=== PATIENT | female | born 1945 | race Caucasian/White ===

== ENCOUNTER 2019-07-13 08:32 | Outpatient (CLI) | payer MEDICARE, SELFPAY ==
[2019-07-13 09:35] LABS: MALB Creatinine Ratio 91.8 mg/g (0-30); Microalbumin Urine Random 92.6 mg/L
[2019-07-13 09:45] LABS: Alanine Aminotransferase 24 U/L (14-59); Albumin Level 3.7 g/dL (3.4-5.0); Alkaline Phosphatase 90 U/L (46-116); Anion Gap 12.5 mmol/L (7-16); Aspartate Amino Transferase 17 U/L (15-37); Bilirubin,Total 0.9 mg/dL (0.00-1.00); Blood Urea Nitrogen 38 mg/dL (7-18); Calcium 9.5 mg/dL (8.5-10.1); Carbon Dioxide 27 mmol/L (21-32); Chloride 105 mmol/L (98-108); Cholesterol 165 mg/dL (0-200); Estimated Glomerular Filt Rate 34; Free T4 Free Thyroxine 0.88 ng/dL (0.76-1.46); Glucose 318 mg/dL (70-99); HDL Direct 60 mg/dL (40-60); LDL Cholesterol Calculated 91 mg/dL (<130); Osmolality Calculated 311 mOsm/kg (285-295); Potassium 4.5 mmol/L (3.5-5.1); Sodium 140 mmol/L (136-145); Total Protein 7.8 g/dL (6.4-8.2); Triglycerides 68 mg/dL (0-150)
== END 2019-07-13 08:33 | disposition home or self-care (01) ==
LOC: CHSLAB 08:36
PROVIDERS: PCP Family Medicine; Visit Provider Internal Medicine Endocrinology, Diabetes & Metabolism
DX: E04.1 Nontoxic single thyroid nodule (principal); E11.9 Type 2 diabetes mellitus without complications
CPT/HCPCS: 36415; 80053; 80061; 82043; 84439; 84443

== ENCOUNTER 2019-07-14 08:50 | Outpatient (CLI) | payer MEDICARE, SELFPAY ==
--- NOTE | ~2019-07-14 | US_ITS ---
EXAMINATION: US thyroid DATE: 07/14/2019 09:45 INDICATION: Thyroid nodule. TECHNIQUE: Multiple ultrasound images of the thyroid were obtained. COMPARISON: Ultrasound 11/19/2017 FINDINGS: The right thyroid lobe measures 5.6 x 1.6 x 1.7 cm. The left thyroid lobe measures 4.7 x 1.6 x 1.5 c m. In the right thyroid lobe, there is a 15 mm solid, hypoechoic, grnwz-votl-vvqh nodule with ill-de fined margins with macrocalcifications (TI-RADS TR4). In the left thyroid lobe, there is a 7 mm solid , hypoechoic, pekre-niff-nwyc nodule with ill-defined margin and punctate echogenic foci (TR5). In th e left thyroid lobe, there is an 11 mm solid, very hypoechoic, tkwfb-xgib-hzgg nodule with ill-define d margin without echogenic foci (TR4). IMPRESSION: 1. Thyroid nodules. Ultrasound-guided fine-needle aspiration of the 15 mm right thyroid nodule is rec ommended. Reviewed, dictated and finalized at location A. ET COLLECTOR OR USHER IMPRESSION: 1. Thyroid nodules. Ultrasound-guided fine-needle aspiration of the 15 mm right thyroid nodule is recommended.
== END 2019-07-14 08:51 | disposition home or self-care (01) ==
PROVIDERS: PCP Family Medicine; Visit Provider Internal Medicine Endocrinology, Diabetes & Metabolism
DX: E11.9 Type 2 diabetes mellitus without complications (principal); E04.2 Nontoxic multinodular goiter
CPT/HCPCS: 76536

== ENCOUNTER 2019-07-14 08:53 | Outpatient (CLI) | payer MEDICARE, SELFPAY ==
--- NOTE | ~2019-07-14 | US_ITS ---
EXAMINATION: US pelvic complete w TV EXAM DATE: 07/14/2019 09:45 INDICATION: Initial cancer. Hysterectomy. TECHNIQUE: Pelvic transabdominal and transvaginal sonogram was performed. There are multiple graysca le and Doppler images available for interpretation. There is no prior study for comparison. FINDINGS: The uterus and ovaries are not identified. Vaginal cuff is unremarkable. No adnexal masses identified. IMPRESSION: 1. Unremarkable pelvic ultrasound exam. Reviewed, dictated and finalized at location B. PUSHER
== END 2019-07-14 08:54 | disposition home or self-care (01) ==
PROVIDERS: PCP Family Medicine; Visit Provider Obstetrics & Gynecology
DX: Z85.42 Personal history of malignant neoplasm of other parts of uterus (principal)
CPT/HCPCS: 76536; 76830; 76856

== ENCOUNTER 2019-07-25 09:57 | Outpatient (CLI) | payer MEDICARE, SELFPAY ==
--- NOTE | ~2019-07-25 | US_ITS ---
EXAMINATION: US FNA w image guidance DATE: 07/25/2019 11:12 INDICATION: Right thyroid nodule. TECHNIQUE: The procedure and its benefits, risks, and benefits were discussed with the patient. Risks specifical ly discussed included bleeding. The patient verbalized understanding of the risks and agreed to proce ed. The neck was prepped and draped in the usual sterile manner. 1% lidocaine was used for local ane sthesia. 5 passes were made with a 25G needle into the lesion. Appropriate needle location was docu mented with continuous sonographic guidance. There were no immediate complications. The patient unde rstood to call the ordering physician for results after a week and a half and verbalized that underst anding. FINDINGS: Grayscale ultrasound images demonstrate needles advanced into a 15 mm right thyroid nodule for biopsy . IMPRESSION: 1. Ultrasound-guided fine needle aspiration of a right thyroid nodule. Reviewed, dictated and finalized at location A. Y FARMER
== END 2019-07-25 09:58 | disposition home or self-care (01) ==
PROVIDERS: PCP Family Medicine; Visit Provider Internal Medicine Endocrinology, Diabetes & Metabolism
DX: E04.1 Nontoxic single thyroid nodule (principal)
CPT/HCPCS: 10005; 88108; 88173; 88305

== ENCOUNTER 2020-02-09 08:25 | Outpatient (CLI) | payer MEDICARE, SELFPAY ==
[2020-02-09 08:59] LABS: Creatinine Urine 98.59 mg/dL (40-278)
[2020-02-09 09:03] LABS: MALB Creatinine Ratio 330.3 mg/g (0-30); Microalbumin Urine Random 325.7 mg/L
[2020-02-09 09:25] LABS: Anion Gap 9 mmol/L (8-16); Blood Urea Nitrogen 30 mg/dL (7-18); Calcium 8.9 mg/dL (8.5-10.1); Carbon Dioxide 28 mmol/L (21-32); Chloride 106 mmol/L (98-108); Estimated Glomerular Filt Rate 34; Glucose 215 mg/dL (70-99); Osmolality Calculated 308 mOsm/kg (285-295); Potassium 4.4 mmol/L (3.5-5.1); Sodium 143 mmol/L (136-145)
[2020-02-09 09:34] LABS: Cholesterol 161 mg/dL (0-200); Triglycerides 85 mg/dL (0-150)
[2020-02-09 09:35] LABS: HDL Direct 52 mg/dL (40-60); LDL Cholesterol Calculated 92 mg/dL (<130)
== END 2020-02-09 08:26 | disposition home or self-care (01) ==
LOC: CHSLAB 08:27
PROVIDERS: Nurse Practitioner Family; PCP Family Medicine; Visit Provider Internal Medicine Endocrinology, Diabetes & Metabolism
DX: E10.65 Type 1 diabetes mellitus with hyperglycemia (principal); E78.5 Hyperlipidemia, unspecified
CPT/HCPCS: 36415; 80048; 80061; 82043

== ENCOUNTER 2020-11-22 09:57 | Outpatient (CLI) | payer MEDICARE, SELFPAY ==
--- NOTE | ~2020-11-22 | US_ITS ---
EXAMINATION: US thyroid DATE: 11/22/2020 11:00 INDICATION: Evaluate thyroid nodules TECHNIQUE: Multiple ultrasound images of the thyroid were obtained. COMPARISON: 07/14/2019 FINDINGS: The right thyroid lobe measures 5.8 x 1.7 x 1.8 cm. The left thyroid lobe measures 4.1 x 2.5 x 1.2 c m. There are multiple bilateral thyroid nodules. The most significant include an unchanged 1.4 cm wi cookie than tall solid isoechoic nodule with partially smooth, partially ill-defined margins and interna l coarse shadowing calcifications (TI-RADS 4) which was biopsied on 07/25/2019 with pathology read as consistent with benign follicular nodule. A couple small right thyroid nodules including an 8 mm wid er than tall solid hypoechoic nodule with smooth margins and internal echogenic foci (TI-RADS 5, high ly suspicious , FNA if >=1.0 cm, annual followup is >0.5 cm) and a 9 mm wider than tall solid hypoech oic nodule with ill-defined margins and without echogenic foci (TI-RADS 4, moderately suspicious , FN A if >=1.5 cm, annual followup is >=1 cm). In the mid left thyroid lobe there is an additional 1.2 cm wider than tall solid hypoechoic nodule with smooth margins and with internal echogenic focus (TI RA DS 5). 7 mm wider than tall solid very hypoechoic nodule with smooth margins and without echogenic fo ci at the deep left thyroid (TI RADS 4). IMPRESSION: 1. Multinodular goiter. Recommend ultrasound-guided biopsy of the 1.2 cm TI RADS 4 nodule in the mid left thyroid. Reviewed, dictated and finalized at location A. IMPRESSION: 1. Multinodular goiter. Recommend ultrasound-guided biopsy of the 1.2 cm TI RAD S 4 nodule in the mid left thyroid.
== END 2020-11-22 09:58 | disposition home or self-care (01) ==
PROVIDERS: PCP Family Medicine; Visit Provider Internal Medicine Endocrinology, Diabetes & Metabolism
DX: E04.9 Nontoxic goiter, unspecified (principal)
CPT/HCPCS: 76536

== ENCOUNTER 2022-03-05 09:27 | Outpatient (CLI) | payer MEDICARE, SELFPAY ==
[2022-03-05 11:04] LABS: MALB Creatinine Ratio 301.2 mg/g (0-30); Microalbumin Urine Random > 400.0 mg/L
[2022-03-05 11:28] LABS: Anion Gap 8 mmol/L (8-16); Blood Urea Nitrogen 40 mg/dL (7-18); Calcium 8.8 mg/dL (8.5-10.1); Carbon Dioxide 26 mmol/L (21-32); Chloride 113 mmol/L (98-108); Estimated Glomerular Filt Rate 19; Glucose 92 mg/dL (70-99); Osmolality Calculated 313 mOsm/kg (285-295); Sodium 147 mmol/L (136-145)
[2022-03-05 11:29] LABS: Cholesterol 218 mg/dL (0-200); HDL Direct 61 mg/dL (40-60); LDL Cholesterol Calculated 143 mg/dL (<130); Triglycerides 72 mg/dL (0-150); Vitamin B12 460 pg/mL (193-986)
== END 2022-03-05 09:28 | disposition home or self-care (01) ==
LOC: CHSLAB 09:30
PROVIDERS: PCP Internal Medicine Endocrinology, Diabetes & Metabolism; Visit Provider Internal Medicine Endocrinology, Diabetes & Metabolism
DX: E04.1 Nontoxic single thyroid nodule (principal); Z96.41 Presence of insulin pump (external) (internal); E10.65 Type 1 diabetes mellitus with hyperglycemia; E78.5 Hyperlipidemia, unspecified
CPT/HCPCS: 36415; 80048; 80061; 82043; 82607; 84443

== ENCOUNTER 2022-07-22 20:03 | Emergency (ER) | payer MEDICARE, SELFPAY ==
[2022-07-22] VITALS (17 sets, daily range): BP systolic 110–220; BP diastolic 51–110; PULSE 87–128; RESP 19–34; TEMP 36–36.6; O2SAT 98–100
--- NOTE | ~2022-07-22 | CT_ITS ---
EXAMINATION: CT brain wo con DATE: 07/22/2022 22:16 INDICATION: Expressive aphasia, elevated blood sugar, HTN today. . TECHNIQUE: Computed tomography (CT) of the head was performed without intravenous contrast. The mA wa s adjusted according to patient size. Iterative reconstruction technique was employed. The dose-lengt h product was 605.33 mGy-cm. COMPARISON: None. FINDINGS: No acute intracranial hemorrhage or extra-axial fluid collection. No hydrocephalus, mass, or herniation. No acute ischemic infarct. Unremarkable dural venous sinus attenuation. No acute osseous abnormality. The aerated spaces are clear. Mild atrophy and chronic white matter change. Atherosclerotic intracranial calcification. Bilateral b mariaa ganglia calcification. IMPRESSION: No acute intracranial process. Reviewed, dictated and finalized at location K. SCIENTISTS
--- NOTE | ~2022-07-22 | XR_ITS ---
EXAMINATION: XR chest 1V portable Exam Date/Time: 07/22/2022 21:10 JAVA DEVELOPER ARCHITECT HISTORY: Elevated white blood count, HTN, elevated blood sugar today. Comparison: 09/16/2017. RESULT: Lines, tubes, and devices: None. Lungs and pleura: Mild senescent change. Calcified pulmonary granulomas. Otherwise clear. Cardiomediastinal silhouette: Stable. Other: No acute osseous or upper abdominal finding. IMPRESSION: No acute cardiopulmonary process. Reviewed, dictated and finalized at location K. DEVELOPER ARCHITECT
--- NOTE | 2022-07-22 20:07 | ED.AMS ---
HPI - Altered Mental Status General Chief Complaint: Altered Mental Status Stated Complaint: ambulance Time Seen by Provider: 07/22/22 20:07 Source: patient, EMS and RN notes reviewed Mode of arrival: EMS Limitations: no limitations History of Present Illness HPI narrative: patient brought in by EMS call when out for elevated blood sugar. Family states this is how she gets when she has an elevated blood sugar. Patient has garbled speech and then EMS noted a significantly elevated blood pressure with the systolic of 202. Patient does not seem to have any difficulty moving her arms or legs. She does have some difficulty with expressive aphasia. Last known well is unknown. Family does report to the EMS that they had texted her this afternoon seemed to be fine. Again that time is unknown MD complaint: altered mental status and other ( High blood sugar) Onset (ago): unknown Timing confirmed by: family member Severity: moderate Consistency of symptoms: waxing and waning Context: history of similar presentation and diabetes Associated symptoms: denies other symptoms Related Data Home Medications Medication Instructions Recorded Confirmed albuterol sulfate 90 mcg/actuation 1 puff inhalation Q4H PRN 04/05/19 07/23/22 aerosol inhaler (Ventolin HFA) Shortness Of Breath Or Wheezing losartan 100 mg tablet 100 mg PO DAILY 07/23/22 07/23/22 Allergies Allergy/AdvReac Type Severity Reaction Status Date / Time lisinopril Allergy Unknown Cough Verified 07/22/22 20:26 Review of Systems Review of Systems: All systems reviewed & are unremarkable except as noted in HPI and below PMFSH Past Medical History Medical History (Updated 07/24/22 @ 13:08 by Yogi Claros MD) CKD (chronic kidney disease) stage 4, GFR 15-29 ml/min Diabetes mellitus type 1 Hyperlipidemia Hypertension Nontoxic multinodular goiter Surgical History Surgical History History of hysterectomy for cancer (~2014) Family History Family History Mother , Age 86 Breast cancer Uterine cancer Father , Age 47 Acute myocardial infarction Grandparent Parkinson's disease Other Asthma Family history of alcoholism Family history of malignant neoplasm of ovary Family history of mental disorder Social History Social History (Updated 07/23/22 @ 01:17 by Shannan Billings DO) Social History: Patient was an only child. She has 1 daughter. 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 Code status: Full code Surrogate decision maker: Daughter Smoking status: Never smoker Second hand tobacco smoke exposure: No Alcohol intake: current Substance use: never Spiritual care concerns: No Exam Const: General: healthy appearing, no acute distress and alert Nutritional Appearance: well nourished Limitations: other limitations ( expressive aphasia with nonsensical words) HENMT: Head: normal to inspection Ears: external ears normal Face and sinus: normal facial exam Mouth: Yes moist mucous membranes Eyes: Conjunctivae: conjunctivae normal Pupils: Equal, round and reactive pupils present EOM: EOMs intact bilaterally Neck: Neck: normal visual inspection Resp: Effort & Inspection: normal respiratory effort Auscultation: clear to auscultation bilaterally Cardio: Rate: tachycardic Rhythm: regular rhythm GI: GI Palp: Yes Soft to palpation and No Tenderness to palpation present (GI) Auscultation: normal bowel sounds Back/Spine/Pelvis: Cervical Spine: cervical ROM normal Thoracic/Lumbar Spine: thoraco-lumbar ROM normal Skin: General skin exam: normal color Rashes: no rashes Neuro: General: moves all extremities and no focal motor deficits Speech: Abnormal speech present garbled Details: expressive aphasia Other: when asked to follow commands patient just says okay Extrem: General: normal to inspection and
[2022-07-22 20:11] LABS: Glucose Point of Care > 450 mg/dl (65-105)
[2022-07-22] MEDS: INSULIN HUMAN REGULAR (*BKC) 1,000 UNITS/10 ML VIAL 10 UNITS IV PUSH (20:13)
[2022-07-22] MEDS: LACTATED RINGERS 1,000 ML 999 ML IV CONT ×3 (20:14→22:36)
[2022-07-22 20:22] LABS: Basophils Absolute Auto 0.04 K/mm3 (0.00-0.10); Basophils Percent Auto 0.3 % (0.0-1.0); Hematocrit 30.9 % (35.0-42.0); Hemoglobin 9.2 g/dL (11.7-13.8); Immature Granulocyte Absolute 0.39 K/mm3 (0.00-0.00); Immature Granulocyte Percent A 2.9 % (0.0-0.0); Lymphocytes Absolute Auto 0.71 K/mm3 (1.10-4.50); Lymphocytes Percent Auto 5.3 % (18.0-42.0); Mean Corpuscular HGB Conc 29.8 g/dL (32.0-36.0); Mean Corpuscular Volume 97.5 fL (78.0-102.0); Neutrophils Absolute Auto 11.9 K/mm3 (1.7-7.2); Neutrophils Percent Auto 88.5 % (50.0-70.0); Platelet Count Result 344 K/mm3 (150-420); Red Blood Count 3.17 M/mm3 (4.20-5.40); Red Cell Distribution Width 14.3 % (11.6-14.4); White Blood Count 13.4 K/mm3 (4.8-10.8)
--- NOTE | 2022-07-22 20:35 | PC.NURSE ---
Pt is restless and requiring sitter at side to keep from pulling at wires. Pt remains unable to follow commands or comprehend instructions at this time, BP remains elevated, order obtained for Labetalol.
[2022-07-22] MEDS: LABETALOL HCL INJ 100 MG/20 ML VIAL 10 MG IV PUSH (20:46)
[2022-07-22 20:48] LABS: Alanine Aminotransferase 15 U/L (14-59); Albumin Level 2.7 g/dL (3.4-5.0); Alkaline Phosphatase 110 U/L (46-116); Aspartate Amino Transferase 13 U/L (15-37); Bilirubin,Total 0.4 mg/dL (0.00-1.00); Blood Urea Nitrogen 101 mg/dL (7-18); CRP 2.9 mg/dL (0.0-0.9); Chloride 95 mmol/L (98-108); Estimated Glomerular Filt Rate 6; Magnesium 2.7 mg/dL (1.8-2.4); Sodium 134 mmol/L (136-145); Total Protein 7.3 g/dL (6.4-8.2)
[2022-07-22 20:51] LABS: Base Excess ABG -29.9 mmol/L (0-2); HCO3 ABG 1.9 mmol/L (23-29); Oxygen Content ABG 13.4 %vol (16.0-22.0); Oxygen Saturation ABG 97.9 % (95-97); Oxyhemoglobin 97.1 % (94-100); PO2 ABG 176.8 mmHg (75-85); Total Hemoglobin 9.5 g/dL (12.0-18.0)
[2022-07-22 20:58] LABS: Device ROOM AIR; Modified Allen's Test Pass; PCO2 ABG 11.3 mmHg (35-45); Site Drawn LEFT BRACHIAL; pH ABG 6.85 (7.35-7.45)
[2022-07-22 20:59] LABS: Carbon Dioxide < 5 mmol/L (21-32); Estimated CRCL calculation 8 ml/min; Osmolality Calculated 348 mOsm/kg (285-295); Potassium 6.7 mmol/L (3.5-5.1)
[2022-07-22] MEDS: INSULIN REG 100 UNITS/100 ML 100 UNITS/100 ML BAG IV CONT (21:03)
[2022-07-22 21:10] LABS: Glucose > 800 mg/dL (70-99)
--- NOTE | 2022-07-22 21:10 | PC.NURSE ---
Pt pulled out IV site per EMS and new site inserted per Binta Wu RN
[2022-07-22] MEDS: INSULIN REG 100 UNITS/100 ML 100 UNITS/100 ML BAG 22 UNITS IV CONT (21:12)
[2022-07-22] MEDS: SODIUM BICARBONATE 8.4% 50 MEQ/50 ML SYRINGE 100 MEQ IV PUSH (21:20)
[2022-07-22 21:26] LABS: Glucose Point of Care > 450 mg/dl (65-105)
[2022-07-22 22:35] LABS: Add Urine Microscopic? YES; Appearance Urine Clear (Clear); Bilirubin Urine 1+ (Negative); Blood Urine 2+ (Negative); Color Urine Light Yellow (Yellow); Glucose Urine UA 3+ (Negative); Ketones Urine 2+ (Negative); Leukocyte Esterase Ur Negative LEU/UL (Negative); Nitrate Urine Negative (Negative); Protein Urine 2+ (Negative); Specific Grav Ur >= 1.030 (1.010-1.020); Urobilinogen Urine 0.2 mg/dL (0.2-1.0); pH Urine 5.5 (5.0-8.0)
[2022-07-22 22:42] LABS: Amorphous Sediment Urine Few; Bacteria Urine Trace /hpf; Squamous Epithelial Cell Urine Rare /hpf (Few); WBC Urine 0-3 /hpf (0-3)
[2022-07-22 22:50] LABS: Anion Gap 33 mmol/L (8-16); Blood Urea Nitrogen 100 mg/dL (7-18); Calcium 8.4 mg/dL (8.5-10.1); Carbon Dioxide 8 mmol/L (21-32); Chloride 102 mmol/L (98-108); Estimated CRCL calculation 9 ml/min; Estimated Glomerular Filt Rate 7; Potassium 4.1 mmol/L (3.5-5.1); Sodium 143 mmol/L (136-145)
[2022-07-22 22:58] LABS: Glucose 787 mg/dL (70-99); Osmolality Calculated 365 mOsm/kg (285-295)
[2022-07-22] MEDS: LACTATED RINGERS 1,000 ML 200 ML IV CONT (23:26)
--- NOTE | 2022-07-22 23:30 | PC.NURSE ---
Call back from marla Silva bed assignment. Pt will go to ICU 7.
[2022-07-22 23:37] LABS: Base Excess ABG -16.6 mmol/L (0-2); HCO3 ABG 6.9 mmol/L (23-29); Oxygen Content ABG 11.6 %vol (16.0-22.0); Oxygen Saturation ABG 95.7 % (95-97); Oxyhemoglobin 93.5 % (94-100); PO2 ABG 86.3 mmHg (75-85); Total Hemoglobin 8.7 g/dL (12.0-18.0); pH ABG 7.35 (7.35-7.45)
[2022-07-22 23:38] LABS: SARS-CoV-2 Ag Negative (Negative)
[2022-07-22 23:39] LABS: Device ROOM AIR; Modified Allen's Test Pass; PCO2 ABG 12.8 mmHg (35-45); Site Drawn LEFT BRACHIAL
--- NOTE | 2022-07-22 23:52 | PC.NURSE ---
Report called to NIKUNJ Pinto and Dereck and paged [facility] for transfer to [place] ICU 7.
[2022-07-22 23:53] LABS: Reflex Lactic Acid Yes or No Add Lactic
[2022-07-22 23:58] LABS: Lactic Acid Reflex 8.6 mmol/L (0.4-2.0)
--- NOTE | 2022-07-23 | PC.NURSE ---
Per EMS [facility] can transfer pt c insulin gtt infusing, order obtained from ERP Dr Cline to continue gtt at 14Units/Hr (14ml/hr) on transfer to [place].
--- NOTE | 2022-07-23 00:07 | PC.NURSE ---
Pt transferred to EMS cot s incident. Pt is slightly more alert and able to answer some questions, still having some confusion present. VSS, IVF LR running at 200ml/hr and insulin gtt infusing as per protocol on transfer.
--- NOTE | 2022-07-29 12:38 | PC.NURSE ---
FINAL BLOOD CULTURE RESULT X 1 NO GROWTH AFTER 5 DAYS. NO ACTION NEEDED.
== END 2022-07-23 00:09 | disposition short-term general hospital (02) ==
PROVIDERS: Emergency Provider Emergency Medicine; PCP Obstetrics & Gynecology
DX: E10.10 Type 1 diabetes mellitus with ketoacidosis without coma (principal); I12.9 Hypertensive chronic kidney disease with stage 1 through stage 4 chronic kidney disease, or unspecified chronic kidney disease; E10.22 Type 1 diabetes mellitus with diabetic chronic kidney disease; N18.30 Chronic kidney disease, stage 3 unspecified; E78.5 Hyperlipidemia, unspecified; Z20.822 Contact with and (suspected) exposure to COVID-19
CPT/HCPCS: 36415; 36600; 70450; 71045; 80048; 80053; 81001; 82805; 82948; 83605; 83735; 85025; 86140; 87040; 87426; 96361; 96365; 96366; 96375; 96376; 99291; C9803; J1815; J7120

== ENCOUNTER 2022-07-23 00:52 | Inpatient (IN) | payer MEDICARE, SELFPAY ==
[2022-07-23] VITALS (18 sets, daily range): BP systolic 152–188; BP diastolic 60–84; PULSE 77–103; RESP 15–21; TEMP 36.4–37.1; O2SAT 98–100; BMI 21.0; BMI 21.4
--- NOTE | ~2022-07-23 | US_ITS ---
EXAMINATION: US carotid duplex BI DATE: 07/24/2022 12:48 INDICATION: New stroke. Cerebral atherosclerosis. TECHNIQUE: Grayscale, color Doppler, and pulsed Doppler images of the cervical carotid arteries were obtained. The degree of vessel stenosis is placed in one of the following categories: normal, <50%, 5 0-69%, >=70% but less than near-occlusion, near-occlusion, or total occlusion. Note that percent sten osis relative to normal distal artery lumen diameter is indirectly measured from velocity measurement s as described by Chin, et al. Radiology 2003; 229:340-346. COMPARISON: None. FINDINGS: RIGHT: The right common carotid artery (CCA) peak systolic velocity (PSV) is 115 cm/s. The right internal ca rotid artery (ICA) PSV is 122 cm/s. The right ICA end-diastolic velocity (EDV) is 25 cm/s. The right ICA/CCA PSV ratio is 1.1. Grayscale and color Doppler images yield an estimate of <50% diameter reduc tion from plaque in the ICA. The external carotid artery (ECA) PSV is 125 cm/s. There is antegrade fl ow in the right vertebral artery. LEFT: The left CCA PSV is 121 cm/s. The left ICA PSV is 122 cm/s. The left ICA EDV is 19 cm/s. The left ICA /CCA PSV ratio is 1.0. Grayscale and color Doppler images yield an estimate of <50% diameter reductio n from plaque in the ICA. The ECA PSV is 176 cm/s. There is antegrade flow in the left vertebral araceli ry. IMPRESSION: 1. <50% stenosis in the right internal carotid artery. 2. <50% stenosis in the left internal carotid artery. Reviewed, dictated and finalized at location A. MASTER CERTIFIED RV TECHNICIAN
--- NOTE | ~2022-07-23 | CT_ITS ---
Non-contrast CT scan of the Abdomen and Pelvis Clinical indication: Abdominal guarding Technique: 5 mm axial scans were obtained through the abdomen and pelvis without intravenous or oral contrast. Dose reduction technique was used on this scan by utilizing automated exposure control and iterative reconstruction technique. The dose-length product (DLP) was 454.61 mGy-cm. Findings: Images through the lung bases reveal no abnormalities. The liver, kidneys, pancreas, gallbladder, and adrenals appear normal. Calcified splenic granulomas n oted. There is no aortic aneurysm. There is no evidence of bowel obstruction. Images through the pelvis were performed. There is no evidence of ascites or lymphadenopathy. Urinary bladder collapsed around a Verdin catheter. Patient is probably post hysterectomy. No pelvic mass mo ntified. Impression: No significant abnormality seen. Reviewed, dictated and finalized at [facility]. ION PHOTOGRAPHER Impression: No significant abnormality seen.
--- NOTE | ~2022-07-23 | US_ITS ---
US renal BI 07/23/2022 08:59 Procedure: Realtime transabdominal ultrasound of the kidneys and bladder. Indication: Acute renal atrophy. Chronic kidney disease. Comparison: No prior studies for comparison. Findings: Renal echotexture is normal bilaterally without hydronephrosis, contour deforming mass or r enal calculus. There is a left renal cyst measuring 1.2 cm. The right kidney measures 9 cm and left k idney measures 8.9 cm. Bladder is decompressed by Verdin catheter. Impression: 1: Left renal cyst measuring 1.2 cm. Reviewed, dictated and finalized at location B. F GAUGER Impression: 1: Left renal cyst measuring 1.2 cm.
--- NOTE | ~2022-07-23 | MR_ITS ---
MRI of the brain Clinical History: Confusion Technique: Axial and sagittal T1-weighted images were acquired. These were followed by axial T2-weigh liat, diffusion weighted, gradient, and FLAIR images. Findings: There is a fairly extensive restricted diffusion involving the posterior left temporal lobe , compatible with acute infarct. No intracranial hemorrhage identified. Small chronic lacunar infarct noted in the right basal ganglia. There are mild chronic white matter changes in the periventricular white matter bilaterally. Ventricles and subarachnoid spaces are unremarkable. Orbits are unremarkable. Paranasal sinuses and m astoid air cells are clear. Possible cut off of the proximal left posterior cerebral artery. Sagittal midline structures are intact. IMPRESSION: Large acute infarct involving the posterior left temporal lobe, with possible cutoff of the left post erior cerebral artery. Minimal chronic white matter changes. Case discussed with Dr. Pichardo at the time of this reading. Reviewed, dictated and finalized at location M. MAKING FINISHER IMPRESSION: Large acute infarct involving the posterior left temporal lobe, with possible c utoff of the left posterior cerebral artery. Minimal chronic white matter changes. Case discussed with Dr. Pichardo at the time of this reading.
--- NOTE | 2022-07-23 00:39 | PM.IMHP ---
H&P: HPI History of Present Illness Date/Time: 07/23/22 00:39 Chief Complaint: Altered mental status Narrative: 76-year-old female with a past medical history of type 1 diabetes mellitus on insulin pump, essential hypertension and chronic kidney disease who presented to the ER at [place] due to altered mental status and high blood sugar readings. Source of information comes from past medical records and ER records. The patient is altered and confused and unable to provide history. Evidently the patient had been talking normal to her family on the phone in the early afternoon. A couple of hours later she was not responding to their text messages. They went to check on her and found her with garbled speech and unable to follow commands. She had several syringes around her at looks like she was either trying to give herself insulin or may be feel her insulin pump. The patient did not have her pump on when she arrived to the outside ER. She arrived to the ER via EMS. On arrival to the ER her glucose on BMP was greater than 800 after couple of hours of insulin and almost 3 L of fluid the patient's glucose came down to 787. Her initial ABG demonstrated pH of 6.85.. She received a total of 3 L of LR at the outside facility 10 units of IV insulin, was placed on an insulin drip and 2 amps of bicarb. Approximately 3 hours later her ABG demonstrated pH of 7.35. Her initial BMP had a serum bicarb less than 5 repeat BMP bicarb was 8. She was initially hyperkalemic with a potassium of 6.7 but came down to 4.1. Her BUN was 101 and creatinine was 6.39 up from her baseline of 2.5. Her lactic acid was markedly elevated at 9 with a repeat that only improved 8.6. The patient had tested positive for COVID 8 days ago. She was satting 100% on room air. On initial arrival to outside ER patient's blood pressures were 210/100. The patient received 1 dose of IV labetalol 10 mg and repeat blood pressures were in the low 100 systolic. Patient's blood pressures are within target range currently will continue to monitor. On arrival to our ICU the patient was lying in bed in no acute distress. However when he is asked the patient her last name she initially did not answer. When I asked her again what her name was she gave near full name. Then when I asked her every other orientation questions she continued to tell me her 1st and last name. She was not following commands at the time of my evaluation but a few hours later patient was following some commands for nursing staff but still was only giving one-word answers. At the time of my evaluation the patient was grimacing when I palpated her abdomen. She seemed to have some involuntary guarding. Subsequently she went for a stat CT of the abdomen and pelvis. Unfortunately we could not use contrast due to the patient's acute on chronic kidney injury. So on limited CT of the abdomen pelvis was negative for any significant acute process. Stomach was under distended which could be consistent with gastritis. Review of Systems Review of Systems: ROS unobtainable: Yes unobtainable due to mental status [facility] Past Medical History Medical History (Updated 07/23/22 @ 04:26 by Shannan Billings DO) CKD (chronic kidney disease) stage 4, GFR 15-29 ml/min Diabetes mellitus type 1 Hyperlipidemia Hypertension Nontoxic multinodular goiter Surgical History Surgical History History of hysterectomy for cancer (~2015) Family History Family History (Updated 07/23/22 @ 01:13 by Shannan Billings DO) Mother , Age 86 Breast cancer Uterine cancer Father , Age 47 Acute myocardial infarction Grandparent Parkinson's disease Other Asthma Family history of alcoholism Family history of malignant neoplasm of ovary Family history of mental disorder Social History Social History (Updated 07/23/22 @ 01:17 by Shannan Billings DO) Social History
[2022-07-23 00:57] LABS: Glucose Point of Care 432 mg/dl (65-105)
[2022-07-23] MEDS: INSULIN HUMAN REGULAR (*BKC) 100 UNITS in SODIUM CHLORIDE 0.9% IV 99 ML 7.4 UNITS IV CONT (01:00)
[2022-07-23] MEDS: SODIUM CHLORIDE 0.9% IV 1,000 ML 150 ML IV CONT (01:17)
--- NOTE | 2022-07-23 01:26 | ADMGEN ---
This patient, Dalila Redd, was admitted to Intensive Care Unit-7. Patient/family oriented to hospital policies and general routines including ID bracelet, bed and alarms, visiting hours, pain management, procedures, bathroom and other care routines, personal items, smoking policy, room service/diet, and visiting hours. Information on how to activate the Rapid Response Team has been discussed. Patient/Family are encouraged to report perceived risks to care and to ask questions if they do not understand what they are told or what they should do.
[2022-07-23] MEDS: hydrALAZINE HCL 20 MG/ML VIAL 10 MG IV PUSH ×3 (01:46→11:00)
[2022-07-23 01:49] LABS: Appearance Urine Clear (Clear); Bilirubin Urine 2+ (Negative); Blood Urine 2+ (Negative); Glucose Urine UA 3+ mg/dL (Negative); Ketones Urine 2+ mg/dL (Negative); Leukocyte Esterase Ur Negative LEU/UL (NEGATIVE); Nitrate Urine Negative (Negative); Protein Urine 3+ mg/dL (Negative); Specific Grav Ur 1.015 (1.001-1.035); Urobilinogen Urine 0.2 mg/dL (<2.0)
[2022-07-23 01:55] LABS: Mucus Urine Rare /lpf; RBC Urine 0-2 /hpf (0-2); Squamous Epithelial Cell Urine Rare /hpf (Few)
[2022-07-23 01:56] LABS: Add Urine Microscopic? YES; Color Urine Light Yellow (Yellow)
[2022-07-23] MEDS: SODIUM CHLORIDE 0.9% IV 1,000 ML 500 ML IVPB (02:06)
[2022-07-23 02:09] LABS: Glucose Point of Care 347 mg/dl (65-105)
[2022-07-23 02:52] LABS: Anion Gap 15 mmol/L (8-16); Blood Urea Nitrogen 80 mg/dL (7-17); Calcium 8.3 mg/dL (8.4-10.2); Carbon Dioxide 17 mmol/L (22-30); Chloride 112 mmol/L (98-107); Estimated CRCL calculation 8 ml/min; Estimated Glomerular Filt Rate 9; Glucose 315 mg/dL (65-110); Lipase 1403 U/L (23-300); Phosphorus 2.8 mg/dL (2.5-4.5); Potassium 3.5 mmol/L (3.4-5.0); Sodium 144 mmol/L (137-145)
[2022-07-23 02:55] LABS: Hemoglobin A1C 8.8 % (<5.7)
[2022-07-23 03:04] LABS: Lactic Acid Reflex 6.4 mmol/L (0.7-2.0)
[2022-07-23 03:06] LABS: Glucose Point of Care 298 mg/dl (65-105)
[2022-07-23 04:05] LABS: Glucose Point of Care 271 mg/dl (65-105)
[2022-07-23] MEDS: METOPROLOL TARTRATE INJ 5 MG/5 ML VIAL IV PUSH ×2 (04:31→09:17)
[2022-07-23] MEDS: KCL 20 MEQ/D5/0.45% SOD CHL 1,000 ML 150 ML IV CONT (05:06)
[2022-07-23 05:10] LABS: Glucose Point of Care 193 mg/dl (65-105)
[2022-07-23] MEDS: MORPHINE SULFATE (*CRX) 2 MG/ML INJ IV PUSH (05:16)
[2022-07-23] MEDS: KCL 20 MEQ/SW 100 ML 50 MEQ IVPB ×2 (05:32→07:42)
[2022-07-23 06:12] LABS: Glucose Point of Care 161 mg/dl (65-105)
[2022-07-23 07:04] LABS: Glucose Point of Care 134 mg/dl (65-105)
[2022-07-23 07:15] LABS: Basophils Percent Auto 0.1 % (0.2-1.2); Hematocrit 21.3 % (37.0-47.0); Hemoglobin 7.4 g/dL (12.0-15.0); Immature Granulocyte Absolute 0.06 K/mm3 (0.00-0.031); Immature Granulocyte Percent A 0.8 % (0-0.5); Lymphocytes Percent Auto 3.9 % (18.3-44.2); Mean Corpuscular HGB Conc 34.7 g/dl (32-36); Mean Corpuscular Hemoglobin 28.9 pg (26-34); Mean Corpuscular Volume 83.2 fl (80-100); Mean Platelet Volume 9.9 fl (7.4-10.4); Monocytes Absolute Auto 0.6 K/mm3 (0.1-0.6); Monocytes Percent Auto 7.7 % (2.6-8.5); Neutrophils Absolute Auto 6.8 K/mm3 (1.3-6.7); Neutrophils Percent Auto 87.5 % (45.5-73.1); Platelet Count Result 137 k/mm3 (150-375); Red Blood Count 2.56 M/mm3 (4.2-5.4); White Blood Count 7.8 K/mm3 (4.5-10.0)
[2022-07-23 07:25] LABS: Anion Gap 7 mmol/L (8-16); Blood Urea Nitrogen 75 mg/dL (7-17); Calcium 7.9 mg/dL (8.4-10.2); Carbon Dioxide 21 mmol/L (22-30); Chloride 116 mmol/L (98-107); Estimated CRCL calculation 9 ml/min; Estimated Glomerular Filt Rate 10; Glucose 143 mg/dL (65-110); Lactic Acid Reflex 2.7 mmol/L (0.7-2.0); Potassium 3.4 mmol/L (3.4-5.0); Sodium 144 mmol/L (137-145)
[2022-07-23 08:03] LABS: Glucose Point of Care 141 mg/dl (65-105)
--- NOTE | 2022-07-23 08:08 | WPDCNINT ---
Assessment and Plan Assessment and plan (1) Diabetic keto-acidosis: Qualifiers: Diabetes mellitus complication detail: without coma Diabetes mellitus type: type 1 Qualified Code(s): E10.10 - Type 1 diabetes mellitus with ketoacidosis without coma Code(s): E11.10 - Type 2 diabetes mellitus with ketoacidosis without coma Status: Acute Assessment and Plan: Patient presented to the ER at [facility] on 07/22/2022 with complains of elevated blood sugars and altered mental status. Blood sugars in the ER by 800, pH of 6.85, creatinine 6.39, potassium of 6.7. -Patient has received a total of 4 L of IV fluid bolus -currently on insulin infusion and IV fluids per DKA protocol -this morning patient's anion gap is 7, will transition to long-acting insulin and sliding scale insulin -hemoglobin A1c is 8.8 this admission. -will consult dietitian and road gang supervisor (2) Acute renal failure superimposed on stage 4 chronic kidney disease: Qualifiers: Acute renal failure type: unspecified Qualified Code(s): N17.9 - Acute kidney failure, unspecified; N18.4 - Chronic kidney disease, stage 4 (severe) Code(s): N17.9 - Acute kidney failure, unspecified; N18.4 - Chronic kidney disease, stage 4 (severe) Status: Acute Assessment and Plan: Acute on chronic kidney disease, likely related to diabetic ketoacidosis, hypovolemia, patient on losartan at home for her blood pressures -creatinine is trending down -will give additional IV fluids -continue to monitor renal function, electrolytes and urine output -will check CK level, urine lytes, urine eosinophils -renal ultrasound has been ordered (3) Encephalopathy: Code(s): G93.40 - Encephalopathy, unspecified Status: Acute Assessment and Plan: Encephalopathy likely related to metabolic abnormalities -07/22/2022 CT scan of the brain was negative -will monitor mental status, if does not improve will obtain MRI and Neurology consult (4) Anemia: Code(s): D64.9 - Anemia, unspecified Status: Acute Assessment and Plan: Due to 7.4 this morning, from 9.2 on admission -check iron panel, folic acid, vitamin B12, LDH -check stool for occult blood -will monitor H&H and transfuse if hemoglobin < 7.0 -will start Protonix IV q.12 hours Plan DVT prophylaxis: SCDs, no chemoprophylaxis due to anemia Stress ulcer prophylaxis: Protonix IV q.12 hours Nutrition: Currently NPO Code Status: Full code Critical Care Time Spent: 45 minutes Due to a high probability of clinically significant, life threatening deterioration, the patient required my highest level of preparedness to intervene emergently and I personally spent this critical care time directly and personally managing the patient. This critical care time included obtaining a history; examining the patient; pulse oximetry; ordering and review of studies; arranging urgent treatment with development of a management plan; evaluation of patient's response to treatment; frequent reassessment; and discussions with other providers. It was exclusive of separately billable procedures and treating other patients and teaching time. Please see Assessment and Plan section and the rest of the note for further information on patient assessment and treatment This dictation may have been done utilizing a voice recognition system. Attempts have been made to correct errors. However, there may be uncorrected grammatical, spelling, and recognitions errors present. Handy Worker Consult Note Consult date: 07/23/22 Reason for consult: Diabetic ketoacidosis, altered mental status, severe metabolic acidosis, acute kidney injury HPI: Dalila Redd is a 76 year old female with past medical history of diabetes type 1 on insulin pump, essential hypertension, chronic kidney disease, hyperlipidemia presented the ED and [facility] with altered mental status
[2022-07-23 08:36] LABS: Thyroid Stimulating Hormone Reflex 0.102 uIU/mL (0.465-4.68)
[2022-07-23] MEDS: cloNIDine 0.2 MG/24 HR PATCH 1 PATCH TRANSDERM (08:43)
[2022-07-23] MEDS: SODIUM CHLORIDE 0.9% IV 500 ML IV CONT ×2 (08:47→10:41)
[2022-07-23] MEDS: INSULIN GLARGINE (*BKC) 100 UNITS/ML 22 UNITS SUB-Q (08:54)
[2022-07-23] MEDS: HEPARIN SODIUM 5,000 UNITS/ML VIAL 5000 UNITS SUB-Q ×2 (08:58→20:21)
[2022-07-23] MEDS: FAMOTIDINE 20 MG/2 ML VIAL IV PUSH (08:58)
[2022-07-23 09:06] LABS: Free T4 Free Thyroxine Reflex 1.53 ng/dL (0.78-2.19)
[2022-07-23 09:16] LABS: Glucose Point of Care 124 mg/dl (65-105)
[2022-07-23 09:17] LABS: Creatine Kinase 251 U/L (30-135); Lactate Dehydrogenase 227 U/L (120-246)
[2022-07-23 10:24] LABS: Folic Acid 5.4 ng/mL (2.76->20)
[2022-07-23 10:26] LABS: Iron 12 ug/dL (37-170); Percent Iron Saturation 6 % (20-50)
[2022-07-23 10:50] LABS: Lactic Acid Reflex 1.5 mmol/L (0.7-2.0)
[2022-07-23 10:54] LABS: Creatinine Urine 49.1 mg/dL; Potassium Urine Random 28.3 meq/L; Sodium Urine Random 96 meq/L
[2022-07-23 10:59] LABS: Glucose Point of Care 99 mg/dl (65-105)
[2022-07-23 11:21] LABS: Eosinophil Urine None Seen % (None Seen)
[2022-07-23 11:23] LABS: Urine Eos QC 2nd Tech Confirmed
[2022-07-23 11:51] LABS: Glucose Point of Care 94 mg/dl (65-105)
[2022-07-23 12:19] LABS: Total Triiodothyronine (T3) 0.93 NG/ML (0.97-1.69)
[2022-07-23 12:29] LABS: Anion Gap 3 mmol/L (8-16); Blood Urea Nitrogen 72 mg/dL (7-17); Calcium 7.8 mg/dL (8.4-10.2); Carbon Dioxide 24 mmol/L (22-30); Chloride 114 mmol/L (98-107); Estimated CRCL calculation 10 ml/min; Estimated Glomerular Filt Rate 12; Glucose 114 mg/dL (65-110); Potassium 3.8 mmol/L (3.4-5.0); Sodium 141 mmol/L (137-145)
[2022-07-23] MEDS: amLODIPine BESYLATE 2.5 MG, amLODIPine BESYLATE 5 MG 7.5 MG PO (14:38)
--- NOTE | 2022-07-23 15:20 | PM.IMPN ---
Subjective Date/time seen: 07/23/22 15:20 Pt seen and examined seen by mata this morning. Past medical history of type 1 diabetes mellitus on insulin pump, essential hypertension and chronic kidney disease who presented to the ER at [place] due to altered mental status and high blood sugar readings.? Source of information comes from past medical records and ER records. Pt stable to transfer to medical floor insulin drip stopped pt on lantus Acute on chronic kidney disease consult nephrology continue fluids Watch hb, hb remains around 7 may benefit from blood transfusion if hb drops below 7 Objective Data Vital Signs Vital Signs: Vital Signs - 24 hr 07/23/22 01:00 07/23/22 01:00 07/23/22 01:00 Temperature 37.1 C Pulse Rate 95 95 Respiratory Rate 21 H 19 Blood Pressure 165/63 H Pulse Oximetry 100 100 Oxygen Delivery Room Air 07/23/22 01:30 07/23/22 01:45 07/23/22 02:00 Temperature Pulse Rate 95 Respiratory Rate Blood Pressure 156/81 H 174/81 H Pulse Oximetry Oxygen Delivery 07/23/22 02:00 07/23/22 04:31 07/23/22 04:00 Temperature Pulse Rate 95 103 H 103 H Respiratory Rate 20 Blood Pressure 152/75 H Pulse Oximetry 100 Oxygen Delivery 07/23/22 04:00 07/23/22 06:00 07/23/22 06:00 Temperature 37.0 C Pulse Rate 103 H 89 89 Respiratory Rate 19 15 Blood Pressure 171/70 H 181/84 H Pulse Oximetry 100 100 Oxygen Delivery 07/23/22 06:30 07/23/22 07:49 07/23/22 09:17 Temperature 36.9 C Pulse Rate 91 86 89 Respiratory Rate 16 Blood Pressure 159/60 H 165/70 H Pulse Oximetry 99 Oxygen Delivery 07/23/22 08:00 07/23/22 08:00 07/23/22 10:00 Temperature Pulse Rate 86 85 Respiratory Rate Blood Pressure Pulse Oximetry Oxygen Delivery Room Air 07/23/22 10:00 07/23/22 12:00 07/23/22 12:00 Temperature 36.9 C Pulse Rate 83 84 85 Respiratory Rate 16 18 Blood Pressure 177/75 H 155/66 H Pulse Oximetry 98 98 Oxygen Delivery 07/23/22 12:00 07/23/22 14:00 07/23/22 14:00 Temperature Pulse Rate 85 85 Respiratory Rate 16 Blood Pressure 188/78 H Pulse Oximetry 98 Oxygen Delivery Room Air 07/23/22 14:00 Temperature Pulse Rate 79 Respiratory Rate 18 Blood Pressure 188/78 H Pulse Oximetry 99 Oxygen Delivery Intake/Output Intake/Output: Intake & Output 07/20/22 07/21/22 07/22/22 07/23/22 23:59 23:59 23:59 23:59 Intake Total 2230 Output Total 450 Balance 1780 Meds/Results Medications: Active Medications Generic Name Dose Route Start Last Admin Trade Name Freq PRN Reason Stop Dose Admin Amlodipine Besylate 2.5 mg/ 7.5 mg 07/23/22 13:30 07/23/22 14:38 Amlodipine Besylate 5 mg PO 7.5 mg DAILY MACI Administration Clonidine HCl 1 patch 07/23/22 09:00 07/23/22 08:43 Clonidine 0.2 Mg/24 Hr Patch TRANSDERM 1 patch WEEKLY MACI Administration Dextrose 12.5 gm 07/23/22 00:52 Dextrose 50% 25 Gm/50 Ml Syringe IV PUSH PRN PRN Hypoglycemia Protocol Glucagon 1 mg 07/23/22 00:52 Glucagon For Inj 1 Mg Vial IM PRN PRN Hypoglycemia Protocol Glucose 15 gm 07/23/22 00:52 Glucose Oral Gel 15 Gm Of Glucse In 37.5 Gm Tube PO PRN PRN Hypoglycemia Protocol Heparin Sodium (Porcine) 5,000 units 07/23/22 09:00 07/23/22 08:58 Heparin Sodium 5,000 Units/Ml Vial SUB-Q 5,000 units Q12HR MACI Administration Hydralazine HCl 10 mg 07/23/22 06:04 07/23/22 11:00 Hydralazine Hcl 20 Mg/Ml Vial IV PUSH 10 mg Q4H PRN Administration P.r.n. SBP greater than 160 Dextrose 1,000 mls @ 100 mls/hr 07/23/22 00:52 Dextrose 5% 1,000 Ml IVPB PRN PRN Hypoglycemia Protocol Acetaminophen 1,000 mg in 100 mls @ 400 mls/hr 07/23/22 05:10 Ofirmev 1,000 Mg Ivpb IVPB 07/24/22 05:09 Q6H PRN Pain Rated 4-6 Insulin Aspart 3 - 6 units 07/23/22 17:00 Insulin Aspart (*Bkc)
[2022-07-23] MEDS: SODIUM CHLORIDE 0.9% IV 1,000 ML 75 ML IV CONT (16:06)
[2022-07-23 16:33] LABS: Glucose Point of Care 134 mg/dl (65-105)
--- NOTE | 2022-07-23 17:00 | P.CONNP_ITS ---
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 * renal function improving with current interventions * evaluation to date: * urine electrolytes non-prerenal * renal ultrasound without obstruction * CPK mildly elevated but not high enough to affect kidney function * urine eosinophils negative * follow trend of repeat labs and UOP (2) Chronic kidney disease, stage IV (severe): Code(s): N18.4 - Chronic kidney disease, stage 4 (severe) Status: Chronic Assessment and Plan: * creatinine 2.51mg/dl in March 2022 * creatinine 1.5 - 1.6mg in 2019 * presumably due to DM, HTN, vascular disease, and age (3) Diabetic keto-acidosis: Qualifiers: Diabetes mellitus complication detail: without coma Diabetes mellitus type: type 1 Qualified Code(s): E10.10 - Type 1 diabetes mellitus with ketoacidosis without coma Code(s): E11.10 - Type 2 diabetes mellitus with ketoacidosis without coma Status: Inactive Assessment and Plan: * resolved * off insulin gtt * transitioning to SQ insulin (long acting and SSI) (4) Encephalopathy: Code(s): G93.40 - Encephalopathy, unspecified Status: Acute Assessment and Plan: * due to DKA versus something else (?) * head CT negative * planning MRI if no improvement in symptoms (5) Anemia: Code(s): D64.9 - Anemia, unspecified Status: Acute Assessment and Plan: * drop in H/H noted * follow-up on iron studies * check stool guaiac * PRBC transfusion per protocol * follow trend in H/H Will continue to follow. History of Present Illness Reason for Consult Consult date: 07/23/22 Reason for consult: acute renal failure (on chronic kidney disease) Chief Complaint Chief complaint: DKA History of Present Illness Narrative: Most of the information I have obtained is from review of the electronic medical record as well as discussion with the physician/ nurses involved in her care as the patient appears to be somewhat confused and unable to provide much history as to the events that led to her presentation to the hospital. The patient is a 76-year-old female with a past medical history as outlined below who presented to the emergency room at [facility] with altered mental status and significant hyperglycemia. Subsequent workup and evaluation at the outside hospital emergency room led to the diagnosis of diabetic ketoacidosis. Due to the fact that she also had significant acute kidney injury/acute renal failure, the patient was transferred to [facility] ICU for further management. From review of her records, her blood sugar at the outside hospital emergency room was around 800 and she was given a total of 3 L of IV fluids and initiated on an IV insulin drip. Her ABG showed a pH of 6.85 and she was given 2 amps of bicarb for that finding. Upon arrival to [facility] ICU, her repeat ABG showed a pH of 7.35. Repeat labs also demonstrated significant acidosis with a CO2 that was quite low, a potassium of 6.7, and a creatinine of 6.39. She was given further IV fluid boluses while ICU. Her mentation, which was altered on presentation to the outside hospital ER, did not really significant improve while she has been here and [facility] ICU. She does open her eyes and answers a few questions but has the same repetitive res
--- NOTE | 2022-07-23 17:00 | PM.CNNEP ---
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 with current interventions evaluation to date: urine electrolytes non-prerenal renal ultrasound without obstruction CPK mildly elevated but not high enough to affect kidney function urine eosinophils negative follow trend of repeat labs and UOP (2) Chronic kidney disease, stage IV (severe): Code(s): N18.4 - Chronic kidney disease, stage 4 (severe) Status: Chronic Assessment and Plan: creatinine 2.51mg/dl in March 2022 creatinine 1.5 - 1.6mg in 2019 presumably due to DM, HTN, vascular disease, and age (3) Diabetic keto-acidosis: Qualifiers: Diabetes mellitus complication detail: without coma Diabetes mellitus type: type 1 Qualified Code(s): E10.10 - Type 1 diabetes mellitus with ketoacidosis without coma Code(s): E11.10 - Type 2 diabetes mellitus with ketoacidosis without coma Status: Inactive Assessment and Plan: resolved off insulin gtt transitioning to SQ insulin (long acting and SSI) (4) Encephalopathy: Code(s): G93.40 - Encephalopathy, unspecified Status: Acute Assessment and Plan: due to DKA versus something else (?) head CT negative planning MRI if no improvement in symptoms (5) Anemia: Code(s): D64.9 - Anemia, unspecified Status: Acute Assessment and Plan: drop in H/H noted follow-up on iron studies check stool guaiac PRBC transfusion per protocol follow trend in H/H Will continue to follow. History of Present Illness Reason for Consult Consult date: 07/23/22 Reason for consult: acute renal failure (on chronic kidney disease) Chief Complaint Chief complaint: DKA History of Present Illness Narrative: Most of the information I have obtained is from review of the electronic medical record as well as discussion with the physician/ nurses involved in her care as the patient appears to be somewhat confused and unable to provide much history as to the events that led to her presentation to the hospital. The patient is a 76-year-old female with a past medical history as outlined below who presented to the emergency room at [facility] in [place] with altered mental status and significant hyperglycemia. Subsequent workup and evaluation at the outside hospital emergency room led to the diagnosis of diabetic ketoacidosis. Due to the fact that she also had significant acute kidney injury/acute renal failure, the patient was transferred to [facility] ICU for further management. From review of her records, her blood sugar at the [facility] emergency room was around 800 and she was given a total of 3 L of IV fluids and initiated on an IV insulin drip. Her ABG showed a pH of 6.85 and she was given 2 amps of bicarb for that finding. Upon arrival to [facility] ICU, her repeat ABG showed a pH of 7.35. Repeat labs also demonstrated significant acidosis with a CO2 that was quite low, a potassium of 6.7, and a creatinine of 6.39. She was given further IV fluid boluses while ICU. Her mentation, which was altered on presentation to the [facility] ER, did not really significant improve while she has been here and [facility] ICU. She does open her eyes and answers a few questions but has the same repetitive response of okay. Imaging here at [facility] demonstrated clear chest x-ray and a CT scan of her brain as well as her abdomen and pelvis did not show any other acute pathology. With ongoing interventions, her lactic acid is trending down as is her creatinine although she remains somewhat anemic and her elevated white blood cell count has resolved. Her anion gap has closed and sh
--- NOTE | 2022-07-23 17:01 | PC.NURSE ---
This patient, Dalila Redd, was transferred to [facility] on 07/23/22 at 1700. Personal belongings sent with patient. Report given to NIKUNJ Hutson. Appropriate documentation sent with patient.
--- NOTE | 2022-07-23 18:19 | PC.NURSE ---
This patient, Dalila Redd, was received from ICU -7 on 07/23/22 at 1655. Patient/family oriented to unit policies and routines
[2022-07-23] MEDS: PANTOPRAZOLE SODIUM IV 40 MG VIAL IV PUSH (20:21)
[2022-07-23 21:10] LABS: Glucose Point of Care 197 mg/dl (65-105)
--- NOTE | 2022-07-24 | ECHO_ITS ---
Patient Info Name: Dalila Redd Age: 76 years : 1945 Gender: Female Ht: 64 in Wt: 125 lbs BSA: 1.60 m2 HR: 99 bpm BP: 195 / 78 mmHg Technical Quality: Good Exam Date: 07/24/2022 12:42 PM Exam Location: [facility] Patient Status: Inpatient Admit Date: 07/23/2022 Staff Ordering Physician: Lynda Pichardo MD Geospatial Specialist: Vijay Guerra RDCS, RT Attending Provider: Shannan Billings DO Referring Physician: Kylee GIANG; Exam Type: CA echo dop bubble study w con Study Info Indications I63.119 - Cerebral infarction due to embolism of unspecified vertebral artery Complete two-dimentional, color flow and Doppler transthoracic echocardiogram is performed with agitated saline and with contrast to opacify the left ventricle and to improve the delineation of the left ventricle endocardial borders. Summary 1. Left ventricular chamber dimension is normal. 2. Definity contrast administered improved wall motion interpretation. 3. Left ventricular systolic function is normal, estimated at 65-70%. 4. There is mildly increased left ventricular wall thickness. 5. The left ventricular diastolic function is grade I diastolic dysfunction. 6. E/e' 13 is mildly elevated. 7. Global longitudinal strain is normal at -17.1%. 8. There is mild aortic valve sclerosis. 9. There is mild aortic valve regurgitation. 10. The mitral valve has moderately calcified annulus. Left Ventricle E/e' 13 is mildly elevated. Global longitudinal strain is normal at -17.1%. Definity contrast administered improved wall motion interpretation. Left ventricular chamber dimension is normal. Left ventricular systolic function is normal, estimated at 65-70%. There is mildly increased left ventricular wall thickness. The left ventricular diastolic function is grade I diastolic dysfunction. Right Ventricle Right ventricular systolic function is normal and with normal TAPSE 2.8 cm. Right ventricular chamber dimension is normal. Left Atria Left atrial chamber dimension is normal. Right Atria Right atrial chamber dimension is normal. Atrial Septum Agitated saline injection with and without valsalva maneuver opacified right side cardiac chambers without shunt to left side cardiac chambers. Intact interatrial septum visualized by 2D and agitated saline imaging. Aortic Valve The aortic valve is trileaflet. There is mild aortic valve sclerosis. There is no aortic valve stenosis. There is mild aortic valve regurgitation. Pulmonic Valve There is no pulmonic regurgitation. Mitral Valve The mitral valve has moderately calcified annulus. There is no mitral valve stenosis. There is no mitral valve regurgitation. Tricuspid Valve There is no tricuspid valve regurgitation. Pericardium/Pleural There is no pericardial effusion. Inferior Vena Cava Normal inferior vena cava with >50% collapse upon inspiration consistent with normal right atrial pressure, 5 mmHg. Aorta The aortic root size at the sinus of Valsalva is normal. Left Ventricular Outflow Tract Name Value Normal LVOT 2D LVOT Diameter 1.9 cm LVOT Doppler LVOT Pea
[2022-07-24 04:15] VITALS: BP 178/72; PULSE 91; RESP 16; TEMP 36.7; O2SAT 99
[2022-07-24] MEDS: SODIUM CHLORIDE 0.9% IV 1,000 ML 75 ML IV CONT ×2 (04:42→20:38)
[2022-07-24 06:27] LABS: Hematocrit 21.5 % (37.0-47.0); Hemoglobin 7.3 g/dL (12.0-15.0); Mean Corpuscular Hemoglobin 28.9 pg (26-34); Mean Platelet Volume 9.9 fl (7.4-10.4); Platelet Count Result 121 k/mm3 (150-375); Red Blood Count 2.53 M/mm3 (4.2-5.4); White Blood Count 5.2 K/mm3 (4.5-10.0)
[2022-07-24 06:47] LABS: Alanine Aminotransferase 14 U/L (6-35); Albumin Level 2.5 g/dL (3.5-5.1); Alkaline Phosphatase 73 U/L (38-126); Anion Gap 2 mmol/L (8-16); Aspartate Amino Transferase 29 U/L (14-36); Bilirubin,Total 0.5 mg/dL (0.2-1.3); Blood Urea Nitrogen 60 mg/dL (7-17); Calcium 7.2 mg/dL (8.4-10.2); Carbon Dioxide 22 mmol/L (22-30); Chloride 117 mmol/L (98-107); Estimated CRCL calculation 11 ml/min; Estimated Glomerular Filt Rate 13; Glucose 164 mg/dL (65-110); Magnesium 1.7 mg/dL (1.6-2.3); Potassium 3.7 mmol/L (3.4-5.0); Sodium 141 mmol/L (137-145)
[2022-07-24 07:56] LABS: Glucose Point of Care 187 mg/dl (65-105)
[2022-07-24 08:00] VITALS: BP 195/78; PULSE 92
[2022-07-24] MEDS: PANTOPRAZOLE SODIUM IV 40 MG VIAL IV PUSH ×2 (08:01→20:30)
[2022-07-24] MEDS: amLODIPine BESYLATE 2.5 MG, amLODIPine BESYLATE 5 MG 7.5 MG PO (08:01)
[2022-07-24] MEDS: HEPARIN SODIUM 5,000 UNITS/ML VIAL 5000 UNITS SUB-Q ×2 (08:01→20:29)
[2022-07-24] MEDS: INSULIN GLARGINE (*BKC) 100 UNITS/ML 22 UNITS SUB-Q (08:02)
[2022-07-24] MEDS: hydrALAZINE HCL 20 MG/ML VIAL 10 MG IV PUSH (08:14)
--- NOTE | 2022-07-24 11:42 | PM.IMPN ---
Progress Note: A&P Assessment and Plan (1) Diabetic keto-acidosis: Qualifiers: Diabetes mellitus complication detail: without coma Diabetes mellitus type: type 1 Qualified Code(s): E10.10 - Type 1 diabetes mellitus with ketoacidosis without coma Code(s): E11.10 - Type 2 diabetes mellitus with ketoacidosis without coma Status: Inactive Assessment and Plan: Patient presented to the ER at [facility] in [facility] on 07/22/2022 with complains of elevated blood sugars and altered mental status. Blood sugars in the ER by 800, pH of 6.85, creatinine 6.39, potassium of 6.7. -Patient has received a total of 4 L of IV fluid bolus -currently on insulin infusion and IV fluids per DKA protocol -pt transitioned off her insulin drip onto lantus now (2) Acute renal failure superimposed on stage 4 chronic kidney disease: Qualifiers: Acute renal failure type: unspecified Qualified Code(s): N17.9 - Acute kidney failure, unspecified; N18.4 - Chronic kidney disease, stage 4 (severe) Code(s): N17.9 - Acute kidney failure, unspecified; N18.4 - Chronic kidney disease, stage 4 (severe) Status: Acute Assessment and Plan: Acute on chronic kidney disease, likely related to diabetic ketoacidosis, hypovolemia, patient on losartan at home for her blood pressures - continue fluids - nephrology consulted - watch kidney function and UO (3) Encephalopathy: Code(s): G93.40 - Encephalopathy, unspecified Status: Acute Assessment and Plan: Encephalopathy likely related to metabolic abnormalities -07/22/2022 CT scan of the brain was negative -MRI positive - Large acute infarct involving the posterior left temporal lobe Bp is liable Neurology consulted STAT ECHO and US carotids ordered ASA and statin ordered (4) Anemia: Code(s): D64.9 - Anemia, unspecified Status: Acute Assessment and Plan: -will monitor H&H and transfuse if hemoglobin < 7.0 -will start Protonix IV q.12 hours Subjective Date/time seen: 07/24/22 11:42 76-year-old female with a past medical history of type 1 diabetes mellitus on insulin pump, essential hypertension and chronic kidney disease who presented to the ER at [place] due to altered mental status and high blood sugar readings.? Source of information comes from past medical records and ER records.? The patient is altered and confused and unable to provide history.? Evidently the patient had been talking normal to her family on the phone in the early afternoon.? A couple of hours later she was not responding to their text messages.? They went to check on her and found her with garbled speech and unable to follow commands.? She had several syringes around her at looks like she was either trying to give herself insulin or may be feel her insulin pump.? The patient did not have her pump on when she arrived to the outside ER. Pt admitted with DKA and confusion Pt had stat MRI today which showed - L post temporal lobe infarct Neurology consulted STAT Review of Systems Review of Systems: Speech disturbance, confusion ROS unobtainable: Yes unobtainable due to mental status Exam Narrative: General: Pt appears confused garbled speech HEENT:? Pupils equal and reactive, sclera is clear, dry oral mucosa Neck:? Supple Respiratory:? Clear to auscultation bilaterally Cardiac:? regular rate and rhythm, S1-S2 is normal Abdomen:? Soft, mild tenderness in the periumbilical area, normoactive bowel sounds, nondistended Extremities:? No edema, palpable pedal pulses Neuro:? Patient opens her eyes to name, confused, does not follow simple commands.gargled speech Moves all extremities spontaneously Objective Data Vital Signs Vital Signs: Vital Signs - 24 hr 07/23/22 12:00 07/23/22 12:00 07/23/22 12:00 Temperature 36.9 C Pulse Rate 84 85 Respiratory Rate 18 Blood Pressure 155/66 H Pulse Oximetry 98 Oxygen Delivery
[2022-07-24 11:45] LABS: Glucose Point of Care 184 mg/dl (65-105)
--- NOTE | 2022-07-24 12:11 | WPDNEURCNPN ---
Consult date: 07/24/22 HPI: Dalila Redd is a 76 year old female admitted to the hospital through the emergency room for the complaints of altered mental status she was brought to the ER by the ambulance the hyperglycemia and with the observation by the family that somehow she behaves her blood sugar goes up she was noted leave the garbled speech her blood pressure was elevated to systolic of 202 she had no difficulties moving her upper and lower extremities but noted to have again difficulties in his speech. Her medications included only Tylenol , and inhalants, she does carry the diagnosis of chronic kidney disease stage 3, type 1 diabetes mellitus, hypertension, nontoxic multinodular goiter, never a smoker though drinks alcohol currently initial exam in the emergency room grossly nonfocal received insulin intravenously in the ER continued to have the tachypnea and change in the mental status with blood pressure 220/110 though is still afebrile CBC normal BMP abnormal lactic acid 9.0 blood capillary glucose more than 450 admitted to the hospital with the diagnosis of diabetic ketoacidosis, brain MRI today documented large acute infarct involving the posterior left temporal lobe with possible cut off off the left posterior cerebral artery, ultrasound with left renal cyst measuring 1.2cm present medications include clonidine transdermal weekly amlodipine, NovoLog aspirin atorvastatin and subcu low-dose heparin PMFSH Past Medical History Medical History (Updated 07/24/22 @ 00:00 by Philip Chang) CKD (chronic kidney disease) stage 4, GFR 15-29 ml/min Diabetes mellitus type 1 Hyperlipidemia Hypertension Nontoxic multinodular goiter Surgical History Surgical History History of hysterectomy for cancer (~2014) Family History Family History Mother , Age 86 Breast cancer Uterine cancer Father , Age 47 Acute myocardial infarction Grandparent Parkinson's disease Other Asthma Family history of alcoholism Family history of malignant neoplasm of ovary Family history of mental disorder Social History Social History (Updated 07/23/22 @ 01:17 by Shannan Billings DO) Social History: Patient was an only child. She has 1 daughter. 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 Code status: Full code Surrogate decision maker: Daughter Smoking status: Never smoker Second hand tobacco smoke exposure: No Alcohol intake: current Substance use: never Spiritual care concerns: No Meds Home Medications and Allergies Home Medications Medication Instructions Recorded Confirmed Type albuterol sulfate 90 mcg/actuation 1 puff inhalation Q4H PRN 04/05/19 07/23/22 History aerosol inhaler (Ventolin HFA) Shortness Of Breath Or Wheezing insulin lispro 100 unit/mL See Rx Instructions .Route 05/07/22 07/23/22 Rx subcutaneous solution .COMPLEX #20 mL losartan 100 mg tablet 100 mg PO DAILY 07/23/22 07/23/22 History Allergies Allergy/AdvReac Type Severity Reaction Status Date / Time lisinopril Allergy Unknown Cough Verified 07/22/22 20:26 Vital Signs Vital Signs - 24 hr 07/23/22 14:00 07/23/22 14:00 07/23/22 14:00 Temperature Pulse Rate 85 85 79 Respiratory Rate 16 18 Blood Pressure 188/78 H 188/78 H Pulse Oximetry 98 99 Oxygen Delivery 07/23/22 16:00 07/23/22 16:00 07/23/22 17:29 Temperature 36.9 C 36.6 C Pulse Rate 77 82 81 Respiratory Rate 20 20 Blood Pressure 158/61 H 173/61 H Pulse Oximetry 98 98 Oxygen Delivery 07/23/22 20:22 07/23/22 20:00 07/24/22 04:15 Temperature 36.4 C L 36.7 C Pulse Rate 83 83 91 Respiratory Rate 18 18 16 Blood Pressure 169/65 H 178/72 H Pulse Oximetry 99 99 99 Oxygen Delivery Room Air 07/24/22 08:00 07/24/22 08:00 Temperature Pulse Rate 92 Respiratory Rate Blood Pressure 195/78 H Pulse Oximetry Oxygen
--- NOTE | 2022-07-24 13:03 | WPDNEURCNPN ---
Consult date: 07/24/22 [facility] Past Medical History Medical History (Updated 07/24/22 @ 00:00 by Philip Chang) CKD (chronic kidney disease) stage 4, GFR 15-29 ml/min Diabetes mellitus type 1 Hyperlipidemia Hypertension Nontoxic multinodular goiter Surgical History Surgical History History of hysterectomy for cancer (~2015) Family History Family History Mother , Age 86 Breast cancer Uterine cancer Father , Age 47 Acute myocardial infarction Grandparent Parkinson's disease Other Asthma Family history of alcoholism Family history of malignant neoplasm of ovary Family history of mental disorder Social History Social History (Updated 07/23/22 @ 01:17 by Shannan Billings DO) Social History: Patient was an only child. She has 1 daughter. 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 Code status: Full code Surrogate decision maker: Daughter Smoking status: Never smoker Second hand tobacco smoke exposure: No Alcohol intake: current Substance use: never Spiritual care concerns: No Meds Home Medications and Allergies Home Medications Medication Instructions Recorded Confirmed Type albuterol sulfate 90 mcg/actuation 1 puff inhalation Q4H PRN 04/05/19 07/23/22 History aerosol inhaler (Ventolin HFA) Shortness Of Breath Or Wheezing insulin lispro 100 unit/mL See Rx Instructions .Route 05/07/22 07/23/22 Rx subcutaneous solution .COMPLEX #20 mL losartan 100 mg tablet 100 mg PO DAILY 07/23/22 07/23/22 History Allergies Allergy/AdvReac Type Severity Reaction Status Date / Time lisinopril Allergy Unknown Cough Verified 07/22/22 20:26 Vital Signs Vital Signs - 24 hr 07/23/22 14:00 07/23/22 14:00 07/23/22 14:00 Temperature Pulse Rate 85 85 79 Respiratory Rate 16 18 Blood Pressure 188/78 H 188/78 H Pulse Oximetry 98 99 Oxygen Delivery 07/23/22 16:00 07/23/22 16:00 07/23/22 17:29 Temperature 36.9 C 36.6 C Pulse Rate 77 82 81 Respiratory Rate 20 20 Blood Pressure 158/61 H 173/61 H Pulse Oximetry 98 98 Oxygen Delivery 07/23/22 20:22 07/23/22 20:00 07/24/22 04:15 Temperature 36.4 C L 36.7 C Pulse Rate 83 83 91 Respiratory Rate 18 18 16 Blood Pressure 169/65 H 178/72 H Pulse Oximetry 99 99 99 Oxygen Delivery Room Air 07/24/22 08:00 07/24/22 08:00 Temperature Pulse Rate 92 Respiratory Rate Blood Pressure 195/78 H Pulse Oximetry Oxygen Delivery Room Air Results Labs 07/24/22 06:15 07/24/22 06:15 Labs: Short CBC 07/24/22 Range/Units 06:15 WBC 5.2 (4.5-10.0) K/mm3 Hgb 7.3 L (12.0-15.0) g/dL Hct 21.5 L (37.0-47.0) % Plt Count 121 L (150-375) k/mm3 BMP 07/24/22 06:15 Sodium 141 Potassium 3.7 Chloride 117 H Carbon Dioxide 22 BUN 60 H D Creatinine 3.40 H Glucose 164 H Calcium 7.2 L Liver Function 07/24/22 Range/Units 06:15 Total Bilirubin 0.5 (0.2-1.3) mg/dL AST 29 (14-36) U/L ALT 14 (6-35) U/L Alkaline Phosphatase 73 (38-126) U/L Albumin 2.5 L (3.5-5.1) g/dL
--- NOTE | 2022-07-24 13:04 | WPDNEURCNPN ---
Assessment and Plan Assessment and plan (1) DKA, type 1: Qualifiers: Diabetes mellitus complication detail: with coma Qualified Code(s): E10.11 - Type 1 diabetes mellitus with ketoacidosis with coma Code(s): E10.10 - Type 1 diabetes mellitus with ketoacidosis without coma Status: Acute (2) Cerebrovascular accident: Code(s): I63.9 - Cerebral infarction, unspecified Status: Acute (3) Hypertension: Qualifiers: Hypertension type: secondary to other renal disorders Qualified Code(s): I15.1 - Hypertension secondary to other renal disorders; N28.89 - Other specified disorders of kidney and ureter Code(s): I10 - Essential (primary) hypertension Status: Acute (4) Hyperlipidemia: Qualifiers: Hyperlipidemia type: unspecified Qualified Code(s): E78.5 - Hyperlipidemia, unspecified Code(s): E78.5 - Hyperlipidemia, unspecified Status: Acute (5) Type 1 diabetes mellitus with hyperglycemia: Code(s): E10.65 - Type 1 diabetes mellitus with hyperglycemia Status: Acute Plan 1 large acute infarct involving the posterior left temporal lobe with possible cut off of the left posterior cerebral artery 2 echocardiogram with a bubble study is being done 3 will keep her NPO adjust her blood sugar accordingly and also start aspirin 81mg daily. Consult date: 07/24/22 HPI: Dalila Redd is a 76 year old female [facility] Past Medical History Medical History (Updated 07/24/22 @ 13:08 by Yogi Claros MD) CKD (chronic kidney disease) stage 4, GFR 15-29 ml/min Diabetes mellitus type 1 Hyperlipidemia Hypertension Nontoxic multinodular goiter Surgical History Surgical History History of hysterectomy for cancer (~2014) Family History Family History Mother , Age 86 Breast cancer Uterine cancer Father , Age 47 Acute myocardial infarction Grandparent Parkinson's disease Other Asthma Family history of alcoholism Family history of malignant neoplasm of ovary Family history of mental disorder Social History Social History (Updated 07/23/22 @ 01:17 by Shannan Billings DO) Social History: Patient was an only child. She has 1 daughter. 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 Code status: Full code Surrogate decision maker: Daughter Smoking status: Never smoker Second hand tobacco smoke exposure: No Alcohol intake: current Substance use: never Spiritual care concerns: No Meds Home Medications and Allergies Home Medications Medication Instructions Recorded Confirmed Type albuterol sulfate 90 mcg/actuation 1 puff inhalation Q4H PRN 04/05/19 07/23/22 History aerosol inhaler (Ventolin HFA) Shortness Of Breath Or Wheezing insulin lispro 100 unit/mL See Rx Instructions .Route 05/07/22 07/23/22 Rx subcutaneous solution .COMPLEX #20 mL losartan 100 mg tablet 100 mg PO DAILY 07/23/22 07/23/22 History Allergies Allergy/AdvReac Type Severity Reaction Status Date / Time lisinopril Allergy Unknown Cough Verified 07/22/22 20:26 Vital Signs Vital Signs - 24 hr 07/23/22 14:00 07/23/22 14:00 07/23/22 14:00 Temperature Pulse Rate 85 85 79 Respiratory Rate 16 18 Blood Pressure 188/78 H 188/78 H Pulse Oximetry 98 99 Oxygen Delivery 07/23/22 16:00 07/23/22 16:00 07/23/22 17:29 Temperature 36.9 C 36.6 C Pulse Rate 77 82 81 Respiratory Rate 20 20 Blood Pressure 158/61 H 173/61 H Pulse Oximetry 98 98 Oxygen Delivery 07/23/22 20:22 07/23/22 20:00 07/24/22 04:15 Temperature 36.4 C L 36.7 C Pulse Rate 83 83 91 Respiratory Rate 18 18 16 Blood Pressure 169/65 H 178/72 H Pulse Oximetry 99 99 99 Oxygen Delivery Room Air 07/24/22 08:00 07/24/22 08:00 Temperature Pulse Rate 92 Respiratory Rate Blood Pressure 195/78 H Pulse Oximetry O
[2022-07-24 14:00] VITALS: BP 150/67; PULSE 96; RESP 16; TEMP 36.6; O2SAT 99
--- NOTE | 2022-07-24 14:00 | P.PNNP_ITS ---
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 * renal function improving with current interventions * evaluation to date: * urine electrolytes non-prerenal * renal ultrasound without obstruction * CPK mildly elevated but not high enough to affect kidney function * urine eosinophils negative * follow trend of repeat labs and UOP (2) Chronic kidney disease, stage IV (severe): Code(s): N18.4 - Chronic kidney disease, stage 4 (severe) Status: Chronic Assessment and Plan: * creatinine 2.51mg/dl in March 2022 * creatinine 1.5 - 1.6mg in 2019 * presumably due to DM, HTN, vascular disease, and age (3) Encephalopathy: Code(s): G93.40 - Encephalopathy, unspecified Status: Acute Assessment and Plan: * due to DKA and possibly CVA as noted by imaging * head CT negative * MRI of brain with?large acute infarct involving the posterior left temporal lobe * Neurology following (4) Anemia: Code(s): D64.9 - Anemia, unspecified Status: Acute Assessment and Plan: * drop in H/H noted since admission * iron studies consistent with iron deficiency * consider IV venofer if not contraindicated * follow-up on stool guaiac * PRBC transfusion per protocol * follow trend in H/H (5) Type 1 diabetes mellitus with hyperglycemia: Code(s): E10.65 - Type 1 diabetes mellitus with hyperglycemia Status: Acute Assessment and Plan: * follow accuchecks * glycemic control per hospitalists Will continue to follow. Subjective Date/time seen: 07/24/22 14:00 Results of MRI of brain noted with subsequent Neurology consultation; renal function continues to improve with current interventions; mentation seems to be doing somewhat better as well; no other acute issues/events overnight or earlier this AM. Exam Narrative: General: elderly female in NAD Heart: normal S1 and S2; no rub Lungs: clear to auscultation Abdomen: soft, nontender, nondistended, positive bowel sounds Extremities: no cyanosis or clubbing; no edema Skin: warm and dry Objective Data Vital Signs Vital Signs: Vital Signs Temp Pulse Resp BP Pulse Ox O2 Del Method 07/24/22 14:00 98 F 96 16 150/67 H 99 07/24/22 08:00 Room Air 07/24/22 08:00 92 195/78 H 07/24/22 04:15 98.1 F 91 16 178/72 H 99 07/23/22 20:00 83 18 99 Room Air 07/23/22 20:22 97.5 F L 83 18 169/65 H 99 07/23/22 17:29 98 F 81 20 173/61 H 98 07/23/22 16:00 82 07/23/22 16:00 98.4 F 77 20 158/61 H 98 Intake/Output Intake/Output: Intake & Output 07/21/22 07/22/22 07/23/22 07/24/22 23:59 23:59 23:59 23:59 Intake Total 2410 1000 Output Total 850 600 Balance 1560 400 Meds/Results Medications: Active Medications Generic Name Dose Route Start Last Admin Trade Name Freq PRN Reason Stop Dose Admin Amlodipine Besylate 2.5 mg/ 7.5 mg 07/23/22 13:30 07/24/22 08:01
--- NOTE | 2022-07-24 14:00 | PM.PNNEP ---
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 evaluation to date: urine electrolytes non-prerenal renal ultrasound without obstruction CPK mildly elevated but not high enough to affect kidney function urine eosinophils negative follow trend of repeat labs and UOP (2) Chronic kidney disease, stage IV (severe): Code(s): N18.4 - Chronic kidney disease, stage 4 (severe) Status: Chronic Assessment and Plan: creatinine 2.51mg/dl in March 2022 creatinine 1.5 - 1.6mg in 2019 presumably due to DM, HTN, vascular disease, and age (3) Encephalopathy: Code(s): G93.40 - Encephalopathy, unspecified Status: Acute Assessment and Plan: due to DKA and possibly CVA as noted by imaging head CT negative MRI of brain with?large acute infarct involving the posterior left temporal lobe Neurology following (4) Anemia: Code(s): D64.9 - Anemia, unspecified Status: Acute Assessment and Plan: drop in H/H noted since admission iron studies consistent with iron deficiency consider IV venofer if not contraindicated follow-up on stool guaiac PRBC transfusion per protocol follow trend in H/H (5) Type 1 diabetes mellitus with hyperglycemia: Code(s): E10.65 - Type 1 diabetes mellitus with hyperglycemia Status: Acute Assessment and Plan: follow accuchecks glycemic control per hospitalists Will continue to follow. Subjective Date/time seen: 07/24/22 14:00 Results of MRI of brain noted with subsequent Neurology consultation; renal function continues to improve with current interventions; mentation seems to be doing somewhat better as well; no other acute issues/events overnight or earlier this AM. Exam Narrative: General: elderly female in NAD Heart: normal S1 and S2; no rub Lungs: clear to auscultation Abdomen: soft, nontender, nondistended, positive bowel sounds Extremities: no cyanosis or clubbing; no edema Skin: warm and dry Objective Data Vital Signs Vital Signs: Vital Signs Temp Pulse Resp BP Pulse Ox O2 Del Method 07/24/22 14:00 98 F 96 16 150/67 H 99 07/24/22 08:00 Room Air 07/24/22 08:00 92 195/78 H 07/24/22 04:15 98.1 F 91 16 178/72 H 99 07/23/22 20:00 83 18 99 Room Air 07/23/22 20:22 97.5 F L 83 18 169/65 H 99 07/23/22 17:29 98 F 81 20 173/61 H 98 07/23/22 16:00 82 07/23/22 16:00 98.4 F 77 20 158/61 H 98 Intake/Output Intake/Output: Intake & Output 07/21/22 07/22/22 07/23/22 07/24/22 23:59 23:59 23:59 23:59 Intake Total 2410 1000 Output Total 850 600 Balance 1560 400 Meds/Results Medications: Active Medications Generic Name Dose Route Start Last Admin Trade Name Freq PRN Reason Stop Dose Admin Amlodipine Besylate 2.5 mg/ 7.5 mg 07/23/22 13:30 07/24/22 08:01 Amlodipine Besylate 5 mg PO 7.5 mg DAILY MACI Administration Aspirin 325 mg 07/25/22 08:00 Aspirin 325 Mg Tablet PO DAILY@0800 MACI Atorvastatin Calcium 40 mg 07/25/22 09:00 Atorvastatin 40 Mg Tablet PO DAILY MACI Clonidine HCl 1 patch 07/23/22 09:00 07/23/22 08:43 Clonidine 0.2 Mg/24 Hr Patch TRANSDERM 1 patch WEEKLY MACI Administration Dextrose 12.5 gm 07/23/22 00:52 Dextrose 50% 25 Gm/50 Ml Syringe IV PUSH PRN PRN Hypoglycemia Protocol Glucagon 1 mg 07/23/22 00:52 Glucagon For Inj 1 Mg Vial IM PRN PRN Hypoglycemia Protocol Glucose 15 gm 07/23/22 00:52 Glucose Oral Gel 15 Gm Of Glucse In 37.5 Gm Tube PO PRN PRN Hypoglycemia Protocol Heparin Sodium (Porcine) 5,000 units 0
--- NOTE | 2022-07-24 15:39 | PCSTNOTE ---
Please refer to the Bedside Swallow Evaluation in the EMR. Please note, silent aspiration cannot be ruled out at bedside.
[2022-07-24 16:53] LABS: Glucose Point of Care 263 mg/dl (65-105)
[2022-07-24] MEDS: INSULIN ASPART (*BKC) 100 UNITS/ML SUB-Q (17:10)
[2022-07-24 20:00] VITALS: PULSE 86; RESP 16; O2SAT 99
[2022-07-24 20:43] LABS: Glucose Point of Care 158 mg/dl (65-105)
[2022-07-24 22:00] VITALS: BP 172/68; PULSE 86; RESP 16; TEMP 36.6; O2SAT 99
[2022-07-25 06:00] VITALS: BP 144/76; PULSE 83; RESP 16; TEMP 36.6; O2SAT 99
[2022-07-25 08:32] LABS: Glucose Point of Care 126 mg/dl (65-105)
[2022-07-25 08:47] LABS: Albumin Level 2.3 g/dL (3.5-5.1); Anion Gap 1 mmol/L (8-16); Blood Urea Nitrogen 50 mg/dL (7-17); Calcium 7.2 mg/dL (8.4-10.2); Carbon Dioxide 21 mmol/L (22-30); Chloride 120 mmol/L (98-107); Estimated CRCL calculation 12 ml/min; Estimated Glomerular Filt Rate 14; Glucose 131 mg/dL (65-110); Phosphorus 2.7 mg/dL (2.5-4.5); Potassium 3.7 mmol/L (3.4-5.0); Sodium 142 mmol/L (137-145)
[2022-07-25] MEDS: ATORVASTATIN 40 MG TABLET PO (09:25)
[2022-07-25] MEDS: PANTOPRAZOLE SODIUM IV 40 MG VIAL IV PUSH ×2 (09:25→20:17)
[2022-07-25] MEDS: amLODIPine BESYLATE 2.5 MG, amLODIPine BESYLATE 5 MG 7.5 MG PO (09:25)
[2022-07-25] MEDS: HEPARIN SODIUM 5,000 UNITS/ML VIAL 5000 UNITS SUB-Q ×2 (09:25→20:15)
[2022-07-25] MEDS: INSULIN GLARGINE (*BKC) 100 UNITS/ML 22 UNITS SUB-Q (09:25)
[2022-07-25] MEDS: ASPIRIN 325 MG TABLET PO (09:25)
[2022-07-25] MEDS: SODIUM CHLORIDE 0.9% IV 1,000 ML 75 ML IV CONT ×2 (09:39→23:19)
--- NOTE | 2022-07-25 11:21 | WPDNEUROPN ---
Subjective Date/time seen: 07/25/22 11:21 Interval history: Follow-up for left hemispheric stroke with occlusion of the left posterior cerebral artery, Doppler studies of the carotid showing only less than 50% stenosis bilaterally, MRI as mentioned before has documented large acute infarct involving the posterior left temporal lobe, renal ultrasound documented left renal cyst measuring 1.2cm, abdomen and pelvic CT scan is negative, chest x-ray is negative patient is receiving aspirin and atorvastatin in addition to antihypertensive medication will add the Plavix 75 mg daily for 6 week, as echocardiogram with bubble study is negative for intra-atrial septal defect or PFO or any intracardiac thrombus Objective Data Vital Signs Vital Signs: Vital Signs - 24 hr 07/24/22 15:15 07/24/22 14:00 07/24/22 22:00 Temperature 36.6 C 36.6 C Pulse Rate 96 86 Respiratory Rate 16 16 Blood Pressure 150/67 H 172/68 H Pulse Oximetry 99 99 Oxygen Delivery Room Air 07/24/22 20:00 07/25/22 06:00 Temperature 36.6 C Pulse Rate 86 83 Respiratory Rate 16 16 Blood Pressure 144/76 H Pulse Oximetry 99 99 Oxygen Delivery Room Air Intake/Output Intake/Output: Intake & Output 07/22/22 07/23/22 07/24/22 07/25/22 23:59 23:59 23:59 23:59 Intake Total 2410 2120 1118 Output Total 850 1250 400 Balance 1560 870 718 Meds/Results Medications: Active Medications Generic Name Dose Route Start Last Admin Trade Name Freq PRN Reason Stop Dose Admin Amlodipine Besylate 2.5 mg/ 7.5 mg 07/23/22 13:30 07/25/22 09:25 Amlodipine Besylate 5 mg PO 7.5 mg DAILY MACI Administration Aspirin 325 mg 07/25/22 08:00 07/25/22 09:25 Aspirin 325 Mg Tablet PO 325 mg DAILY@0800 MACI Administration Atorvastatin Calcium 40 mg 07/25/22 09:00 07/25/22 09:25 Atorvastatin 40 Mg Tablet PO 40 mg DAILY MACI Administration Clonidine HCl 1 patch 07/23/22 09:00 07/23/22 08:43 Clonidine 0.2 Mg/24 Hr Patch TRANSDERM 1 patch WEEKLY MACI Administration Dextrose 12.5 gm 07/23/22 00:52 Dextrose 50% 25 Gm/50 Ml Syringe IV PUSH PRN PRN Hypoglycemia Protocol Glucagon 1 mg 07/23/22 00:52 Glucagon For Inj 1 Mg Vial IM PRN PRN Hypoglycemia Protocol Glucose 15 gm 07/23/22 00:52 Glucose Oral Gel 15 Gm Of Glucse In 37.5 Gm Tube PO PRN PRN Hypoglycemia Protocol Heparin Sodium (Porcine) 5,000 units 07/23/22 09:00 07/25/22 09:25 Heparin Sodium 5,000 Units/Ml Vial SUB-Q 5,000 units Q12HR MACI Administration Hydralazine HCl 10 mg 07/23/22 06:04 07/24/22 08:14 Hydralazine Hcl 20 Mg/Ml Vial IV PUSH 10 mg Q4H PRN Administration P.r.n. SBP greater than 160 Dextrose 1,000 mls @ 100 mls/hr 07/23/22 00:52 Dextrose 5% 1,000 Ml IVPB PRN PRN Hypoglycemia Protocol Sodium Chloride 1,000 mls @ 75 mls/hr 07/23/22 15:25 07/25/22 09:39 Normal Saline Iv IV CONT 75 mls/hr .[id number] MACI Administration Insulin Aspart 3 - 6 units 07/23/22 17:00 07/25/22 09:19 Insulin Aspart (*Bkc) 100 Units/Ml SUB-Q Not Given TIDWM MACI Protocol Insulin Glargine 22 units 07/23/22 09:00 07/25/22 09:25 Insulin Glargine (*Bkc) 100 Units/Ml SUB-Q 22 units DAILY MACI Administration Metoprolol Tartrate 5 mg 07/23/22 08:15 07/23/22 09:17 Metoprolol Tartrate Inj 5 Mg/5 Ml Vial IV PUSH 5 mg Q6H PRN Administration Hypertension Morphine Sulfate 2 mg 07/23/22 05:09 07/23/22 05:16 Morphine Sulfate (*Crx) 2 Mg/Ml Inj IV PUSH 2 mg Q4H PRN Administration Pain Rated 7-10 Pantoprazole Sodium 40 mg 07/23/22 21:00 07/25/22 09:25 Pantoprazole Sodium Iv 40 Mg Vial IV PUSH 40 mg Q12HR MACI Administration Perflutren Lipid Microsphere 0 ml 07/24/22 11:55 Perflutren Lipid Microspheres 1.5 Ml Vial Diluted To 10 Ml Total Volume IV PUSH 07/26/22 11:55 [facility]
[2022-07-25 11:35] LABS: Glucose Point of Care 358 mg/dl (65-105)
--- NOTE | 2022-07-25 12:01 | PM.PNNEP ---
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 evaluation to date: urine electrolytes non-prerenal renal ultrasound without obstruction CPK mildly elevated but not high enough to affect kidney function urine eosinophils negative follow trend of repeat labs and UOP (2) Chronic kidney disease, stage IV (severe): Code(s): N18.4 - Chronic kidney disease, stage 4 (severe) Status: Chronic Assessment and Plan: creatinine 2.51mg/dl in March 2022 creatinine 1.5 - 1.6mg in 2019 presumably due to DM, HTN, vascular disease, and age (3) Encephalopathy: Code(s): G93.40 - Encephalopathy, unspecified Status: Acute Assessment and Plan: due to DKA and possibly CVA as noted by imaging head CT negative MRI of brain with?large acute infarct involving the posterior left temporal lobe Neurology following (4) Anemia: Code(s): D64.9 - Anemia, unspecified Status: Acute Assessment and Plan: drop in H/H noted since admission iron studies consistent with iron deficiency consider IV venofer if not contraindicated follow-up on stool guaiac PRBC transfusion per protocol consider empiric Epogen follow trend in H/H (5) Type 1 diabetes mellitus with hyperglycemia: Code(s): E10.65 - Type 1 diabetes mellitus with hyperglycemia Status: Acute Assessment and Plan: follow accuchecks glycemic control per hospitalists Will continue to follow. Subjective Date/time seen: 07/25/22 12:01 Overall, seems to be doing reasonably well; making reasonable urine output and renal function improving albeit slowly; no apparent distress voiced at the time of my visit; no issue/events overnight or earlier this morning. Exam Narrative: General: elderly female in NAD Heart: normal S1 and S2; no rub Lungs: clear to auscultation Abdomen: soft, nontender, nondistended, positive bowel sounds Extremities: no cyanosis or clubbing; no edema Skin: warm and dry Objective Data Vital Signs Vital Signs: Vital Signs Temp Pulse Resp BP Pulse Ox O2 Del Method 07/25/22 12:00 97.6 F 87 20 164/66 H 100 07/25/22 09:25 Room Air 07/25/22 06:00 97.8 F 83 16 144/76 H 99 07/24/22 20:00 86 16 99 Room Air 07/24/22 22:00 98 F 86 16 172/68 H 99 Intake/Output Intake/Output: Intake & Output 07/22/22 07/23/22 07/24/22 07/25/22 23:59 23:59 23:59 23:59 Intake Total 2410 2120 1238 Output Total 850 1250 950 Balance 1560 870 288 Meds/Results Medications: Active Medications Generic Name Dose Route Start Last Admin Trade Name Freq PRN Reason Stop Dose Admin Amlodipine Besylate 2.5 mg/ 7.5 mg 07/23/22 13:30 07/25/22 09:25 Amlodipine Besylate 5 mg PO 7.5 mg DAILY MACI Administration Aspirin 325 mg 07/25/22 08:00 07/25/22 09:25 Aspirin 325 Mg Tablet PO 325 mg DAILY@0800 MACI Administration Atorvastatin Calcium 40 mg 07/25/22 09:00 07/25/22 09:25 Atorvastatin 40 Mg Tablet PO 40 mg DAILY MACI Administration Clonidine HCl 1 patch 07/23/22 09:00 07/23/22 08:43 Clonidine 0.2 Mg/24 Hr Patch TRANSDERM 1 patch WEEKLY MACI Administration Clopidogrel Bisulfate 75 mg 07/26/22 09:00 Clopidogrel Bisulfate 75 Mg Tablet PO QAM MACI Dextrose 12.5 gm 07/23/22 00:52 Dextrose 50% 25 Gm/50 Ml Syringe IV PUSH PRN PRN Hypoglycemia Protocol Glucagon 1 mg 07/23/22 00:52 Glucagon For Inj 1 Mg Vial IM PRN PRN Hypoglycemia Protocol Glucose 15 gm 07/23/22 00:52 Glucose Oral Gel 15 Gm Of Glucse In 37.5 Gm Tube PO PRN PRN Hypoglycemia Protocol Hepar
--- NOTE | 2022-07-25 12:01 | P.PNNP_ITS ---
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 with current interventions * evaluation to date: * urine electrolytes non-prerenal * renal ultrasound without obstruction * CPK mildly elevated but not high enough to affect kidney function * urine eosinophils negative * follow trend of repeat labs and UOP (2) Chronic kidney disease, stage IV (severe): Code(s): N18.4 - Chronic kidney disease, stage 4 (severe) Status: Chronic Assessment and Plan: * creatinine 2.51mg/dl in March 2022 * creatinine 1.5 - 1.6mg in 2019 * presumably due to DM, HTN, vascular disease, and age (3) Encephalopathy: Code(s): G93.40 - Encephalopathy, unspecified Status: Acute Assessment and Plan: * due to DKA and possibly CVA as noted by imaging * head CT negative * MRI of brain with?large acute infarct involving the posterior left temporal lobe * Neurology following (4) Anemia: Code(s): D64.9 - Anemia, unspecified Status: Acute Assessment and Plan: * drop in H/H noted since admission * iron studies consistent with iron deficiency * consider IV venofer if not contraindicated * follow-up on stool guaiac * PRBC transfusion per protocol * consider empiric Epogen * follow trend in H/H (5) Type 1 diabetes mellitus with hyperglycemia: Code(s): E10.65 - Type 1 diabetes mellitus with hyperglycemia Status: Acute Assessment and Plan: * follow accuchecks * glycemic control per hospitalists Will continue to follow. Subjective Date/time seen: 07/25/22 12:01 Overall, seems to be doing reasonably well; making reasonable urine output and renal function improving albeit slowly; no apparent distress voiced at the time of my visit; no issue/events overnight or earlier this morning. Exam Narrative: General: elderly female in NAD Heart: normal S1 and S2; no rub Lungs: clear to auscultation Abdomen: soft, nontender, nondistended, positive bowel sounds Extremities: no cyanosis or clubbing; no edema Skin: warm and dry Objective Data Vital Signs Vital Signs: Vital Signs Temp Pulse Resp BP Pulse Ox O2 Del Method 07/25/22 12:00 97.6 F 87 20 164/66 H 100 07/25/22 09:25 Room Air 07/25/22 06:00 97.8 F 83 16 144/76 H 99 07/24/22 20:00 86 16 99 Room Air 07/24/22 22:00 98 F 86 16 172/68 H 99 Intake/Output Intake/Output: Intake & Output 07/22/22 07/23/22 07/24/22 07/25/22 23:59 23:59 23:59 23:59 Intake Total 2410 2120 1238 Output Total 850 1250 950 Balance 1560 870 288 Meds/Results Medications: Active Medications Generic Name Dose Route Start Last Admin Trade Name Freq PRN Reason Stop Dose Admin Amlodipine Besylate 2.5 mg/ 7.5 mg 07/23/22 13:30 07/25/22 09:25 Amlodipine Besylate 5 mg PO 7.5 mg DAILY MACI Administration Aspirin 325 mg 07/25/22 08:00 07/25/22 09:25 Aspirin 325 Mg Tablet
[2022-07-25] MEDS: INSULIN ASPART (*BKC) 100 UNITS/ML SUB-Q ×2 (12:02→17:29)
--- NOTE | 2022-07-25 12:09 | PM.IMPN ---
Progress Note: A&P Assessment and Plan (1) Diabetic keto-acidosis: Qualifiers: Diabetes mellitus complication detail: without coma Diabetes mellitus type: type 1 Qualified Code(s): E10.10 - Type 1 diabetes mellitus with ketoacidosis without coma Code(s): E11.10 - Type 2 diabetes mellitus with ketoacidosis without coma Status: Inactive Assessment and Plan: bs improved (2) Acute renal failure superimposed on stage 4 chronic kidney disease: Qualifiers: Acute renal failure type: unspecified Qualified Code(s): N17.9 - Acute kidney failure, unspecified; N18.4 - Chronic kidney disease, stage 4 (severe) Code(s): N17.9 - Acute kidney failure, unspecified; N18.4 - Chronic kidney disease, stage 4 (severe) Status: Acute Assessment and Plan: Acute on chronic kidney disease, likely related to diabetic ketoacidosis, hypovolemia, patient on losartan at home for her blood pressures - continue fluids - nephrology consulted - watch kidney function and UO (3) Encephalopathy: Code(s): G93.40 - Encephalopathy, unspecified Status: Acute Assessment and Plan: Encephalopathy likely related to metabolic abnormalities -07/22/2022 CT scan of the brain was negative -MRI positive - Large acute infarct involving the posterior left temporal lobe Bp is liable Neurology consulted STAT ECHO and US carotids ordered ASA and statin ordered (4) Anemia: Code(s): D64.9 - Anemia, unspecified Status: Acute Assessment and Plan: -will monitor H&H and transfuse if hemoglobin < 7.0 -will start Protonix IV q.12 hours Subjective Date/time seen: 07/25/22 12:09 feeling ok today, no new complaints Exam Narrative: General: Pt appears confused garbled speech HEENT:? Pupils equal and reactive, sclera is clear, dry oral mucosa Neck:? Supple Respiratory:? Clear to auscultation bilaterally Cardiac:? regular rate and rhythm, S1-S2 is normal Abdomen:? Soft, mild tenderness in the periumbilical area, normoactive bowel sounds, nondistended Extremities:? No edema, palpable pedal pulses Neuro:? Patient opens her eyes to name, confused, does not follow simple commands.gargled speech Moves all extremities spontaneously Objective Data Vital Signs Vital Signs: Vital Signs - 24 hr 07/24/22 15:15 07/24/22 14:00 07/24/22 22:00 Temperature 98 F 98 F Pulse Rate 96 86 Respiratory Rate 16 16 Blood Pressure 150/67 H 172/68 H Pulse Oximetry 99 99 Oxygen Delivery Room Air 07/24/22 20:00 07/25/22 06:00 07/25/22 09:25 Temperature 97.8 F Pulse Rate 86 83 Respiratory Rate 16 16 Blood Pressure 144/76 H Pulse Oximetry 99 99 Oxygen Delivery Room Air Room Air Intake/Output Intake/Output: Intake & Output 07/22/22 07/23/22 07/24/22 07/25/22 23:59 23:59 23:59 23:59 Intake Total 2410 2120 1118 Output Total 850 1250 400 Balance 1560 870 718 Meds/Results Medications: Active Medications Generic Name Dose Route Start Last Admin Trade Name Freq PRN Reason Stop Dose Admin Amlodipine Besylate 2.5 mg/ 7.5 mg 07/23/22 13:30 07/25/22 09:25 Amlodipine Besylate 5 mg PO 7.5 mg DAILY MACI Administration Aspirin 325 mg 07/25/22 08:00 07/25/22 09:25 Aspirin 325 Mg Tablet PO 325 mg DAILY@0800 MACI Administration Atorvastatin Calcium 40 mg 07/25/22 09:00 07/25/22 09:25 Atorvastatin 40 Mg Tablet PO 40 mg DAILY MACI Administration Clonidine HCl 1 patch 07/23/22 09:00 07/23/22 08:43 Clonidine 0.2 Mg/24 Hr Patch TRANSDERM 1 patch WEEKLY MACI Administration Clopidogrel Bisulfate 75 mg 07/26/22 09:00 Clopidogrel Bisulfate 75 Mg Tablet PO QAM REPLACED BY [facility] Dextrose 12.5 gm 07/23/22 00:52 Dextrose 50% 25 Gm/50 Ml Syringe IV PUSH PRN PRN Hypoglycemia Protocol Glucagon 1 mg 07/23/22 00:52 Glucagon For Inj 1 Mg Vial IM PRN PRN Hypoglycemia Protocol Glucose 15 gm 07/03
[2022-07-25 12:41] LABS: IFOB Positive Control Positive; Immunochemical Fecal Occult Bl Positive (N)
[2022-07-25 14:08] VITALS: BP 164/66; PULSE 87; RESP 20; TEMP 36.4; O2SAT 100
[2022-07-25 17:13] LABS: Glucose Point of Care 221 mg/dl (65-105)
[2022-07-25 20:00] VITALS: PULSE 87; RESP 20; O2SAT 100
[2022-07-25 20:46] LABS: Glucose Point of Care 145 mg/dl (65-105)
[2022-07-25 22:00] VITALS: BP 113/89; PULSE 81; RESP 17; TEMP 36.5; O2SAT 100
[2022-07-26 06:00] VITALS: BP 111/84; PULSE 80; RESP 18; TEMP 36.3; O2SAT 99
[2022-07-26 07:28] LABS: Glucose Point of Care 62 mg/dl (65-105)
[2022-07-26 07:49] LABS: Albumin Level 2.8 g/dL (3.5-5.1); Anion Gap 3 mmol/L (8-16); Blood Urea Nitrogen 47 mg/dL (7-17); Calcium 7.5 mg/dL (8.4-10.2); Carbon Dioxide 22 mmol/L (22-30); Chloride 113 mmol/L (98-107); Estimated CRCL calculation 13 ml/min; Estimated Glomerular Filt Rate 15; Glucose 69 mg/dL (65-110); Phosphorus 2.6 mg/dL (2.5-4.5); Potassium 3.5 mmol/L (3.4-5.0); Sodium 138 mmol/L (137-145)
[2022-07-26 08:00] LABS: Basophils Percent Auto 0.2 % (0.2-1.2); Eosinophils Absolute Auto 0.2 K/mm3 (0-0.3); Eosinophils Percent Auto 3.8 % (0-4.4); Hematocrit 25.6 % (37.0-47.0); Hemoglobin 8.4 g/dL (12.0-15.0); Immature Granulocyte Percent A 1.6 % (0-0.5); Lymphocytes Absolute Auto 0.67 K/mm3 (0.9-3.2); Lymphocytes Percent Auto 10.6 % (18.3-44.2); Mean Corpuscular HGB Conc 32.8 g/dl (32-36); Mean Corpuscular Hemoglobin 28.4 pg (26-34); Mean Corpuscular Volume 86.5 fl (80-100); Monocytes Absolute Auto 0.4 K/mm3 (0.1-0.6); Neutrophils Absolute Auto 4.9 K/mm3 (1.3-6.7); Neutrophils Percent Auto 77.8 % (45.5-73.1); Platelet Count Result 160 k/mm3 (150-375); Red Blood Count 2.96 M/mm3 (4.2-5.4); Red Cell Distribution Width 14.5 % (11.5-14.5); White Blood Count 6.3 K/mm3 (4.5-10.0)
[2022-07-26 08:20] LABS: Glucose Point of Care 150 mg/dl (65-105)
[2022-07-26] MEDS: amLODIPine BESYLATE 2.5 MG, amLODIPine BESYLATE 5 MG 7.5 MG PO (08:45)
[2022-07-26] MEDS: PANTOPRAZOLE SODIUM IV 40 MG VIAL IV PUSH (08:45)
[2022-07-26] MEDS: ATORVASTATIN 40 MG TABLET PO (08:45)
[2022-07-26] MEDS: HEPARIN SODIUM 5,000 UNITS/ML VIAL 5000 UNITS SUB-Q (08:46)
[2022-07-26] MEDS: CLOPIDOGREL BISULFATE 75 MG TABLET PO (08:46)
[2022-07-26] MEDS: ASPIRIN 325 MG TABLET PO (08:46)
[2022-07-26] MEDS: INSULIN GLARGINE (*BKC) 100 UNITS/ML 22 UNITS SUB-Q (08:52)
--- NOTE | 2022-07-26 11:10 | P.PNNP_ITS ---
Progress Note: A&P Assessment and Plan (1) JANET (acute kidney injury): Code(s): N17.9 - Acute kidney failure, unspecified Status: Acute Assessment and Plan: * resolving * likely secondary to DKA and volume depletion worsened by use of ARB therapy [employer] * renal function improving with current interventions * evaluation to date: * urine electrolytes non-prerenal * renal ultrasound without obstruction * CPK mildly elevated but not high enough to affect kidney function * urine eosinophils negative * losartan on hold (and BP relatively stable) * follow trend of repeat labs and UOP (2) Chronic kidney disease, stage IV (severe): Code(s): N18.4 - Chronic kidney disease, stage 4 (severe) Status: Chronic Assessment and Plan: * creatinine 2.51mg/dl in March 2022 * creatinine 1.5 - 1.6mg in 2019 * presumably due to DM, HTN, vascular disease, and age * new baseline creatinine(?) -- follow trend of labs (3) Encephalopathy: Code(s): G93.40 - Encephalopathy, unspecified Status: Acute Assessment and Plan: * slow improvement noted * due to DKA and possibly CVA as noted by imaging * head CT negative * MRI of brain with?large acute infarct involving the posterior left temporal lobe * Neurology following -- recommendations/testing noted (4) Anemia: Code(s): D64.9 - Anemia, unspecified Status: Acute Assessment and Plan: * drop in H/H noted since admission * however, Hgb better by AM labs * iron studies consistent with iron deficiency * consider IV venofer if not contraindicated * PRBC transfusion per protocol * follow trend in H/H (5) Type 1 diabetes mellitus with hyperglycemia: Code(s): E10.65 - Type 1 diabetes mellitus with hyperglycemia Status: Acute Assessment and Plan: * follow accuchecks * glycemic control per hospitalists Will continue to follow. Subjective Date/time seen: 07/26/22 11:10 No new issues or problems to report at this time; overall, feels reasonably well; no other problems/concerns voiced at the time of my visit; renal function continues to slowly improve with stable electrolytes and urine output; no events/issues overnight or earlier this AM. Exam Narrative: General: elderly female in NAD Heart: normal S1 and S2; no rub Lungs: clear to auscultation Abdomen: soft, nontender, nondistended, positive bowel sounds Extremities: no cyanosis or clubbing; no edema Skin: warm and intact Objective Data Vital Signs Vital Signs: Vital Signs Temp Pulse Resp BP Pulse Ox O2 Del Method 07/26/22 08:45 Room Air 07/26/22 06:00 97.3 F L 80 18 111/84 99 07/25/22 22:00 97.7 F 81 17 113/89 100 07/25/22 20:00 87 20 100 Room Air 07/25/22 14:08 97.6 F 87 20 164/66 H 100 Intake/Output Intake/Output: Intake & Output 07/23/22 07/24/22 07/25/22 07/26/22 23:59 23:59 23:59 23:59 Intake Total 2410 2120 3278 354 Output Total 850 1250 950 Balance 0481 645 9009 354 Meds/Results Medications: Active Medications Generic Name Dose Route Start Last Admin Trade Name Freq PRN Reason Stop Dose Admin Amlodipine Besylate 2.5 mg/ 7.5 mg 07/03
--- NOTE | 2022-07-26 11:10 | PM.PNNEP ---
Progress Note: A&P Assessment and Plan (1) JANET (acute kidney injury): Code(s): N17.9 - Acute kidney failure, unspecified Status: Acute Assessment and Plan: resolving likely secondary to DKA and volume depletion worsened by use of ARB therapy [employer] renal function improving with current interventions evaluation to date: urine electrolytes non-prerenal renal ultrasound without obstruction CPK mildly elevated but not high enough to affect kidney function urine eosinophils negative losartan on hold (and BP relatively stable) follow trend of repeat labs and UOP (2) Chronic kidney disease, stage IV (severe): Code(s): N18.4 - Chronic kidney disease, stage 4 (severe) Status: Chronic Assessment and Plan: creatinine 2.51mg/dl in March 2022 creatinine 1.5 - 1.6mg in 2019 presumably due to DM, HTN, vascular disease, and age new baseline creatinine(?) -- follow trend of labs (3) Encephalopathy: Code(s): G93.40 - Encephalopathy, unspecified Status: Acute Assessment and Plan: slow improvement noted due to DKA and possibly CVA as noted by imaging head CT negative MRI of brain with?large acute infarct involving the posterior left temporal lobe Neurology following -- recommendations/testing noted (4) Anemia: Code(s): D64.9 - Anemia, unspecified Status: Acute Assessment and Plan: drop in H/H noted since admission however, Hgb better by AM labs iron studies consistent with iron deficiency consider IV venofer if not contraindicated PRBC transfusion per protocol follow trend in H/H (5) Type 1 diabetes mellitus with hyperglycemia: Code(s): E10.65 - Type 1 diabetes mellitus with hyperglycemia Status: Acute Assessment and Plan: follow accuchecks glycemic control per hospitalists Will continue to follow. Subjective Date/time seen: 07/26/22 11:10 No new issues or problems to report at this time; overall, feels reasonably well; no other problems/concerns voiced at the time of my visit; renal function continues to slowly improve with stable electrolytes and urine output; no events/issues overnight or earlier this AM. Exam Narrative: General: elderly female in NAD Heart: normal S1 and S2; no rub Lungs: clear to auscultation Abdomen: soft, nontender, nondistended, positive bowel sounds Extremities: no cyanosis or clubbing; no edema Skin: warm and intact Objective Data Vital Signs Vital Signs: Vital Signs Temp Pulse Resp BP Pulse Ox O2 Del Method 07/26/22 08:45 Room Air 07/26/22 06:00 97.3 F L 80 18 111/84 99 07/25/22 22:00 97.7 F 81 17 113/89 100 07/25/22 20:00 87 20 100 Room Air 07/25/22 14:08 97.6 F 87 20 164/66 H 100 Intake/Output Intake/Output: Intake & Output 07/23/22 07/24/22 07/25/22 07/26/22 23:59 23:59 23:59 23:59 Intake Total 2410 2120 3278 354 Output Total 850 1250 950 Balance 0724 993 5198 354 Meds/Results Medications: Active Medications Generic Name Dose Route Start Last Admin Trade Name Freq PRN Reason Stop Dose Admin Amlodipine Besylate 2.5 mg/ 7.5 mg 07/23/22 13:30 07/26/22 08:45 Amlodipine Besylate 5 mg PO 7.5 mg DAILY MACI Administration Aspirin 325 mg 07/25/22 08:00 07/26/22 08:46 Aspirin 325 Mg Tablet PO 325 mg DAILY@0800 MACI Administration Atorvastatin Calcium 40 mg 07/25/22 09:00 07/26/22 08:45 Atorvastatin 40 Mg Tablet PO 40 mg DAILY MACI Administration Clonidine HCl 1 patch 07/23/22 09:00 07/23/22 08:43 Clonidine 0.2 Mg/24 Hr Patch TRANSDERM 1 patch WEEKLY MACI Administration Clopidogrel Bisulfate 75 mg 07/26/22 09:00 07/26/22 08:46 Clopidogrel Bisulfate 75 Mg Tablet PO 75 mg QAM MACI Administration Dextrose 12.5 gm 07/23/22 00:52 Dextrose 50% 25 Gm/50 Ml Syringe IV PUSH PRN PRN Hypoglycemia Protocol Glucagon 1 mg 02
--- NOTE | 2022-07-26 11:31 | PM.DS ---
DS: Admitting Diagnosis Discharge Date July 26, 2022 Admitting Diagnosis CVA elevated blood sugar DS: Discharge Diagnosis Discharge Diagnosis (1) Diabetic keto-acidosis: Qualifiers: Diabetes mellitus complication detail: without coma Diabetes mellitus type: type 1 Qualified Code(s): E10.10 - Type 1 diabetes mellitus with ketoacidosis without coma Code(s): E11.10 - Type 2 diabetes mellitus with ketoacidosis without coma Status: Inactive Assessment and Plan: bs improved (2) Acute renal failure superimposed on stage 4 chronic kidney disease: Qualifiers: Acute renal failure type: unspecified Qualified Code(s): N17.9 - Acute kidney failure, unspecified; N18.4 - Chronic kidney disease, stage 4 (severe) Code(s): N17.9 - Acute kidney failure, unspecified; N18.4 - Chronic kidney disease, stage 4 (severe) Status: Acute Assessment and Plan: Acute on chronic kidney disease, likely related to diabetic ketoacidosis, hypovolemia, patient on losartan at home for her blood pressures - continue fluids - nephrology consulted - watch kidney function and UO (3) Encephalopathy: Code(s): G93.40 - Encephalopathy, unspecified Status: Acute Assessment and Plan: Encephalopathy likely related to metabolic abnormalities -07/22/2022 CT scan of the brain was negative -MRI positive - Large acute infarct involving the posterior left temporal lobe Bp is liable Neurology consulted STAT ECHO and US carotids ordered ASA and statin ordered (4) Anemia: Code(s): D64.9 - Anemia, unspecified Status: Acute Assessment and Plan: -will monitor H&H and transfuse if hemoglobin < 7.0 -will start Protonix IV q.12 hours DS: Summary Hospital Course Hospital Course: Patient was if elevated blood sugar found have a CVA as well. Patient be discharged on aspirin and Plavix follow-up with Neurology. Blood pressure medications were also adjusted and diabetic medications were also adjusted. Primary care physician follow Neurology. Time Spent with Patient Time attestation: Total time spent providing and/or coordinating discharge services: Exam Narrative: General: Pt appears confused garbled speech HEENT:? Pupils equal and reactive, sclera is clear, dry oral mucosa Neck:? Supple Respiratory:? Clear to auscultation bilaterally Cardiac:? regular rate and rhythm, S1-S2 is normal Abdomen:? Soft, mild tenderness in the periumbilical area, normoactive bowel sounds, nondistended Extremities:? No edema, palpable pedal pulses Neuro:? Patient opens her eyes to name, confused, does not follow simple commands.gargled speech Moves all extremities spontaneously DS: Data Data Completed and Pending Labs on day of discharge: Labs from last 24 hours 07/26/22 07/26/22 07/26/22 08:18 07:30 07:30 WBC 6.3 RBC 2.96 L Hgb 8.4 L Hct 25.6 L MCV 86.5 MCH 28.4 MCHC 32.8 RDW 14.5 Plt Count 160 MPV 10.0 Immature Gran % (Auto) 1.6 H Neut % (Auto) 77.8 H Lymph % (Auto) 10.6 L [place] % (Auto) 6.0 Eos % (Auto) 3.8 Baso % (Auto) 0.2 Lymph # (Auto) 0.67 L [place] # (Auto) 0.4 Eos # (Auto) 0.2 Baso # (Auto) 0.0 Abs Immat Gran (auto) 0.10 H Absolute Neuts (auto) 4.9 Absolute Nucleated RBC 0.0 Nucleated RBC % 0.0 Sodium 138 Potassium 3.5 Chloride 113 H Carbon Dioxide 22 Anion Gap 3 L BUN 47 H Creatinine 3.00 H Estim Creat Clear Calc 13 Estimated GFR 15 L Glucose 69 POC Capillary Glucose 150 H Calcium 7.5 L Phosphorus 2.6 Albumin 2.8 L Stl Occult Blood (IFOB) 07/26/22 07/25/22 07/25/22 07:19 20:43 17:09 WBC RBC Hgb Hct MCV MCH MCHC RDW Plt Count MPV Immature Gran % (Auto) Neut % (Auto) Lymph % (Auto) [place] % (Auto) Eos % (Auto) Baso % (Auto) Lymph # (Auto) Alpine # (Auto) Eos # (Au
[2022-07-26 11:35] LABS: Glucose Point of Care 236 mg/dl (65-105)
[2022-07-26] MEDS: INSULIN ASPART (*BKC) 100 UNITS/ML SUB-Q (12:00)
[2022-07-26 12:15] LABS: Glucose Point of Care 241 mg/dl (65-105)
[2022-07-28 16:39] LABS: Chloride Rand Ur 108 mmol/L (32-290); Chloride/Creatinine Rand Ur 216 (38-318); Creatinine Random Urine 50 mg/dL (20-275)
== END 2022-07-26 14:00 | disposition home health service (06) | DRG 637 ==
LOC: ANHICU 12:30 → ANH3MEDSUR 17:03
PROVIDERS: Internal Medicine; Internal Medicine Nephrology; Admitting Provider Internal Medicine; PCP Obstetrics & Gynecology; Visit Provider Chiropractor
DX: E10.10 Type 1 diabetes mellitus with ketoacidosis without coma (principal); G93.41 Metabolic encephalopathy; I63.532 Cerebral infarction due to unspecified occlusion or stenosis of left posterior cerebral artery; N17.9 Acute kidney failure, unspecified; N18.4 Chronic kidney disease, stage 4 (severe); E10.22 Type 1 diabetes mellitus with diabetic chronic kidney disease; E10.65 Type 1 diabetes mellitus with hyperglycemia; I15.1 Hypertension secondary to other renal disorders; N28.89 Other specified disorders of kidney and ureter; E86.0 Dehydration; E78.5 Hyperlipidemia, unspecified; D50.9 Iron deficiency anemia, unspecified; Z90.710 Acquired absence of both cervix and uterus; Z86.16 Personal history of COVID-19
CPT/HCPCS: 36415; 70551; 74176; 76775; 80048; 80053; 80069; 81001; 82274; 82436; 82550; 82570; 82607; 82746; 82948; 83036; 83540; 83550; 83605; 83615; 83690; 83735; 84100; 84133; 84300; 84439; 84443; 84480; 85025; 85027; 85999; 92507; 92523; 92610; 93880; 96375; 97110; 97116; 97161; 97165; 97535; A9270; C8929; C9113; J0360; J1644; J1815; J2270; J3480; J7030; J7040

== ENCOUNTER 2022-07-27 09:13 | Emergency (ER) | payer MEDICARE, SELFPAY ==
[2022-07-27] VITALS (18 sets, daily range): BP systolic 129–218; BP diastolic 60–151; PULSE 69–79; RESP 16–18; TEMP 35.8–36.5; O2SAT 100
[2022-07-27 09:25] LABS: Glucose Point of Care 166 mg/dl (65-105)
--- NOTE | 2022-07-27 09:28 | ED.GENADULT ---
HPI - General Adult General Chief complaint: Altered Mental Status Stated complaint: AMBULANCE - low blood sugar Time Seen by Provider: 07/27/22 09:19 Source: patient and RN notes reviewed Mode of arrival: ambulatory Limitations: no limitations History of Present Illness HPI narrative: patient brought in by ambulance after finding her to have high blood sugar of 38. He began about 8:00 a.m. this morning. She was recently hospitalized for diabetic ketoacidosis and was released on Thursday. She was given multiple doses of fluid replacement and now her hands and feet are swelling. She was having some confusion with low blood sugars. Daughter concerned that she had a previous CVA. And she may be having another one. MD complaint: hypoglycemia Associated symptoms: confusion Related Data Home Medications Medication Instructions Recorded Confirmed albuterol sulfate 90 mcg/actuation 1 puff inhalation Q4H PRN 04/05/19 07/27/22 aerosol inhaler (Ventolin HFA) Shortness Of Breath Or Wheezing Allergies Allergy/AdvReac Type Severity Reaction Status Date / Time lisinopril Allergy Unknown Cough Verified 07/27/22 09:30 Review of Systems Review of Systems: All systems reviewed & are unremarkable except as noted in HPI and below PMFSH Past Medical History Medical History CKD (chronic kidney disease) stage 4, GFR 15-29 ml/min Diabetes mellitus type 1 Hyperlipidemia Hypertension Nontoxic multinodular goiter Surgical History Surgical History History of hysterectomy for cancer (~2014) Family History Family History Mother , Age 86 Breast cancer Uterine cancer Father , Age 47 Acute myocardial infarction Grandparent Parkinson's disease Other Asthma Family history of alcoholism Family history of malignant neoplasm of ovary Family history of mental disorder Social History Social History Social History: Patient was an only child. She has 1 daughter. 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 Code status: Full code Surrogate decision maker: Daughter Smoking status: Never smoker Second hand tobacco smoke exposure: No Alcohol intake: current Substance use: never Spiritual care concerns: No Exam Const: General: no acute distress, alert and ill appearing acutely Nutritional Appearance: well nourished Orientation/consciousness: patient oriented x3 HENMT: Head: normal to inspection Ears: external ears normal Face and sinus: normal facial exam Mouth: Yes moist mucous membranes Eyes: Conjunctivae: conjunctivae normal Pupils: Equal, round and reactive pupils present EOM: EOMs intact bilaterally Neck: Neck: normal visual inspection Resp: Effort & Inspection: normal respiratory effort Auscultation: clear to auscultation bilaterally Cardio: Rate: regular rate Rhythm: regular rhythm GI: GI Palp: Yes Soft to palpation and No Tenderness to palpation present (GI) Auscultation: normal bowel sounds Back/Spine/Pelvis: Cervical Spine: cervical ROM normal Thoracic/Lumbar Spine: thoraco-lumbar ROM normal Skin: General skin exam: normal color Rashes: no rashes Neuro: General: patient oriented x3, moves all extremities, no focal motor deficits and CN's II-XI intact bilaterally Speech: Abnormal speech present slurred (mild) Gait exam (Neuro): Normal gait present Extrem: General: normal to inspection and edema bilateral ( Puffy bilateral upper and lower extremities) Psych: Appearance: well kempt Mental Status: other ( pleasantly confused) Affect: normal affect Attitude: cooperative Medical Decision Making Differential Diagnosis Differential Diagnosis: Differential diagnosis: Hypoglycemia due to insulin, electrolyte abnormality, anemia, congestive heart failure, w
[2022-07-27 10:01] LABS: Basophils Absolute Auto 0.01 K/mm3 (0.00-0.10); Basophils Percent Auto 0.1 % (0.0-1.0); Eosinophils Percent Auto 2.3 % (1.0-6.0); Hematocrit 26.7 % (35.0-42.0); Immature Granulocyte Absolute 0.07 K/mm3 (0.00-0.00); Immature Granulocyte Percent A 0.8 % (0.0-0.0); Lymphocytes Absolute Auto 0.72 K/mm3 (1.10-4.50); Lymphocytes Percent Auto 8.3 % (18.0-42.0); Mean Corpuscular HGB Conc 33.7 g/dL (32.0-36.0); Mean Corpuscular Hemoglobin 28.8 pg (27.0-31.0); Mean Corpuscular Volume 85.6 fL (78.0-102.0); Mean Platelet Volume 10.3 fl (9.2-11.8); Monocytes Absolute Auto 0.53 K/mm3 (0.10-0.90); Monocytes Percent Auto 6.1 % (2.0-11.0); Neutrophils Absolute Auto 7.1 K/mm3 (1.7-7.2); Neutrophils Percent Auto 82.4 % (50.0-70.0); Platelet Count Result 215 K/mm3 (150-420); Red Blood Count 3.12 M/mm3 (4.20-5.40); Red Cell Distribution Width 14.1 % (11.6-14.4); White Blood Count 8.6 K/mm3 (4.8-10.8)
[2022-07-27] MEDS: cloNIDine HCL 0.2 MG TABLET PO (10:07)
[2022-07-27 10:26] LABS: Lactic Acid Reflex 1.4 mmol/L (0.4-2.0)
[2022-07-27 10:27] LABS: Glucose Point of Care 156 mg/dl (65-105)
[2022-07-27 10:32] LABS: Alanine Aminotransferase 26 U/L (14-59); Albumin Level 2.1 g/dL (3.4-5.0); Alkaline Phosphatase 114 U/L (46-116); Anion Gap 12 mmol/L (8-16); Aspartate Amino Transferase 36 U/L (15-37); Bilirubin,Total 0.5 mg/dL (0.00-1.00); Blood Urea Nitrogen 44 mg/dL (7-18); Calcium 8.2 mg/dL (8.5-10.1); Carbon Dioxide 20 mmol/L (21-32); Chloride 108 mmol/L (98-108); Estimated CRCL calculation 10 ml/min; Estimated Glomerular Filt Rate 15; Glucose 159 mg/dL (70-99); Magnesium 1.6 mg/dL (1.8-2.4); Osmolality Calculated 304 mOsm/kg (285-295); Potassium 3.2 mmol/L (3.5-5.1); Sodium 140 mmol/L (136-145); Total Protein 6.5 g/dL (6.4-8.2)
[2022-07-27 10:34] LABS: CRP 1.7 mg/dL (0.0-0.9)
[2022-07-27 10:34] LABS: NT Pro B Type Natriuretic Pept 10466 pg/mL (0-450)
[2022-07-27] MEDS: POTASSIUM BICARBONATE 25 MEQ TABEF 50 MEQ PO (11:04)
== END 2022-07-27 11:13 | disposition home or self-care (01) ==
PROVIDERS: Emergency Provider Emergency Medicine; PCP Obstetrics & Gynecology
DX: E10.649 Type 1 diabetes mellitus with hypoglycemia without coma (principal); E87.6 Hypokalemia; I13.0 Hypertensive heart and chronic kidney disease with heart failure and stage 1 through stage 4 chronic kidney disease, or unspecified chronic kidney disease; I50.9 Heart failure, unspecified; E10.22 Type 1 diabetes mellitus with diabetic chronic kidney disease; N18.4 Chronic kidney disease, stage 4 (severe); E78.5 Hyperlipidemia, unspecified; Z79.51 Long term (current) use of inhaled steroids; Z79.02 Long term (current) use of antithrombotics/antiplatelets; Z79.82 Long term (current) use of aspirin; Z79.4 Long term (current) use of insulin
CPT/HCPCS: 36415; 80053; 82948; 83605; 83735; 83880; 85025; 86140; 99283; A9270

== ENCOUNTER 2022-07-31 10:44 | Outpatient (CLI) | payer MEDICARE, SELFPAY ==
[2022-07-31 11:20] LABS: Anion Gap 6 mmol/L (8-16); Blood Urea Nitrogen 54 mg/dL (7-17); Calcium 8.6 mg/dL (8.4-10.2); Carbon Dioxide 21 mmol/L (22-30); Chloride 104 mmol/L (98-107); Estimated Glomerular Filt Rate 12; Glucose 91 mg/dL (65-110); Potassium 4.4 mmol/L (3.4-5.0); Sodium 131 mmol/L (137-145)
== END 2022-07-31 10:45 | disposition home or self-care (01) ==
PROVIDERS: PCP Emergency Medicine; Visit Provider Emergency Medicine
DX: N18.4 Chronic kidney disease, stage 4 (severe) (principal); E87.6 Hypokalemia
CPT/HCPCS: 36415; 80048

== ENCOUNTER 2022-10-14 18:04 | Outpatient (CLI) | payer MEDICARE, SELFPAY ==
[2022-10-14 18:30] LABS: Creatinine Urine 84.78 mg/dL (40-278)
[2022-10-14 18:41] LABS: Albumin Level 3.3 g/dL (3.4-5.0); Anion Gap 13 mmol/L (8-16); Blood Urea Nitrogen 68 mg/dL (7-18); Calcium 8.6 mg/dL (8.5-10.1); Carbon Dioxide 22 mmol/L (21-32); Chloride 109 mmol/L (98-108); Estimated Glomerular Filt Rate 9; Glucose 98 mg/dL (70-99); Osmolality Calculated 317 mOsm/kg (285-295); Phosphorus 5.4 mg/dL (2.6-4.7); Potassium 4.4 mmol/L (3.5-5.1); Sodium 144 mmol/L (136-145)
[2022-10-14 18:52] LABS: Total Protein Urine Random > 250.0 mg/dL (0.0-11.9); Ur Ttl Prot Creatinine Ratio 2.95 mg/mg (0-0.20)
[2022-10-20 01:47] LABS: Vitamin D 25 Hydroxy 18 ng/mL (30-100)
[2022-10-21 10:34] LABS: Parathyroid Intact 166 pg/mL (14-64)
== END 2022-10-14 18:05 | disposition home or self-care (01) ==
LOC: CHSLAB 18:06
PROVIDERS: PCP Emergency Medicine; Visit Provider Internal Medicine Nephrology
DX: I12.9 Hypertensive chronic kidney disease with stage 1 through stage 4 chronic kidney disease, or unspecified chronic kidney disease (principal); E55.9 Vitamin D deficiency, unspecified; N25.81 Secondary hyperparathyroidism of renal origin; E11.22 Type 2 diabetes mellitus with diabetic chronic kidney disease; N18.4 Chronic kidney disease, stage 4 (severe)
CPT/HCPCS: 36415; 80069; 82306; 82570; 83970; 84156

== ENCOUNTER 2022-12-01 14:05 | Outpatient (CLI) | payer MEDICARE, SELFPAY ==
[2022-12-01 14:47] LABS: Albumin Level 3.2 g/dL (3.4-5.0); Anion Gap 14 mmol/L (8-16); Blood Urea Nitrogen 79 mg/dL (7-18); Calcium 8.9 mg/dL (8.5-10.1); Carbon Dioxide 19 mmol/L (21-32); Chloride 107 mmol/L (98-108); Estimated Glomerular Filt Rate 8; Glucose 280 mg/dL (70-99); Osmolality Calculated 323 mOsm/kg (285-295); Phosphorus 5.6 mg/dL (2.6-4.7); Potassium 5.1 mmol/L (3.5-5.1); Sodium 140 mmol/L (136-145)
== END 2022-12-01 14:06 | disposition home or self-care (01) ==
LOC: CHSLAB 14:07
PROVIDERS: PCP Emergency Medicine; Visit Provider Internal Medicine Nephrology
DX: N18.5 Chronic kidney disease, stage 5 (principal)
CPT/HCPCS: 36415; 80069

== ENCOUNTER 2023-02-11 16:13 | Outpatient (CLI) | payer MEDICARE, SELFPAY ==
[2023-02-11 16:49] LABS: Albumin Level 2.9 g/dL (3.4-5.0); Anion Gap 9 mmol/L (8-16); Blood Urea Nitrogen 65 mg/dL (7-18); Calcium 8.6 mg/dL (8.5-10.1); Carbon Dioxide 23 mmol/L (21-32); Chloride 110 mmol/L (98-108); Glucose 141 mg/dL (70-99); Osmolality Calculated 314 mOsm/kg (285-295); Phosphorus 5.6 mg/dL (2.6-4.7); Potassium 5.4 mmol/L (3.5-5.1); Sodium 142 mmol/L (136-145)
[2023-02-11 17:05] LABS: Estimated Glomerular Filt Rate 7
[2023-02-14 14:28] LABS: Vitamin D 25 Hydroxy 27 ng/mL (30-100)
[2023-02-16 10:21] LABS: Hepatitis A Antibody IgM Nonreactive; Hepatitis B Core Antibody Nonreactive (Nonreactive); Hepatitis B Surface Antibody Nonreactive (Nonreactive); Hepatitis B Surface Antigen Nonreactive (Nonreactive); Hepatitis C Virus Antibody Nonreactive
[2023-02-17 19:04] LABS: Hepatitis B Core Ab Total Nonreactive (Nonreactive)
== END 2023-02-11 16:14 | disposition home or self-care (01) ==
PROVIDERS: PCP Emergency Medicine; Visit Provider Internal Medicine Nephrology
DX: N18.6 End stage renal disease (principal); R10.11 Right upper quadrant pain; R10.9 Unspecified abdominal pain; E55.9 Vitamin D deficiency, unspecified
CPT/HCPCS: 36415; 80069; 80074; 82306; 86704; 86706

== ENCOUNTER 2023-03-03 10:10 | Emergency (ER) | payer MEDICARE, SELFPAY ==
--- NOTE | ~2023-03-03 | XR_ITS ---
XR chest 2V DATE: 03/03/2023 11:04 INDICATION: Weakness. History of dialysis. TECHNIQUE: AP and lateral views COMPARISON: July 22, 2022 portable AP chest FINDINGS: Borderline heart size. Aortic arch calcification. No hilar or mediastinal enlargement. Moderate bilateral hyperinflation suggesting obstructive airways disease. No pulmonary infiltrate or consolidation, pleural effusion or pulmonary vascular congestion or pneumothorax. Osteopenia. IMPRESSION: Borderline heart size Bilateral hyperinflation suggesting obstructive airways disease No active pulmonary disease Aortic atherosclerosis Osteopenia Reviewed, dictated and finalized at location L.
[2023-03-03 10:15] VITALS: BP 195/66; PULSE 59; RESP 16; TEMP 36.4; O2SAT 100
--- NOTE | 2023-03-03 10:21 | ECG_ITS ---
Measurements Intervals [place] Rate: 59 P: 79 MO: 197 QRS: -82 QRSD: 114 T: 63 QT: 448 QTc: 446 Interpretive Statements SINUS BRADYCARDIA POSSIBLE LEFT ATRIAL ENLARGEMENT [-0.1mV P WAVE IN V1/V2] MARKED LEFT AXIS DEVIATION [QRS AXIS < -30] INCOMPLETE RIGHT BUNDLE BRANCH BLOCK [90+ ms QRS DURATION, TERMINAL R IN V1/V2, 40+ ms S IN I/aVL/V4/V5/V6] SEPTAL MYOCARDIAL INFARCTION , OF INDETERMINATE AGE [40+ ms Q WAVE IN V1/V2] NO PREVIOUS ECG AVAILABLE FOR COMPARISON Electronically Signed On 03-03-2023 12:42:10 CDT by Geni Mensah M.D.
[2023-03-03 10:56] LABS: Basophils Percent Auto 0.4 % (0.2-1.2); Eosinophils Absolute Auto 0.2 K/mm3 (0-0.3); Eosinophils Percent Auto 2.8 % (0-4.4); Hematocrit 26.9 % (37.0-47.0); Hemoglobin 9.1 g/dL (12.0-15.0); Immature Granulocyte Absolute 0.04 K/mm3 (0.00-0.031); Immature Granulocyte Percent A 0.6 % (0-0.5); Lymphocytes Absolute Auto 0.77 K/mm3 (0.9-3.2); Lymphocytes Percent Auto 11.2 % (18.3-44.2); Mean Corpuscular HGB Conc 33.8 g/dl (32-36); Mean Corpuscular Hemoglobin 29.2 pg (26-34); Mean Corpuscular Volume 86.2 fl (80-100); Mean Platelet Volume 9.9 fl (7.4-10.4); Monocytes Absolute Auto 0.4 K/mm3 (0.1-0.6); Monocytes Percent Auto 6.2 % (2.6-8.5); Neutrophils Absolute Auto 5.4 K/mm3 (1.3-6.7); Neutrophils Percent Auto 78.8 % (45.5-73.1); Platelet Count Result 212 k/mm3 (150-375); Red Blood Count 3.12 M/mm3 (4.2-5.4); Red Cell Distribution Width 13.7 % (11.5-14.5); White Blood Count 6.9 K/mm3 (4.5-10.0)
[2023-03-03 11:04] LABS: Alanine Aminotransferase 12 U/L (6-35); Albumin Level 4.2 g/dL (3.5-5.1); Alkaline Phosphatase 63 U/L (38-126); Anion Gap 13 mmol/L (8-16); Aspartate Amino Transferase 18 U/L (14-36); Bilirubin,Total 0.7 mg/dL (0.2-1.3); Blood Urea Nitrogen 99 mg/dL (7-17); Calcium 9.2 mg/dL (8.4-10.2); Carbon Dioxide 23 mmol/L (22-30); Chloride 100 mmol/L (98-107); Estimated CRCL calculation 4 ml/min; Estimated Glomerular Filt Rate 4; Glucose 201 mg/dL (65-110); Potassium 3.8 mmol/L (3.4-5.0); Sodium 136 mmol/L (137-145)
[2023-03-03 11:54] VITALS: BP 192/66; PULSE 61
[2023-03-03 11:56] VITALS: BP 181/72; PULSE 73
[2023-03-03 11:58] VITALS: BP 164/68; PULSE 76
--- NOTE | 2023-03-03 12:05 | PC.NURSE ---
patient tolerated ambulation without complaints
[2023-03-03 12:32] VITALS: BP 186/69; PULSE 70; RESP 16; O2SAT 100
--- NOTE | 2023-03-03 18:07 | ED.WEAKNESS ---
HPI - Weakness General Chief complaint: Weakness Stated complaint: weakness Time Seen by Provider: 03/03/23 10:48 History of Present Illness HPI Narrative: Patient was at dialysis when she felt like she needed to have a bowel movement, when she went to the bathroom she overall felt extremely weak like she has no strength and that she was going to pass out, she had some nausea. She has no chest pain or difficulty breathing, no fevers or chills, she had been feeling completely fine before this happened. EMS was called, by the time she came to the ER, she is feeling much better. Related Data Home Medications Medication Instructions Recorded Confirmed carvedilol 6.25 mg tablet 6.25 mg PO BID 02/25/23 02/25/23 cholecalciferol (vitamin D3) 25 25 mcg PO DAILY 02/25/23 02/25/23 mcg (1,000 unit) capsule furosemide 40 mg tablet 40 mg PO QAM 02/25/23 02/25/23 gentamicin 0.1 % topical cream 1 applic topical ONCE 02/25/23 02/25/23 hydralazine 25 mg tablet 25 mg PO BID 02/25/23 02/25/23 Allergies Allergy/AdvReac Type Severity Reaction Status Date / Time lisinopril Allergy Severe Swelling Verified 03/03/23 10:20 of Lip/Tongue/Throat Review of Systems Review of Systems: CONST: No fever. HEENT: No sore throat C/V: No chest pain RESP: No cough GI: Reports nausea : No dysuria. M/S: No joint pain. SKIN: No rash. NEURO: Lightheadedness without focal numbness or weakness PSYCH: [No depression] [facility] Past Medical History Medical History Anemia Cerebrovascular accident CKD (chronic kidney disease) stage 4, GFR 15-29 ml/min Diabetes mellitus type 1 DKA, type 1 Encephalopathy Hemianopia, homonymous, right Hyperlipidemia Hypertension Hypokalemia Lactic acidosis Nontoxic multinodular goiter Secondary renal hyperparathyroidism Type 1 diabetes mellitus Uterine cancer cells came back on vaginal cuff Vitamin D deficiency Surgical History Surgical History History of hysterectomy for cancer (~2014) History of surgery on lower extremity debridement for infection right leg Hx of cataract surgery Family History Family History Mother , Age 86 Breast cancer Uterine cancer Father , Age 47 Acute myocardial infarction Grandparent Parkinson's disease Other Asthma Family history of alcoholism Family history of malignant neoplasm of ovary Family history of mental disorder Social History Social History Social History: Patient was an only child. She has 1 daughter. 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 Code status: Full code Surrogate decision maker: Daughter Smoking status: Never smoker Second hand tobacco smoke exposure: No Alcohol intake: current Alcohol use details: maybe 1 glass of wine a year Substance use: never Substance use type: does not use Lack of Transportation: No Lack of Food: Never True Current Housing: I Have Housing Concerned About Future Housing: No Difficulty Paying Gas/Electric Bills: No Difficulty Paying for Meds: No Currently Unemployed: No Education: Trade/Vocational Certificate Difficulty w/ Childcare or Family Care: No Living arrangements: with family Gender identity (if verbalized by the patient): Female Spiritual care concerns: No Course Vital Signs Vital signs: Vital Signs Temperature 97.6 F 03/03/23 10:15 Pulse Rate 59 L 03/03/23 10:15 Respiratory Rate 16 03/03/23 10:15 Blood Pressure 195/66 H 03/03/23 10:15 Pulse Oximetry 100 03/03/23 10:15 Oxygen Delivery Room Air 03/03/23 10:15 Temperature 97.6 F 03/03/23 10:15 Pulse Rate 70 03/03/23 12:32 Respiratory Rate 16 03/03/23 12:32 Blood Pressure 186/69 H 03/03/23 12:32 Pulse Oximetry 1
== END 2023-03-03 12:32 | disposition home or self-care (01) ==
PROVIDERS: Emergency Provider Emergency Medicine; PCP Emergency Medicine
DX: R53.1 Weakness (principal); E10.22 Type 1 diabetes mellitus with diabetic chronic kidney disease; I12.9 Hypertensive chronic kidney disease with stage 1 through stage 4 chronic kidney disease, or unspecified chronic kidney disease; N18.4 Chronic kidney disease, stage 4 (severe); Z99.2 Dependence on renal dialysis; N25.81 Secondary hyperparathyroidism of renal origin; E78.5 Hyperlipidemia, unspecified; D64.9 Anemia, unspecified; H53.461 Homonymous bilateral field defects, right side; G93.40 Encephalopathy, unspecified; E55.9 Vitamin D deficiency, unspecified; Z86.73 Personal history of transient ischemic attack (TIA), and cerebral infarction without residual deficits; Z85.42 Personal history of malignant neoplasm of other parts of uterus; Z98.49 Cataract extraction status, unspecified eye; Z79.82 Long term (current) use of aspirin; Z79.4 Long term (current) use of insulin; Z90.710 Acquired absence of both cervix and uterus; R00.1 Bradycardia, unspecified; R94.31 Abnormal electrocardiogram [ECG] [EKG]; I45.10 Unspecified right bundle-branch block
CPT/HCPCS: 36415; 71046; 80053; 85025; 93005; 99283

== ENCOUNTER 2023-03-12 10:55 | Inpatient (IN) | payer MEDICARE, SELFPAY ==
[2023-03-12] VITALS (19 sets, daily range): BP systolic 145–186; BP diastolic 60–98; PULSE 56–73; RESP 13–20; TEMP 36.4–36.6; O2SAT 99–100; BMI 18.1
--- NOTE | ~2023-03-12 | XR_ITS ---
EXAMINATION: XR chest 2V DATE: 03/12/2023 12:57 INDICATION: Weakness. Blurry vision. TECHNIQUE: Frontal and lateral views of the chest were obtained. COMPARISON: Chest 2 views 03/03/2023 FINDINGS: There is no pneumonia, pleural effusion, or pneumothorax. The heart size is normal. Calcifi ed mediastinal lymph nodes are consistent with old granulomatous disease. IMPRESSION: 1. No acute cardiopulmonary disease. Reviewed, dictated and finalized at location A.
--- NOTE | ~2023-03-12 | MR_ITS ---
EXAMINATION: MR brain/brain stem wo con DATE: 03/13/2023 09:19 INDICATION: New cerebrovascular accident. Vision change. Syncope. TECHNIQUE: Magnetic resonance imaging (MRI) of the brain and brainstem was performed without intraven ous contrast. COMPARISON: Brain MRI 07/24/2022, head CT 03/12/2023 FINDINGS: There is an acute infarct in the right temporal occipital region in the expected distributi on of right posterior cerebral artery. There is an acute infarct involving the left basal ganglia and anterior limb left internal capsule. There is an old infarct in the left temporal occipital region. There is an old infarct in the left frontoparietal region. There is an old infarct in the left pariet al lobe deep white matter. There is no intracranial hemorrhage or abnormal mass lesion. There is mild ex vacuo dilatation of trigone of left lateral ventricle. There is anteroposterior elongation of the ocular globes. There are likely changes of ocular lens replacement surgeries. There is mild mucosal thickening in the ethmoid sinuses. The mastoid air cells are normal. IMPRESSION: 1. Acute infarct in right temporal occipital region. 2. Acute infarct involving the left basal ganglia and anterior limb left internal capsule. 3. Old infarcts involving the left temporal occipital region, left frontal parietal region, and left parietal lobe. Reviewed, dictated and finalized at location A. IMPRESSION: 1. Acute infarct in right temporal occipital region. 2. Acute infarct involving the left basal ganglia and anterior limb left manager intern al capsule. 3. Old infarcts involving the left temporal occipital region, left frontal rolanda etal region, and left parietal lobe.
--- NOTE | ~2023-03-12 | XR_ITS ---
EXAMINATION: XR chest 2V DATE: 03/15/2023 18:18 INDICATION: Fever TECHNIQUE: frontal and lateral views of the chest were obtained. COMPARISON: Chest radiograph dated 03/12/2023 FINDINGS: Several skin folds project over the left lung. No focal airspace opacities, pulmonary edema, pleural effusion or pneumothorax. Heart size is normal. Mild thoracic spondylosis. IMPRESSION: 1. No acute cardiopulmonary disease. Reviewed, dictated and finalized at location A.
--- NOTE | ~2023-03-12 | US_ITS ---
EXAMINATION: US carotid duplex BI DATE: 03/13/2023 09:42 INDICATION: Syncope. Acute cerebrovascular accident. TECHNIQUE: Grayscale, color Doppler, and pulsed Doppler images of the cervical carotid arteries were obtained. The degree of vessel stenosis is placed in one of the following categories: normal, <50%, 5 0-69%, >=70% but less than near-occlusion, near-occlusion, or total occlusion. Note that percent sten osis relative to normal distal artery lumen diameter is indirectly measured from velocity measurement s as described by Chin, et al. Radiology 2003; 229:340-346. COMPARISON: Ultrasound 07/24/2022 FINDINGS: RIGHT: The right common carotid artery (CCA) peak systolic velocity (PSV) is 83 cm/s. The right internal car otid artery (ICA) PSV is 138 cm/s. The right ICA end-diastolic velocity (EDV) is 32 cm/s. The right I CA/CCA PSV ratio is 1.7. Grayscale and color Doppler images yield an estimate of <50% diameter reduct ion from plaque in the ICA. There is antegrade flow in the right vertebral artery. LEFT: The left CCA PSV is 103 cm/s. The left ICA PSV is 81 cm/s. The left ICA EDV is 25 cm/s. The left ICA/ CCA PSV ratio is 0.8. Grayscale and color Doppler images yield an estimate of <50% diameter reduction from plaque in the ICA. There is antegrade flow in the left vertebral artery. IMPRESSION: 1. <50% stenosis in the right internal carotid artery. 2. <50% stenosis in the left internal carotid artery. Reviewed, dictated and finalized at location A.
--- NOTE | ~2023-03-12 | CT_ITS ---
EXAMINATION: CT brain wo con DATE: 03/12/2023 13:00 INDICATION: Confusion. Blurred vision. TECHNIQUE: Computed tomography (CT) of the head was performed without intravenous contrast. The mA wa s adjusted according to patient size. Iterative reconstruction technique was employed. The dose-lengt h product was 529.67 mGy-cm. COMPARISON: Head CT 07/22/2022, brain MRI 07/24/2022 FINDINGS: There is an old infarct in the left basal ganglia. There is an infarct in the right tempora l occipital region in the expected distribution of right posterior cerebral artery, new from 3. There is an old infarct involving left temporal parietal occipital region in the expected distribu tion of left posterior cerebral artery. There are scattered areas of low attenuation in the cerebral white matter, which is within normal limits for the patient's age. There is no intracranial hemorrhag e. There is mild ex vacuo dilatation of trigone of left lateral ventricle. The paranasal sinuses are clear. The mastoid air cells are normal. There are likely changes of ocular lens replacement surgerie s. IMPRESSION: 1. Infarct in the right temporal occipital region in the expected distribution of right posterior cer ebral artery, likely acute or subacute. 2. Old infarcts involving the left basal ganglia and left temporal parietal occipital region. Reviewed, dictated and finalized at location A. IMPRESSION: 1. Infarct in the right temporal occipital region in the expected distribution of right posterior cerebral artery, likely acute or subacute. 2. Old infarcts involving the left basal ganglia and left temporal parietal occ ipital region.
--- NOTE | ~2023-03-12 | CT_ITS ---
EXAMINATION: CT brain wo con INDICATION: Transient alteration of awareness, facial droop COMPARISON: 03/12/2023; MRI, 03/13/2023 TECHNIQUE: Standard unenhanced head CT. The dose-length product (DLP) was 605.33 mGy-cm. The mA was a djusted according to patient size. Iterative reconstruction technique was employed. FINDINGS: No acute intraparenchymal hemorrhage. No evidence of mass lesion. There are areas of evolvi ng subacute infarct in the right temporal occipital region, left basal ganglia, and anterior limb of the left internal capsule. Areas of prior infarction involving the left temporal occipital region and left frontoparietal region are again noted. No new area of infarction is identified. There is mild p eriventricular and subcortical hypodensity probably related to small vessel ischemic disease. There i s mild prominence of the sulci and ventricles related to cerebral atrophy. Intracranial calcified cer ebral atherosclerosis is noted. No extra-axial collections. No mass effect or midline shift. Changes in the globes are likely from ocular lens surgery. There is mild mucosal thickening of the paranasal sinuses. IMPRESSION: 1. Areas of evolving subacute infarct and areas of chronic infarction as detailed above. 2. Age related findings. Reviewed, dictated and finalized at location F. IMPRESSION: 1. Areas of evolving subacute infarct and areas of chronic infarction as detail ed above. 2. Age related findings.
--- NOTE | ~2023-03-12 | MR_ITS ---
EXAMINATION: MRA brain wo con DATE: 03/13/2023 12:34 INDICATION: Acute infarct in right temporal occipital region. TECHNIQUE: Magnetic resonance angiography (MRA) of the brain was performed without intravenous contra st with T1-weighted SPGR by the 3D [id number] technique. Maximum intensity projection 3D-reconstr uctions were obtained. COMPARISON: None. FINDINGS: Left vertebral artery is dominant. There is no significant stenosis of basilar artery. There is total occlusion of right posterior communicating artery and right P1 posterior cerebral artery. There is m oderate stenosis of proximal left posterior cerebral artery. A left posterior communicating artery is not identified. There is no significant stenosis of the intracranial internal carotid arteries or an terior cerebral arteries. There is moderate stenosis of left M1 middle cerebral artery. Anterior comm unicating artery is normal. There is no aneurysm. IMPRESSION: 1. 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 2. Moderate stenosis of proximal left posterior cerebral artery. 3. Moderate stenosis of left M1 middle cerebral artery. Reviewed, dictated and finalized at location A. IMPRESSION: 1. Total occlusion of right posterior communicating artery and right P1 posteri or cerebral artery. 2. Moderate stenosis of proximal left posterior cerebral artery. 3. Moderate stenosis of left M1 middle cerebral artery.
--- NOTE | 2023-03-12 12:02 | ECG_ITS ---
Measurements Intervals [place] Rate: 55 P: 76 NE: 186 QRS: -77 QRSD: 118 T: 67 QT: 484 QTc: 465 Interpretive Statements SINUS BRADYCARDIA POSSIBLE LEFT ATRIAL ENLARGEMENT [-0.1mV P WAVE IN V1/V2] MARKED LEFT AXIS DEVIATION [QRS AXIS < -30] INCOMPLETE RIGHT BUNDLE BRANCH BLOCK [90+ ms QRS DURATION, TERMINAL R IN V1/V2, 40+ ms S IN I/aVL/V4/V5/V6] NONSPECIFIC ST & T-WAVE ABNORMALITY PROLONGED QT INTERVAL ABNORMAL ECG COMPARED TO ECG 03/03/2023 10:53:14 T-WAVE ABNORMALITY NOW PRESENT PROLONGED QT INTERVAL NOW PRESENT Electronically Signed On 03-12-2023 13:33:07 CDT by Tung Jones M.D.
[2023-03-12 12:32] LABS: Basophils Percent Auto 0.3 % (0.2-1.2); Eosinophils Absolute Auto 0.1 K/mm3 (0-0.3); Eosinophils Percent Auto 1.3 % (0-4.4); Hematocrit 31.7 % (37.0-47.0); Hemoglobin 10.5 g/dL (12.0-15.0); Immature Granulocyte Absolute 0.02 K/mm3 (0.00-0.031); Immature Granulocyte Percent A 0.3 % (0-0.5); Lymphocytes Absolute Auto 0.49 K/mm3 (0.9-3.2); Mean Corpuscular HGB Conc 33.1 g/dl (32-36); Mean Corpuscular Hemoglobin 28.9 pg (26-34); Mean Corpuscular Volume 87.3 fl (80-100); Mean Platelet Volume 9.9 fl (7.4-10.4); Monocytes Absolute Auto 0.4 K/mm3 (0.1-0.6); Monocytes Percent Auto 6.4 % (2.6-8.5); Neutrophils Absolute Auto 5.1 K/mm3 (1.3-6.7); Neutrophils Percent Auto 83.7 % (45.5-73.1); Platelet Count Result 156 k/mm3 (150-375); Red Blood Count 3.63 M/mm3 (4.2-5.4); Red Cell Distribution Width 14.5 % (11.5-14.5); White Blood Count 6.1 K/mm3 (4.5-10.0)
[2023-03-12 12:52] LABS: Alanine Aminotransferase 13 U/L (6-35); Albumin Level 3.8 g/dL (3.5-5.1); Alkaline Phosphatase 63 U/L (38-126); Anion Gap 10 mmol/L (8-16); Aspartate Amino Transferase 22 U/L (14-36); Bilirubin,Total 1.1 mg/dL (0.2-1.3); Blood Urea Nitrogen 50 mg/dL (7-17); Calcium 9.1 mg/dL (8.4-10.2); Carbon Dioxide 32 mmol/L (22-30); Chloride 95 mmol/L (98-107); Estimated Glomerular Filt Rate 6; Glucose 223 mg/dL (65-110); Sodium 137 mmol/L (137-145)
[2023-03-12 13:37] LABS: INR 1.2; Prothrombin Time 15.7 Seconds (11.1-14.7)
[2023-03-12 13:41] LABS: Partial Thromboplastin Time 29.1 SECONDS (22.3-36.8)
--- NOTE | 2023-03-12 14:00 | ED.WEAKNESS ---
HPI - Weakness General Chief complaint: Weakness Stated complaint: weakness Time Seen by Provider: 03/12/23 12:05 Source: patient, family and RN notes reviewed Mode of arrival: EMS Limitations: clinical condition History of Present Illness HPI Narrative: This is a 77 year old female with history of ESRD on dialysis, anemia, CVA affecting vision , hypertension who presents for evaluation of unresponsiveness. Patient's daughter states patient has been have progressive worsening of her vision since her stroke in July but it has been worse for 5 days. She also states this morning when patient woke her up this morning she seemed confusion. She also states patient was confused when she took her to bathroom. She was trying to get patient up to pull her pants up and patient went limp and unresponsive. She reports unresponsiveness lasted 5 minutes. She started to respond on EMS arrival. Patient denies chest pain, shortness of breath, nausea, vomiting, fever, abdominal pain. She has been on peritoneal dialysis for 7 days. Her video games mechanic is Dr. Nueñz. Related Data Home Medications Medication Instructions Recorded Confirmed carvedilol 6.25 mg tablet 6.25 mg PO BID 02/25/23 03/12/23 cholecalciferol (vitamin D3) 25 25 mcg PO DAILY 02/25/23 03/12/23 mcg (1,000 unit) capsule furosemide 40 mg tablet 40 mg PO QAM 02/25/23 03/12/23 gentamicin 0.1 % topical cream 1 applic topical ONCE 02/25/23 03/12/23 hydralazine 25 mg tablet 25 mg PO BID 02/25/23 03/12/23 Allergies Allergy/AdvReac Type Severity Reaction Status Date / Time lisinopril Allergy Severe Swelling Verified 03/12/23 16:55 of Lip/Tongue/Throat Review of Systems Constitutional: Constitutional: Reports weakness Eyes: Eyes: Reports change in vision Cardiovascular: Cardiovascular: Denies syncope, Denies rapid heart rate, Denies irregular heart rhythm, Denies leg edema and Denies dyspnea Respiratory: Respiratory: Denies chest congestion, Denies hemoptysis, Denies excessive phlegm production and Denies dyspnea Gastrointestinal: Gastrointestinal: Denies abdominal pain, Denies hematochezia, Denies diarrhea and Denies vomiting Genitourinary: Genitourinary: Denies hematuria and Denies dysuria Musculoskeletal: Musculoskeletal: Denies joint swelling, Denies loss of height and Denies muscle weakness Neurologic: Reports syncope, Denies focal weakness and Reports weakness PMFSH Past Medical History Medical History (Updated 03/12/23 @ 22:28 by Amanda Garcia MD) Anemia Cerebrovascular accident CKD (chronic kidney disease) stage 4, GFR 15-29 ml/min Diabetes mellitus type 1 DKA, type 1 Encephalopathy Hemianopia, homonymous, right Hyperlipidemia Hypertension Hypokalemia Lactic acidosis Nontoxic multinodular goiter Secondary renal hyperparathyroidism Uterine cancer cells came back on vaginal cuff Vitamin D deficiency Surgical History Surgical History History of hysterectomy for cancer (~2014) History of surgery on lower extremity debridement for infection right leg Hx of cataract surgery Family History Family History Mother , Age 86 Breast cancer Uterine cancer Father , Age 47 Acute myocardial infarction Grandparent Parkinson's disease Other Asthma Family history of alcoholism Family history of malignant neoplasm of ovary Family history of mental disorder Social History Social History (Updated 03/12/23 @ 21:01 by Josephine Retana APRN) Social History: Patient was an only child. She has 1 daughter. 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 Currently lives at home alone in an apartment. She is . Daughter has been helping her with her medications and dialysis recently. Code status: DNR Surrogate decision maker: Aby Calixto, daughter. Smoking status: Never smoker Second hand t
[2023-03-12] MEDS: POTASSIUM CHLORIDE 20 MEQ ER TABLET 40 MEQ PO (14:31)
[2023-03-12 14:44] LABS: Appearance Urine Cloudy (Clear); Bacteria Urine None Seen /hpf; Bilirubin Urine Negative (Negative); Blood Urine Negative (Negative); Color Urine Yellow (Yellow); Glucose Urine UA 3+ mg/dL (Negative); Ketones Urine Negative (Negative); Leukocyte Esterase Ur Negative LEU/UL (Negative); Need Manual Microscopic Reviewed; Nitrate Urine Negative (Negative); Protein Urine 4+ mg/dL (Negative); RBC Urine 0-2 /hpf (0-2); Specific Grav Ur 1.021 (1.001-1.035); Squamous Epithelial Cell Urine Occasional /hpf (Few); Urobilinogen Urine 0.2 mg/dL (<2.0); WBC Urine 0-5 /hpf; pH Urine 5.5 (5.0-9.0)
[2023-03-12 14:55] LABS: Add Urine Microscopic? YES
--- NOTE | 2023-03-12 15:04 | PM.IMHP ---
H&P: HPI History of Present Illness Date/Time: 03/12/23 15:04 Chief Complaint: Vision Changes, Syncope Narrative: 77-year-old female presents here with vision loss and syncope with past history of CVA with residual vision deficits on the right ESRD with peritoneal dialysis x1 week, chronic anemia, HTN, HLD, diabetes, hyperparathyroidism, uterine cancer s/p hysterectomy. Patient presents here with worsening vision in her left eye over the last 4-5 days. Patient and her daughter originally contributed vision changes to her elevated blood sugars. Patient typically runs closer to the 150s and 160s, since she started peritoneal dialysis her blood sugar has been anywhere from 250-400. Patient has right-sided visual deficits from a previous CVA. Initially left eye became blurry but transitioned into seeing only contrast and shadows. Patient then woke up this morning with no vision in her left eye. Daughter came to help her with her morning medication around 9:15 a.m.. Patient walked to the restroom alone while daughter was in the other room. Patient was in the restroom for approximately 15 minutes, daughter continue to talk to her through the door to check on her. After so much time had elapsed, daughter became worried, she came into the bathroom with the patient. She then helped lift the patient a little to see into the toilet to see if she had gone to the restroom. No excrement in the toilet. After she had lowered her back down onto the toilet the patient then became unresponsive. Patient's eyes were closed, not talking, and became weight. Daughter reports that this lasted approximately 5 minutes. Patient did not sustain any trauma during this event. Patient was not more confused upon wakening. Daughter did note that patient had been more confused since she arrived. Patient is normally very talkative, happy and animated. She noticed the patient was not talking in complete sentences and affect was more flat. Per patient report, prior to syncopal event she did not have any chest pain, nausea, vomiting, diaphoresis, or shortness of breath. However she does not have a firm memory of the event. No focal weakness, changes in sensation, changes in speech, word-finding, facial droop endorsed by patient or by daughter's observation. Review of Systems Review of Systems: All systems reviewed & are unremarkable except as noted in HPI and below PMFSH Past Medical History Medical History (Updated 03/12/23 @ 21:00 by Josephine Retana APRN) Anemia Cerebrovascular accident CKD (chronic kidney disease) stage 4, GFR 15-29 ml/min Diabetes mellitus type 1 DKA, type 1 Encephalopathy Hemianopia, homonymous, right Hyperlipidemia Hypertension Hypokalemia Lactic acidosis Nontoxic multinodular goiter Secondary renal hyperparathyroidism Uterine cancer cells came back on vaginal cuff Vitamin D deficiency Surgical History Surgical History History of hysterectomy for cancer (~2014) History of surgery on lower extremity debridement for infection right leg Hx of cataract surgery Family History Family History Mother , Age 86 Breast cancer Uterine cancer Father , Age 47 Acute myocardial infarction Grandparent Parkinson's disease Other Asthma Family history of alcoholism Family history of malignant neoplasm of ovary Family history of mental disorder Social History Social History (Updated 03/12/23 @ 21:01 by Josephine Retana APRN) Social History: Patient was an only child. She has 1 daughter. 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 Currently lives at home alone in an apartment. She is . Daughter has been helping her with her medications and dialysis recently. Code status: DNR Surrogate decision maker: Aby Perrypaolo, daughter. Smoking status: Never smoker Second hand laverna
--- NOTE | 2023-03-12 16:10 | ADMGEN ---
This patient, Dalila Redd, was admitted to IMU Room 202-. Patient/family oriented to hospital policies and general routines including ID bracelet, bed and alarms, visiting hours, pain management, procedures, bathroom and other care routines, personal items, smoking policy, room service/diet, and visiting hours. Information on how to activate the Rapid Response Team has been discussed. Patient/Family are encouraged to report perceived risks to care and to ask questions if they do not understand what they are told or what they should do.
[2023-03-12 16:11] LABS: Troponin I 0.066 ng/mL (0.000-0.034)
[2023-03-12 17:34] LABS: Glucose Point of Care 184 mg/dl (65-105)
[2023-03-12 19:27] LABS: Troponin I 0.069 ng/mL (0.000-0.034)
[2023-03-12 20:15] LABS: Glucose Point of Care 232 mg/dl (65-105)
[2023-03-12] MEDS: ASPIRIN 325 MG TABLET PO (20:48)
[2023-03-12] MEDS: INSULIN GLARGINE (*BKC) 100 UNITS/ML 9 UNITS SUB-Q (20:48)
[2023-03-12 21:38] LABS: Hemoglobin A1C 6.4 % (<5.7)
[2023-03-12] MEDS: carvediloL 6.25 MG TABLET PO (21:42)
[2023-03-12] MEDS: hydrALAZINE HCL 25 MG TABLET PO (21:45)
[2023-03-13] VITALS (19 sets, daily range): BP systolic 147–201; BP diastolic 53–94; PULSE 62–101; RESP 14–18; TEMP 36.3–37.1; O2SAT 98–100; BMI 18.1
[2023-03-13 05:07] LABS: Basophils Percent Auto 0.4 % (0.2-1.2); Eosinophils Absolute Auto 0.1 K/mm3 (0-0.3); Eosinophils Percent Auto 1.7 % (0-4.4); Hematocrit 29.8 % (37.0-47.0); Hemoglobin 9.7 g/dL (12.0-15.0); Immature Granulocyte Absolute 0.01 K/mm3 (0.00-0.031); Immature Granulocyte Percent A 0.2 % (0-0.5); Lymphocytes Absolute Auto 0.53 K/mm3 (0.9-3.2); Mean Corpuscular HGB Conc 32.6 g/dl (32-36); Mean Corpuscular Hemoglobin 29.7 pg (26-34); Mean Corpuscular Volume 91.1 fl (80-100); Monocytes Absolute Auto 0.4 K/mm3 (0.1-0.6); Monocytes Percent Auto 7.9 % (2.6-8.5); Neutrophils Absolute Auto 3.8 K/mm3 (1.3-6.7); Neutrophils Percent Auto 78.8 % (45.5-73.1); Platelet Count Result 138 k/mm3 (150-375); Red Blood Count 3.27 M/mm3 (4.2-5.4); Red Cell Distribution Width 14.1 % (11.5-14.5); White Blood Count 4.8 K/mm3 (4.5-10.0)
[2023-03-13 05:39] LABS: Alanine Aminotransferase 12 U/L (6-35); Albumin Level 3.3 g/dL (3.5-5.1); Alkaline Phosphatase 64 U/L (38-126); Anion Gap 10 mmol/L (8-16); Aspartate Amino Transferase 19 U/L (14-36); Bilirubin,Total 1.1 mg/dL (0.2-1.3); Blood Urea Nitrogen 48 mg/dL (7-17); Calcium 8.7 mg/dL (8.4-10.2); Carbon Dioxide 26 mmol/L (22-30); Chloride 97 mmol/L (98-107); Estimated CRCL calculation 5 ml/min; Estimated Glomerular Filt Rate 6; Glucose 594 mg/dL (65-110); Potassium 3.5 mmol/L (3.4-5.0); Sodium 133 mmol/L (137-145)
[2023-03-13 05:46] LABS: Glucose Point of Care > 500 mg/dl (65-105)
[2023-03-13] MEDS: INSULIN HUMAN REGULAR (*BKC) 100 UNITS/ML 10 UNITS SUB-Q (06:16)
[2023-03-13 08:10] LABS: Glucose Point of Care > 500 mg/dl (65-105)
[2023-03-13] MEDS: FUROSEMIDE 40 MG TABLET PO (08:20)
[2023-03-13] MEDS: ATORVASTATIN 40 MG TABLET PO (08:20)
[2023-03-13] MEDS: hydrALAZINE HCL 25 MG TABLET PO (08:20)
[2023-03-13] MEDS: carvediloL 6.25 MG TABLET PO ×2 (08:20→21:00)
[2023-03-13] MEDS: CHOLECALCIFEROL 1,000 UNITS TABLET 1000 UNITS PO (08:20)
[2023-03-13] MEDS: HEPARIN SODIUM 5,000 UNITS/ML VIAL 5000 UNITS SUB-Q ×2 (08:21→21:01)
[2023-03-13] MEDS: INSULIN ASPART (*BKC) 100 UNITS/ML SUB-Q ×4 (08:21→17:18)
--- NOTE | 2023-03-13 09:15 | P.CONNP_ITS ---
Assessment and Plan Assessment and plan (1) ESRD (end stage renal disease): Code(s): N18.6 - End stage renal disease Status: Chronic Assessment and Plan: * recently initiated on peritoneal dialysis * continue home PD prescription * follow electrolytes, volume status, and clearance (2) Acute cerebrovascular accident (CVA): Code(s): I63.9 - Cerebral infarction, unspecified Status: Acute Assessment and Plan: * as noted by admission CT scan of head: * infarct in the right temporal occipital region in the expected distribution of right posterior cerebral artery, likely acute or subacute and old infarcts involving the left basal ganglia and left temporal pa rietal occipital region * presented with syncope and progressive vision loss * known previous CVA in Jul 2022 by MRI of brain * Neurology consulted for further evaluation (3) Syncope and collapse: Code(s): R55 - Syncope and collapse Status: Acute Assessment and Plan: * noted presenting symptom... * suspect multifactorial: * hyperglycemia * fluctuating hemodynamics/BP * new CVA(?) * troponin trend noted * follow telemetry * further imaging pending (4) Hypertension: Qualifiers: Hypertension type: secondary to other renal disorders Qualified Code(s): I15.1 - Hypertension secondary to other renal disorders; N28.89 - Other specified disorders of kidney and ureter Code(s): I10 - Essential (primary) hypertension Status: Chronic Assessment and Plan: * seems a bit more erratic now * defer to Neurology with regard to permissive HTN * on coreg and hydralazine -- titrate as needed but may need another agent * follow trend of hemodynamics (5) Anemia: Code(s): D64.9 - Anemia, unspecified Status: Chronic Assessment and Plan: * due to ESRD * Epogen while hospitalized * follow trend of H/H (6) Diabetes mellitus type 1: Qualifiers: Diabetes mellitus complication status: with hyperglycemia Qualified Code(s): E10.65 - Type 1 diabetes mellitus with hyperglycemia Code(s): E10.9 - Type 1 diabetes mellitus without complications Status: Chronic Assessment and Plan: * brittle control at baseline * follow accu-cheks * glycemic control per hospitalists I will continue to follow the patient with you while she remains hospitalized and make further recommendations as needed. Thank you for allowing me to participate in care this patient. History of Present Illness Reason for Consult Consult date: 10/13/23 Reason for consult: end stage renal disease (on peritoneal dialysis) Chief Complaint Chief complaint: Acute CVA, Dialysis History of Present Illness Narrative: The patient is a 77-year-old female with an extensive past medical history as outlined below who presented to [facility] Emergency room further assessment of a syncopal episode. The patient recently transition to peritoneal dialysis for treatment of her end- stage renal disease and has been home for about a week doing these treatments. Unfortunately, since starting peritoneal dialysis, her blood sugar control has been somewhat more erratic given the use of dextrose fluid bags inherent to the process of peritoneal dialysis. The patient's daughter is noted that in the last week, her mother has reported increasing blurry vision in her left eye which she attributed to the higher glucose levels. Apparently, on the day of admission, the patient woke up and had no vision her left
--- NOTE | 2023-03-13 09:15 | PM.CNNEP ---
Assessment and Plan Assessment and plan (1) ESRD (end stage renal disease): Code(s): N18.6 - End stage renal disease Status: Chronic Assessment and Plan: recently initiated on peritoneal dialysis continue home PD prescription follow electrolytes, volume status, and clearance (2) Acute cerebrovascular accident (CVA): Code(s): I63.9 - Cerebral infarction, unspecified Status: Acute Assessment and Plan: as noted by admission CT scan of head: infarct in the right temporal occipital region in the expected distribution of right posterior cerebral artery, likely acute or subacute and old infarcts involving the left basal ganglia and left temporal parietal occipital region presented with syncope and progressive vision loss known previous CVA in Jul 2022 by MRI of brain Neurology consulted for further evaluation (3) Syncope and collapse: Code(s): R55 - Syncope and collapse Status: Acute Assessment and Plan: noted presenting symptom... suspect multifactorial: hyperglycemia fluctuating hemodynamics/BP new CVA(?) troponin trend noted follow telemetry further imaging pending (4) Hypertension: Qualifiers: Hypertension type: secondary to other renal disorders Qualified Code(s): I15.1 - Hypertension secondary to other renal disorders; N28.89 - Other specified disorders of kidney and ureter Code(s): I10 - Essential (primary) hypertension Status: Chronic Assessment and Plan: seems a bit more erratic now defer to Neurology with regard to permissive HTN on coreg and hydralazine -- titrate as needed but may need another agent follow trend of hemodynamics (5) Anemia: Code(s): D64.9 - Anemia, unspecified Status: Chronic Assessment and Plan: due to ESRD Epogen while hospitalized follow trend of H/H (6) Diabetes mellitus type 1: Qualifiers: Diabetes mellitus complication status: with hyperglycemia Qualified Code(s): E10.65 - Type 1 diabetes mellitus with hyperglycemia Code(s): E10.9 - Type 1 diabetes mellitus without complications Status: Chronic Assessment and Plan: brittle control at baseline follow accu-cheks glycemic control per hospitalists I will continue to follow the patient with you while she remains hospitalized and make further recommendations as needed. Thank you for allowing me to participate in care this patient. History of Present Illness Reason for Consult Consult date: 03/13/23 Reason for consult: end stage renal disease (on peritoneal dialysis) Chief Complaint Chief complaint: Acute CVA, Dialysis History of Present Illness Narrative: The patient is a 77-year-old female with an extensive past medical history as outlined below who presented to [facility] Emergency room further assessment of a syncopal episode. The patient recently transition to peritoneal dialysis for treatment of her end-stage renal disease and has been home for about a week doing these treatments. Unfortunately, since starting peritoneal dialysis, her blood sugar control has been somewhat more erratic given the use of dextrose fluid bags inherent to the process of peritoneal dialysis. The patient's daughter is noted that in the last week, her mother has reported increasing blurry vision in her left eye which she attributed to the higher glucose levels. Apparently, on the day of admission, the patient woke up and had no vision her left eye whatsoever. Her daughter came to see her that morning and helped her to the restroom due to the fact that she also has some visual issues in her right eye 2nd to hurry to her previous CVA. While the patient was in the restroom, her daughter continue to talk to her but after a significant amount of time elapsed, the daughter became worried and she entered the bathroom and noted the patient was still seen in the toilet but had
[2023-03-13 09:53] LABS: Glucose Point of Care 379 mg/dl (65-105)
--- NOTE | 2023-03-13 11:38 | WPDNEURCNPN ---
Assessment and Plan Assessment and plan (1) Acute cerebrovascular accident (CVA): Code(s): I63.9 - Cerebral infarction, unspecified Status: Acute (2) ESRD (end stage renal disease): Code(s): N18.6 - End stage renal disease Status: Acute (3) Diabetes mellitus type 1: Qualifiers: Diabetes mellitus complication status: with hyperglycemia Qualified Code(s): E10.65 - Type 1 diabetes mellitus with hyperglycemia Code(s): E10.9 - Type 1 diabetes mellitus without complications Status: Acute (4) Hyperlipidemia: Qualifiers: Hyperlipidemia type: unspecified Qualified Code(s): E78.5 - Hyperlipidemia, unspecified Code(s): E78.5 - Hyperlipidemia, unspecified Status: Acute (5) Hypertension: Qualifiers: Hypertension type: secondary to other renal disorders Qualified Code(s): I15.1 - Hypertension secondary to other renal disorders; N28.89 - Other specified disorders of kidney and ureter Code(s): I10 - Essential (primary) hypertension Status: Acute Plan Ms. Redd is a 77 year old female with a history of prior stroke, diabetes, HTN, HLD presenting with worsening of her vision and mental status. Ultimately found to have bihemispheric infarcts. Concern for cardioembolic source. She has never had intracranial vessel imaging done, so for sake of competition that should be obtained as well as repeat echocardiogram. If these two are unrevealing, then we will need to consult Cardiology for further cardiac work-up. 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 Patient started having worsening vision complaints for the past week. On the day of presentation, she became more confused and had an episode of unresponsiveness while on the toilet (eyes closed, not talking, no movement), daughter reports that this lasted for about five minutes. She woke-up and was back to her baseline. She was taken to [facility] for evaluation. Her blood pressure was in the 170-180s systolic. CT head showed evolving infarct in the right temporal/occipital region and old infarct involving the L basal ganglia and L temporal parietal occipital region. EKG read as sinus bradycardia with possible L atrial enlargement. MRI brain done which shows acute infarct in the right temporal occipital region, left basal ganglia, and left anterior limb of internal capsule. Carotid doppler studies with <50% stenosis bilaterally. Per patient's daughter and grandson, she is still confused. At baseline, she had reportedly normal cognition, although after her last stroke she had some mild difficulty with fluency. Patient had her last stroke in July 2022 -- involving L temporal/occipital region. Carotid doppler studies from that admission was negative but no intracranial vessel imaging was done. Her surface echocardiogram showed EF 65-70% without evidence of shunt. She does take daily aspirin but no statin. No recent LDL level available for review. A1c from this admission is 6.4. Review of Systems Constitutional: Constitutional: Denies chills, Denies fever(s) and Denies weight loss Eyes: Eyes: Reports loss of vision Comments: bilaterally ENT: Denies dizziness, Denies hearing loss and Denies tinnitus Cardiovascular: Cardiovascular: Denies chest pain, Denies syncope and Denies dyspnea Respiratory: Respiratory: Denies cough, Denies dyspnea and Denies wheezing Gastrointestinal: Gastrointestinal: Denies abdominal pain, Denies change in bowel habits, Reports constipation and Denies vomiting Genitourinary: Genitourinary: Denies urinary incon
[2023-03-13 11:58] LABS: Glucose Point of Care 387 mg/dl (65-105)
[2023-03-13 12:47] LABS: LDL Cholesterol Direct 124 mg/dL
--- NOTE | 2023-03-13 12:51 | PCSTNOTE ---
Please refer to the Bedside Swallow Evaluation in the EMR. Please note, silent aspiration cannot be ruled out at bedside.
--- NOTE | 2023-03-13 15:47 | PM.IMPN ---
Progress Note: A&P Assessment and Plan (1) Cerebrovascular accident: Code(s): I63.9 - Cerebral infarction, unspecified Status: Acute Assessment and Plan: Patient presents with weakness and episode of syncope. Also with progressive worsening vision. She has recent hx of stroke in July 2022 (MR showing large acute CVA involving posterior left temporal lobe with possible cut off of the left posterior cerebral artery). --CT brain showing infarct in the right temporal occipital region in the expected distribution of right posterior cerebral artery, likely acute or subacute and old infarcts involving the left basal ganglia and left temporal parietal occipital region. --MR Brain now showing acute infarct right temporal occipital region and acute infarct involving the left basal ganglia and anterior limb internal capsule. --MRA showing total occlusion of the right posterior communicating artery and right P1 posterior cerebral artery with moderate stenosis of proximal left posterior cerebral artery and left M1 MCA. --Echo showing EF 70% with Grade I diastolic dysfunction, moderate MS, moderate AI. Septum intact Results discussed with family at bedside. Plan for aggressive medical management. Appreciate Neurology input ST evaluated the patient and felt she could have regular diet with this liquids. Continue ASA, Lipitor. PT/OT. (2) Syncope and collapse: Code(s): R55 - Syncope and collapse Status: Acute Assessment and Plan: Patient with syncopal episode. Possibly related to CVA but less likely. Possibly related to uncontrolled glucose. MRI brain and Echo as above. EKG showing sinus bradycardia (55) with prolonged QT, incomplete Rt BBB and LAD. Also with nonspecific T wave changes. Troponins elevated but flat at 0.07. CXR was clear. Monitor on tele (3) Diabetes mellitus type 1: Qualifiers: Diabetes mellitus complication status: with hyperglycemia Qualified Code(s): E10.65 - Type 1 diabetes mellitus with hyperglycemia Code(s): E10.9 - Type 1 diabetes mellitus without complications Status: Chronic Assessment and Plan: The patient's blood glucose was reviewed on 03/13 Glucose remains poorly controlled due to PD dialysate. Continue AccuCheks covering with sliding scale. Hypoglycemia protocol available as needed. Advance Lantus (4) ESRD (end stage renal disease): Code(s): N18.6 - End stage renal disease Status: Chronic Assessment and Plan: Patient recently started on PD. She has been tolerating this well without abdominal pain. Nephrology consulted. Continue PD here. (5) Elevated troponin: Code(s): R79.89 - Other specified abnormal findings of blood chemistry Status: Acute Assessment and Plan: As above (6) Hypertension: Qualifiers: Hypertension type: secondary to other renal disorders Qualified Code(s): I15.1 - Hypertension secondary to other renal disorders; N28.89 - Other specified disorders of kidney and ureter Code(s): I10 - Essential (primary) hypertension Status: Chronic Assessment and Plan: Patient's blood pressure was reviewed on 03/13 Blood pressure remains elevated with normal diastolic BP Will continue Coreg and hydralazine. Also on Lasix. Add low dose norvasc. Plan Diet: Renal, diabetic diet GI Prophylaxis: Not currently indicated DVT Prophylaxis: SCDs, Heparin Code Status: DNR Subjective Date/time seen: 03/13/23 15:47 Interval history: 77yo female with ESRD with peritoneal dialysis x1 week, chronic anemia, HTN, DM, hyperparathyroidism, and uterine cancer s/p hysterectomy here for vision loss and syncope. No CP or SOB. She does make urine. No n/v. Eating okay. No PD yesterday. No abd pain. Exam Narrative: AF 98.7 201/60 63 18 100% ra Gen - NARD lying almost flat in bed Chest - CTA bilaterally, nml RR CV - RRR S1/S2. tele showing no significant
[2023-03-13] MEDS: hydrALAZINE HCL 20 MG/ML VIAL 10 MG IV PUSH (16:19)
--- NOTE | 2023-03-13 16:25 | ECHO_ITS ---
Patient Info Name: Dalila Redd Age: 77 years : 1945 Gender: Female Ht: 62 in Wt: 99 lbs BSA: 1.39 m2 HR: 86 bpm BP: 130 / 86 mmHg Heart Rhythm: Sinus Rhythm Technical Quality: Good Exam Date: 03/13/2023 10:47 AM [facility]: [facility] Patient Status: Inpatient Admit Date: 03/12/2023 Staff Ordering Physician: Josephine Retana APRN Certified Public Accountant: Brii Ledbetter RDCS Attending Provider: Mich Jimenez MD Referring Physician: Lainey MAGDALENO; Exam Type: CA echo doppler w bubble study Study Info Indications - new cva Complete two-dimensional, color flow and Doppler transthoracic echocardiogram is performed. Summary 1. Complete two-dimensional, color flow and Doppler transthoracic echocardiogram is performed. 2. Left ventricular chamber dimension is normal. 3. Left ventricular systolic function is hyperdynamic, estimated at >70%. 4. There is moderately increased left ventricular wall thickness. 5. The left ventricular diastolic function is grade I diastolic dysfunction. 6. Left atrial chamber dimension is mildly enlarged. 7. Intact interatrial septum visualized by color flow and agitated saline imaging. 8. There is mild to moderate aortic valve regurgitation. 9. There is moderate aortic valve sclerosis. 10. There is mild mitral valve regurgitation. 11. There is mild to moderate mitral valve stenosis. 12. The mitral valve annulus is severely calcified. 13. The mitral valve has thickened leaflets. 14. Mild pulmonary hypertension, estimated pulmonary arterial systolic pressure is 38 mmHg. Left Ventricle Left ventricular chamber dimension is normal. Left ventricular systolic function is hyperdynamic, estimated at >70%. There is moderately increased left ventricular wall thickness. The left ventricular diastolic function is grade I diastolic dysfunction. Right Ventricle Right ventricular chamber dimension is normal. Right ventricular systolic function is normal. Left Atria Left atrial chamber dimension is mildly enlarged. Right Atria Right atrial chamber dimension is normal. Atrial Septum Intact interatrial septum visualized by color flow and agitated saline imaging. Aortic Valve The aortic valve is trileaflet. There is moderate aortic valve sclerosis. There is no aortic valve stenosis. There is mild to moderate aortic valve regurgitation. Pulmonic Valve The pulmonic valve is normal. There is no pulmonic valve stenosis. There is trace pulmonic regurgitation. Mitral Valve The mitral valve has thickened leaflets. There is mild to moderate mitral valve stenosis. There is mild mitral valve regurgitation. The mitral valve annulus is severely calcified. Tricuspid Valve The tricuspid valve leaflets are normal. There is no significant tricuspid valve stenosis. There is trace tricuspid valve regurgitation. Mild pulmonary hypertension, estimated pulmonary arterial systolic pressure is 38 mmHg. Pericardium/Pleural The pericardium appears normal. There is no pericardial effusion. Inferior Vena Cava Normal inferior vena cava with >50% collapse upon inspiration consistent with normal right atrial pressure, 10 mmHg. Aorta The aortic root size at the sinus of Valsalva is normal. Left Ventricular Outflow Tract Name Value Normal LVOT 2D LVOT Martina
[2023-03-13 16:32] LABS: Glucose Point of Care 329 mg/dl (65-105)
[2023-03-13] MEDS: amLODIPine BESYLATE 2.5 MG TABLET PO (17:18)
[2023-03-13 18:15] LABS: Glucose Point of Care 365 mg/dl (65-105)
--- NOTE | 2023-03-13 19:54 | PC.NURSE ---
Nurse was called to the room by maddie. Patient was on the commode pooping, lethargic, pale, clammy, and had eyes closed. Patient would respond after great prompting. BP sitting on the commode was 101/48. Patient was moved back to bed. BP went up to 134/54. Patient stated she was feeling less dizzy, but still nauseated. After 5 minutes, BP was up to 148/50 and patient stated she felt a lot better and was no longer nauseated or dizzy. Upon further discussion with the family, it sounds like this is the third time this has probably happened when the patient was pooping. Doctor notified. Family and patient informed that next time patient needs to poop she should do it on the bedpan.
[2023-03-13 20:38] LABS: Glucose Point of Care 466 mg/dl (65-105)
[2023-03-13] MEDS: hydrALAZINE HCL 50 MG TABLET PO (21:00)
[2023-03-13] MEDS: INSULIN HUMAN REGULAR (*BKC) 100 UNITS/ML SUB-Q (21:00)
[2023-03-13] MEDS: INSULIN GLARGINE (*BKC) 100 UNITS/ML 15 UNITS SUB-Q (21:01)
[2023-03-13 23:12] LABS: Glucose Point of Care > 500 mg/dl (65-105)
[2023-03-14] VITALS (23 sets, daily range): BP systolic 129–178; BP diastolic 54–97; PULSE 64–101; RESP 12–24; TEMP 36.3–37.7; O2SAT 98–100
[2023-03-14 00:16] LABS: Anion Gap 12 mmol/L (8-16); Blood Urea Nitrogen 52 mg/dL (7-17); Carbon Dioxide 24 mmol/L (22-30); Chloride 94 mmol/L (98-107); Estimated CRCL calculation 6 ml/min; Estimated Glomerular Filt Rate 7; Glucose 682 mg/dL (65-110); Potassium 2.8 mmol/L (3.4-5.0); Sodium 130 mmol/L (137-145)
[2023-03-14] MEDS: KCL 20 MEQ/SW 100 ML 100 ML 50 MEQ IVPB (00:55)
[2023-03-14] MEDS: POTASSIUM CHLORIDE 20 MEQ PACKET (FOR LIQUID) 40 MEQ PO (00:55)
--- NOTE | 2023-03-14 01:27 | PC.NURSE ---
PD exchange stopped at 0130 due to elevated glucose.
[2023-03-14] MEDS: INSULIN HUMAN REGULAR (*BKC) 100 UNITS/ML IV PUSH (03:01)
[2023-03-14 04:28] LABS: Basophils Percent Auto 0.3 % (0.2-1.2); Eosinophils Percent Auto 0.5 % (0-4.4); Hematocrit 29.8 % (37.0-47.0); Hemoglobin 9.6 g/dL (12.0-15.0); Immature Granulocyte Absolute 0.01 K/mm3 (0.00-0.031); Immature Granulocyte Percent A 0.2 % (0-0.5); Lymphocytes Absolute Auto 0.45 K/mm3 (0.9-3.2); Lymphocytes Percent Auto 7.5 % (18.3-44.2); Mean Corpuscular HGB Conc 32.2 g/dl (32-36); Mean Corpuscular Hemoglobin 29.6 pg (26-34); Mean Platelet Volume 10.2 fl (7.4-10.4); Monocytes Absolute Auto 0.5 K/mm3 (0.1-0.6); Monocytes Percent Auto 8.8 % (2.6-8.5); Neutrophils Percent Auto 82.7 % (45.5-73.1); Platelet Count Result 137 k/mm3 (150-375); Red Blood Count 3.24 M/mm3 (4.2-5.4); Red Cell Distribution Width 13.8 % (11.5-14.5)
[2023-03-14 04:49] LABS: Albumin Level 3.3 g/dL (3.5-5.1); Anion Gap 10 mmol/L (8-16); Blood Urea Nitrogen 49 mg/dL (7-17); Carbon Dioxide 23 mmol/L (22-30); Chloride 97 mmol/L (98-107); Estimated CRCL calculation 6 ml/min; Estimated Glomerular Filt Rate 7; Glucose 613 mg/dL (65-110); Magnesium 1.9 mg/dL (1.6-2.3); Phosphorus 3.5 mg/dL (2.5-4.5); Potassium 4.1 mmol/L (3.4-5.0); Sodium 130 mmol/L (137-145)
[2023-03-14] MEDS: INSULIN HUMAN REGULAR (*BKC) 100 UNITS/ML SUB-Q (05:19)
[2023-03-14 05:28] LABS: Glucose Point of Care > 500 mg/dl (65-105)
[2023-03-14 06:36] LABS: Hepatitis B Surface Anti Res Negative
[2023-03-14 08:45] LABS: Glucose Point of Care > 500 mg/dl (65-105)
[2023-03-14] MEDS: INSULIN ASPART (*BKC) 100 UNITS/ML 8 UNITS SUB-Q ×2 (09:38→16:07)
[2023-03-14] MEDS: hydrALAZINE HCL 50 MG TABLET PO ×2 (09:41→21:49)
[2023-03-14] MEDS: ATORVASTATIN 40 MG TABLET PO (09:41)
[2023-03-14] MEDS: amLODIPine BESYLATE 5 MG TABLET PO (09:41)
[2023-03-14] MEDS: EPOETIN ALFA-EPBX 10,000 UNITS/ML VIAL 10000 UNITS SUB-Q (09:42)
[2023-03-14] MEDS: CHOLECALCIFEROL 1,000 UNITS TABLET 1000 UNITS PO (09:42)
[2023-03-14] MEDS: carvediloL 6.25 MG TABLET PO ×2 (09:42→21:48)
[2023-03-14] MEDS: HEPARIN SODIUM 5,000 UNITS/ML VIAL 5000 UNITS SUB-Q ×2 (09:43→21:48)
[2023-03-14 10:00] LABS: Glucose Point of Care 472 mg/dl (65-105)
--- NOTE | 2023-03-14 10:19 | WPDNEUROPN ---
Progress Note: A&P Assessment and Plan (1) Cerebrovascular accident: Code(s): I63.9 - Cerebral infarction, unspecified Status: Acute (2) Syncope and collapse: Code(s): R55 - Syncope and collapse Status: Acute (3) Diabetes mellitus type 1: Qualifiers: Diabetes mellitus complication status: with hyperglycemia Qualified Code(s): E10.65 - Type 1 diabetes mellitus with hyperglycemia Code(s): E10.9 - Type 1 diabetes mellitus without complications Status: Chronic (4) ESRD (end stage renal disease): Code(s): N18.6 - End stage renal disease Status: Chronic (5) Hypertension: Qualifiers: Hypertension type: secondary to other renal disorders Qualified Code(s): I15.1 - Hypertension secondary to other renal disorders; N28.89 - Other specified disorders of kidney and ureter Code(s): I10 - Essential (primary) hypertension Status: Chronic Plan Ms. Redd is a 77 year old female with a history of prior stroke, diabetes, HTN, HLD presenting with worsening of her vision and mental status. Ultimately found to have bihemispheric infarcts involving the right temporoparietal region, L basal ganglia/internal capsule, MRA brain shows evidence of stenosis in large vessels including L MCA, L COURT TRANSCRIBER. There is evidence of R COURT TRANSCRIBER occlusion as well. Etiology of stroke is likely large vessel disease since MRA findings coincide with distribution of stroke. LDL is in the 120s as well. 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 Patient started having worsening vision complaints for the past week. On the day of presentation, she became more confused and had an episode of unresponsiveness while on the toilet (eyes closed, not talking, no movement), daughter reports that this lasted for about five minutes. She woke-up and was back to her baseline. She was taken to [facility] for evaluation.? Her blood pressure was in the 170-180s systolic. CT head showed evolving infarct in the right temporal/occipital region and old infarct involving the L basal ganglia and L temporal parietal occipital region. EKG read as sinus bradycardia with possible L atrial enlargement. MRI brain done which shows acute infarct in the right temporal occipital region, left basal ganglia, and left anterior limb of internal capsule. Carotid doppler studies with <50% stenosis bilaterally. Per patient's daughter and grandson, she is still confused. At baseline, she had reportedly normal cognition, although after her last stroke she had some mild difficulty with fluency. Patient had her last stroke in July 2022 -- involving L temporal/occipital region. Carotid doppler studies from that admission was negative but no intracranial vessel imaging was done. Her surface echocardiogram showed EF 65-70% without evidence of shunt. She does take daily aspirin but no statin. No recent LDL level available for review. A1c from this admission is 6.4. MRA brain done yesterday showed total occlusion of right P1, moderate stenosis of proximal L COURT TRANSCRIBER and moderate stenosis of L M1 segment. Echocardiogram with bubble study was unrevealing. LDL is 124. Review of Systems Constitutional: Constitutional: Denies chills, Denies fever(s) and Denies weight loss Eyes: Eyes: Reports loss of vision Comments: bilaterally ENT: Denies dizziness, Denies hearing loss and Denies tinnitus Cardiovascular: Cardiovascular: Denies chest pain, Denies syncope and Denies dyspnea Respiratory: Respiratory: Denies cough, Denies dyspnea and Denies wheezing Gas
--- NOTE | 2023-03-14 11:43 | PM.IMPN ---
Progress Note: A&P Assessment and Plan (1) Cerebrovascular accident: Code(s): I63.9 - Cerebral infarction, unspecified Status: Acute Assessment and Plan: Patient presents with weakness, vision changes and episode of syncope. Also with progressive worsening vision. She has recent hx of stroke in July 2022 (MR showing large acute CVA involving posterior left temporal lobe with possible cut off of the left posterior cerebral artery). --CT brain showing infarct in the right temporal occipital region in the expected distribution of right posterior cerebral artery, likely acute or subacute and old infarcts involving the left basal ganglia and left temporal parietal occipital region. --MR Brain now showing acute infarct right temporal occipital region and acute infarct involving the left basal ganglia and anterior limb internal capsule. --MRA showing total occlusion of the right posterior communicating artery and right P1 posterior cerebral artery with moderate stenosis of proximal left posterior cerebral artery and left M1 MCA. --Echo showing EF 70% with Grade I diastolic dysfunction, moderate MS, moderate AI. Septum intact ST evaluated the patient and felt she could have regular diet with this liquids. Discussed placement options with family at bedside. Continue aggressive medical management. Appreciate Neurology input Continue ASA, Lipitor. Add Plavix for 3 months Advance anti-HTN medications Continue PT/OT. (2) Syncope and collapse: Code(s): R55 - Syncope and collapse Status: Acute Assessment and Plan: Patient with syncopal episode. Possibly related to CVA but less likely. Possibly related to uncontrolled glucose. MRI brain and Echo as above. EKG showing sinus bradycardia (55) with prolonged QT, incomplete Rt BBB and LAD. Also with nonspecific T wave changes. Troponins elevated but flat at 0.07. CXR was clear. No significant dysrhythmias on tele Monitor on tele (3) Diabetes mellitus type 1: Qualifiers: Diabetes mellitus complication status: with hyperglycemia Qualified Code(s): E10.65 - Type 1 diabetes mellitus with hyperglycemia Code(s): E10.9 - Type 1 diabetes mellitus without complications Status: Chronic Assessment and Plan: A1c 6.4. The patient's blood glucose was reviewed on 03/14 Glucose remains very poorly controlled due to PD dialysate. Continue AccuCheks covering with sliding scale. Hypoglycemia protocol available as needed. Advance Lantus and meal time Novolog (4) ESRD (end stage renal disease): Code(s): N18.6 - End stage renal disease Status: Chronic Assessment and Plan: Patient recently started on PD. She has been tolerating this well without abdominal pain. Nephrology consulted. Continue PD here. This may make it hard to find placement. (5) Elevated troponin: Code(s): R79.89 - Other specified abnormal findings of blood chemistry Status: Acute Assessment and Plan: As above (6) Hypertension: Qualifiers: Hypertension type: secondary to other renal disorders Qualified Code(s): I15.1 - Hypertension secondary to other renal disorders; N28.89 - Other specified disorders of kidney and ureter Code(s): I10 - Essential (primary) hypertension Status: Chronic Assessment and Plan: Patient's blood pressure was reviewed on 03/14 Blood pressure remains elevated with normal diastolic BP Will continue Coreg and hydralazine. Also on Lasix. Advance norvasc. Plan Diet: Renal, diabetic diet GI Prophylaxis: Not currently indicated DVT Prophylaxis: SCDs, Heparin Code Status: DNR Subjective Date/time seen: 03/14/23 11:43 Interval history: 77yo female with ESRD with peritoneal dialysis x1 week, chronic anemia, HTN, DM, hyperparathyroidism, and uterine cancer s/p hysterectomy here for vision loss and syncope. Patient is alert but confused and unable to provide hx.
[2023-03-14 12:05] LABS: Glucose Point of Care 403 mg/dl (65-105)
--- NOTE | 2023-03-14 12:40 | P.PNNP_ITS ---
Progress Note: A&P Assessment and Plan (1) ESRD (end stage renal disease): Code(s): N18.6 - End stage renal disease Status: Chronic Assessment and Plan: * recently initiated on peritoneal dialysis * continue home PD prescription * follow electrolytes, volume status, and clearance (2) Acute cerebrovascular accident (CVA): Code(s): I63.9 - Cerebral infarction, unspecified Status: Acute Assessment and Plan: * as noted by admission CT scan of head: * infarct in the right temporal occipital region in the expected distribution of right posterior cerebral artery, likely acute or subacute and old infarcts involving the left basal ganglia and left temporal par ietal occipital region * presented with syncope and progressive vision loss * known previous CVA in Jul 2022 by MRI of brain * still not herself. Some confusion. * Neurology consulted for further evaluation (3) Syncope and collapse: Code(s): R55 - Syncope and collapse Status: Acute Assessment and Plan: * noted presenting symptom... * suspect multifactorial: * hyperglycemia * fluctuating hemodynamics/BP * new CVA(?) * troponin Is barely high and flat. * No chest pain. (4) Hypertension: Qualifiers: Hypertension type: secondary to other renal disorders Qualified Code(s): I15.1 - Hypertension secondary to other renal disorders; N28.89 - Other specified disorders of kidney and ureter Code(s): I10 - Essential (primary) hypertension Status: Chronic Assessment and Plan: * Systolic mostly in the 160s and 170s. Occasionally it does drop into the 120s. * defer to Neurology with regard to permissive HTN. Note says okay to normalize the blood pressure. * on coreg , amlodipine and hydralazine . She cannot have an Kush or an Arb due to angioedema from lisinopril. * Amlodipine was increased this morning at [address] Jimenez (5) Anemia: Code(s): D64.9 - Anemia, unspecified Status: Chronic Assessment and Plan: * due to ESRD * Epogen while hospitalized * Hemoglobin 9.6 today. (6) Diabetes mellitus type 1: Qualifiers: Diabetes mellitus complication status: with hyperglycemia Qualified Code(s): E10.65 - Type 1 diabetes mellitus with hyperglycemia Code(s): E10.9 - Type 1 diabetes mellitus without complications Status: Chronic Assessment and Plan: * brittle control at baseline * follow accu-cheks * blood sugars very high. PD held last night because of the high sugars. Will hold again tonight if the sugars are still out of control. * glycemic control per hospitalists Subjective Date/time seen: 03/14/23 12:40 Interval history: Patient is comfortable in bed. She denies shortness of breath or chest pain. She is on PD. They did stop the exchanges last night because of the high sugars. patient is on PD. She was seen at noon Exam Narrative: Well-developed well-nourished female in no acute distress lungs clear heart regular without rub abdomen bowel sounds positive soft nontender extremities no cyanosis clubbing or edema skin no rash Objective Data Vital Signs Vital Signs: Vital Signs - 24 hr 03/13/23 14:00 03/13/23 15:40 03/13/23 16:00 Temperature 98.7 F Pulse Rate 65 63 66 Respiratory Rate 18 Blood Pressure 201/60 H
--- NOTE | 2023-03-14 12:40 | PM.PNNEP ---
Progress Note: A&P Assessment and Plan (1) ESRD (end stage renal disease): Code(s): N18.6 - End stage renal disease Status: Chronic Assessment and Plan: recently initiated on peritoneal dialysis continue home PD prescription follow electrolytes, volume status, and clearance (2) Acute cerebrovascular accident (CVA): Code(s): I63.9 - Cerebral infarction, unspecified Status: Acute Assessment and Plan: as noted by admission CT scan of head: infarct in the right temporal occipital region in the expected distribution of right posterior cerebral artery, likely acute or subacute and old infarcts involving the left basal ganglia and left temporal parietal occipital region presented with syncope and progressive vision loss known previous CVA in Jul 2022 by MRI of brain still not herself. Some confusion. Neurology consulted for further evaluation (3) Syncope and collapse: Code(s): R55 - Syncope and collapse Status: Acute Assessment and Plan: noted presenting symptom... suspect multifactorial: hyperglycemia fluctuating hemodynamics/BP new CVA(?) troponin Is barely high and flat. No chest pain. (4) Hypertension: Qualifiers: Hypertension type: secondary to other renal disorders Qualified Code(s): I15.1 - Hypertension secondary to other renal disorders; N28.89 - Other specified disorders of kidney and ureter Code(s): I10 - Essential (primary) hypertension Status: Chronic Assessment and Plan: Systolic mostly in the 160s and 170s. Occasionally it does drop into the 120s. defer to Neurology with regard to permissive HTN. Note says okay to normalize the blood pressure. on coreg , amlodipine and hydralazine . She cannot have an Kush or an Arb due to angioedema from lisinopril. Amlodipine was increased this morning at [address] Jimenez (5) Anemia: Code(s): D64.9 - Anemia, unspecified Status: Chronic Assessment and Plan: due to ESRD Epogen while hospitalized Hemoglobin 9.6 today. (6) Diabetes mellitus type 1: Qualifiers: Diabetes mellitus complication status: with hyperglycemia Qualified Code(s): E10.65 - Type 1 diabetes mellitus with hyperglycemia Code(s): E10.9 - Type 1 diabetes mellitus without complications Status: Chronic Assessment and Plan: brittle control at baseline follow accu-cheks blood sugars very high. PD held last night because of the high sugars. Will hold again tonight if the sugars are still out of control. glycemic control per hospitalists Subjective Date/time seen: 03/14/23 12:40 Interval history: Patient is comfortable in bed. She denies shortness of breath or chest pain. She is on PD. They did stop the exchanges last night because of the high sugars. patient is on PD. She was seen at noon Exam Narrative: Well-developed well-nourished female in no acute distress lungs clear heart regular without rub abdomen bowel sounds positive soft nontender extremities no cyanosis clubbing or edema skin no rash Objective Data Vital Signs Vital Signs: Vital Signs - 24 hr 03/13/23 14:00 03/13/23 15:40 03/13/23 16:00 Temperature 98.7 F Pulse Rate 65 63 66 Respiratory Rate 18 Blood Pressure 201/60 H Pulse Oximetry 100 Oxygen Delivery 03/13/23 18:00 03/13/23 16:00 03/13/23 20:00 Temperature 97.3 F L Pulse Rate 72 82 Respiratory Rate 16 Blood Pressure 147/53 H Pulse Oximetry 99 Oxygen Delivery Room Air 03/13/23 21:00 03/14/23 00:00 03/13/23 20:00 Temperature 97.3 F L Pulse Rate 101 H 101 H Respiratory Rate 16 Blood Pressure 140/62 Pulse Oximetry 99 Oxygen Delivery Room Air 03/14/23 00:00 03/14/23 03:17 03/14/23 04:00 Temperature 97.4 F L Pulse Rate 81 Respiratory Rate 16 Blood Pressure 162/58 H Pulse Oximetry 99 Oxygen Delive
[2023-03-14] MEDS: CLOPIDOGREL BISULFATE 75 MG TABLET PO (16:05)
[2023-03-14] MEDS: INSULIN ASPART (*BKC) 100 UNITS/ML SUB-Q (16:05)
[2023-03-14 16:07] LABS: Glucose Point of Care 418 mg/dl (65-105)
[2023-03-14 20:07] LABS: Glucose Point of Care 250 mg/dl (65-105)
[2023-03-14] MEDS: INSULIN GLARGINE (*BKC) 100 UNITS/ML 30 UNITS SUB-Q (21:48)
[2023-03-14 22:02] LABS: Glucose Point of Care 256 mg/dl (65-105)
[2023-03-14 23:35] LABS: Glucose Point of Care 210 mg/dl (65-105)
[2023-03-15] VITALS (18 sets, daily range): BP systolic 130–169; BP diastolic 48–77; PULSE 66–80; RESP 12–20; TEMP 36.4–37.8; O2SAT 97–100
[2023-03-15 02:44] LABS: Glucose Point of Care 163 mg/dl (65-105)
[2023-03-15 04:52] LABS: Basophils Percent Auto 0.4 % (0.2-1.2); Eosinophils Absolute Auto 0.1 K/mm3 (0-0.3); Eosinophils Percent Auto 2.8 % (0-4.4); Hematocrit 26.9 % (37.0-47.0); Hemoglobin 8.8 g/dL (12.0-15.0); Immature Granulocyte Absolute 0.01 K/mm3 (0.00-0.031); Immature Granulocyte Percent A 0.2 % (0-0.5); Lymphocytes Absolute Auto 0.71 K/mm3 (0.9-3.2); Lymphocytes Percent Auto 14.1 % (18.3-44.2); Mean Corpuscular HGB Conc 32.7 g/dl (32-36); Mean Corpuscular Hemoglobin 29.3 pg (26-34); Mean Corpuscular Volume 89.7 fl (80-100); Mean Platelet Volume 10.9 fl (7.4-10.4); Monocytes Absolute Auto 0.5 K/mm3 (0.1-0.6); Monocytes Percent Auto 9.9 % (2.6-8.5); Neutrophils Absolute Auto 3.7 K/mm3 (1.3-6.7); Neutrophils Percent Auto 72.6 % (45.5-73.1); Platelet Count Result 132 k/mm3 (150-375); Red Cell Distribution Width 14.4 % (11.5-14.5)
[2023-03-15 05:01] LABS: Albumin Level 2.9 g/dL (3.5-5.1); Anion Gap 6 mmol/L (8-16); Blood Urea Nitrogen 52 mg/dL (7-17); Calcium 8.8 mg/dL (8.4-10.2); Carbon Dioxide 30 mmol/L (22-30); Chloride 101 mmol/L (98-107); Estimated CRCL calculation 6 ml/min; Estimated Glomerular Filt Rate 6; Glucose 147 mg/dL (65-110); Magnesium 1.8 mg/dL (1.6-2.3); Phosphorus 3.8 mg/dL (2.5-4.5); Potassium 3.4 mmol/L (3.4-5.0); Sodium 137 mmol/L (137-145)
[2023-03-15 07:50] LABS: Glucose Point of Care 114 mg/dl (65-105)
--- NOTE | 2023-03-15 08:33 | PM.IMPN ---
Progress Note: A&P Assessment and Plan (1) Cerebrovascular accident: Code(s): I63.9 - Cerebral infarction, unspecified Status: Acute Assessment and Plan: Patient presents with weakness, vision changes and episode of syncope. She has a recent hx of stroke in July 2022 (MR showing large acute CVA involving posterior left temporal lobe with possible cut off of the left posterior cerebral artery). --CT brain here showing infarct in the right temporal occipital region in the expected distribution of right posterior cerebral artery, likely acute or subacute and old infarcts involving the left basal ganglia and left temporal parietal occipital region. --MR Brain here showing acute infarct right temporal occipital region and acute infarct involving the left basal ganglia and anterior limb internal capsule. --MRA showing total occlusion of the right posterior communicating artery and right P1 posterior cerebral artery with moderate stenosis of proximal left posterior cerebral artery and left M1 MCA. --Echo showing EF 70% with Grade I diastolic dysfunction, moderate MS, moderate AI. Septum intact ST evaluated the patient and felt she could have regular diet with thin liquids. PT/OT started. ASA continued but dose decrease; Plavix added for 3 months LDL 124. Lipitor added. BP noted. Advance anti-HTN medications again A1c 6.4. Elevated glucose related to PD. Glucose better but did not have PD last night. Discussed placement options with family at bedside. Continue aggressive medical management. Appreciate Neurology input (2) Syncope and collapse: Code(s): R55 - Syncope and collapse Status: Acute Assessment and Plan: Patient with syncopal episode. Possibly related to CVA but less likely. Possibly related to uncontrolled glucose. MRI brain and Echo as above. EKG showing sinus bradycardia (55) with prolonged QT, incomplete Rt BBB and LAD. Also with nonspecific T wave changes. Troponins elevated but flat at 0.07. CXR was clear. No significant dysrhythmias on tele. Continue to monitor (3) Diabetes mellitus type 1: Qualifiers: Diabetes mellitus complication status: with hyperglycemia Qualified Code(s): E10.65 - Type 1 diabetes mellitus with hyperglycemia Code(s): E10.9 - Type 1 diabetes mellitus without complications Status: Chronic Assessment and Plan: A1c 6.4. The patient's blood glucose was reviewed on 03/15 Glucose much better controlled but did not receive PD last night. She takes Lantus 60U QHS at home. Have her on Lantus 30U QHS and Novolg 8U TID w/meals. Continue AccuCheks covering with sliding scale. Hypoglycemia protocol available as needed. Will have to wait to see how high her glucose climbs with PD before advancing her insulin regiment again. She actually may need HD for placement. (4) ESRD (end stage renal disease): Code(s): N18.6 - End stage renal disease Status: Chronic Assessment and Plan: Patient recently started on PD. She has been tolerating this well without abdominal pain. Nephrology consulted. Continue PD here. This may make it hard to find placement. Consult GenSurg for HD catheter placement? (5) Elevated troponin: Code(s): R79.89 - Other specified abnormal findings of blood chemistry Status: Acute Assessment and Plan: As above (6) Hypertension: Qualifiers: Hypertension type: secondary to other renal disorders Qualified Code(s): I15.1 - Hypertension secondary to other renal disorders; N28.89 - Other specified disorders of kidney and ureter Code(s): I10 - Essential (primary) hypertension Status: Chronic Assessment and Plan: Patient's blood pressure was reviewed on 03/15 Blood pressure remains elevated at times Will continue Coreg and hydralazine. Also on Lasix. Advance Norvasc again. Plan Diet: Renal, diabetic diet GI Prophylaxis: Not currently indicated D
[2023-03-15] MEDS: CHOLECALCIFEROL 1,000 UNITS TABLET 1000 UNITS PO (11:07)
[2023-03-15] MEDS: hydrALAZINE HCL 50 MG TABLET PO ×2 (11:07→20:42)
[2023-03-15] MEDS: amLODIPine BESYLATE 5 MG TABLET 10 MG PO (11:07)
[2023-03-15] MEDS: carvediloL 6.25 MG TABLET PO ×2 (11:07→20:38)
[2023-03-15] MEDS: HEPARIN SODIUM 5,000 UNITS/ML VIAL 5000 UNITS SUB-Q ×2 (11:08→20:38)
[2023-03-15] MEDS: CLOPIDOGREL BISULFATE 75 MG TABLET PO (11:08)
[2023-03-15] MEDS: ATORVASTATIN 40 MG TABLET PO (11:08)
[2023-03-15 11:50] LABS: Glucose Point of Care 116 mg/dl (65-105)
[2023-03-15 13:50] LABS: Glucose Point of Care 203 mg/dl (65-105)
--- NOTE | 2023-03-15 14:14 | P.PNNP_ITS ---
Progress Note: A&P Assessment and Plan (1) ESRD (end stage renal disease): Code(s): N18.6 - End stage renal disease Status: Chronic Assessment and Plan: * recently initiated on peritoneal dialysis * continue home PD prescription tonight * discussed with nursing. Apparently the patient is going to have to go somewhere to get stronger. There is nowhere in the area that does peritoneal dialysis and outpatient rehab so we may need to switch to hemodialysis. I discussed this with the patient and she is not enthusiastic about this. She wants to talk with her daughter. (2) Acute cerebrovascular accident (CVA): Code(s): I63.9 - Cerebral infarction, unspecified Status: Acute Assessment and Plan: * as noted by admission CT scan of head: * infarct in the right temporal occipital region in the expected distribution of right posterior cerebral artery, likely acute or subacute and old infarcts involving the left basal ganglia and left temporal parietal occipital region * presented with syncope and progressive vision loss * known previous CVA in Jul 2022 by MRI of brain * Mental status is improved (3) Syncope and collapse: Code(s): R55 - Syncope and collapse Status: Acute Assessment and Plan: * noted presenting symptom... * suspect multifactorial: * hyperglycemia * fluctuating hemodynamics/BP * new CVA(?) * troponin Is barely high and flat. * No chest pain. (4) Hypertension: Qualifiers: Hypertension type: secondary to other renal disorders Qualified Code(s): I15.1 - Hypertension secondary to other renal disorders; N28.89 - Other specified disorders of kidney and ureter Code(s): I10 - Essential (primary) hypertension Status: Chronic Assessment and Plan: * Systolic mostly in the 160s and 170s. Occasionally it does drop into the 120s. * defer to Neurology with regard to permissive HTN. Note says okay to normalize the blood pressure. * on coreg , amlodipine and hydralazine . She cannot have an Kush or an Arb due to angioedema from lisinopril. * Amlodipine was increased this morning at [address] Jimenez (5) Anemia: Code(s): D64.9 - Anemia, unspecified Status: Chronic Assessment and Plan: * due to ESRD * Epogen subcutaneously while hospitalized * Hemoglobin 8.8 today. (6) Diabetes mellitus type 1: Qualifiers: Diabetes mellitus complication status: with hyperglycemia Qualified Code(s): E10.65 - Type 1 diabetes mellitus with hyperglycemia Code(s): E10.9 - Type 1 diabetes mellitus without complications Status: Chronic Assessment and Plan: * brittle control at baseline * follow accu-cheks * blood sugars much better. Resume PD tonight. Subjective Date/time seen: 03/15/23 14:14 Interval history: Patient is awake. She is comfortable. She is not short of breath. Exam Narrative: Well-developed well-nourished female in no acute distress lungs clear heart regular without rub abdomen bowel sounds positive soft nontender extremities no edema skin no rash Or subcu nodules Objective Data Vital Signs Vital Signs: Vital Signs - 24 hr 03/14/23 16:00 03/14/23 16:00 03/14/23 16:00 Temperature 99.9 F H Pulse Rate 74 74 71 Respiratory Rate 12 12 Blood Pressure 149/58 H Pulse Oximetry
--- NOTE | 2023-03-15 14:14 | PM.PNNEP ---
Progress Note: A&P Assessment and Plan (1) ESRD (end stage renal disease): Code(s): N18.6 - End stage renal disease Status: Chronic Assessment and Plan: recently initiated on peritoneal dialysis continue home PD prescription tonight discussed with nursing. Apparently the patient is going to have to go somewhere to get stronger. There is nowhere in the area that does peritoneal dialysis and outpatient rehab so we may need to switch to hemodialysis. I discussed this with the patient and she is not enthusiastic about this. She wants to talk with her daughter. (2) Acute cerebrovascular accident (CVA): Code(s): I63.9 - Cerebral infarction, unspecified Status: Acute Assessment and Plan: as noted by admission CT scan of head: infarct in the right temporal occipital region in the expected distribution of right posterior cerebral artery, likely acute or subacute and old infarcts involving the left basal ganglia and left temporal parietal occipital region presented with syncope and progressive vision loss known previous CVA in Jul 2022 by MRI of brain Mental status is improved (3) Syncope and collapse: Code(s): R55 - Syncope and collapse Status: Acute Assessment and Plan: noted presenting symptom... suspect multifactorial: hyperglycemia fluctuating hemodynamics/BP new CVA(?) troponin Is barely high and flat. No chest pain. (4) Hypertension: Qualifiers: Hypertension type: secondary to other renal disorders Qualified Code(s): I15.1 - Hypertension secondary to other renal disorders; N28.89 - Other specified disorders of kidney and ureter Code(s): I10 - Essential (primary) hypertension Status: Chronic Assessment and Plan: Systolic mostly in the 160s and 170s. Occasionally it does drop into the 120s. defer to Neurology with regard to permissive HTN. Note says okay to normalize the blood pressure. on coreg , amlodipine and hydralazine . She cannot have an Kush or an Arb due to angioedema from lisinopril. Amlodipine was increased this morning at [address] Jimenez (5) Anemia: Code(s): D64.9 - Anemia, unspecified Status: Chronic Assessment and Plan: due to ESRD Epogen subcutaneously while hospitalized Hemoglobin 8.8 today. (6) Diabetes mellitus type 1: Qualifiers: Diabetes mellitus complication status: with hyperglycemia Qualified Code(s): E10.65 - Type 1 diabetes mellitus with hyperglycemia Code(s): E10.9 - Type 1 diabetes mellitus without complications Status: Chronic Assessment and Plan: brittle control at baseline follow accu-cheks blood sugars much better. Resume PD tonight. Subjective Date/time seen: 03/15/23 14:14 Interval history: Patient is awake. She is comfortable. She is not short of breath. Exam Narrative: Well-developed well-nourished female in no acute distress lungs clear heart regular without rub abdomen bowel sounds positive soft nontender extremities no edema skin no rash Or subcu nodules Objective Data Vital Signs Vital Signs: Vital Signs - 24 hr 03/14/23 16:00 03/14/23 16:00 03/14/23 16:00 Temperature 99.9 F H Pulse Rate 74 74 71 Respiratory Rate 12 12 Blood Pressure 149/58 H Pulse Oximetry 98 98 Oxygen Delivery Room Air 03/14/23 19:42 03/14/23 19:44 03/14/23 19:47 Temperature 97.6 F Pulse Rate 78 Respiratory Rate 14 Blood Pressure 160/56 H 160/58 H 165/97 H Pulse Oximetry 99 Oxygen Delivery 03/14/23 21:48 03/14/23 20:00 03/14/23 22:00 Temperature Pulse Rate 76 78 77 Respiratory Rate Blood Pressure Pulse Oximetry Oxygen Delivery 03/14/23 20:00 03/14/23 23:06 03/15/23 00:00 Temperature 97.4 F L Pulse Rate 82 Respiratory Rate 16 Blood Pressure 136/54 L Pulse Oximetry 100 Oxygen Delivery Room Air Room Air
--- NOTE | 2023-03-15 16:49 | ECG_ITS ---
Measurements Intervals [place] Rate: 73 P: 78 [place]: 168 QRS: -79 QRSD: 97 T: 28 QT: 401 QTc: 443 Interpretive Statements SINUS RHYTHM BASELINE ARTIFACT POSSIBLE LEFT ATRIAL ENLARGEMENT [-0.1mV P WAVE IN V1/V2] INCOMPLETE RIGHT BUNDLE BRANCH BLOCK [90+ ms QRS DURATION, TERMINAL R IN V1/V2, 40+ ms S IN I/aVL/V4/V5/V6] ABNORMAL ECG COMPARED TO ECG 03/12/2023 11:07:29 SINUS RHYTHM NOW PRESENT PROLONGED QT INTERVAL NO LONGER PRESENT Electronically Signed On 03-16-2023 16:47:04 CDT by Marco Arevalo M.D.
[2023-03-15 16:52] LABS: Glucose Point of Care 224 mg/dl (65-105)
[2023-03-15 20:28] LABS: Glucose Point of Care 204 mg/dl (65-105)
[2023-03-15] MEDS: INSULIN GLARGINE (*BKC) 100 UNITS/ML 30 UNITS SUB-Q (21:17)
[2023-03-16] VITALS (23 sets, daily range): BP systolic 95–190; BP diastolic 44–92; PULSE 63–81; RESP 16–18; TEMP 36–37.4; O2SAT 97–100
[2023-03-16 04:51] LABS: Albumin Level 3.1 g/dL (3.5-5.1); Anion Gap 8 mmol/L (8-16); Blood Urea Nitrogen 44 mg/dL (7-17); Calcium 8.8 mg/dL (8.4-10.2); Carbon Dioxide 28 mmol/L (22-30); Chloride 99 mmol/L (98-107); Estimated CRCL calculation 6 ml/min; Estimated Glomerular Filt Rate 7; Glucose 380 mg/dL (65-110); Phosphorus 3.9 mg/dL (2.5-4.5); Potassium 3.3 mmol/L (3.4-5.0); Sodium 135 mmol/L (137-145)
[2023-03-16 07:28] LABS: Glucose Point of Care 324 mg/dl (65-105)
[2023-03-16 08:24] LABS: Appearance Peritoneal Fluid Clear (Clear); Color Peritoneal Fluid Yellow (Colorless); Source Peritoneal Fluid Peritoneal Fluid
[2023-03-16 08:25] LABS: Nucleated Cells Peritoneal Flu 57 /uL (0-500); RBC Peritoneal Fluid < 2000 /uL (0-100000)
[2023-03-16] MEDS: INSULIN ASPART (*BKC) 100 UNITS/ML SUB-Q ×2 (08:44→12:58)
[2023-03-16] MEDS: INSULIN ASPART (*BKC) 100 UNITS/ML 8 UNITS SUB-Q ×2 (08:46→12:59)
[2023-03-16 08:48] LABS: Lymphocytes Peritoneal Fluid 16 %; Macrophages Peritoneal Fluid 27 %; Mesothelial Cells Peritoneal Fluid 39 %; Monocytes Peritoneal Fluid 15 %; Neutrophils Peritoneal Fluid 3 % (0-25)
[2023-03-16] MEDS: ATORVASTATIN 40 MG TABLET PO (08:48)
[2023-03-16] MEDS: hydrALAZINE HCL 50 MG TABLET PO ×2 (08:48→14:02)
[2023-03-16] MEDS: CLOPIDOGREL BISULFATE 75 MG TABLET PO (08:49)
[2023-03-16] MEDS: CHOLECALCIFEROL 1,000 UNITS TABLET 1000 UNITS PO (08:49)
[2023-03-16] MEDS: carvediloL 6.25 MG TABLET PO ×2 (08:49→21:13)
[2023-03-16] MEDS: HEPARIN SODIUM 5,000 UNITS/ML VIAL 5000 UNITS SUB-Q ×2 (08:49→21:12)
[2023-03-16] MEDS: amLODIPine BESYLATE 5 MG TABLET 10 MG PO (08:49)
--- NOTE | 2023-03-16 08:55 | PC.NURSE ---
0800- to dialysis room for treatment via bed accompanied by staff- O2 on 4l/nc
--- NOTE | 2023-03-16 08:56 | PM.IMPN ---
Progress Note: A&P Assessment and Plan (1) Cerebrovascular accident: Code(s): I63.9 - Cerebral infarction, unspecified Status: Acute Assessment and Plan: Patient presents with weakness, vision changes and episode of syncope. She has a recent hx of stroke in July 2022 (MR showing large acute CVA involving posterior left temporal lobe with possible cut off of the left posterior cerebral artery). --CT brain here showing infarct in the right temporal occipital region in the expected distribution of right posterior cerebral artery, likely acute or subacute and old infarcts involving the left basal ganglia and left temporal parietal occipital region. --MR Brain here showing acute infarct right temporal occipital region and acute infarct involving the left basal ganglia and anterior limb internal capsule. --MRA showing total occlusion of the right posterior communicating artery and right P1 posterior cerebral artery with moderate stenosis of proximal left posterior cerebral artery and left M1 MCA. --Echo showing EF 70% with Grade I diastolic dysfunction, moderate MS, moderate AI. Septum intact ST evaluated the patient and felt she could have regular diet with thin liquids. PT/OT started. ASA continued but dose decreased; Plavix added for 3 months LDL 124. Lipitor added. BP noted. Continue to advance anti-HTN medications to control BP A1c 6.4. Elevated glucose related to PD. Glucose still elevated but better on PD (see below). Discussed placement options with family at bedside. Continue aggressive medical management. Appreciate Neurology input (2) Syncope and collapse: Code(s): R55 - Syncope and collapse Status: Acute Assessment and Plan: Patient with syncopal episode. Possibly related to CVA but less likely. Possibly related to uncontrolled glucose. MRI brain and Echo as above. EKG showing sinus bradycardia (55) with prolonged QT, incomplete Rt BBB and LAD. Also with nonspecific T wave changes. Troponins elevated but flat at 0.07. CXR was clear. No significant dysrhythmias on tele. Continue to monitor (3) Diabetes mellitus type 1: Qualifiers: Diabetes mellitus complication status: with hyperglycemia Qualified Code(s): E10.65 - Type 1 diabetes mellitus with hyperglycemia Code(s): E10.9 - Type 1 diabetes mellitus without complications Status: Chronic Assessment and Plan: A1c 6.4. The patient's blood glucose was reviewed on 03/16 Patietn had PD last night. Glucose elevated but better overall She takes Lantus 60U QHS at home. We have her on Lantus 30U QHS and Novolg 8U TID w/meals. Continue AccuCheks covering with sliding scale. Hypoglycemia protocol available as needed. She actually may need HD for placement so may not be getting PD in the near future so will hold on advancing her insulin regiment. (4) ESRD (end stage renal disease): Code(s): N18.6 - End stage renal disease Status: Chronic Assessment and Plan: Patient recently started on PD. She has been tolerating this well Nephrology consulted. Continue PD here but patient will need placement (possibly terminal make up operator placement). No facilities will take patients on PD so probably will need HD. Consult GenSurg for HD catheter placement? (5) Elevated troponin: Code(s): R79.89 - Other specified abnormal findings of blood chemistry Status: Acute Assessment and Plan: As above (6) Hypertension: Qualifiers: Hypertension type: secondary to other renal disorders Qualified Code(s): I15.1 - Hypertension secondary to other renal disorders; N28.89 - Other specified disorders of kidney and ureter Code(s): I10 - Essential (primary) hypertension Status: Chronic Assessment and Plan: Patient's blood pressure was reviewed on 03/16 Blood pressure remains elevated at times Currently on Coreg, Norvasc and hydralazine. Lasix on hold. Will advance hydralazine
--- NOTE | 2023-03-16 10:30 | P.PNNP_ITS ---
Progress Note: A&P Assessment and Plan (1) ESRD (end stage renal disease): Code(s): N18.6 - End stage renal disease Status: Chronic Assessment and Plan: * recently initiated on peritoneal dialysis * continue home PD prescription while hospitalized * discussed with case management -- the patient is going to have to go somewhere to get stronger so attempting to find a place that can do rehab and peritoneal dialysis; if unable to do so, may need to transition to hemodialysis as a temporary measure... (2) Acute cerebrovascular accident (CVA): Code(s): I63.9 - Cerebral infarction, unspecified Status: Acute Assessment and Plan: * as noted by admission CT scan of head: * infarct in the right temporal occipital region in the expected distribution of right posterior cerebral artery, likely acute or subacute and old infarcts involving the left basal ganglia and left temporal parietal occipital region * presented with syncope and progressive vision loss * known previous CVA in Jul 2022 by MRI of brain * imaging done here reviewed * Neurology recommendations noted * mentation improving (bur still confused) (3) Syncope and collapse: Code(s): R55 - Syncope and collapse Status: Acute Assessment and Plan: * noted presenting symptom... * suspect multifactorial: * hyperglycemia * fluctuating hemodynamics/BP * new CVA(?) * continue PT/OT as tolerated (4) Hypertension: Qualifiers: Hypertension type: secondary to other renal disorders Qualified Code(s): I15.1 - Hypertension secondary to other renal disorders; N28.89 - Other specified disorders of kidney and ureter Code(s): I10 - Essential (primary) hypertension Status: Chronic Assessment and Plan: * still somewhat erratic * amlodipine just recently increased * if necessary, titrate hydralazine dosage as well * follow trend of hemodynamics (5) Anemia: Code(s): D64.9 - Anemia, unspecified Status: Chronic Assessment and Plan: * due to ESRD * Epogen subcutaneously while hospitalized * follow trend of H/H (6) Diabetes mellitus type 1: Qualifiers: Diabetes mellitus complication status: with hyperglycemia Qualified Code(s): E10.65 - Type 1 diabetes mellitus with hyperglycemia Code(s): E10.9 - Type 1 diabetes mellitus without complications Status: Chronic Assessment and Plan: * brittle control at baseline * follow accu-cheks * glycemic control per hospitalists Will continue to follow. Subjective Date/time seen: 03/16/23 10:30 Interval history: Follow-up for end stage renal disease on peritoneal dialysis. Tolerated CCPD treatment overnight without any issues or problems; awake and alert but still remains confused; no apparent distress voiced at the time of my visit; no apparent issues/events overnight or earlier this morning. Exam Narrative: General: elderly female in NAD Heart: normal S1 and S2; no rub Lungs: clear to auscultation Abdomen: soft, nontender, nondistended, positive bowel sounds Extremities: no cyanosis or clubbing; no edema Skin: warm and dry Objective Data Vital Signs Vital Signs: Vital Signs Temp Pulse Resp BP Pulse Ox O2 Del Method 03/16/23 09:02 144/92 H 03/16/23 09:01 190/66 H 03/16/23 08:49 66
--- NOTE | 2023-03-16 10:30 | PM.PNNEP ---
Progress Note: A&P Assessment and Plan (1) ESRD (end stage renal disease): Code(s): N18.6 - End stage renal disease Status: Chronic Assessment and Plan: recently initiated on peritoneal dialysis continue home PD prescription while hospitalized discussed with case management -- the patient is going to have to go somewhere to get stronger so attempting to find a place that can do rehab and peritoneal dialysis; if unable to do so, may need to transition to hemodialysis as a temporary measure... (2) Acute cerebrovascular accident (CVA): Code(s): I63.9 - Cerebral infarction, unspecified Status: Acute Assessment and Plan: as noted by admission CT scan of head: infarct in the right temporal occipital region in the expected distribution of right posterior cerebral artery, likely acute or subacute and old infarcts involving the left basal ganglia and left temporal parietal occipital region presented with syncope and progressive vision loss known previous CVA in Jul 2022 by MRI of brain imaging done here reviewed Neurology recommendations noted mentation improving (bur still confused) (3) Syncope and collapse: Code(s): R55 - Syncope and collapse Status: Acute Assessment and Plan: noted presenting symptom... suspect multifactorial: hyperglycemia fluctuating hemodynamics/BP new CVA(?) continue PT/OT as tolerated (4) Hypertension: Qualifiers: Hypertension type: secondary to other renal disorders Qualified Code(s): I15.1 - Hypertension secondary to other renal disorders; N28.89 - Other specified disorders of kidney and ureter Code(s): I10 - Essential (primary) hypertension Status: Chronic Assessment and Plan: still somewhat erratic amlodipine just recently increased if necessary, titrate hydralazine dosage as well follow trend of hemodynamics (5) Anemia: Code(s): D64.9 - Anemia, unspecified Status: Chronic Assessment and Plan: due to ESRD Epogen subcutaneously while hospitalized follow trend of H/H (6) Diabetes mellitus type 1: Qualifiers: Diabetes mellitus complication status: with hyperglycemia Qualified Code(s): E10.65 - Type 1 diabetes mellitus with hyperglycemia Code(s): E10.9 - Type 1 diabetes mellitus without complications Status: Chronic Assessment and Plan: brittle control at baseline follow accu-cheks glycemic control per hospitalists Will continue to follow. Subjective Date/time seen: 03/16/23 10:30 Interval history: Follow-up for end stage renal disease on peritoneal dialysis. Tolerated CCPD treatment overnight without any issues or problems; awake and alert but still remains confused; no apparent distress voiced at the time of my visit; no apparent issues/events overnight or earlier this morning. Exam Narrative: General: elderly female in NAD Heart: normal S1 and S2; no rub Lungs: clear to auscultation Abdomen: soft, nontender, nondistended, positive bowel sounds Extremities: no cyanosis or clubbing; no edema Skin: warm and dry Objective Data Vital Signs Vital Signs: Vital Signs Temp Pulse Resp BP Pulse Ox O2 Del Method 03/16/23 09:02 144/92 H 03/16/23 09:01 190/66 H 03/16/23 08:49 66 03/16/23 07:56 96.9 F L 63 16 190/66 H 99 03/16/23 06:00 76 03/16/23 04:00 77 03/16/23 04:00 72 16 99 Room Air 03/16/23 03:44 99.3 F 72 16 151/65 H 99 03/16/23 02:09 75 03/16/23 00:00 71 03/16/23 00:00 75 16 100 Room Air 03/15/23 23:37 97.5 F L 75 16 147/75 H 100 03/15/23 22:00 74 03/15/23 20:00 75 03/15/23 20:25 Room Air 03/15/23 20:38 75 03/15/23 20:00 70 18 99 Room Air 03/15/23 20:00 98.8 F 70 18 153/65 H 99 03/15/23 18:00 73 03/15/23 16:00 100.1 F H 78 20 154/48 H 97
[2023-03-16 12:33] LABS: Glucose Point of Care 298 mg/dl (65-105)
[2023-03-16 18:16] LABS: Glucose Point of Care 121 mg/dl (65-105)
[2023-03-16 20:47] LABS: Glucose Point of Care 242 mg/dl (65-105)
[2023-03-16] MEDS: INSULIN GLARGINE (*BKC) 100 UNITS/ML 30 UNITS SUB-Q (21:11)
[2023-03-16] MEDS: hydrALAZINE HCL 25 MG TABLET PO (21:13)
[2023-03-17] VITALS (20 sets, daily range): BP systolic 127–154; BP diastolic 45–88; PULSE 63–99; RESP 14–18; TEMP 36.5–37.3; O2SAT 97–100
[2023-03-17 05:18] LABS: Basophils Percent Auto 0.3 % (0.2-1.2); Eosinophils Absolute Auto 0.1 K/mm3 (0-0.3); Eosinophils Percent Auto 1.3 % (0-4.4); Hematocrit 29.8 % (37.0-47.0); Immature Granulocyte Absolute 0.01 K/mm3 (0.00-0.031); Immature Granulocyte Percent A 0.3 % (0-0.5); Lymphocytes Absolute Auto 0.53 K/mm3 (0.9-3.2); Lymphocytes Percent Auto 13.6 % (18.3-44.2); Mean Corpuscular HGB Conc 33.6 g/dl (32-36); Mean Corpuscular Hemoglobin 29.9 pg (26-34); Mean Corpuscular Volume 89.2 fl (80-100); Mean Platelet Volume 10.5 fl (7.4-10.4); Monocytes Absolute Auto 0.4 K/mm3 (0.1-0.6); Monocytes Percent Auto 10.5 % (2.6-8.5); Neutrophils Absolute Auto 2.9 K/mm3 (1.3-6.7); Platelet Count Result 129 k/mm3 (150-375); Red Blood Count 3.34 M/mm3 (4.2-5.4); Red Cell Distribution Width 13.5 % (11.5-14.5); White Blood Count 3.9 K/mm3 (4.5-10.0)
[2023-03-17 05:30] LABS: Potassium 3.1 mmol/L (3.4-5.0)
[2023-03-17 05:32] LABS: Albumin Level 3.3 g/dL (3.5-5.1)
[2023-03-17 05:33] LABS: Anion Gap 7 mmol/L (8-16); Blood Urea Nitrogen 41 mg/dL (7-17); Calcium 9.2 mg/dL (8.4-10.2); Carbon Dioxide 29 mmol/L (22-30); Chloride 99 mmol/L (98-107); Estimated CRCL calculation 7 ml/min; Estimated Glomerular Filt Rate 9; Glucose 302 mg/dL (65-110); Magnesium 1.8 mg/dL (1.6-2.3); Sodium 135 mmol/L (137-145)
[2023-03-17] MEDS: INSULIN ASPART (*BKC) 100 UNITS/ML SUB-Q ×2 (06:12→12:04)
--- NOTE | 2023-03-17 06:39 | PC.NURSE ---
Daughter Aby called, states that [facility] is too far away from family for patient's placement. Aby expresses wish to proceed with transitioning to hemodialysis. Will report this to day shift RN.
--- NOTE | 2023-03-17 07:42 | P.CDI_ITS ---
CDI Query Clarification Request BMI 18.1 Nutritional Diagnostic Statement Severe protein calorie malnutrition related to chronic loss of appetite, increased protein energy needs from peritoneal dialysis as evidenced by weight loss -20%/6 months; intakes <75% needs > 1 month; NFPE findings of severe muscle wasting and fat loss. Please refer to the comprehensive nutrition assessment for further information. Please clarify severity of protein calorie malnutrition if known: * Mild * Moderate * Severe * Other / Unspecified
[2023-03-17 08:40] LABS: Glucose Point of Care 171 mg/dl (65-105)
[2023-03-17] MEDS: POTASSIUM CHLORIDE 20 MEQ ER TABLET 40 MEQ PO (08:40)
[2023-03-17] MEDS: HEPARIN SODIUM 5,000 UNITS/ML VIAL 5000 UNITS SUB-Q ×2 (08:40→20:16)
[2023-03-17] MEDS: CHOLECALCIFEROL 1,000 UNITS TABLET 1000 UNITS PO (08:40)
[2023-03-17] MEDS: ATORVASTATIN 40 MG TABLET PO (08:40)
[2023-03-17] MEDS: carvediloL 6.25 MG TABLET PO ×2 (08:40→20:15)
[2023-03-17] MEDS: amLODIPine BESYLATE 5 MG TABLET 10 MG PO (08:41)
[2023-03-17 08:44] LABS: Glucose Point of Care 151 mg/dl (65-105)
[2023-03-17] MEDS: CLOPIDOGREL BISULFATE 75 MG TABLET PO (09:52)
[2023-03-17] MEDS: EPOETIN ALFA-EPBX 10,000 UNITS/ML VIAL 10000 UNITS SUB-Q (10:21)
--- NOTE | 2023-03-17 11:00 | P.PNNP_ITS ---
Progress Note: A&P Assessment and Plan (1) ESRD (end stage renal disease): Code(s): N18.6 - End stage renal disease Status: Chronic Assessment and Plan: * recently initiated on peritoneal dialysis * continue home PD prescription while hospitalized * discussed with case management -- planning for possible discharge to [facility] next week; nursing staff at this facility to be trained this week on peritoneal dialysis (and this would alleviate the need to transition patient to hemodialysis) (2) Acute cerebrovascular accident (CVA): Code(s): I63.9 - Cerebral infarction, unspecified Status: Acute Assessment and Plan: * as noted by admission CT scan of head: * infarct in the right temporal occipital region in the expected distribution of right posterior cerebral artery, likely acute or subacute and old infarcts involving the left basal ganglia and left temporal parietal occipital region * presented with syncope and progressive vision loss * known previous CVA in Jul 2022 by MRI of brain * imaging done here reviewed * Neurology recommendations noted * mentation improving (bur still confused at times) (3) Syncope and collapse: Code(s): R55 - Syncope and collapse Status: Acute Assessment and Plan: * noted presenting symptom... * suspect multifactorial: * hyperglycemia * fluctuating hemodynamics/BP * new CVA(?) * continue PT/OT as tolerated (4) Hypertension: Qualifiers: Hypertension type: secondary to other renal disorders Qualified Code(s): I15.1 - Hypertension secondary to other renal disorders; N28.89 - Other specified disorders of kidney and ureter Code(s): I10 - Essential (primary) hypertension Status: Chronic Assessment and Plan: * still somewhat erratic * amlodipine just recently increased * if necessary, titrate hydralazine dosage as well * follow trend of hemodynamics (5) Anemia: Code(s): D64.9 - Anemia, unspecified Status: Chronic Assessment and Plan: * due to ESRD * Epogen subcutaneously while hospitalized * follow trend of H/H (6) Diabetes mellitus type 1: Qualifiers: Diabetes mellitus complication status: with hyperglycemia Qualified Code(s): E10.65 - Type 1 diabetes mellitus with hyperglycemia Code(s): E10.9 - Type 1 diabetes mellitus without complications Status: Chronic Assessment and Plan: * brittle control at baseline * follow accu-cheks * glycemic control per hospitalists Will continue to follow. Subjective Date/time seen: 03/17/23 11:00 Interval history: Follow-up for end stage renal disease on peritoneal dialysis. Continues to tolerate CCPD treatments overnight without any issues or problems; mentation seems to be improving to some extent; working with PT/OT as tolerated; no apparent distress. Exam Narrative: General: elderly female in NAD Heart: normal S1 and S2; no rub Lungs: clear to auscultation Abdomen: soft, nontender, nondistended, positive bowel sounds Extremities: no cyanosis or clubbing; no edema Skin: warm and intact Objective Data Vital Signs Vital Signs: Vital Signs Temp Pulse Resp BP Pulse Ox O2 Del Method 03/17/23 10:00 75 03/17/23 08:00 Room Air 03/17/23 08:00 76 03/17/23 08:40 73
--- NOTE | 2023-03-17 11:00 | PM.PNNEP ---
Progress Note: A&P Assessment and Plan (1) ESRD (end stage renal disease): Code(s): N18.6 - End stage renal disease Status: Chronic Assessment and Plan: recently initiated on peritoneal dialysis continue home PD prescription while hospitalized discussed with case management -- planning for possible discharge to [facility] next week; nursing staff at this facility to be trained this week on peritoneal dialysis (and this would alleviate the need to transition patient to hemodialysis) (2) Acute cerebrovascular accident (CVA): Code(s): I63.9 - Cerebral infarction, unspecified Status: Acute Assessment and Plan: as noted by admission CT scan of head: infarct in the right temporal occipital region in the expected distribution of right posterior cerebral artery, likely acute or subacute and old infarcts involving the left basal ganglia and left temporal parietal occipital region presented with syncope and progressive vision loss known previous CVA in Jul 2022 by MRI of brain imaging done here reviewed Neurology recommendations noted mentation improving (bur still confused at times) (3) Syncope and collapse: Code(s): R55 - Syncope and collapse Status: Acute Assessment and Plan: noted presenting symptom... suspect multifactorial: hyperglycemia fluctuating hemodynamics/BP new CVA(?) continue PT/OT as tolerated (4) Hypertension: Qualifiers: Hypertension type: secondary to other renal disorders Qualified Code(s): I15.1 - Hypertension secondary to other renal disorders; N28.89 - Other specified disorders of kidney and ureter Code(s): I10 - Essential (primary) hypertension Status: Chronic Assessment and Plan: still somewhat erratic amlodipine just recently increased if necessary, titrate hydralazine dosage as well follow trend of hemodynamics (5) Anemia: Code(s): D64.9 - Anemia, unspecified Status: Chronic Assessment and Plan: due to ESRD Epogen subcutaneously while hospitalized follow trend of H/H (6) Diabetes mellitus type 1: Qualifiers: Diabetes mellitus complication status: with hyperglycemia Qualified Code(s): E10.65 - Type 1 diabetes mellitus with hyperglycemia Code(s): E10.9 - Type 1 diabetes mellitus without complications Status: Chronic Assessment and Plan: brittle control at baseline follow accu-cheks glycemic control per hospitalists Will continue to follow. Subjective Date/time seen: 03/17/23 11:00 Interval history: Follow-up for end stage renal disease on peritoneal dialysis. Continues to tolerate CCPD treatments overnight without any issues or problems; mentation seems to be improving to some extent; working with PT/OT as tolerated; no apparent distress. Exam Narrative: General: elderly female in NAD Heart: normal S1 and S2; no rub Lungs: clear to auscultation Abdomen: soft, nontender, nondistended, positive bowel sounds Extremities: no cyanosis or clubbing; no edema Skin: warm and intact Objective Data Vital Signs Vital Signs: Vital Signs Temp Pulse Resp BP Pulse Ox O2 Del Method 03/17/23 10:00 75 03/17/23 08:00 Room Air 03/17/23 08:00 76 03/17/23 08:40 73 03/17/23 08:00 97.8 F 70 18 150/52 H 99 03/17/23 06:00 69 03/17/23 04:00 73 03/17/23 04:00 85 16 99 Room Air 03/17/23 03:15 99.1 F 16 127/53 L 99 03/17/23 02:13 85 03/17/23 00:00 78 03/17/23 00:00 99 16 98 Room Air 03/17/23 00:00 99 F 99 16 138/55 L 98 03/16/23 22:00 70 03/16/23 20:00 77 03/16/23 21:13 81 03/16/23 19:43 77 18 97 Room Air 03/16/23 19:29 96.8 F L 77 18 139/54 L 97 03/16/23 18:00 73 03/16/23 16:45 76 03/16/23 18:10 Room Air 03/16/23 16:25 134/58 L 03/16/23 16:24 95/
[2023-03-17] MEDS: POTASSIUM CHLORIDE 20 MEQ ER TABLET PO (11:56)
[2023-03-17] MEDS: INSULIN ASPART (*BKC) 100 UNITS/ML 8 UNITS SUB-Q (12:04)
[2023-03-17 12:31] LABS: Glucose Point of Care 251 mg/dl (65-105)
--- NOTE | 2023-03-17 14:54 | PM.IMPN ---
Progress Note: A&P Assessment and Plan (1) Cerebrovascular accident: Code(s): I63.9 - Cerebral infarction, unspecified Status: Acute Assessment and Plan: Patient presents with weakness, vision changes and episode of syncope. She has a recent hx of stroke in July 2022 (MR showing large acute CVA involving posterior left temporal lobe with possible cut off of the left posterior cerebral artery). --CT brain here showing infarct in the right temporal occipital region in the expected distribution of right posterior cerebral artery, likely acute or subacute and old infarcts involving the left basal ganglia and left temporal parietal occipital region. --MR Brain showing acute infarct right temporal occipital region and acute infarct involving the left basal ganglia and anterior limb internal capsule. --MRA showing total occlusion of the right posterior communicating artery and right P1 posterior cerebral artery with moderate stenosis of proximal left posterior cerebral artery and left M1 MCA. --Echo showing EF 70% with Grade I diastolic dysfunction, moderate MS, moderate AI. Septum intact ST evaluated the patient and felt she could have regular diet with thin liquids. PT/OT started. ASA continued but dose decreased so Plavix could be added for 3 months LDL 124. Lipitor added. BP better controlled. Continue current anti-HTN medications A1c 6.4. Elevated glucose related to PD. Glucose still elevated but better (see below). Continue aggressive medical management. Appreciate Neurology input Discussed placement options with Canine Service Instructor Trainer and tractor engine mechanic. [facility] staff are being trained to perform PD so plan is to wait until the staff is trained before discharge to . (2) Syncope and collapse: Code(s): R55 - Syncope and collapse Status: Acute Assessment and Plan: Patient with syncopal episode. Possibly related to CVA but less likely. Possibly related to uncontrolled glucose and fluctuating BP. MRI brain and Echo as above. EKG showing sinus bradycardia (55) with prolonged QT, incomplete Rt BBB and LAD. Also with nonspecific T wave changes. Troponins elevated but flat at 0.07. CXR was clear. No significant dysrhythmias on tele. Repeat EKG showing no change except resolution of the prolonged QT. Has been having brief episodes of HoTN when out of bed. Probably related to medications and anti-HTN meds adjusted. Consider seizures but no obvious seizure activity at the time of the event noted. Continue to monitor (3) Diabetes mellitus type 1: Qualifiers: Diabetes mellitus complication status: with hyperglycemia Qualified Code(s): E10.65 - Type 1 diabetes mellitus with hyperglycemia Code(s): E10.9 - Type 1 diabetes mellitus without complications Status: Chronic Assessment and Plan: A1c 6.4. The patient's blood glucose was reviewed on 03/17 Patiazra had PD last night. Glucose still elevated but better overall She takes Lantus 60U QHS at home. We have her on Lantus 30U QHS and Novolg 8U TID w/meals (with parameters). Continue AccuCheks covering with sliding scale. Hypoglycemia protocol available as needed. She actually may need HD for placement so may not be getting PD in the near future so will hold on advancing her insulin regiment. (4) ESRD (end stage renal disease): Code(s): N18.6 - End stage renal disease Status: Chronic Assessment and Plan: Patient recently started on PD. She has been tolerating this well Nephrology consulted. Continue PD here but patient will need placement (possibly oil heaterman placement). As above. Hopefully jalen can go to [place] once staff is treained. If not, then patient will need tunneled catheter for HD. (5) Elevated troponin: Code(s): R79.89 - Other specified abnormal findings of blood chemistry Status: Acute Assessment and Plan: As above (6) Hypertension: Qualifiers: Hy
[2023-03-17 16:46] LABS: Glucose Point of Care 101 mg/dl (65-105)
--- NOTE | 2023-03-17 18:00 | PC.NURSE ---
This patient, Dalila Redd, was transferred to [facility] on 03/17/23 at 1800. Personal belongings sent with patient. Report given to 3rd Med-Surg. Appropriate documentation sent with patient.
--- NOTE | 2023-03-17 18:13 | PC.NURSE ---
This patient, Dalila Redd, was received from [facility] on 03/17/23 at 1813. Patient/family oriented to unit policies and routines. Report received from [place] CALVIN.
[2023-03-17] MEDS: INSULIN GLARGINE (*BKC) 100 UNITS/ML 30 UNITS SUB-Q (20:16)
[2023-03-17 20:19] LABS: Glucose Point of Care 131 mg/dl (65-105)
[2023-03-17] MEDS: hydrALAZINE HCL 25 MG TABLET PO (21:40)
[2023-03-18] VITALS (16 sets, daily range): BP systolic 122–168; BP diastolic 47–71; PULSE 66–86; RESP 14–20; TEMP 36.2–37.2; O2SAT 94–100
[2023-03-18] MEDS: hydrALAZINE HCL 25 MG TABLET PO ×3 (05:33→21:25)
[2023-03-18 06:05] LABS: Basophils Percent Auto 0.7 % (0.2-1.2); Eosinophils Absolute Auto 0.2 K/mm3 (0-0.3); Eosinophils Percent Auto 3.4 % (0-4.4); Hematocrit 30.7 % (37.0-47.0); Hemoglobin 9.8 g/dL (12.0-15.0); Immature Granulocyte Absolute 0.01 K/mm3 (0.00-0.031); Immature Granulocyte Percent A 0.2 % (0-0.5); Lymphocytes Absolute Auto 0.78 K/mm3 (0.9-3.2); Lymphocytes Percent Auto 17.6 % (18.3-44.2); Mean Corpuscular HGB Conc 31.9 g/dl (32-36); Mean Corpuscular Volume 90.8 fl (80-100); Mean Platelet Volume 10.9 fl (7.4-10.4); Monocytes Absolute Auto 0.4 K/mm3 (0.1-0.6); Monocytes Percent Auto 9.5 % (2.6-8.5); Neutrophils Percent Auto 68.6 % (45.5-73.1); Platelet Count Result 151 k/mm3 (150-375); Red Blood Count 3.38 M/mm3 (4.2-5.4); Red Cell Distribution Width 13.8 % (11.5-14.5); White Blood Count 4.4 K/mm3 (4.5-10.0)
[2023-03-18 06:20] LABS: Albumin Level 3.2 g/dL (3.5-5.1); Anion Gap 7 mmol/L (8-16); Blood Urea Nitrogen 37 mg/dL (7-17); Calcium 8.9 mg/dL (8.4-10.2); Carbon Dioxide 28 mmol/L (22-30); Chloride 100 mmol/L (98-107); Estimated CRCL calculation 7 ml/min; Estimated Glomerular Filt Rate 8; Glucose 278 mg/dL (65-110); Phosphorus 3.6 mg/dL (2.5-4.5); Potassium 3.2 mmol/L (3.4-5.0); Sodium 135 mmol/L (137-145)
[2023-03-18 07:44] LABS: Glucose Point of Care 284 mg/dl (65-105)
--- NOTE | 2023-03-18 08:08 | PM.IMPN ---
Progress Note: A&P Assessment and Plan (1) Cerebrovascular accident: Code(s): I63.9 - Cerebral infarction, unspecified Status: Acute Assessment and Plan: Patient presents with weakness, vision changes and episode of syncope. She has a recent hx of stroke in July 2022 (MR showing large acute CVA involving posterior left temporal lobe with possible cut off of the left posterior cerebral artery). --CT brain here showing infarct in the right temporal occipital region in the expected distribution of right posterior cerebral artery, likely acute or subacute and old infarcts involving the left basal ganglia and left temporal parietal occipital region. --MR Brain showing acute infarct right temporal occipital region and acute infarct involving the left basal ganglia and anterior limb internal capsule. --MRA showing total occlusion of the right posterior communicating artery and right P1 posterior cerebral artery with moderate stenosis of proximal left posterior cerebral artery and left M1 MCA. --Echo showing EF 70% with Grade I diastolic dysfunction, moderate MS, moderate AI. Septum intact ST evaluated the patient and felt she could have regular diet with thin liquids. PT/OT started. ASA continued but dose decreased so Plavix could be added for 3 months LDL 124. Lipitor added. BP better controlled. Continue current anti-HTN medications A1c 6.4. Elevated glucose related to PD. Glucose still elevated but better (see below). Continue aggressive medical management. Appreciate Neurology input Discussed placement options with Die Storage Worker and twx operator. [facility] staff are being trained to perform PD so plan is to wait until the staff is trained before discharge to , likely d/c 03/23 (2) Syncope and collapse: Code(s): R55 - Syncope and collapse Status: Acute Assessment and Plan: Patient with syncopal episode. Possibly related to CVA but less likely. Possibly related to uncontrolled glucose and fluctuating BP. MRI brain and Echo as above. EKG showing sinus bradycardia (55) with prolonged QT, incomplete Rt BBB and LAD. Also with nonspecific T wave changes. Troponins elevated but flat at 0.07. CXR was clear. No significant dysrhythmias on tele. Repeat EKG showing no change except resolution of the prolonged QT. Has been having brief episodes of HoTN when out of bed. Probably related to medications and anti-HTN meds adjusted. Consider seizures but no obvious seizure activity at the time of the event noted. Continue to monitor (3) Diabetes mellitus type 1: Qualifiers: Diabetes mellitus complication status: with hyperglycemia Qualified Code(s): E10.65 - Type 1 diabetes mellitus with hyperglycemia Code(s): E10.9 - Type 1 diabetes mellitus without complications Status: Chronic Assessment and Plan: A1c 6.4. The patient's blood glucose was reviewed on 03/18 Jimi had PD last night. Glucose still elevated but better overall She takes Lantus 60U QHS at home. We have her on Lantus 30U QHS and Novolg 8U TID w/meals (with parameters). Continue AccuCheks covering with sliding scale. Hypoglycemia protocol available as needed. She actually may need HD for placement so may not be getting PD in the near future so will hold on advancing her insulin regimen (4) ESRD (end stage renal disease): Code(s): N18.6 - End stage renal disease Status: Chronic Assessment and Plan: Patient recently started on PD. She has been tolerating this well Nephrology consulted. Continue PD here but patient will need placement (possibly technician terminal and repeater placement). As above. Hopefully patient can go to [place] once staff is trained. If not, then patient will need tunneled catheter for HD. (5) Elevated troponin: Code(s): R79.89 - Other specified abnormal findings of blood chemistry Status: Acute Assessment and Plan: As above (6) Hypertension: Qualifiers:
[2023-03-18] MEDS: HEPARIN SODIUM 5,000 UNITS/ML VIAL 5000 UNITS SUB-Q ×2 (09:09→21:26)
[2023-03-18] MEDS: INSULIN ASPART (*BKC) 100 UNITS/ML 8 UNITS SUB-Q ×3 (09:10→17:48)
[2023-03-18] MEDS: INSULIN ASPART (*BKC) 100 UNITS/ML SUB-Q ×3 (09:10→17:49)
[2023-03-18] MEDS: carvediloL 6.25 MG TABLET PO ×2 (09:28→21:25)
[2023-03-18] MEDS: ATORVASTATIN 40 MG TABLET PO (09:28)
[2023-03-18] MEDS: CLOPIDOGREL BISULFATE 75 MG TABLET PO (09:28)
[2023-03-18] MEDS: amLODIPine BESYLATE 5 MG TABLET 10 MG PO (09:31)
[2023-03-18] MEDS: CHOLECALCIFEROL 1,000 UNITS TABLET 1000 UNITS PO (09:31)
[2023-03-18 11:17] LABS: Glucose Point of Care 251 mg/dl (65-105)
--- NOTE | 2023-03-18 11:48 | PC.NURSE ---
On 03/18/23, the student, [Temo Arriola ], provided care and completed [facility] documentation on this patient. I have reviewed the student's documentation and agree with the findings.
--- NOTE | 2023-03-18 11:49 | PC.NURSE ---
On 03/18/23, the student, [Karina Xie ], provided care and completed [facility] documentation on this patient. I have reviewed the student's documentation and agree with the findings.
--- NOTE | 2023-03-18 12:01 | P.PNNP_ITS ---
Progress Note: A&P Assessment and Plan (1) ESRD (end stage renal disease): Code(s): N18.6 - End stage renal disease Status: Chronic Assessment and Plan: * recently initiated on peritoneal dialysis * continue home PD prescription while hospitalized * discussed with case management -- planning for possible discharge to [facility] next week; nursing staff at this facility to be trained this week on peritoneal dialysis (and this would alleviate the need to transition patient to hemodialysis) (2) Acute cerebrovascular accident (CVA): Code(s): I63.9 - Cerebral infarction, unspecified Status: Acute Assessment and Plan: * as noted by admission CT scan of head: * infarct in the right temporal occipital region in the expected distribution of right posterior cerebral artery, likely acute or subacute and old infarcts involving the left basal ganglia and left temporal parietal occipital region * presented with syncope and progressive vision loss * known previous CVA in Jul 2022 by MRI of brain * imaging done here reviewed * Neurology recommendations noted * mentation improving (bur still confused at times) (3) Syncope and collapse: Code(s): R55 - Syncope and collapse Status: Acute Assessment and Plan: * noted presenting symptom... * suspect multifactorial: * hyperglycemia * fluctuating hemodynamics/BP * new CVA(?) * continue PT/OT as tolerated (4) Hypertension: Qualifiers: Hypertension type: secondary to other renal disorders Qualified Code(s): I15.1 - Hypertension secondary to other renal disorders; N28.89 - Other specified disorders of kidney and ureter Code(s): I10 - Essential (primary) hypertension Status: Chronic Assessment and Plan: * still somewhat erratic * amlodipine just recently increased * if necessary, titrate hydralazine dosage as well * follow trend of hemodynamics (5) Anemia: Code(s): D64.9 - Anemia, unspecified Status: Chronic Assessment and Plan: * due to ESRD * Epogen subcutaneously while hospitalized * follow trend of H/H (6) Diabetes mellitus type 1: Qualifiers: Diabetes mellitus complication status: with hyperglycemia Qualified Code(s): E10.65 - Type 1 diabetes mellitus with hyperglycemia Code(s): E10.9 - Type 1 diabetes mellitus without complications Status: Chronic Assessment and Plan: * brittle control at baseline * follow accu-cheks * glycemic control per hospitalists Will continue to follow. Subjective Date/time seen: 03/18/23 12:01 Interval history: Follow-up for end stage renal disease on peritoneal dialysis. CCPD treatment went well overnight without any issues or problems; seen while working with PT/OT and seems to be making some progress; no apparent events overnight or earlier this AM; daughter at bedside and we discussed the situation. Exam Narrative: General: elderly female in NAD Heart: normal S1 and S2; no rub Lungs: clear to auscultation Abdomen: soft, nontender, nondistended, positive bowel sounds Extremities: no cyanosis or clubbing; no edema Skin: No rash or nodules Objective Data Vital Signs Vital Signs: Vital Signs Temp Pulse Resp BP Pulse Ox O2 Del Method 03/18/23 11:52 97.2 F L 81 14 128/67 98 03/18/23 09:46 72
--- NOTE | 2023-03-18 12:01 | PM.PNNEP ---
Progress Note: A&P Assessment and Plan (1) ESRD (end stage renal disease): Code(s): N18.6 - End stage renal disease Status: Chronic Assessment and Plan: recently initiated on peritoneal dialysis continue home PD prescription while hospitalized discussed with case management -- planning for possible discharge to [facility] next week; nursing staff at this facility to be trained this week on peritoneal dialysis (and this would alleviate the need to transition patient to hemodialysis) (2) Acute cerebrovascular accident (CVA): Code(s): I63.9 - Cerebral infarction, unspecified Status: Acute Assessment and Plan: as noted by admission CT scan of head: infarct in the right temporal occipital region in the expected distribution of right posterior cerebral artery, likely acute or subacute and old infarcts involving the left basal ganglia and left temporal parietal occipital region presented with syncope and progressive vision loss known previous CVA in Jul 2022 by MRI of brain imaging done here reviewed Neurology recommendations noted mentation improving (bur still confused at times) (3) Syncope and collapse: Code(s): R55 - Syncope and collapse Status: Acute Assessment and Plan: noted presenting symptom... suspect multifactorial: hyperglycemia fluctuating hemodynamics/BP new CVA(?) continue PT/OT as tolerated (4) Hypertension: Qualifiers: Hypertension type: secondary to other renal disorders Qualified Code(s): I15.1 - Hypertension secondary to other renal disorders; N28.89 - Other specified disorders of kidney and ureter Code(s): I10 - Essential (primary) hypertension Status: Chronic Assessment and Plan: still somewhat erratic amlodipine just recently increased if necessary, titrate hydralazine dosage as well follow trend of hemodynamics (5) Anemia: Code(s): D64.9 - Anemia, unspecified Status: Chronic Assessment and Plan: due to ESRD Epogen subcutaneously while hospitalized follow trend of H/H (6) Diabetes mellitus type 1: Qualifiers: Diabetes mellitus complication status: with hyperglycemia Qualified Code(s): E10.65 - Type 1 diabetes mellitus with hyperglycemia Code(s): E10.9 - Type 1 diabetes mellitus without complications Status: Chronic Assessment and Plan: brittle control at baseline follow accu-cheks glycemic control per hospitalists Will continue to follow. Subjective Date/time seen: 03/18/23 12:01 Interval history: Follow-up for end stage renal disease on peritoneal dialysis. CCPD treatment went well overnight without any issues or problems; seen while working with PT/OT and seems to be making some progress; no apparent events overnight or earlier this AM; daughter at bedside and we discussed the situation. Exam Narrative: General: elderly female in NAD Heart: normal S1 and S2; no rub Lungs: clear to auscultation Abdomen: soft, nontender, nondistended, positive bowel sounds Extremities: no cyanosis or clubbing; no edema Skin: No rash or nodules Objective Data Vital Signs Vital Signs: Vital Signs Temp Pulse Resp BP Pulse Ox O2 Del Method 03/18/23 11:52 97.2 F L 81 14 128/67 98 03/18/23 09:46 72 163/55 H 03/18/23 09:28 72 03/18/23 07:53 86 123/64 99 03/18/23 07:52 80 154/63 H 98 03/18/23 07:50 97.1 F L 73 18 168/66 H 100 03/18/23 04:40 98.9 F 70 16 149/71 H 99 03/18/23 04:00 72 03/18/23 00:00 69 03/17/23 20:00 67 03/17/23 20:00 Room Air 03/17/23 20:00 67 03/17/23 20:35 98.7 F 63 16 154/68 H 100 03/17/23 21:10 97.9 F 68 16 139/64 Room Air 03/17/23 20:15 66 03/17/23 18:22 97.9 F 68 16 139/64 100 03/17/23 18:00 72 Intake/Output Intake/Output: Intake & Output 03/15/2303/01
--- NOTE | 2023-03-18 13:49 | PCNFU ---
Nutrition Follow-Up Complete: Severe protein calorie malnutrition related to chronic loss of appetite, increased protein energy needs from peritoneal dialysis as evidenced by weight loss -20%/6 months; intakes <75% needs >1 month; NFPE findings of severe muscle wasting and fat loss Adequate PO intake at least 75% meals and supplements - Not meeting goal consistently Maintain weight during admission - Goal being met Goal: Pt current nutrition is Renal, diabetic consistent carb. Intakes variable 0-80%. Nepro BID ordered for additional 420 kcal and 19 g protein each. Nutrition recommendation: Continue with same nutrition care plan and orders. Agree with current orders Last recorded weight is 46 kg. +1 kg since 5 days Bowel Motility: +2 BMs 03/16/23 Labs Reviewed: Hgb 9.8, Hct 30.7, Alb 3.2, Na 135, K+ 3.2, GFR 8, BUN 37, Cre 5.1, Glu 278 Meds Noted: Lasix, Zofran, Lantus, Novolog Skin: WNL Additional Notes: Peritoneal dialysis patient. Awaiting placement at SNF. Intakes and appetite are variable. Agree with orders Monitoring intakes, weights, labs, supplement tolerance, plan of care Follow up in 5 days
[2023-03-18 16:35] LABS: Glucose Point of Care 325 mg/dl (65-105)
[2023-03-18] MEDS: INSULIN GLARGINE (*BKC) 100 UNITS/ML 30 UNITS SUB-Q (21:27)
[2023-03-18 21:51] LABS: Glucose Point of Care 203 mg/dl (65-105)
[2023-03-19] VITALS (14 sets, daily range): BP systolic 102–144; BP diastolic 49–63; PULSE 55–72; RESP 10–18; TEMP 36.2–36.6; O2SAT 98–100
[2023-03-19] MEDS: hydrALAZINE HCL 25 MG TABLET PO ×2 (05:39→21:22)
[2023-03-19 07:53] LABS: Glucose Point of Care 214 mg/dl (65-105)
[2023-03-19] MEDS: INSULIN ASPART (*BKC) 100 UNITS/ML 8 UNITS SUB-Q ×2 (09:36→12:29)
[2023-03-19] MEDS: INSULIN ASPART (*BKC) 100 UNITS/ML SUB-Q ×2 (09:36→12:29)
[2023-03-19] MEDS: CHOLECALCIFEROL 1,000 UNITS TABLET 1000 UNITS PO (09:37)
[2023-03-19] MEDS: ATORVASTATIN 40 MG TABLET PO (09:37)
[2023-03-19] MEDS: CLOPIDOGREL BISULFATE 75 MG TABLET PO (09:37)
[2023-03-19] MEDS: HEPARIN SODIUM 5,000 UNITS/ML VIAL 5000 UNITS SUB-Q ×2 (09:37→21:22)
[2023-03-19] MEDS: EPOETIN ALFA-EPBX 10,000 UNITS/ML VIAL 10000 UNITS SUB-Q (09:39)
[2023-03-19 11:33] LABS: Glucose Point of Care 268 mg/dl (65-105)
--- NOTE | 2023-03-19 12:44 | P.PNNP_ITS ---
Progress Note: A&P Assessment and Plan (1) ESRD (end stage renal disease): Code(s): N18.6 - End stage renal disease Status: Chronic Assessment and Plan: * recently initiated on peritoneal dialysis * continue home PD prescription while hospitalized * check PD fluid sample to r/o peritonitis given cloudly PD fluid this AM * discussed with case management -- planning for discharge to [facility] next week; nursing staff at this facility to be trained this week on peritoneal dialysis (and this would alleviate the need to transition patient to hemodialysis) (2) Acute cerebrovascular accident (CVA): Code(s): I63.9 - Cerebral infarction, unspecified Status: Acute Assessment and Plan: * as noted by admission CT scan of head: * infarct in the right temporal occipital region in the expected distribution of right posterior cerebral artery, likely acute or subacute and old infarcts involving the left basal ganglia and left temporal parietal occipital region * presented with syncope and progressive vision loss * known previous CVA in Jul 2022 by MRI of brain * imaging done here reviewed * Neurology recommendations noted * mentation improving (bur still confused at times) (3) Syncope and collapse: Code(s): R55 - Syncope and collapse Status: Acute Assessment and Plan: * noted presenting symptom... * suspect multifactorial: * hyperglycemia * fluctuating hemodynamics/BP * new CVA(?) * continue PT/OT as tolerated (4) Hypertension: Qualifiers: Hypertension type: secondary to other renal disorders Qualified Code(s): I15.1 - Hypertension secondary to other renal disorders; N28.89 - Other specified disorders of kidney and ureter Code(s): I10 - Essential (primary) hypertension Status: Chronic Assessment and Plan: * still somewhat erratic * amlodipine just recently increased * if necessary, titrate hydralazine dosage as well * follow trend of hemodynamics (5) Anemia: Code(s): D64.9 - Anemia, unspecified Status: Chronic Assessment and Plan: * due to ESRD * Epogen subcutaneously while hospitalized * follow trend of H/H (6) Diabetes mellitus type 1: Qualifiers: Diabetes mellitus complication status: with hyperglycemia Qualified Code(s): E10.65 - Type 1 diabetes mellitus with hyperglycemia Code(s): E10.9 - Type 1 diabetes mellitus without complications Status: Chronic Assessment and Plan: * brittle control at baseline * follow accu-cheks * glycemic control per hospitalists Will continue to follow. Subjective Date/time seen: 03/19/23 12:44 Interval history: Follow-up for end stage renal disease on peritoneal dialysis. Continues to do well with peritoneal dialysis treatment overnight; dialysis nursing noted PD fluid was cloudy this AM but she denies any abdominal pain or any other subjective symptoms; no apparnet distress voiced at the time of my visit; continues to work with PT/OT as tolerated. Exam Narrative: General: elderly female in NAD Heart: normal S1 and S2; no rub Lungs: clear to auscultation Abdomen: soft, nontender, nondistended, positive bowel sounds Extremities: no cyanosis or clubbing; no edema Skin: warm and dry Objective Data Vital Signs Vital Signs: Vital Signs Temp Pulse Resp BP Puls
--- NOTE | 2023-03-19 12:44 | PM.PNNEP ---
Progress Note: A&P Assessment and Plan (1) ESRD (end stage renal disease): Code(s): N18.6 - End stage renal disease Status: Chronic Assessment and Plan: recently initiated on peritoneal dialysis continue home PD prescription while hospitalized check PD fluid sample to r/o peritonitis given cloudly PD fluid this AM discussed with case management -- planning for discharge to [facility] next week; nursing staff at this facility to be trained this week on peritoneal dialysis (and this would alleviate the need to transition patient to hemodialysis) (2) Acute cerebrovascular accident (CVA): Code(s): I63.9 - Cerebral infarction, unspecified Status: Acute Assessment and Plan: as noted by admission CT scan of head: infarct in the right temporal occipital region in the expected distribution of right posterior cerebral artery, likely acute or subacute and old infarcts involving the left basal ganglia and left temporal parietal occipital region presented with syncope and progressive vision loss known previous CVA in Jul 2022 by MRI of brain imaging done here reviewed Neurology recommendations noted mentation improving (bur still confused at times) (3) Syncope and collapse: Code(s): R55 - Syncope and collapse Status: Acute Assessment and Plan: noted presenting symptom... suspect multifactorial: hyperglycemia fluctuating hemodynamics/BP new CVA(?) continue PT/OT as tolerated (4) Hypertension: Qualifiers: Hypertension type: secondary to other renal disorders Qualified Code(s): I15.1 - Hypertension secondary to other renal disorders; N28.89 - Other specified disorders of kidney and ureter Code(s): I10 - Essential (primary) hypertension Status: Chronic Assessment and Plan: still somewhat erratic amlodipine just recently increased if necessary, titrate hydralazine dosage as well follow trend of hemodynamics (5) Anemia: Code(s): D64.9 - Anemia, unspecified Status: Chronic Assessment and Plan: due to ESRD Epogen subcutaneously while hospitalized follow trend of H/H (6) Diabetes mellitus type 1: Qualifiers: Diabetes mellitus complication status: with hyperglycemia Qualified Code(s): E10.65 - Type 1 diabetes mellitus with hyperglycemia Code(s): E10.9 - Type 1 diabetes mellitus without complications Status: Chronic Assessment and Plan: brittle control at baseline follow accu-cheks glycemic control per hospitalists Will continue to follow. Subjective Date/time seen: 03/19/23 12:44 Interval history: Follow-up for end stage renal disease on peritoneal dialysis. Continues to do well with peritoneal dialysis treatment overnight; dialysis nursing noted PD fluid was cloudy this AM but she denies any abdominal pain or any other subjective symptoms; no apparnet distress voiced at the time of my visit; continues to work with PT/OT as tolerated. Exam Narrative: General: elderly female in NAD Heart: normal S1 and S2; no rub Lungs: clear to auscultation Abdomen: soft, nontender, nondistended, positive bowel sounds Extremities: no cyanosis or clubbing; no edema Skin: warm and dry Objective Data Vital Signs Vital Signs: Vital Signs Temp Pulse Resp BP Pulse Ox O2 Del Method 03/19/23 12:00 71 03/19/23 09:40 65 03/19/23 08:02 102/55 L 03/19/23 08:02 133/51 L 03/19/23 08:00 97.2 F L 67 14 143/59 H 100 03/19/23 06:00 97.4 F L 68 18 121/63 100 03/19/23 04:00 64 03/19/23 00:00 70 03/18/23 20:00 77 03/18/23 20:00 Room Air 03/18/23 23:02 97.4 F L 82 20 124/51 L 94 03/18/23 22:00 97.4 F L 75 14 122/47 L 100 03/18/23 21:25 80 03/18/23 19:45 Room Air Intake/Output Intake/Output: Intake & Output 03/16/23 03/17/23 03/18/23 03/19/23 2
--- NOTE | 2023-03-19 13:31 | PM.IMPN ---
Progress Note: A&P Assessment and Plan (1) Cerebrovascular accident: Code(s): I63.9 - Cerebral infarction, unspecified Status: Acute Assessment and Plan: Patient presents with weakness, vision changes and episode of syncope. She has a recent hx of stroke in July 2022 (MR showing large acute CVA involving posterior left temporal lobe with possible cut off of the left posterior cerebral artery). --CT brain here showing infarct in the right temporal occipital region in the expected distribution of right posterior cerebral artery, likely acute or subacute and old infarcts involving the left basal ganglia and left temporal parietal occipital region. --MR Brain showing acute infarct right temporal occipital region and acute infarct involving the left basal ganglia and anterior limb internal capsule. --MRA showing total occlusion of the right posterior communicating artery and right P1 posterior cerebral artery with moderate stenosis of proximal left posterior cerebral artery and left M1 MCA. --Echo showing EF 70% with Grade I diastolic dysfunction, moderate MS, moderate AI. Septum intact ST evaluated the patient and felt she could have regular diet with thin liquids. PT/OT started. ASA continued but dose decreased so Plavix could be added for 3 months LDL 124. Lipitor added. BP better controlled. Continue current anti-HTN medications A1c 6.4. Elevated glucose related to PD. Glucose still elevated but better (see below). Continue aggressive medical management. 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 [facility] staff are being trained to perform PD so plan is to wait until the staff is trained before discharge to , likely d/c 03/23 (2) Syncope and collapse: Code(s): R55 - Syncope and collapse Status: Acute Assessment and Plan: Patient with syncopal episode. Possibly related to CVA but less likely. Possibly related to uncontrolled glucose and fluctuating BP. MRI brain and Echo as above. EKG showing sinus bradycardia (55) with prolonged QT, incomplete Rt BBB and LAD. Also with nonspecific T wave changes. Troponins elevated but flat at 0.07. CXR was clear. No significant dysrhythmias on tele. Repeat EKG showing no change except resolution of the prolonged QT. Has been having brief episodes of HoTN when out of bed. Probably related to medications and anti-HTN meds adjusted. Consider seizures but no obvious seizure activity at the time of the event noted. Continue to monitor (3) Diabetes mellitus type 1: Qualifiers: Diabetes mellitus complication status: with hyperglycemia Qualified Code(s): E10.65 - Type 1 diabetes mellitus with hyperglycemia Code(s): E10.9 - Type 1 diabetes mellitus without complications Status: Chronic Assessment and Plan: A1c 6.4. The patient's blood glucose was reviewed on 03/18 Jimi had PD last night. Glucose still elevated but better overall She takes Lantus 60U QHS at home. We have her on Lantus 30U QHS and Novolg 8U TID w/meals (with parameters). Continue AccuCheks covering with sliding scale. Hypoglycemia protocol available as needed. She actually may need HD for placement so may not be getting PD in the near future so will hold on advancing her insulin regimen (4) ESRD (end stage renal disease): Code(s): N18.6 - End stage renal disease Status: Chronic Assessment and Plan: Patient recently started on PD. She has been tolerating this well Nephrology consulted. Continue PD here but patient will need placement (possibly keno terminal operator placement). As above. Hopefully patient can go to [place] once staff is trained. If not, then patient will need tunneled catheter for HD. (5) Elevated troponin: Code(s): R79.89 - Other specified abnormal findings of blood chemistry Status: Acute Assessment and Plan: As above (6) Hypertension: Qualifiers:
--- NOTE | 2023-03-19 13:48 | PC.NURSE ---
Dialysis note: PD effluent sample drawn per MD order. Sample appears clear and yellow with a lot of white flakes. Pt denies abdominal pain, n/v. Sample labeled and provided to floor RN. notified of sample collection and appearance. Total time: 20 minutes.
[2023-03-19 17:04] LABS: Source Peritoneal Fluid Peritoneal Fluid
[2023-03-19 17:05] LABS: Appearance Peritoneal Fluid Hazy (Clear); Color Peritoneal Fluid Yellow (Colorless); Nucleated Cells Peritoneal Flu 11 /uL (0-500)
[2023-03-19 17:06] LABS: Eosinophils Peritoneal Fluid 1 %; Lymphocytes Peritoneal Fluid 22 %; Macrophages Peritoneal Fluid 73 %; Neutrophils Peritoneal Fluid 4 % (0-25); RBC Peritoneal Fluid < 2000 /uL (0-100000)
[2023-03-19 17:34] LABS: Alveolar/Arterial O2 Gradient < 0.0 mmHg; Device ROOM AIR; Fractional Inspired Oxygen 21 %; HCO3 ABG 29.3 mEq/l (22.0-26.0); Modified Allen's Test Pass; Oxygen Content ABG 15.2 %vol (16.0-22.0); Oxygen Saturation ABG 97.9 % (95.0-100.0); Oxyhemoglobin 96.3 % THb (90.0-100.0); PCO2 ABG 42.1 mmHg (35.0-45.0); PO2 ABG 102.4 mmHg (80.0-100.0); PO2 FiO2 Ratio Arterial Blood 4.88 %; Site Drawn RIGHT RADIAL; Total Hemoglobin 11.1 g/dL (12.0-18.0)
[2023-03-19 17:36] LABS: Anion Gap 4 mmol/L (8-16); Blood Urea Nitrogen 46 mg/dL (7-17); Calcium 8.4 mg/dL (8.4-10.2); Carbon Dioxide 30 mmol/L (22-30); Chloride 98 mmol/L (98-107); Estimated CRCL calculation 7 ml/min; Estimated Glomerular Filt Rate 9; Glucose 412 mg/dL (65-110); Potassium 2.8 mmol/L (3.4-5.0); Sodium 132 mmol/L (137-145)
[2023-03-19 18:03] LABS: Glucose Point of Care 192 mg/dl (65-105)
[2023-03-19 18:03] LABS: Glucose Point of Care < 20 mg/dl (65-105)
[2023-03-19 18:03] LABS: Glucose Point of Care 179 mg/dl (65-105)
[2023-03-19 18:03] LABS: Glucose Point of Care 220 mg/dl (65-105)
[2023-03-19 18:03] LABS: Glucose Point of Care 315 mg/dl (65-105)
[2023-03-19] MEDS: POTASSIUM CHLORIDE INJ 40 MEQ in SODIUM CHLORIDE 0.9% IV 500 ML 130 MEQ IVPB (18:08)
[2023-03-19 20:14] LABS: Glucose Point of Care 263 mg/dl (65-105)
--- NOTE | 2023-03-19 20:44 | PC.NURSE ---
Pt had been more fatigued throughout the day, but she had been able to work with OT and sit in chair for approximately three hours. Morning BP low; BP medications held as monitoring performed to see if BP would rise through shift. Returned to bed approx 1100. Pt slept most of shift, but answered appropriately at 1200 neuro check, lunch insulin given, and tele removal around 1530. Approx 1655, the PCT called out to this RN that pt glucose 18. This RN to bedside immediately. Pt non responsive and thick secretions drooling from mouth. Rapid response called. Patient diaphoretic and right mouth droop noted. Two IV lines established, BMP drawn from a start. Full amp of D50 given. Oropharangyl suctioning performed. Pt glucose now reading in 360's. Orders for stat head CT and stat ABG. RN accompanied pt to CT. Glucose monitored frequently through this time. When pt returned to floor, pt finally opening eyes and able to intake two applesauces, a pudding, and some juice. Pt responding to commands and verbally communicating. Frequent monitoring of glucose and assessing. Pt resting comfortably with daughter at bedside. Sugars stable in 200s. Call made to YAZMIN Retana to communicate CT findings with pt family. Night RN made aware of events.
--- NOTE | 2023-03-19 21:05 | PM.EVENT ---
Event Note Event Note Event Note: Rapid Response called around 1500. nozzle and sleeve worker of Events: Pt had been more fatigued throughout the day, but she had been able to work with OT and sit in chair for approximately three hours.? Morning BP low; BP medications held as monitoring performed to see if BP would rise through shift.? Returned to bed approx 1100.? Pt slept most of shift, but answered appropriately at 1200 neuro check, lunch insulin given, and tele removal around 1530.? Approx 1655, the PCT called out to this RN that pt glucose 18.? This RN to bedside immediately.? Pt non responsive and thick secretions drooling from mouth.? Rapid response called.? Patient diaphoretic and right mouth droop noted.? Two IV lines established, BMP drawn from a start.? Full amp of D50 given.? Oropharyngeal suctioning performed.? Pt glucose now reading in 360's.? Orders for stat head CT and stat ABG.? RN accompanied pt to CT.? Glucose monitored frequently through this time.? When pt returned to floor, pt finally opening eyes and able to intake two applesauces, a pudding, and some juice.? Pt responding to commands and verbally communicating.? Frequent monitoring of glucose and assessing.? Pt resting comfortably with daughter at bedside.? Sugars stable in 200s.? Call made to YZAMIN Retana to communicate CT findings with pt family.? Night RN made aware of events. On arrival to the room, patient was unresponsive to verbal or painful stimuli. BS of <20 discovered at 1656. Prior to this BS was 268 at 11:31. IV accessed was placed and amp of D50 given. Airway maintained throughout event and did not require support. While D50 was being pushed, Lawrence YA arrived to the rapid. Provider ordered a stat head CT, ABG, oral pharyngeal suctioning, BMP, and cardiac monitoring/telemetry and glargine reduced from 30 to 10 u HS. Low dose corrective TIDWM remains in place. Repeat glucose at 1705 - 315. Patient also found to be hypokalemic (2.8)and 40 of K IV PB transfusing. glucose has since remained above 179. MRA done on 03/13 showed: total occlusion of right P1, moderate stenosis of proximal L CAN CLEANER and moderate stenosis of L M1 segment. Repeat CT today showed: There are areas of evolving subacute infarct in the right temporal occipital region, left basal ganglia, and anterior limb of the left internal capsule. Areas of prior infarction involving the left temporal occipital region and left frontoparietal region are again noted. No new area of infarction is identified.? Reassessment at 2030: Patient is responsive to verbal but remains lethargic. +4/5 right upper extremity, +5 left upper extremity, +5 left lower extremity, +5 right lower extremity. no discernible dysarthria. Minimal speech. Trace facial droop on right only seen at rest. No changes in sensation. S1-S2 present without murmur, rub, ectopy. No adventitious lung sounds. Discussed CT results with family. They voiced concerns that patient was more fatigued and less interactive over the last 24 hours. Dinnertime NovoLog held by RN, SUNIL 179. Chart reviewed, Patient consumed 25% of breakfast, refused lunch, did not eat dinner today. Day prior patient consumed 80% of her breakfast, 15% of her lunch, and refused dinner. Similar pattern can be seen from 03/13 to today. Patient will typically not consume at least 1 meal per day, occasionally will refuse 2 meals per day, and does not complete her meal. Will hold long-acting, reassess PO intake tomorrow and glucose levels. Discussed plan with daughter who is agreeable. Critical Care Time: I personally spent 40 minutes of direct patient care including (but not limited to) the physical examination, decision-making, bedside evaluation, review of medical records, review of labs and imaging, discussion with nursing staff and other providers for collaborative, critical care management of this patient.
[2023-03-19] MEDS: carvediloL 6.25 MG TABLET PO (21:21)
[2023-03-19 21:51] LABS: Glucose Point of Care 191 mg/dl (65-105)
[2023-03-19 21:51] LABS: Glucose Point of Care 201 mg/dl (65-105)
[2023-03-19 23:50] LABS: Anion Gap 5 mmol/L (8-16); Blood Urea Nitrogen 41 mg/dL (7-17); Calcium 8.4 mg/dL (8.4-10.2); Carbon Dioxide 26 mmol/L (22-30); Chloride 102 mmol/L (98-107); Estimated CRCL calculation 7 ml/min; Estimated Glomerular Filt Rate 10; Glucose 455 mg/dL (65-110); Potassium 6.9 mmol/L (3.4-5.0); Sodium 133 mmol/L (137-145)
[2023-03-19 23:55] LABS: Glucose Point of Care 491 mg/dl (65-105)
[2023-03-20] VITALS (10 sets, daily range): BP systolic 114–155; BP diastolic 54–63; PULSE 59–82; RESP 14–16; TEMP 37.2–37.6; O2SAT 98–100
--- NOTE | 2023-03-20 00:41 | ECG_ITS ---
Measurements Intervals [place] Rate: 65 P: 88 [place]: 183 QRS: -70 QRSD: 101 T: 72 QT: 452 QTc: 472 Interpretive Statements SINUS RHYTHM LEFT ANTERIOR FASCICULAR BLOCK [QRS AXIS <= -45, QR IN I, RS IN II] POSSIBLE ANTERIOR MYOCARDIAL INFARCTION , OF INDETERMINATE AGE [30 ms Q WAVE IN V3/V4, OR R < 0.2 mV IN V4] COMPARED TO ECG 03/15/2023 17:00:38 LEFT ANTERIOR FASCICULAR BLOCK NOW PRESENT Electronically Signed On 03-20-2023 7:46:35 CDT by Ovidio Fletcher MD
--- NOTE | 2023-03-20 01:00 | PC.NURSE ---
Lab here to redraw BMP due to inconsistent Potassium values, will report new values and treat accordingly.
[2023-03-20] MEDS: INSULIN HUMAN REGULAR (*BKC) 100 UNITS/ML 10 UNITS SUB-Q (02:40)
[2023-03-20 03:53] LABS: Glucose Point of Care > 500 mg/dl (65-105)
[2023-03-20 04:14] LABS: Anion Gap 8 mmol/L (8-16); Blood Urea Nitrogen 41 mg/dL (7-17); Calcium 8.8 mg/dL (8.4-10.2); Carbon Dioxide 27 mmol/L (22-30); Chloride 97 mmol/L (98-107); Estimated CRCL calculation 7 ml/min; Estimated Glomerular Filt Rate 9; Potassium 4.1 mmol/L (3.4-5.0); Sodium 132 mmol/L (137-145)
[2023-03-20 04:15] LABS: Glucose 542 mg/dL (65-110)
[2023-03-20 05:21] LABS: Glucose Point of Care 493 mg/dl (65-105)
[2023-03-20] MEDS: hydrALAZINE HCL 25 MG TABLET PO ×3 (06:25→21:04)
[2023-03-20 06:38] LABS: Basophils Percent Auto 0.2 % (0.2-1.2); Eosinophils Percent Auto 0.2 % (0-4.4); Hematocrit 28.6 % (37.0-47.0); Hemoglobin 9.5 g/dL (12.0-15.0); Immature Granulocyte Absolute 0.01 K/mm3 (0.00-0.031); Immature Granulocyte Percent A 0.2 % (0-0.5); Lymphocytes Absolute Auto 0.49 K/mm3 (0.9-3.2); Lymphocytes Percent Auto 9.7 % (18.3-44.2); Mean Corpuscular HGB Conc 33.2 g/dl (32-36); Mean Corpuscular Volume 90.2 fl (80-100); Monocytes Absolute Auto 0.4 K/mm3 (0.1-0.6); Monocytes Percent Auto 7.7 % (2.6-8.5); Neutrophils Absolute Auto 4.1 K/mm3 (1.3-6.7); Platelet Count Result 153 k/mm3 (150-375); Red Blood Count 3.17 M/mm3 (4.2-5.4)
[2023-03-20 07:10] LABS: Albumin Level 2.9 g/dL (3.5-5.1); Anion Gap 8 mmol/L (8-16); Blood Urea Nitrogen 39 mg/dL (7-17); Calcium 8.6 mg/dL (8.4-10.2); Carbon Dioxide 26 mmol/L (22-30); Chloride 98 mmol/L (98-107); Estimated CRCL calculation 7 ml/min; Estimated Glomerular Filt Rate 10; Glucose 530 mg/dL (65-110); Magnesium 1.6 mg/dL (1.6-2.3); Potassium 3.6 mmol/L (3.4-5.0); Sodium 132 mmol/L (137-145)
[2023-03-20 07:43] LABS: Glucose Point of Care 444 mg/dl (65-105)
[2023-03-20] MEDS: INSULIN ASPART (*BKC) 100 UNITS/ML 10 UNITS SUB-Q (07:45)
[2023-03-20] MEDS: carvediloL 6.25 MG TABLET PO ×2 (08:39→20:31)
[2023-03-20] MEDS: ATORVASTATIN 40 MG TABLET PO (08:39)
[2023-03-20] MEDS: amLODIPine BESYLATE 5 MG TABLET 10 MG PO (08:39)
[2023-03-20] MEDS: CLOPIDOGREL BISULFATE 75 MG TABLET PO (08:39)
[2023-03-20] MEDS: CHOLECALCIFEROL 1,000 UNITS TABLET 1000 UNITS PO (08:39)
[2023-03-20] MEDS: HEPARIN SODIUM 5,000 UNITS/ML VIAL 5000 UNITS SUB-Q ×2 (08:40→20:31)
--- NOTE | 2023-03-20 09:45 | PM.IMPN ---
Progress Note: A&P Assessment and Plan (1) Cerebrovascular accident: Code(s): I63.9 - Cerebral infarction, unspecified Status: Acute Assessment and Plan: Patient presents with weakness, vision changes and episode of syncope. She has a recent hx of stroke in July 2022 (MR showing large acute CVA involving posterior left temporal lobe with possible cut off of the left posterior cerebral artery). --CT brain here showing infarct in the right temporal occipital region in the expected distribution of right posterior cerebral artery, likely acute or subacute and old infarcts involving the left basal ganglia and left temporal parietal occipital region. --MR Brain showing acute infarct right temporal occipital region and acute infarct involving the left basal ganglia and anterior limb internal capsule. --MRA showing total occlusion of the right posterior communicating artery and right P1 posterior cerebral artery with moderate stenosis of proximal left posterior cerebral artery and left M1 MCA. --Echo showing EF 70% with Grade I diastolic dysfunction, moderate MS, moderate AI. Septum intact ST evaluated the patient and felt she could have regular diet with thin liquids. PT/OT started. ASA continued but dose decreased so Plavix could be added for 3 months LDL 124. Lipitor added. BP better controlled. Continue current anti-HTN medications A1c 6.4. Elevated glucose related to PD. Glucose still elevated but better (see below). Continue aggressive medical management. Appreciate Neurology input Discussed placement options with Industrial Relations Director and senior industrial engineer. [facility] staff are being trained to perform PD so plan is to wait until the staff is trained before discharge to , likely d/c 03/23 (2) Syncope and collapse: Code(s): R55 - Syncope and collapse Status: Acute Assessment and Plan: Patient with syncopal episode. Possibly related to CVA but less likely. Possibly related to uncontrolled glucose and fluctuating BP. MRI brain and Echo as above. EKG showing sinus bradycardia (55) with prolonged QT, incomplete Rt BBB and LAD. Also with nonspecific T wave changes. Troponins elevated but flat at 0.07. CXR was clear. No significant dysrhythmias on tele. Repeat EKG showing no change except resolution of the prolonged QT. Has been having brief episodes of HoTN when out of bed. Probably related to medications and anti-HTN meds adjusted. Consider seizures but no obvious seizure activity at the time of the event noted. Continue to monitor (3) Diabetes mellitus type 1: Qualifiers: Diabetes mellitus complication status: with hyperglycemia Qualified Code(s): E10.65 - Type 1 diabetes mellitus with hyperglycemia Code(s): E10.9 - Type 1 diabetes mellitus without complications Status: Chronic Assessment and Plan: A1c 6.4. The patient's blood glucose was reviewed on 03/20, quite elevated, restart lantus Cont PD per nephrology Continue AccuCheks covering with sliding scale. Hypoglycemia protocol available as needed. (4) ESRD (end stage renal disease): Code(s): N18.6 - End stage renal disease Status: Chronic Assessment and Plan: Patient recently started on PD. She has been tolerating this well Nephrology consulted. Continue PD here but patient will need placement (possibly [facility] placement). As above. Hopefully patient can go to [facility] once staff is trained. If not, then patient will need tunneled catheter for HD. (5) Elevated troponin: Code(s): R79.89 - Other specified abnormal findings of blood chemistry Status: Acute Assessment and Plan: As above (6) Hypertension: Qualifiers: Hypertension type: secondary to other renal disorders Qualified Code(s): I15.1 - Hypertension secondary to other renal disorders; N28.89 - Other specified disorders of kidney and ureter Code(s): I10 - Essential (primary) hypertension
[2023-03-20 10:08] LABS: Glucose Point of Care 396 mg/dl (65-105)
--- NOTE | 2023-03-20 10:21 | PM.PNNEP ---
Progress Note: A&P Assessment and Plan (1) ESRD (end stage renal disease): Code(s): N18.6 - End stage renal disease Status: Chronic Assessment and Plan: recently initiated on peritoneal dialysis continue home PD prescription while hospitalized check PD fluid sample to r/o peritonitis given cloudly PD fluid this AM discussed with case management -- planning for discharge to [facility] next week; nursing staff at this facility to be trained this week on peritoneal dialysis (and this would alleviate the need to transition patient to hemodialysis) (2) Acute cerebrovascular accident (CVA): Code(s): I63.9 - Cerebral infarction, unspecified Status: Acute Assessment and Plan: as noted by admission CT scan of head: infarct in the right temporal occipital region in the expected distribution of right posterior cerebral artery, likely acute or subacute and old infarcts involving the left basal ganglia and left temporal parietal occipital region presented with syncope and progressive vision loss known previous CVA in Jul 2022 by MRI of brain imaging done here reviewed Neurology recommendations noted mentation improving (3) Syncope and collapse: Code(s): R55 - Syncope and collapse Status: Acute Assessment and Plan: noted presenting symptom... suspect multifactorial: hyperglycemia fluctuating hemodynamics/BP new CVA(?) continue PT/OT as tolerated (4) Hypertension: Qualifiers: Hypertension type: secondary to other renal disorders Qualified Code(s): I15.1 - Hypertension secondary to other renal disorders; N28.89 - Other specified disorders of kidney and ureter Code(s): I10 - Essential (primary) hypertension Status: Chronic Assessment and Plan: still somewhat erratic but better if necessary, titrate hydralazine dosage as well follow trend of hemodynamics (5) Anemia: Code(s): D64.9 - Anemia, unspecified Status: Chronic Assessment and Plan: due to ESRD Epogen subcutaneously while hospitalized follow trend of H/H (6) Diabetes mellitus type 1: Qualifiers: Diabetes mellitus complication status: with hyperglycemia Qualified Code(s): E10.65 - Type 1 diabetes mellitus with hyperglycemia Code(s): E10.9 - Type 1 diabetes mellitus without complications Status: Chronic Assessment and Plan: brittle control at baseline follow accu-cheks glycemic control per hospitalists Will continue to follow. Subjective Date/time seen: 03/20/23 10:21 Interval history: Follow-up for end stage renal disease on peritoneal dialysis. Events noted yesterday afternoon -- rapid response called due to significant hypoglycemia associated with altered mental status; blood sugars back up after decreasing insulin regiment and mentation slowly improved over the course of the evening; Exam Narrative: General: elderly female in NAD Heart: normal S1 and S2; no rub Lungs: clear to auscultation Abdomen: soft, nontender, nondistended, positive bowel sounds Extremities: no cyanosis or clubbing; no edema Skin: warm and itact Objective Data Vital Signs Vital Signs: Vital Signs Temp Pulse Resp BP Pulse Ox O2 Del Method 03/20/23 08:00 79 03/20/23 08:00 100 Room Air 03/20/23 08:39 75 03/20/23 08:00 99.3 F 75 16 140/55 L 100 03/20/23 07:13 99.7 F H 77 14 155/63 H 03/20/23 04:00 99.7 F H 77 14 155/63 H 99 03/20/23 04:00 74 03/20/23 00:00 59 L 03/19/23 20:00 56 L 03/19/23 23:55 97.9 F 58 L 14 140/53 L 98 03/19/23 20:00 Room Air 03/19/23 20:04 97.7 F 56 L 14 141/60 H 100 03/19/23 21:21 65 03/19/23 19:15 Room Air 03/19/23 17:30 57 L 10 L 114/62 98 Room Air 03/19/23 17:15 55 L 03/19/23 14:00 97.4 F L 72 14 144/49 H 99 03/19/23 12:00 71 In
--- NOTE | 2023-03-20 10:21 | P.PNNP_ITS ---
Progress Note: A&P Assessment and Plan (1) ESRD (end stage renal disease): Code(s): N18.6 - End stage renal disease Status: Chronic Assessment and Plan: * recently initiated on peritoneal dialysis * continue home PD prescription while hospitalized * check PD fluid sample to r/o peritonitis given cloudly PD fluid this AM * discussed with case management -- planning for discharge to [facility] next week; nursing staff at this facility to be trained this week on peritoneal dialysis (and this would alleviate the need to transition patient to hemodialysis) (2) Acute cerebrovascular accident (CVA): Code(s): I63.9 - Cerebral infarction, unspecified Status: Acute Assessment and Plan: * as noted by admission CT scan of head: * infarct in the right temporal occipital region in the expected distribution of right posterior cerebral artery, likely acute or subacute and old infarcts involving the left basal ganglia and left temporal parietal occipital region * presented with syncope and progressive vision loss * known previous CVA in Jul 2022 by MRI of brain * imaging done here reviewed * Neurology recommendations noted * mentation improving (3) Syncope and collapse: Code(s): R55 - Syncope and collapse Status: Acute Assessment and Plan: * noted presenting symptom... * suspect multifactorial: * hyperglycemia * fluctuating hemodynamics/BP * new CVA(?) * continue PT/OT as tolerated (4) Hypertension: Qualifiers: Hypertension type: secondary to other renal disorders Qualified Code(s): I15.1 - Hypertension secondary to other renal disorders; N28.89 - Other specified disorders of kidney and ureter Code(s): I10 - Essential (primary) hypertension Status: Chronic Assessment and Plan: * still somewhat erratic but better * if necessary, titrate hydralazine dosage as well * follow trend of hemodynamics (5) Anemia: Code(s): D64.9 - Anemia, unspecified Status: Chronic Assessment and Plan: * due to ESRD * Epogen subcutaneously while hospitalized * follow trend of H/H (6) Diabetes mellitus type 1: Qualifiers: Diabetes mellitus complication status: with hyperglycemia Qualified Code(s): E10.65 - Type 1 diabetes mellitus with hyperglycemia Code(s): E10.9 - Type 1 diabetes mellitus without complications Status: Chronic Assessment and Plan: * brittle control at baseline * follow accu-cheks * glycemic control per hospitalists Will continue to follow. Subjective Date/time seen: 03/20/23 10:21 Interval history: Follow-up for end stage renal disease on peritoneal dialysis. Events noted yesterday afternoon -- rapid response called due to significant hypoglycemia associated with altered mental status; blood sugars back up after decreasing insulin regiment and mentation slowly improved over the course of the evening; Exam Narrative: General: elderly female in NAD Heart: normal S1 and S2; no rub Lungs: clear to auscultation Abdomen: soft, nontender, nondistended, positive bowel sounds Extremities: no cyanosis or clubbing; no edema Skin: warm and itact Objective Data Vital Signs Vital Signs: Vital Signs Temp Pulse Resp BP Pulse Ox O2 Del Method 03/20/23 08:00 79 03/20/23 08:00 100
[2023-03-20] MEDS: INSULIN GLARGINE (*BKC) 100 UNITS/ML 10 UNITS SUB-Q ×2 (10:29→20:33)
[2023-03-20 11:35] LABS: Glucose Point of Care 328 mg/dl (65-105)
[2023-03-20] MEDS: INSULIN ASPART (*BKC) 100 UNITS/ML SUB-Q ×2 (11:43→16:40)
[2023-03-20 16:06] LABS: Glucose Point of Care 374 mg/dl (65-105)
[2023-03-20 19:59] LABS: Glucose Point of Care 480 mg/dl (65-105)
[2023-03-20 23:51] LABS: Glucose Point of Care > 500 mg/dl (65-105)
--- NOTE | 2023-03-20 23:59 | PC.NURSE ---
glucometer reading HI. provider notified. stat labs drawn. insulin ordered and given per MAR
[2023-03-21] VITALS (13 sets, daily range): BP systolic 129–158; BP diastolic 46–63; PULSE 67–95; RESP 14–20; TEMP 36.7–37.9; O2SAT 96–100
[2023-03-21] MEDS: INSULIN ASPART (*BKC) 100 UNITS/ML SUB-Q ×4 (00:03→16:45)
[2023-03-21 00:51] LABS: Glucose 679 mg/dL (65-110)
[2023-03-21 01:06] LABS: Glucose Point of Care > 500 mg/dl (65-105)
--- NOTE | 2023-03-21 01:07 | PC.NURSE ---
glucose redrawn one hour after insulin admin, and is now 578. provider notified. additional insulin orders received. will recheck glucose 1 hour after administration
[2023-03-21 02:28] LABS: Glucose Point of Care 482 mg/dl (65-105)
--- NOTE | 2023-03-21 02:45 | PCDIET ---
glucose now 482. provider notified. new insulin orders received. will recheck glucose 1 hour after administration
[2023-03-21] MEDS: INSULIN HUMAN REGULAR (*BKC) 100 UNITS/ML 10 UNITS SUB-Q (03:37)
[2023-03-21 04:23] LABS: Glucose Point of Care 350 mg/dl (65-105)
--- NOTE | 2023-03-21 04:39 | PC.NURSE ---
glucose now 350. PD treatment ended. Dr. Brady notified. no new orders at this time.
[2023-03-21] MEDS: hydrALAZINE HCL 25 MG TABLET PO ×3 (05:32→21:11)
[2023-03-21 07:33] LABS: Glucose Point of Care 140 mg/dl (65-105)
[2023-03-21] MEDS: amLODIPine BESYLATE 5 MG TABLET 10 MG PO (09:01)
[2023-03-21] MEDS: carvediloL 6.25 MG TABLET PO ×2 (09:02→20:10)
[2023-03-21] MEDS: HEPARIN SODIUM 5,000 UNITS/ML VIAL 5000 UNITS SUB-Q ×2 (09:02→20:15)
[2023-03-21] MEDS: ATORVASTATIN 40 MG TABLET PO (09:02)
[2023-03-21] MEDS: CHOLECALCIFEROL 1,000 UNITS TABLET 1000 UNITS PO (09:02)
[2023-03-21] MEDS: CLOPIDOGREL BISULFATE 75 MG TABLET PO (09:02)
[2023-03-21] MEDS: EPOETIN ALFA-EPBX 10,000 UNITS/ML VIAL 10000 UNITS SUB-Q (09:04)
--- NOTE | 2023-03-21 09:11 | PM.IMPN ---
Progress Note: A&P Assessment and Plan (1) Cerebrovascular accident: Code(s): I63.9 - Cerebral infarction, unspecified Status: Acute Assessment and Plan: Patient presents with weakness, vision changes and episode of syncope. She has a recent hx of stroke in July 2022 (MR showing large acute CVA involving posterior left temporal lobe with possible cut off of the left posterior cerebral artery). --CT brain here showing infarct in the right temporal occipital region in the expected distribution of right posterior cerebral artery, likely acute or subacute and old infarcts involving the left basal ganglia and left temporal parietal occipital region. --MR Brain showing acute infarct right temporal occipital region and acute infarct involving the left basal ganglia and anterior limb internal capsule. --MRA showing total occlusion of the right posterior communicating artery and right P1 posterior cerebral artery with moderate stenosis of proximal left posterior cerebral artery and left M1 MCA. --Echo showing EF 70% with Grade I diastolic dysfunction, moderate MS, moderate AI. Septum intact ST evaluated the patient and felt she could have regular diet with thin liquids. PT/OT started. ASA continued but dose decreased so Plavix could be added for 3 months LDL 124. Lipitor added. BP better controlled. Continue current anti-HTN medications A1c 6.4. Elevated glucose related to PD. Glucose still elevated but better (see below). Continue aggressive medical management. Appreciate Neurology input Discussed placement options with Chief Growth Officer and cue selector. [facility] staff are being trained to perform PD so plan is to wait until the staff is trained before discharge to Likely d/c 03/23 (2) Syncope and collapse: Code(s): R55 - Syncope and collapse Status: Acute Assessment and Plan: Patient with syncopal episode. Possibly related to CVA but less likely. Possibly related to uncontrolled glucose and fluctuating BP. MRI brain and Echo as above. EKG showing sinus bradycardia (55) with prolonged QT, incomplete Rt BBB and LAD. Also with nonspecific T wave changes. Troponins elevated but flat at 0.07. CXR was clear. No significant dysrhythmias on tele. Repeat EKG showing no change except resolution of the prolonged QT. Has been having brief episodes of HoTN when out of bed. Probably related to medications and anti-HTN meds adjusted. Consider seizures but no obvious seizure activity at the time of the event noted. Continue to monitor (3) Diabetes mellitus type 1: Qualifiers: Diabetes mellitus complication status: with hyperglycemia Qualified Code(s): E10.65 - Type 1 diabetes mellitus with hyperglycemia Code(s): E10.9 - Type 1 diabetes mellitus without complications Status: Chronic Assessment and Plan: A1c 6.4. The patient's blood glucose was reviewed on 03/20, quite elevated, restart lantus Cont PD per nephrology Continue AccuCheks covering with sliding scale. Hypoglycemia protocol available as needed. (4) ESRD (end stage renal disease): Code(s): N18.6 - End stage renal disease Status: Chronic Assessment and Plan: Patient recently started on PD. She has been tolerating this well Nephrology consulted. See above (5) Elevated troponin: Code(s): R79.89 - Other specified abnormal findings of blood chemistry Status: Acute Assessment and Plan: As above (6) Hypertension: Qualifiers: Hypertension type: secondary to other renal disorders Qualified Code(s): I15.1 - Hypertension secondary to other renal disorders; N28.89 - Other specified disorders of kidney and ureter Code(s): I10 - Essential (primary) hypertension Status: Chronic Assessment and Plan: Patient's blood pressure was reviewed on 03/21 Blood pressure much better controlled Currently on Coreg, Norvasc and hydralazine. Lasix on hold.
[2023-03-21 10:10] LABS: Glucose Point of Care 167 mg/dl (65-105)
--- NOTE | 2023-03-21 10:21 | P.PNNP_ITS ---
Progress Note: A&P Assessment and Plan (1) ESRD (end stage renal disease): Code(s): N18.6 - End stage renal disease Status: Chronic Assessment and Plan: * recently initiated on peritoneal dialysis * continue home PD prescription while hospitalized * discussed with case management -- planning for discharge to [facility] next week; nursing staff at this facility to be trained this week on peritoneal dialysis (and this would alleviate the need to transition patient to hemodialysis) (2) Acute cerebrovascular accident (CVA): Code(s): I63.9 - Cerebral infarction, unspecified Status: Acute Assessment and Plan: * as noted by admission CT scan of head: * infarct in the right temporal occipital region in the expected distribution of right posterior cerebral artery, likely acute or subacute and old infarcts involving the left basal ganglia and left temporal parietal occipital region * presented with syncope and progressive vision loss * known previous CVA in Jul 2022 by MRI of brain * imaging done here reviewed * Neurology recommendations noted * mentation improving (3) Syncope and collapse: Code(s): R55 - Syncope and collapse Status: Acute Assessment and Plan: * noted presenting symptom... * suspect multifactorial: * hyperglycemia * fluctuating hemodynamics/BP * new CVA(?) * continue PT/OT as tolerated (4) Hypertension: Qualifiers: Hypertension type: secondary to other renal disorders Qualified Code(s): I15.1 - Hypertension secondary to other renal disorders; N28.89 - Other specified disorders of kidney and ureter Code(s): I10 - Essential (primary) hypertension Status: Chronic Assessment and Plan: * still somewhat erratic but better * if necessary, titrate hydralazine dosage as well * follow trend of hemodynamics (5) Anemia: Code(s): D64.9 - Anemia, unspecified Status: Chronic Assessment and Plan: * due to ESRD * Epogen subcutaneously while hospitalized * follow trend of H/H (6) Diabetes mellitus type 1: Qualifiers: Diabetes mellitus complication status: with hyperglycemia Qualified Code(s): E10.65 - Type 1 diabetes mellitus with hyperglycemia Code(s): E10.9 - Type 1 diabetes mellitus without complications Status: Chronic Assessment and Plan: * brittle control at baseline * follow accu-cheks * glycemic control per hospitalists Not opposed to discharge on Thursday to [facility] if otherwise medically stable - would try to discharge on Thursday BEFORE noon to ensure patient is settled in at [facility] and to have adequate time to ensure first nightly PD treatment is without issue or problems.... Will continue to follow. Subjective Date/time seen: 03/21/23 10:21 Interval history: Follow-up for end stage renal disease on peritoneal dialysis. Appears to be doing reasonably well at the time of my visit; tolerated peritoneal dialysis treatment overnight without any issues or problems; remains in good spirits currently; no apparent distress noted currently. Exam Narrative: General: elderly female in NAD Heart: normal S1 and S2; no rub Lungs: clear to auscultation Abdomen: soft, nontender, nondistended, positive bowel sounds Extremities: no cyanosis or clubbing; no edema Skin: no rash Objective Data Vital Signs Vital Signs:
--- NOTE | 2023-03-21 10:21 | PM.PNNEP ---
Progress Note: A&P Assessment and Plan (1) ESRD (end stage renal disease): Code(s): N18.6 - End stage renal disease Status: Chronic Assessment and Plan: recently initiated on peritoneal dialysis continue home PD prescription while hospitalized discussed with case management -- planning for discharge to [facility] next week; nursing staff at this facility to be trained this week on peritoneal dialysis (and this would alleviate the need to transition patient to hemodialysis) (2) Acute cerebrovascular accident (CVA): Code(s): I63.9 - Cerebral infarction, unspecified Status: Acute Assessment and Plan: as noted by admission CT scan of head: infarct in the right temporal occipital region in the expected distribution of right posterior cerebral artery, likely acute or subacute and old infarcts involving the left basal ganglia and left temporal parietal occipital region presented with syncope and progressive vision loss known previous CVA in Jul 2022 by MRI of brain imaging done here reviewed Neurology recommendations noted mentation improving (3) Syncope and collapse: Code(s): R55 - Syncope and collapse Status: Acute Assessment and Plan: noted presenting symptom... suspect multifactorial: hyperglycemia fluctuating hemodynamics/BP new CVA(?) continue PT/OT as tolerated (4) Hypertension: Qualifiers: Hypertension type: secondary to other renal disorders Qualified Code(s): I15.1 - Hypertension secondary to other renal disorders; N28.89 - Other specified disorders of kidney and ureter Code(s): I10 - Essential (primary) hypertension Status: Chronic Assessment and Plan: still somewhat erratic but better if necessary, titrate hydralazine dosage as well follow trend of hemodynamics (5) Anemia: Code(s): D64.9 - Anemia, unspecified Status: Chronic Assessment and Plan: due to ESRD Epogen subcutaneously while hospitalized follow trend of H/H (6) Diabetes mellitus type 1: Qualifiers: Diabetes mellitus complication status: with hyperglycemia Qualified Code(s): E10.65 - Type 1 diabetes mellitus with hyperglycemia Code(s): E10.9 - Type 1 diabetes mellitus without complications Status: Chronic Assessment and Plan: brittle control at baseline follow accu-cheks glycemic control per hospitalists Not opposed to discharge on Thursday to [facility] if otherwise medically stable - would try to discharge on Thursday BEFORE noon to ensure patient is settled in at [facility] and to have adequate time to ensure first nightly PD treatment is without issue or problems.... Will continue to follow. Subjective Date/time seen: 03/21/23 10:21 Interval history: Follow-up for end stage renal disease on peritoneal dialysis. Appears to be doing reasonably well at the time of my visit; tolerated peritoneal dialysis treatment overnight without any issues or problems; remains in good spirits currently; no apparent distress noted currently. Exam Narrative: General: elderly female in NAD Heart: normal S1 and S2; no rub Lungs: clear to auscultation Abdomen: soft, nontender, nondistended, positive bowel sounds Extremities: no cyanosis or clubbing; no edema Skin: no rash Objective Data Vital Signs Vital Signs: Vital Signs Temp Pulse Resp BP Pulse Ox O2 Del Method 03/21/23 10:00 98.1 F 67 20 145/55 H 100 03/21/23 09:02 16 98 Room Air 03/21/23 09:00 98.6 F 03/21/23 09:02 78 03/21/23 07:54 88 18 141/60 H 99 03/21/23 07:54 86 16 158/55 H 100 03/21/23 07:55 100.3 F H 78 14 129/55 L 98 03/21/23 07:53 100.3 F H 78 14 129/55 L 98 03/21/23 06:22 98.1 F 89 14 145/54 H 03/21/23 04:20 98.1 F 89 14 145/54 H 97 03/21/23 00:40 98.9 F 95 14 150/63 H 98 03/20/23 20:00 Room
[2023-03-21 11:36] LABS: Glucose Point of Care 230 mg/dl (65-105)
[2023-03-21 16:33] LABS: Glucose Point of Care 291 mg/dl (65-105)
[2023-03-21] MEDS: INSULIN GLARGINE (*BKC) 100 UNITS/ML 10 UNITS SUB-Q (20:20)
[2023-03-21 20:40] LABS: Glucose Point of Care 341 mg/dl (65-105)
[2023-03-22] VITALS (11 sets, daily range): BP systolic 116–155; BP diastolic 45–63; PULSE 66–89; RESP 14–20; TEMP 36.3–37; O2SAT 96–100
[2023-03-22 00:35] LABS: Glucose Point of Care 390 mg/dl (65-105)
[2023-03-22] MEDS: INSULIN ASPART (*BKC) 100 UNITS/ML 6 UNITS SUB-Q (00:43)
[2023-03-22] MEDS: hydrALAZINE HCL 25 MG TABLET PO ×3 (05:03→20:57)
[2023-03-22 05:13] LABS: Glucose Point of Care 244 mg/dl (65-105)
[2023-03-22 07:46] LABS: Glucose Point of Care 172 mg/dl (65-105)
[2023-03-22 07:50] LABS: Hemoglobin 9.3 g/dL (12.0-15.0); Mean Corpuscular HGB Conc 33.2 g/dl (32-36); Mean Corpuscular Hemoglobin 29.5 pg (26-34); Mean Corpuscular Volume 88.9 fl (80-100); Platelet Count Result 196 k/mm3 (150-375); Red Blood Count 3.15 M/mm3 (4.2-5.4); Red Cell Distribution Width 14.2 % (11.5-14.5)
[2023-03-22 08:01] LABS: Albumin Level 2.9 g/dL (3.5-5.1); Anion Gap 6 mmol/L (8-16); Blood Urea Nitrogen 44 mg/dL (7-17); Carbon Dioxide 31 mmol/L (22-30); Chloride 99 mmol/L (98-107); Estimated CRCL calculation 7 ml/min; Estimated Glomerular Filt Rate 9; Glucose 191 mg/dL (65-110); Magnesium 1.7 mg/dL (1.6-2.3); Phosphorus 3.3 mg/dL (2.5-4.5); Potassium 2.9 mmol/L (3.4-5.0); Sodium 136 mmol/L (137-145)
[2023-03-22] MEDS: HEPARIN SODIUM 5,000 UNITS/ML VIAL 5000 UNITS SUB-Q ×2 (08:47→20:55)
[2023-03-22] MEDS: carvediloL 6.25 MG TABLET PO ×2 (08:47→20:56)
[2023-03-22] MEDS: ATORVASTATIN 40 MG TABLET PO (08:48)
[2023-03-22] MEDS: amLODIPine BESYLATE 5 MG TABLET 10 MG PO (08:49)
[2023-03-22] MEDS: CLOPIDOGREL BISULFATE 75 MG TABLET PO (08:49)
[2023-03-22] MEDS: CHOLECALCIFEROL 1,000 UNITS TABLET 1000 UNITS PO (08:49)
--- NOTE | 2023-03-22 10:18 | P.PNNP_ITS ---
Progress Note: A&P Assessment and Plan (1) ESRD (end stage renal disease): Code(s): N18.6 - End stage renal disease Status: Chronic Assessment and Plan: * recently initiated on peritoneal dialysis * continue home PD prescription while hospitalized * follow electrolytes, volume status, and clearance * replace K+ as needed * will start scheduled potassium as well * discussed with case management -- planning for discharge to [facility] next week; nursing staff at this facility trained this week on peritoneal dialysis (and this would alleviate the need to transition patient to hemodialysis) (2) Acute cerebrovascular accident (CVA): Code(s): I63.9 - Cerebral infarction, unspecified Status: Acute Assessment and Plan: * as noted by admission CT scan of head: * infarct in the right temporal occipital region in the expected distribution of right posterior cerebral artery, likely acute or subacute and old infarcts involving the left basal ganglia and left temporal parietal occipital region * presented with syncope and progressive vision loss * known previous CVA in Jul 2022 by MRI of brain * imaging done here reviewed * Neurology recommendations noted * mentation improving (3) Syncope and collapse: Code(s): R55 - Syncope and collapse Status: Acute Assessment and Plan: * noted presenting symptom... * suspect multifactorial: * hyperglycemia * fluctuating hemodynamics/BP * new CVA(?) * continue PT/OT as tolerated (4) Hypertension: Qualifiers: Hypertension type: secondary to other renal disorders Qualified Code(s): I15.1 - Hypertension secondary to other renal disorders; N28.89 - Other specified disorders of kidney and ureter Code(s): I10 - Essential (primary) hypertension Status: Chronic Assessment and Plan: * doing better in general * if necessary, titrate hydralazine dosage as well * follow trend of hemodynamics (5) Anemia: Code(s): D64.9 - Anemia, unspecified Status: Chronic Assessment and Plan: * due to ESRD * Epogen subcutaneously while hospitalized * follow trend of H/H (6) Diabetes mellitus type 1: Qualifiers: Diabetes mellitus complication status: with hyperglycemia Qualified Code(s): E10.65 - Type 1 diabetes mellitus with hyperglycemia Code(s): E10.9 - Type 1 diabetes mellitus without complications Status: Chronic Assessment and Plan: * brittle control at baseline * follow accu-cheks * glycemic control per hospitalists Not opposed to discharge on Thursday to [facility] if otherwise medically stable - would try to discharge on Thursday BEFORE noon to ensure patient is settled in at [facility] and to have adequate time to ensure first nightly PD treatment is without issue or problems.... Will continue to follow. Subjective Date/time seen: 03/22/23 10:18 Interval history: Follow-up for end stage renal disease on peritoneal dialysis. Continues to tolerated CCPD treatments overnight without any issues or problemes; no apparent distress voiced at the time of my visit; working with PT/OT as tolerated; blood pressure under reasonable control; no issues/events overnight or earlier this morning. Exam Narrative: General: elderly female in NAD Heart: normal S1 and S2; no rub Lungs: clear to auscultation Abdomen: soft, nontender, nondistended, positive bowel sounds Extremities: no cyanosis or clu
--- NOTE | 2023-03-22 10:18 | PM.PNNEP ---
Progress Note: A&P Assessment and Plan (1) ESRD (end stage renal disease): Code(s): N18.6 - End stage renal disease Status: Chronic Assessment and Plan: recently initiated on peritoneal dialysis continue home PD prescription while hospitalized follow electrolytes, volume status, and clearance replace K+ as needed will start scheduled potassium as well discussed with case management -- planning for discharge to [facility] next week; nursing staff at this facility trained this week on peritoneal dialysis (and this would alleviate the need to transition patient to hemodialysis) (2) Acute cerebrovascular accident (CVA): Code(s): I63.9 - Cerebral infarction, unspecified Status: Acute Assessment and Plan: as noted by admission CT scan of head: infarct in the right temporal occipital region in the expected distribution of right posterior cerebral artery, likely acute or subacute and old infarcts involving the left basal ganglia and left temporal parietal occipital region presented with syncope and progressive vision loss known previous CVA in Jul 2022 by MRI of brain imaging done here reviewed Neurology recommendations noted mentation improving (3) Syncope and collapse: Code(s): R55 - Syncope and collapse Status: Acute Assessment and Plan: noted presenting symptom... suspect multifactorial: hyperglycemia fluctuating hemodynamics/BP new CVA(?) continue PT/OT as tolerated (4) Hypertension: Qualifiers: Hypertension type: secondary to other renal disorders Qualified Code(s): I15.1 - Hypertension secondary to other renal disorders; N28.89 - Other specified disorders of kidney and ureter Code(s): I10 - Essential (primary) hypertension Status: Chronic Assessment and Plan: doing better in general if necessary, titrate hydralazine dosage as well follow trend of hemodynamics (5) Anemia: Code(s): D64.9 - Anemia, unspecified Status: Chronic Assessment and Plan: due to ESRD Epogen subcutaneously while hospitalized follow trend of H/H (6) Diabetes mellitus type 1: Qualifiers: Diabetes mellitus complication status: with hyperglycemia Qualified Code(s): E10.65 - Type 1 diabetes mellitus with hyperglycemia Code(s): E10.9 - Type 1 diabetes mellitus without complications Status: Chronic Assessment and Plan: brittle control at baseline follow accu-cheks glycemic control per hospitalists Not opposed to discharge on Thursday to [facility] if otherwise medically stable - would try to discharge on Thursday BEFORE noon to ensure patient is settled in at [facility] and to have adequate time to ensure first nightly PD treatment is without issue or problems.... Will continue to follow. Subjective Date/time seen: 03/22/23 10:18 Interval history: Follow-up for end stage renal disease on peritoneal dialysis. Continues to tolerated CCPD treatments overnight without any issues or problemes; no apparent distress voiced at the time of my visit; working with PT/OT as tolerated; blood pressure under reasonable control; no issues/events overnight or earlier this morning. Exam Narrative: General: elderly female in NAD Heart: normal S1 and S2; no rub Lungs: clear to auscultation Abdomen: soft, nontender, nondistended, positive bowel sounds Extremities: no cyanosis or clubbing; no edema Skin: no nodules Objective Data Vital Signs Vital Signs: Vital Signs Temp Pulse Resp BP Pulse Ox O2 Del Method 03/22/23 10:12 97.8 F 66 20 119/46 L 96 03/22/23 08:47 80 03/22/23 08:17 98.6 F 77 20 131/51 L 03/22/23 07:50 98.6 F 77 20 131/51 L 98 03/22/23 04:00 98.4 F 76 14 155/62 H 97 03/22/23 00:00 98.1 F 78 14 131/45 L 98 03/21/23 20:00 Room Air 03/21/23 20:00 98.4 F 82 18 147/46 H 96 10
[2023-03-22 11:41] LABS: Glucose Point of Care 372 mg/dl (65-105)
[2023-03-22] MEDS: INSULIN ASPART (*BKC) 100 UNITS/ML SUB-Q ×2 (11:44→17:02)
--- NOTE | 2023-03-22 12:09 | PM.IMPN ---
Progress Note: A&P Assessment and Plan (1) Cerebrovascular accident: Code(s): I63.9 - Cerebral infarction, unspecified Status: Acute Assessment and Plan: Patient presents with weakness, vision changes and episode of syncope. She has a recent hx of stroke in July 2022 (MR showing large acute CVA involving posterior left temporal lobe with possible cut off of the left posterior cerebral artery). --CT brain here showing infarct in the right temporal occipital region in the expected distribution of right posterior cerebral artery, likely acute or subacute and old infarcts involving the left basal ganglia and left temporal parietal occipital region. --MR Brain showing acute infarct right temporal occipital region and acute infarct involving the left basal ganglia and anterior limb internal capsule. --MRA showing total occlusion of the right posterior communicating artery and right P1 posterior cerebral artery with moderate stenosis of proximal left posterior cerebral artery and left M1 MCA. --Echo showing EF 70% with Grade I diastolic dysfunction, moderate MS, moderate AI. Septum intact ST evaluated the patient and felt she could have regular diet with thin liquids. PT/OT started. ASA continued but dose decreased so Plavix could be added for 3 months LDL 124. Lipitor added. BP better controlled. Continue current anti-HTN medications A1c 6.4. Elevated glucose related to PD. Glucose still elevated but better (see below). Continue aggressive medical management. Appreciate Neurology input Discussed placement options with [employer] Operator and herpetologist. [facility] staff are being trained to perform PD so plan is to wait until the staff is trained before discharge to [facility] 03/23 (2) Syncope and collapse: Code(s): R55 - Syncope and collapse Status: Acute Assessment and Plan: Patient with syncopal episode. Possibly related to CVA but less likely. Possibly related to uncontrolled glucose and fluctuating BP. MRI brain and Echo as above. EKG showing sinus bradycardia (55) with prolonged QT, incomplete Rt BBB and LAD. Also with nonspecific T wave changes. Troponins elevated but flat at 0.07. CXR was clear. No significant dysrhythmias on tele. Repeat EKG showing no change except resolution of the prolonged QT. Has been having brief episodes of HoTN when out of bed. Probably related to medications and anti-HTN meds adjusted. Consider seizures but no obvious seizure activity at the time of the event noted. Continue to monitor (3) Diabetes mellitus type 1: Qualifiers: Diabetes mellitus complication status: with hyperglycemia Qualified Code(s): E10.65 - Type 1 diabetes mellitus with hyperglycemia Code(s): E10.9 - Type 1 diabetes mellitus without complications Status: Chronic Assessment and Plan: A1c 6.4. The patient's blood glucose was reviewed on 03/20, quite elevated, restart lantus Cont PD per nephrology Continue AccuCheks covering with sliding scale. Hypoglycemia protocol available as needed. Blood glucose reviewed 03/22, still quite elevated, increase Lantus from 10 units to 20 units (4) ESRD (end stage renal disease): Code(s): N18.6 - End stage renal disease Status: Chronic Assessment and Plan: Patient recently started on PD. She has been tolerating this well Nephrology consulted. See above (5) Elevated troponin: Code(s): R79.89 - Other specified abnormal findings of blood chemistry Status: Acute Assessment and Plan: As above (6) Hypertension: Qualifiers: Hypertension type: secondary to other renal disorders Qualified Code(s): I15.1 - Hypertension secondary to other renal disorders; N28.89 - Other specified disorders of kidney and ureter Code(s): I10 - Essential (primary) hypertension Status: Chronic Assessment and Plan: Patient's blood pressure was reviewed on 03/21 Blood
[2023-03-22] MEDS: POTASSIUM CHLORIDE 20 MEQ ER TABLET 40 MEQ PO (12:47)
[2023-03-22 16:14] LABS: Glucose Point of Care 316 mg/dl (65-105)
[2023-03-22] MEDS: POTASSIUM CHLORIDE 20 MEQ ER TABLET PO (17:06)
[2023-03-22 19:47] LABS: Glucose Point of Care 313 mg/dl (65-105)
[2023-03-22] MEDS: INSULIN GLARGINE (*BKC) 100 UNITS/ML 20 UNITS SUB-Q (20:54)
[2023-03-22 23:34] LABS: Glucose Point of Care 373 mg/dl (65-105)
[2023-03-23 03:55] VITALS: BP 157/70; PULSE 66; RESP 16; TEMP 36.2; O2SAT 99
[2023-03-23 03:55] LABS: Glucose Point of Care 401 mg/dl (65-105)
[2023-03-23] MEDS: hydrALAZINE HCL 25 MG TABLET PO (06:17)
[2023-03-23 06:39] LABS: Albumin Level 2.8 g/dL (3.5-5.1); Anion Gap 5 mmol/L (8-16); Blood Urea Nitrogen 45 mg/dL (7-17); Calcium 8.7 mg/dL (8.4-10.2); Carbon Dioxide 28 mmol/L (22-30); Chloride 100 mmol/L (98-107); Estimated CRCL calculation 7 ml/min; Estimated Glomerular Filt Rate 9; Glucose 466 mg/dL (65-110); Phosphorus 3.1 mg/dL (2.5-4.5); Potassium 3.6 mmol/L (3.4-5.0); Sodium 133 mmol/L (137-145)
[2023-03-23 08:00] VITALS: BP 144/53; PULSE 74; RESP 16; TEMP 36.7; O2SAT 100
[2023-03-23 08:31] LABS: Glucose Point of Care 443 mg/dl (65-105)
--- NOTE | 2023-03-23 09:45 | PM.PNNEP ---
Progress Note: A&P Assessment and Plan (1) ESRD (end stage renal disease): Code(s): N18.6 - End stage renal disease Status: Chronic Assessment and Plan: recently initiated on peritoneal dialysis continue home PD prescription while hospitalized follow electrolytes, volume status, and clearance replace K+ as needed will start scheduled potassium as well discussed with case management -- nursing staff at this [facility] trained last week on peritoneal dialysis (and this would alleviate the need to transition patient to hemodialysis) (2) Acute cerebrovascular accident (CVA): Code(s): I63.9 - Cerebral infarction, unspecified Status: Acute Assessment and Plan: as noted by admission CT scan of head: infarct in the right temporal occipital region in the expected distribution of right posterior cerebral artery, likely acute or subacute and old infarcts involving the left basal ganglia and left temporal parietal occipital region presented with syncope and progressive vision loss known previous CVA in Jul 2022 by MRI of brain imaging done here reviewed Neurology recommendations noted mentation improving (3) Syncope and collapse: Code(s): R55 - Syncope and collapse Status: Acute Assessment and Plan: noted presenting symptom... suspect multifactorial: hyperglycemia fluctuating hemodynamics/BP new CVA(?) continue PT/OT as tolerated (4) Hypertension: Qualifiers: Hypertension type: secondary to other renal disorders Qualified Code(s): I15.1 - Hypertension secondary to other renal disorders; N28.89 - Other specified disorders of kidney and ureter Code(s): I10 - Essential (primary) hypertension Status: Chronic Assessment and Plan: doing better in general if necessary, titrate hydralazine dosage as well follow trend of hemodynamics (5) Anemia: Code(s): D64.9 - Anemia, unspecified Status: Chronic Assessment and Plan: due to ESRD Epogen subcutaneously while hospitalized follow trend of H/H (6) Diabetes mellitus type 1: Qualifiers: Diabetes mellitus complication status: with hyperglycemia Qualified Code(s): E10.65 - Type 1 diabetes mellitus with hyperglycemia Code(s): E10.9 - Type 1 diabetes mellitus without complications Status: Chronic Assessment and Plan: brittle control at baseline follow accu-cheks glycemic control per hospitalists Not opposed to discharge today to [facility] if otherwise medically stable - would try to discharge on Thursday BEFORE/AT noon today to ensure patient is settled in at [facility] and to have adequate time to make sure first nightly PD treatment is without issue or problems.... Will continue to follow. Subjective Date/time seen: 03/23/23 09:45 Interval history: Follow-up for end stage renal disease on peritoneal dialysis. Tolerated peritoneal dialysis treatment overnight without any issues or problems; no apparent distress voiced at this time; no events overnight or earlier this morning. Exam Narrative: General: elderly female in NAD Heart: normal S1 and S2; no rub Lungs: clear to auscultation Abdomen: soft, nontender, nondistended, positive bowel sounds Extremities: no cyanosis or clubbing; no edema Skin: warm and dry Objective Data Vital Signs Vital Signs: Vital Signs Temp Pulse Resp BP Pulse Ox O2 Del Method 03/23/23 09:10 76 03/23/23 03:55 97.1 F L 66 16 157/70 H 99 03/22/23 23:33 97.4 F L 74 17 144/63 H 98 03/22/23 20:56 89 03/22/23 20:25 Room Air 03/22/23 19:57 97.9 F 89 18 116/62 99 03/22/23 19:57 97.9 F 87 16 138/56 L 99 03/22/23 19:57 97.9 F 74 16 141/56 H 99 03/22/23 19:56 97.9 F 74 16 141/56 H 99 03/22/23 16:00 98.2 F 66 20 138/52 L 100 03/22/23 11:42 97.8 F 66 20 119/46 L 96 I
--- NOTE | 2023-03-23 09:45 | P.PNNP_ITS ---
Progress Note: A&P Assessment and Plan (1) ESRD (end stage renal disease): Code(s): N18.6 - End stage renal disease Status: Chronic Assessment and Plan: * recently initiated on peritoneal dialysis * continue home PD prescription while hospitalized * follow electrolytes, volume status, and clearance * replace K+ as needed * will start scheduled potassium as well * discussed with case management -- nursing staff at this [facility] trained last week on peritoneal dialysis (and this would alleviate the need to transition patient to hemodialysis) (2) Acute cerebrovascular accident (CVA): Code(s): I63.9 - Cerebral infarction, unspecified Status: Acute Assessment and Plan: * as noted by admission CT scan of head: * infarct in the right temporal occipital region in the expected distribution of right posterior cerebral artery, likely acute or subacute and old infarcts involving the left basal ganglia and left temporal parietal occipital region * presented with syncope and progressive vision loss * known previous CVA in Jul 2022 by MRI of brain * imaging done here reviewed * Neurology recommendations noted * mentation improving (3) Syncope and collapse: Code(s): R55 - Syncope and collapse Status: Acute Assessment and Plan: * noted presenting symptom... * suspect multifactorial: * hyperglycemia * fluctuating hemodynamics/BP * new CVA(?) * continue PT/OT as tolerated (4) Hypertension: Qualifiers: Hypertension type: secondary to other renal disorders Qualified Code(s): I15.1 - Hypertension secondary to other renal disorders; N28.89 - Other specified disorders of kidney and ureter Code(s): I10 - Essential (primary) hypertension Status: Chronic Assessment and Plan: * doing better in general * if necessary, titrate hydralazine dosage as well * follow trend of hemodynamics (5) Anemia: Code(s): D64.9 - Anemia, unspecified Status: Chronic Assessment and Plan: * due to ESRD * Epogen subcutaneously while hospitalized * follow trend of H/H (6) Diabetes mellitus type 1: Qualifiers: Diabetes mellitus complication status: with hyperglycemia Qualified Code(s): E10.65 - Type 1 diabetes mellitus with hyperglycemia Code(s): E10.9 - Type 1 diabetes mellitus without complications Status: Chronic Assessment and Plan: * brittle control at baseline * follow accu-cheks * glycemic control per hospitalists Not opposed to discharge today to [facility] if otherwise medically stable - would try to discharge on Thursday BEFORE/AT noon today to ensure patient is settled in at [place] and to have adequate time to make sure first nightly PD treatment is without issue or problems.... Will continue to follow. Subjective Date/time seen: 03/23/23 09:45 Interval history: Follow-up for end stage renal disease on peritoneal dialysis. Tolerated peritoneal dialysis treatment overnight without any issues or problems; no apparent distress voiced at this time; no events overnight or earlier this morning. Exam Narrative: General: elderly female in NAD Heart: normal S1 and S2; no rub Lungs: clear to auscultation Abdomen: soft, nontender, nondistended, positive bowel sounds Extremities: no cyanosis or clubbing; no edema Skin: warm and dry Objective Data Vital Signs Vital Signs:
[2023-03-23] MEDS: HEPARIN SODIUM 5,000 UNITS/ML VIAL 5000 UNITS SUB-Q (10:09)
[2023-03-23] MEDS: POTASSIUM CHLORIDE 10 MEQ ER TABLET PO (10:09)
[2023-03-23] MEDS: INSULIN ASPART (*BKC) 100 UNITS/ML 15 UNITS SUB-Q (10:09)
[2023-03-23 10:10] VITALS: PULSE 76
[2023-03-23] MEDS: CHOLECALCIFEROL 1,000 UNITS TABLET 1000 UNITS PO (10:10)
[2023-03-23] MEDS: carvediloL 6.25 MG TABLET PO (10:10)
[2023-03-23] MEDS: CLOPIDOGREL BISULFATE 75 MG TABLET PO (10:10)
[2023-03-23] MEDS: amLODIPine BESYLATE 5 MG TABLET 10 MG PO (10:10)
[2023-03-23] MEDS: ATORVASTATIN 40 MG TABLET PO (10:10)
[2023-03-23 10:45] LABS: Glucose Point of Care > 500 mg/dl (65-105)
--- NOTE | 2023-03-23 11:03 | PCNFU ---
Nutrition Follow-Up Complete: Severe protein calorie malnutrition related to chronic loss of appetite, increased protein energy needs from peritoneal dialysis as evidenced by weight loss -20%/6 months; intakes <75% needs >1 month; NFPE findings of severe muscle wasting and fat loss Goal:Adequate PO intake at least 75% meals and supplements Maintain weight during admission Pt current nutrition is Renal/Diabetic, Nepro shakes BID. Nutrition recommendation: encourage po intake Last recorded weight is 47.5 kg. Bowel Motility: +BM 03/20 Labs Reviewed: Alb:2.8, NA:133, BUN:45, Cr:4.6, glu:443 Meds Noted: lasix, KCL, zofran, lantus/novolog Skin: no skin issues noted Additional Notes: Pt continues on a diabetic renal diet, intake poor to fair at 25-50% of meals, Nepro shakes ordered. Continue to encourage po intake of meals and supplements. Monitoring intakes, weights, labs, supplement tolerance, plan of care Follow up in 5 days
[2023-03-23 11:08] LABS: Glucose Point of Care 451 mg/dl (65-105)
--- NOTE | 2023-03-23 11:14 | PM.DS ---
DS: Admitting Diagnosis Discharge Date 03/23/23 Admitting Diagnosis vision loss, syncope DS: Discharge Diagnosis Discharge Diagnosis (1) Cerebrovascular accident: Code(s): I63.9 - Cerebral infarction, unspecified Status: Acute Assessment and Plan: Patient presents with weakness, vision changes and episode of syncope. She has a recent hx of stroke in July 2022 (MR showing large acute CVA involving posterior left temporal lobe with possible cut off of the left posterior cerebral artery). --CT brain here showing infarct in the right temporal occipital region in the expected distribution of right posterior cerebral artery, likely acute or subacute and old infarcts involving the left basal ganglia and left temporal parietal occipital region. --MR Brain showing acute infarct right temporal occipital region and acute infarct involving the left basal ganglia and anterior limb internal capsule. --MRA showing total occlusion of the right posterior communicating artery and right P1 posterior cerebral artery with moderate stenosis of proximal left posterior cerebral artery and left M1 MCA. --Echo showing EF 70% with Grade I diastolic dysfunction, moderate MS, moderate AI. Septum intact ST evaluated the patient and felt she could have regular diet with thin liquids. PT/OT started. ASA continued but dose decreased so Plavix could be added for 3 months LDL 124. Lipitor added. BP better controlled. Continue current anti-HTN medications A1c 6.4. Elevated glucose related to PD. Glucose still elevated but better (see below). Continue aggressive medical management. Appreciate Neurology input Discussed placement options with Home Therapy Clinician and book editor. [facility] staff are being trained to perform PD so plan is to wait until the staff is trained before discharge to Likely d/c 03/23 (2) Syncope and collapse: Code(s): R55 - Syncope and collapse Status: Acute Assessment and Plan: Patient with syncopal episode. Possibly related to CVA but less likely. Possibly related to uncontrolled glucose and fluctuating BP. MRI brain and Echo as above. EKG showing sinus bradycardia (55) with prolonged QT, incomplete Rt BBB and LAD. Also with nonspecific T wave changes. Troponins elevated but flat at 0.07. CXR was clear. No significant dysrhythmias on tele. Repeat EKG showing no change except resolution of the prolonged QT. Has been having brief episodes of HoTN when out of bed. Probably related to medications and anti-HTN meds adjusted. Consider seizures but no obvious seizure activity at the time of the event noted. Continue to monitor (3) Diabetes mellitus type 1: Qualifiers: Diabetes mellitus complication status: with hyperglycemia Qualified Code(s): E10.65 - Type 1 diabetes mellitus with hyperglycemia Code(s): E10.9 - Type 1 diabetes mellitus without complications Status: Chronic Assessment and Plan: A1c 6.4. The patient's blood glucose was reviewed on 03/20, quite elevated, restart lantus Cont PD per nephrology Continue AccuCheks covering with sliding scale. Hypoglycemia protocol available as needed. Blood glucose reviewed 03/22, still quite elevated, increase Lantus from 10 units to 20 units (4) ESRD (end stage renal disease): Code(s): N18.6 - End stage renal disease Status: Chronic Assessment and Plan: Patient recently started on PD. She has been tolerating this well Nephrology consulted. See above (5) Elevated troponin: Code(s): R79.89 - Other specified abnormal findings of blood chemistry Status: Acute Assessment and Plan: As above (6) Hypertension: Qualifiers: Hypertension type: secondary to other renal disorders Qualified Code(s): I15.1 - Hypertension secondary to other renal disorders; N28.89 - Other specified disorders of kidney and ureter Code(s): I10 - Essential (primary) hypertension
[2023-03-23 12:00] VITALS: BP 142/50; PULSE 72; RESP 16; TEMP 36.6; O2SAT 100
[2023-03-23 12:14] LABS: SARS-CoV-2 RNA PCR Negative (Negative)
--- NOTE | 2023-03-23 15:06 | PC.NURSE ---
Pt discharged to [facility] by way of daughter. Pt IV was removed and pt tolerated well. Report was called to Ronny. Pt denies any pain and any needs at this time. Pt had elevated blood sugar and was treated with 15 units novolog per order from care provider. Pt daughter states that is normal for her. Pt was tested for Covid and test came back negative. Pt was monitored for any changes in status while here. Pt was wheeled down to car.
== END 2023-03-23 12:35 | DRG 64 ==
LOC: ANHED 12:16 → ANHIMU 15:57 → ANH3MEDSUR 03-17 18:10
PROVIDERS: Chiropractor; Emergency Medicine; Internal Medicine; Internal Medicine Nephrology; Student in an Organized Health Care Education/Training Program; Admitting Provider Internal Medicine; Emergency Provider General Practice; PCP Emergency Medicine; Visit Provider Student in an Organized Health Care Education/Training Program
DX: I63.531 Cerebral infarction due to unspecified occlusion or stenosis of right posterior cerebral artery (principal); E43 Unspecified severe protein-calorie malnutrition; N18.6 End stage renal disease; I12.0 Hypertensive chronic kidney disease with stage 5 chronic kidney disease or end stage renal disease; N25.81 Secondary hyperparathyroidism of renal origin; D61.818 Other pancytopenia; I63.89 Other cerebral infarction; I65.8 Occlusion and stenosis of other precerebral arteries; E10.22 Type 1 diabetes mellitus with diabetic chronic kidney disease; E10.65 Type 1 diabetes mellitus with hyperglycemia; E10.649 Type 1 diabetes mellitus with hypoglycemia without coma; E04.2 Nontoxic multinodular goiter; E55.9 Vitamin D deficiency, unspecified; D63.1 Anemia in chronic kidney disease; R50.9 Fever, unspecified; R55 Syncope and collapse; R79.89 Other specified abnormal findings of blood chemistry; Z96.41 Presence of insulin pump (external) (internal); H53.461 Homonymous bilateral field defects, right side; I69.398 Other sequelae of cerebral infarction; Z11.52 Encounter for screening for COVID-19; Z85.42 Personal history of malignant neoplasm of other parts of uterus; Z99.2 Dependence on renal dialysis
CPT/HCPCS: 36415; 36600; 70450; 70544; 70551; 71046; 80048; 80053; 80069; 81001; 82533; 82805; 82947; 82948; 83036; 83721; 83735; 84484; 85025; 85027; 85610; 85730; 86706; 87040; 87070; 87075; 87205; 87635; 88104; 88108; 88305; 89051; 90945; 92610; 93005; 93306; 93880; 96375; 97110; 97116; 97161; 97165; 97530; 97535; 99285; A9270; J0360; J1644; J1815; J3480; J7040; Q5105

== ENCOUNTER 2023-04-05 11:37 | Inpatient (IN) | payer MEDICARE, SELFPAY ==
[2023-04-05] VITALS (44 sets, daily range): BP systolic 98–145; BP diastolic 47–71; PULSE 64–84; RESP 17–25; TEMP 35.9–36.7; O2SAT 90–100; BMI 17.1
--- NOTE | ~2023-04-05 | XR_ITS ---
EXAMINATION: XR chest 1V portable DATE: 04/05/2023 14:05 INDICATION: Hypoxia TECHNIQUE: frontal view of the chest was obtained. COMPARISON: Chest radiograph dated 03/15/2023 FINDINGS: Again seen are small calcifications at the bilateral logan which could be combination of calcified nod ules related to old granulomatous disease and bronchial wall calcification. No focal airspace opaciti es, pulmonary edema, pleural effusion or pneumothorax. The cardiomediastinal silhouette is normal. Vi sualized bones and soft tissues are unremarkable. IMPRESSION: 1. No acute cardiopulmonary disease. Reviewed, dictated and finalized at location A. STERED REPRESENTATIVE
--- NOTE | ~2023-04-05 | CT_ITS ---
EXAMINATION: CT abdomen pelvis wo con DATE: 04/05/2023 21:18 INDICATION: Abdominal pain TECHNIQUE: Computed tomography (CT) of the abdomen and pelvis was performed without intravenous contr ast. Automated exposure control and iterative reconstruction technique were employed. The dose-length product was 177.32 mGy-cm. COMPARISON: 07/23/2022 FINDINGS: respiratory motion and minimal atelectasis in the bilateral lower lungs. Heart size is normal. Mitral annular calcific location. Very small pericardial effusion. No pleural effusion. Small amount of pne umoperitoneum in the nondependent abdomen which may be related to peritoneal dialysis with dialysis c atheter entering the anterior left pelvic wall and extending posteriorly coiled along with a minimal amount of ascites in the cul-de-sac. No abscess. Multiple splenic calcifications and single small carolyn cific location in the right hepatic lobe consistent with old granulomatous disease. Unchanged subcent imeter cyst right hepatic lobe. Gallbladder, pancreas, bilateral adrenal glands and kidneys are lowell l. 2.1 x 1 x 1 cm intraluminal lipoma in the ascending colon. There is also a small diverticulum at t he ascending colon without adjacent from trace stranding to suggest diverticulitis. No bowel obstruct ion. The appendix is not visualized. No pericecal inflammatory change to suggest acute appendicitis. Bladder is normal. The uterus is not identified and has likely been surgically resected. No pathologi volodymyr enlarged abdominal or pelvic lymphadenopathy. Mild lumbar spondylosis with grade 1 anterolisthe sis L5 on S1. IMPRESSION: 1. Small amount of scattered free intraperineal gas which is likely related to peritoneal dialysis in the cul-de-sac. No other acute intra-abdominal/pelvic process. 2. Very small pericardial effusion. Reviewed, dictated and finalized at location A. HASER IMPRESSION: 1. Small amount of scattered free intraperineal gas which is likely related to peritoneal dialysis in the cul-de-sac. No other acute intra-abdominal/pelvic pr ocess. 2. Very small pericardial effusion.
--- NOTE | ~2023-04-05 | CT_ITS ---
EXAMINATION: CT brain wo con DATE: 04/05/2023 14:09 INDICATION: Weakness TECHNIQUE: Computed tomography (CT) of the head was performed without intravenous contrast. Sagittal and coronal reconstructions were performed. The mA was adjusted according to patient size. Iterative reconstruction technique was employed. The dose-length product was 605.33 mGy-cm. COMPARISON: head CT dated 03/19/2023 and MRI dated 03/13/2023 FINDINGS: No significant change in a moderate-sized region of encephalomalacia in the left occipital lobe consi stent with chronic infarct. Interval evolution of the previously acute, now chronic infarcts with enc ephalomalacia and peripheral curvilinear dystrophic calcification consistent with laminar necrosis in the right occipital and temporal lobes and in the anterior left basal ganglia. No acute intracranial hemorrhage, acute infarction or abnormal extra axial fluid collection. Additional mild scattered whi te matter hypoattenuation consistent with chronic small vessel ischemic disease. Ventricles are norm al and symmetric. No mass/mass effect. Changes of bilateral intraocular lens replacement. The orbits, paranasal sinuses and mastoid air cells are normal. IMPRESSION: 1. No acute intracranial process. 2. Unchanged chronic left occipital infarct and encephalomalacia of now chronic infarcts in the right occipital and temporal lobes and left basal ganglia. 3. Mild scattered white matter hypoattenuation consistent with chronic small vessel ischemic disease. Reviewed, dictated and finalized at location A. MECHANICAL ENGINEER IMPRESSION: 1. No acute intracranial process. 2. Unchanged chronic left occipital infarct and encephalomalacia of now chronic infarcts in the right occipital and temporal lobes and left basal ganglia. 3. Mild scattered white matter hypoattenuation consistent with chronic small ve ssel ischemic disease.
--- NOTE | 2023-04-05 12:37 | ECG_ITS ---
Measurements Intervals [place] Rate: 68 P: 87 MD: 148 QRS: 267 QRSD: 99 T: 87 QT: 441 QTc: 470 Interpretive Statements SINUS RHYTHM POSSIBLE LEFT ATRIAL ENLARGEMENT INCOMPLETE RIGHT BUNDLE BRANCH BLOCK ANTEROSEPTAL INFARCT, AGE INDETERMINATE INFERIOR INFARCT, AGE INDETERMINATE BORDERLINE ST-T WAVE ABNORMALITY- HIGH LATERAL LEADS BASELINE ARTIFACT- I, V2 ABNORMAL ECG COMPARED TO ECG 03/20/2023 01:11:21 INCOMPLETE RIGHT BUNDLE-BRANCH BLOCK NOW PRESENT INFERIOR INFARCT NOW PRESENT Electronically Signed On 04-05-2023 16:44:38 FLOAT REMOVER by Sushil Espinal D.O.
[2023-04-05 12:45] LABS: Basophils Percent Auto 0.1 % (0.2-1.2); Eosinophils Absolute Auto 0.1 K/mm3 (0-0.3); Eosinophils Percent Auto 0.8 % (0-4.4); Hematocrit 39.3 % (37.0-47.0); Hemoglobin 13.1 g/dL (12.0-15.0); Immature Granulocyte Absolute 0.07 K/mm3 (0.00-0.031); Immature Granulocyte Percent A 0.6 % (0-0.5); Lymphocytes Absolute Auto 0.79 K/mm3 (0.9-3.2); Lymphocytes Percent Auto 6.7 % (18.3-44.2); Mean Corpuscular HGB Conc 33.3 g/dl (32-36); Mean Corpuscular Hemoglobin 29.7 pg (26-34); Mean Corpuscular Volume 89.1 fl (80-100); Mean Platelet Volume 10.5 fl (7.4-10.4); Monocytes Absolute Auto 0.8 K/mm3 (0.1-0.6); Monocytes Percent Auto 6.7 % (2.6-8.5); Neutrophils Percent Auto 85.1 % (45.5-73.1); Platelet Count Result 250 k/mm3 (150-375); Red Blood Count 4.41 M/mm3 (4.2-5.4); Red Cell Distribution Width 14.8 % (11.5-14.5); White Blood Count 11.8 K/mm3 (4.5-10.0)
[2023-04-05 13:03] LABS: Alanine Aminotransferase 18 U/L (6-35); Albumin Level 3.6 g/dL (3.5-5.1); Alkaline Phosphatase 92 U/L (38-126); Anion Gap 20 mmol/L (8-16); Aspartate Amino Transferase 31 U/L (14-36); Bilirubin,Total 0.6 mg/dL (0.2-1.3); Blood Urea Nitrogen 79 mg/dL (7-17); Calcium 8.4 mg/dL (8.4-10.2); Carbon Dioxide 22 mmol/L (22-30); Chloride 91 mmol/L (98-107); Glucose 159 mg/dL (65-110); Potassium 3.3 mmol/L (3.4-5.0); Sodium 133 mmol/L (137-145)
[2023-04-05 13:08] LABS: Estimated CRCL calculation 3 ml/min; Estimated Glomerular Filt Rate 4
[2023-04-05 13:15] LABS: Magnesium 1.8 mg/dL (1.6-2.3)
--- NOTE | 2023-04-05 13:21 | ED_ITS ---
HPI - General Adult General Chief complaint: Weakness Stated complaint: hypoxic, hypotensive Time Seen by Provider: 04/05/23 12:40 Source: family (daughter), EMS, RN notes reviewed and old records reviewed Mode of arrival: EMS Limitations: clinical condition History of Present Illness HPI narrative: This is a 77 year old female with history of CVA, ESRD on peritoneal dialysis who presents for evaluation of hypotension and low oxygen saturation. Nursing reports patient was with physical therapy it is reported patient was weak. They also report she had hypotension with blood pressure 80/40 and 79% on room air. Patient has been 92-95% on room air in ER. Nursing also reports patient has been declining since admission to nursing facility. She has been lethargic for days so placed on antibiotics. They reports her peritoneal fluid has been clear. Patient is oriented to person and place which is her baseline. She denies chest pain, nausea, vomiting. She reported shortness of breath. Related Data Home Medications Medication Instructions Recorded Confirmed carvedilol 6.25 mg tablet 6.25 mg PO BID 02/25/23 04/05/23 cholecalciferol (vitamin D3) 25 25 mcg PO DAILY 02/25/23 04/05/23 mcg (1,000 unit) capsule gentamicin 0.1 % topical cream 1 applic topical DAILY 02/25/23 04/05/23 hydralazine 25 mg tablet 25 mg PO BID 02/25/23 04/05/23 atorvastatin 40 mg tablet 40 mg PO HS 04/05/23 04/05/23 doxycycline hyclate 100 mg capsule 100 mg PO DAILY 04/05/23 04/05/23 fluconazole 100 mg tablet 100 mg PO DAILY 04/05/23 04/05/23 (Diflucan) insulin lispro 100 unit/mL 1 sliding scale dose subcut 04/05/23 04/05/23 subcutaneous pen (Humalog KwikPen USEASDIRECTD (U-100) Insulin) Allergies Allergy/AdvReac Type Severity Reaction Status Date / Time lisinopril Allergy Severe Swelling Verified 03/12/23 16:55 of Lip/Tongue/Throat Review of Systems Constitutional: Constitutional: Reports weakness Cardiovascular: Cardiovascular: Denies syncope, Denies rapid heart rate, Denies irregular heart rhythm, Denies leg edema and Reports dyspnea Respiratory: Respiratory: Denies chest congestion, Denies hemoptysis, Denies excessive phlegm production and Reports dyspnea Gastrointestinal: Gastrointestinal: Denies abdominal pain, Denies hematochezia, Denies diarrhea and Denies vomiting Genitourinary: Genitourinary: Denies hematuria and Denies dysuria Musculoskeletal: Musculoskeletal: Denies joint swelling, Denies loss of height and Reports muscle weakness Neurologic: Denies syncope, Denies focal weakness and Denies weakness PMFSH Past Medical History Medical History (Updated 04/05/23 @ 21:48 by Amanda Garcia MD) Anemia Cerebrovascular accident Diabetes mellitus type 1 End-stage renal disease on peritoneal dialysis Hyperlipidemia Hypertension Nontoxic multinodular goiter Osteoporosis Secondary renal hyperparathyroidism Type 1 diabetes mellitus Uterine cancer Vitamin D deficiency Surgical History Surgical History (Updated 04/05/23 @ 15:15 by Lorenza Devlin PA-C) History of cataract extraction History of hysterectomy for cancer (2014) History of surgery on lower extremity Debridement of right leg infection. Family History Family History Mother , Age 86 Breast cancer Uterine cancer Father , Age 47 Acute myocardial infarction Grandparent Parkinson's disease Other Asthma Family history of alcoholism Family history of malignant neoplasm of ovary Family history of mental disorder Social History Social History (Updated 04/05/23 @ 15:16 by Lorenza Devlin PA-C) Social History: Surrogate decision maker: Aby Calixto, daughter. Code status: Do not resuscitate. Smoking status: Never smoker Second hand tobacco smoke exposure: No Alcohol intake: current Drinks per week: 1 Alcohol use details: maybe 1 glass of wine a year Substance use: never Substance use type: does not use Lack of Transportation: No Lack of Food: Never True Current Housing: I Have Housing Concerned About Future Housing: No Difficulty Paying Gas/Electric Bills: No Difficulty Paying for Meds: No Currently Unemployed: No Education: Bachelor's Degree Difficulty w/ Childcare or Family Care: No Living arrangements: with family Additional living arrangements comments: Was living alone prior to recent hospitalization, now on rehab. She has 1 child. 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 Spiritual care concerns: No Exam Const: General: alert Nutritional Appearance: well nourished HENMT: Head: normal to inspection Ears: TM's normal bilaterally Mouth: Yes lip normal and Yes dry mucous membranes Eyes: Pupils: Equal, round and reactive pupils present EOM: EOMs intact bilaterally Neck: Neck: normal visual inspection Chest: Chest palpation & inspection: normal inspection of the chest Resp: Effort & Inspection: normal respiratory effort Auscultation: clear to auscultation bilaterally Cardio: Rate: regular rate Rhythm: regular rhythm Heart sounds: no murm urs GI: GI Palp: Yes Soft to palpation, No Tenderness to palpation present (GI), No Guarding due to palpation present (GI) and No Rigid due to palpation Auscultation: normal bowel sounds Skin: General skin exam: normal color Neuro: General: moves all extremities and CN's II-XI intact bilaterally Extrem: General: normal to inspection Psych: Mental Status: mental status grossly normal Affect: normal affect Attitude: cooperative Course Reevaluation(s) Reevaluation #1: I spoke with daughter about plan to admit. She reports patient has been declining since intermediate admission. PAtient is eating and drinking little. I reviewed labs and imaging. She denies any other questions. Date: 04/05/23 Time: 16:00 Consultations Consultation #1: I Discussed with Lorenza Yuriyyeison patient case. PAtient reportedly had low blood pressure at facility but normal BP in ER. ORthostatic done in ER. Patient had decreased BP with supine to sitting. Nursing unable to get BP with standing because patient complained of feeling like she was going to fall. Suspect patient may be orthostatic and need more fluid. Will admit Date: 04/05/23 Time: 15:15 Consultation #2: I spoke with Dr. Yen with nephrology about case. He states Dr. Nuñez will see tomorrow. Date: 04/05/23 Time: 15:15 Vital Signs Vital signs: Vital Signs Pulse Rate 70 04/05/23 11:42 Temperature 97.6 F 04/05/23 20:26 Pulse Rate 80 04/05/23 20:26 Respiratory Rate 18 04/05/23 20:26 Blood Pressure 100/62 04/05/23 20:26 Pulse Oximetry 100 04/05/23 20:26 Oxygen Delivery Nasal Cannula 04/05/23 20:00 Oxygen Flow Rate 2 04/05/23 20:00 Medical Decision Making Differential Diagnosis Differential Diagnosis: dehydration, CVA, sepsis, pneumonia. viral infection, anemia, fluid overload, Vital Signs Vital Signs: Vital Signs Pulse Rate 70 04/05/23 11:42 Temperature 97.6 F 04/05/23 20:26 Pulse Rate 80 04/05/23 20:26 Respiratory Rate 18 04/05/23 20:26 Blood Pressure 100/62 04/05/23 20:26 Pulse Oximetry 100 04/05/23 20:26 Oxygen Delivery Nasal Cannula 04/05/23 20:00 Oxygen Flow Rate 2 04/05/23 20:00 Lab Data Lab results reviewed: Yes I reviewed the patient's lab results. 04/05/23 12:40 04/05/23 12:40 Labs: Lab Results 04/05/23 04/05/23 04/05/23 Range/Units 12:40 13:19 13:42 WBC 11.8 H (4.5-10.0) K/mm3 RBC 4.41 (4.2-5.4) M/mm3 Hgb 13.1 D (12.0-15.0) g/dL Hct 39.3 (37.0-47.0) % MCV 89.1 (80-100) fl MCH 29.7 (26-34) pg MCHC 33.3 (32-36) g/dl RDW 14.8 H (11.5-14.5) % Plt Count 250 (150-375) k/mm3 MPV 10.5 H (7.4-10.4) fl Immature Gran % (Auto) 0.6 H (0-0.5) % Neut % (Auto) 85.1 H (45.5-73.1) % Lymph % (Auto) 6.7 L (18.3-44.2) % [place] % (Auto) 6.7 (2.6-8.5) % Eos % (Auto) 0.8 (0-4.4) % Baso % (Auto) 0.1 L (0.2-1.2) % Lymph # (Auto) 0.79 L (0.9-3.2) K/mm3 [place] # (Auto) 0.8 H (0.1-0.6) K/mm3 Eos # (Auto) 0.1 (0-0.3) K/mm3 Baso # (Auto) 0.0 (0.0-0.1) K/mm3 Abs Immat Gran (auto) 0.07 H (0.00-0.031) K/mm3 Absolute Neuts (auto) 10.0 H (1.3-6.7) K/mm3 Absolute Nucleated RBC 0.0 (0.0-0.012) K/mm3 Nucleated RBC % 0.0 (0.0-0.2) % PT 15.7 H (11.1-14.7) Seconds INR 1.2 APTT 28.1 (22.3-36.8) SECONDS Methemoglobin (0-1.5) %THb Sodium 133 L (137-145) mmol/L Potassium 3.3 L (3.4-5.0) mmol/L Chloride 91 L (98-107) mmol/L Carbon Dioxide 22 (22-30) mmol/L Anion Gap 20 H (8-16) mmol/L BUN 79 H D (7-17) mg/dL Creatinine 9.90 H (0.7-1.0) mg/dL Estim Creat Clear Calc 3 ml/min Estimated GFR 4 L (59 - ) Glucose 159 H (65-110) mg/dL Lactic Acid 1.3 (0.7-2.0) mmol/L Calcium 8.4 (8.4-10.2) mg/dL Magnesium 1.8 (1.6-2.3) mg/dL Total Bilirubin 0.6 (0.2-1.3) mg/dL AST 31 (14-36) U/L ALT 18 (6-35) U/L Alkaline Phosphatase 92 (38-126) U/L Total Protein 7.0 (6.3-8.2) g/dL Albumin 3.6 (3.5-5.1) g/dL Influenza A (RT-PCR) Negative (Negative) Influenza B (RT-PCR) Negative (Negative) SARS-CoV-2 RNA (RT-PCR) Negative (Negative) 04/05/23 Range/Units 13:49 WBC (4.5-10.0) K/mm3 RBC (4.2-5.4) M/mm3 Hgb (12.0-15.0) g/dL Hct (37.0-47.0) % MCV (80-100) fl MCH (26-34) pg MCHC (32-36) g/dl RDW (11.5-14.5) % Plt Count (150-375) k/mm3 MPV (7.4-10.4) fl Immature Gran % (Auto) (0-0.5) % Neut % (Auto) (45.5-73.1) % Lymph % (Auto) (18.3-44.2) % [place] % (Auto) (2.6-8.5) % Eos % (Auto) (0-4.4) % Baso % (Auto) (0.2-1.2) % Lymph # (Auto) (0.9-3.2) K/mm3 [place] # (Auto) (0.1-0.6) K/mm3 Eos # (Auto) (0-0.3) K/mm3 Baso # (Auto) (0.0-0.1) K/mm3 Abs Immat Gran (auto) (0.00-0.031) K/mm3 Absolute Neuts (auto) (1.3-6.7) K/mm3 Absolute Nucleated RBC (0.0-0.012) K/mm3 Nucleated RBC % (0.0-0.2) % PT (11.1-14.7) Seconds INR APTT (22.3-36.8) SECONDS Methemoglobin 0.2 (0-1.5) %THb Sodium (137-145) mmol/L Potassium (3.4-5.0) mmol/L Chloride (98-107) mmol/L Carbon Dioxide (22-30) mmol/L Anion Gap (8-16) mmol/L BUN (7-17) mg/dL Creatinine (0.7-1.0) mg/dL Estim Creat Clear Calc ml/min Estimated GFR (59 - ) Glucose (65-110) mg/dL Lactic Acid (0.7-2.0) mmol/L Calcium (8.4-10.2) mg/dL Magnesium (1.6-2.3) mg/dL Total Bilirubin (0.2-1.3) mg/dL AST (14-36) U/L ALT (6-35) U/L Alkaline Phosphatase (38-126) U/L Total Protein (6.3-8.2) g/dL Albumin (3.5-5.1) g/dL Influenza A (RT-PCR) (Negative) Influenza B (RT-PCR) (Negative) SARS-CoV-2 RNA (RT-PCR) (Negative) ABG Data ABG results: 04/05/23 13:49 Puncture Site Right brachial ABG pH 7.466 H ABG pCO2 28.7 L ABG pO2 60.1 L ABG PO2/FiO2 Ratio 2.86 ABG HCO3 20.2 L ABG O2 Saturation 92.8 L ABG O2 Content 16.8 ABG Base Excess -2.3 A-a Gradient 55.3 Oxyhemoglobin 88.4 L Carboxyhemoglobin 0.9 Reduced Hemoglobin 10.5 H Total Hemoglobin 13.5 O2 Delivery Device Room air O2 Liters/Min Not Reportable FiO2 21 Imaging Data Radiologist's impression: ITS Impressions Head CT 04/05/23 14:12 IMPRESSION: 1. No acute intracranial process. 2. Unchanged chronic left occipital infarct and encephalomalacia of now chronic infarcts in the right occipital and temporal lobes and left basal ganglia. 3. Mild scattered white matter hypoattenuation consistent with chronic small vessel ischemic disease. Chest X-Ray 04/05/23 14:21 IMPRESSION: 1. No acute cardiopulmonary disease. ECG Data EKG #1: Attestation: I personally reviewed and interpreted this ECG as follows: ECG completion date: 04/05/23 ECG completion time: 13:23 EKG Interpretation: normal rate (68), sinus rhythm, RBBB and NL axis Discharge Plan Discharge Clinical Impression: ESRD (end stage renal disease), End-stage renal disease on peritoneal dialysis Hypotension Qualifiers: Hypotension type: unspecified hypotension type Qualified Code(s): I95.9 - Hypotension, unspecified Patient Disposition: Still a Patient Condition: Guarded Prognosis
[2023-04-05 13:29] LABS: INR 1.2; Prothrombin Time 15.7 Seconds (11.1-14.7)
[2023-04-05 13:30] LABS: Partial Thromboplastin Time 28.1 SECONDS (22.3-36.8)
[2023-04-05 13:37] LABS: Lactic Acid Reflex 1.3 mmol/L (0.7-2.0)
--- NOTE | 2023-04-05 13:37 | PCRCNOTE ---
ABG'S delayed on pt. Therapist was with critical patient being transported to ICU.
[2023-04-05 13:52] LABS: Alveolar/Arterial O2 Gradient 55.3 mmHg; Base Excess ABG -2.3 mEq/l (+/-2.0); Carboxyhemoglobin 0.9 % THb (0-2.0); Device ROOM AIR; Fractional Inspired Oxygen 21 %; HCO3 ABG 20.2 mEq/l (22.0-26.0); Methemoglobin ABG 0.2 %THb (0-1.5); Oxygen Content ABG 16.8 %vol (16.0-22.0); Oxygen Saturation ABG 92.8 % (95.0-100.0); Oxyhemoglobin 88.4 % THb (90.0-100.0); PCO2 ABG 28.7 mmHg (35.0-45.0); PO2 ABG 60.1 mmHg (80.0-100.0); PO2 FiO2 Ratio Arterial Blood 2.86 %; Reduced Hemoglobin 10.5 %THb (0-5.0); Site Drawn RIGHT BRACHIAL; Total Hemoglobin 13.5 g/dL (12.0-18.0); pH ABG 7.466 (7.350-7.450)
[2023-04-05 14:22] LABS: Influenza A QL RT-PCR Negative (Negative); Influenza B QL RT-PCR Negative (Negative); SARS-CoV-2 RNA PCR Negative (Negative)
[2023-04-05] MEDS: SODIUM CHLORIDE 0.9% IV 500 ML 999 ML IV CONT (15:06)
--- NOTE | 2023-04-05 15:08 | PM.IMHP ---
H&P: HPI History of Present Illness Date/Time: 04/05/23 16:00 Chief Complaint: Hypoxic and hypotensive. Narrative: This is a 77-year-old female with recent stroke, insulin-dependent type 2 diabetes mellitus, hypertension, hyperlipidemia, diastolic dysfunction, end-stage renal disease on peritoneal dialysis, chronic anemia, hyperparathyroidism, and uterine cancer status post hysterectomy who presented to the emergency department via EMS from [facility] for evaluation of hypotension and hypoxia. The patient is a fair historian (patient has increasing memory loss with her recent strokes) and her daughter provides additional information with the patient's permission. She has been at [facility] for rehab since discharge from the hospital on 03/23/2023 at which time she was admitted with a CVA. She has been participating in therapy however for the last 1 week or so she has reportedly gone downhill. She is not eating or drinking well which she blames on lack of appetite and mild, diffuse abdominal discomfort which she has difficulties describing. She was recently started on doxycycline as her white blood cell count was elevated however there does not seem to be any source of infection. It is my understanding that her peritoneal fluid has been clear. In any event, she was working with physical therapy this morning when she became extremely weak. Vital signs were checked and she was hypotensive in the 80s over 40s and hypoxic with an SpO2 reportedly in the 70s on room air. On EMS arrival her blood pressure was 104/63 and SpO2 was 87% on room air. The patient denies headache, fever, chills, sweats, sinus congestion, sore throat, chest pain, shortness a breath, cough, vomiting, and diarrhea. She no longer urinates. In the ED: She was afebrile on arrival with a blood pressure of 119/66. She had positive orthostatic vital signs with a drop in blood pressure (122/66 to 98/58). spO2 was 92% on room air and she has had no oxygen requirement since arrival. ABG showed a pH of 7.466, pCO2 28.7, bicarb 20.2, PO2 60.1, reduce hemoglobin 10.5%. Labs were significant for a WBC count of 11.8, hemoglobin 13.1, sodium 133, potassium 3.3, chloride 91, anion gap 20, BUN 79, creatinine 9.90, lactic acid 1.3. She tested negative for influenza and COVID. Brain CT showed no acute intracranial process and chest x-ray was without acute cardiopulmonary disease. CT of the abdomen pelvis showed a small amount of scattered free intraperitoneal gas which is likely related to peritoneal dialysis in the cul-de-sac; no other acute intra-abdominal or pelvic process was noted. EKG shows sinus rhythm with a new incomplete right bundle-branch block, otherwise not significantly changed from recent tracing. She has received 500 mL normal saline and she is being admitted in this setting for cautious IV fluid rehydration and further workup. Review of Systems Review of Systems: Twelve systems were reviewed and are negative except for as per HPI however accuracy is questionable given patient's memory loss. [facility] Past Medical History Medical History (Updated 04/05/23 @ 22:21 by Lorenza Devlin PA-C) Anemia Cerebrovascular accident End-stage renal disease on peritoneal dialysis Hyperlipidemia Hypertension Insulin dependent type 2 diabetes mellitus Nontoxic multinodular goiter Osteoporosis Secondary renal hyperparathyroidism Uterine cancer Vitamin D deficiency Surgical History Surgical History History of cataract extraction History of hysterectomy for cancer (2014) History of surgery on lower extremity Debridement of right leg infection. Family History Family History Mother , Age 86 Breast cancer Uterine cancer Father , Age 47 Acute myocardial infarction Grandparent Parkinson's disease Other Asthma Family history of alcoholism Family history of malignant neoplasm of ovary Family history of mental disorder Social History Social History Social History: Surrogate decision maker: Aby Calixto, daughter. Code status: Do not resuscitate. Smoking status: Never smoker Second hand tobacco smoke exposure: No Alcohol intake: current Drinks per week: 1 Alcohol use details: maybe 1 glass of wine a year Substance use: never Substance use type: does not use Lack of Transportation: No Lack of Food: Never True Current Housing: I Have Housing Concerned About Future Housing: No Difficulty Paying Gas/Electric Bills: No Difficulty Paying for Meds: No Currently Unemployed: No Education: Bachelor's Degree Difficulty w/ Childcare or Family Care: No Living arrangements: with family Additional living arrangements comments: Was living alone prior to recent hospitalization, now on rehab. She has 1 child. 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 Spiritual care concerns: No Meds Home Medications and Allergies Home Medications Medication Instructions Recorded Confirmed Type aspirin 325 mg tablet 325 mg PO DAILY@0800 #30 tabs 07/26/22 04/05/23 Rx blood sugar diagnostic (Contour #400 ea 02/04/23 04/05/23 Rx Next Test Strips) glucagon 3 mg/actuation nasal spray 3 mg intranasal ONCE #2 ea 02/24/23 04/05/23 Rx glucose 4 gram chewable tablet 16 g PO Q15M PRN hypoglycemia #60 02/24/23 04/05/23 Rx (Dex4 Glucose) tabs carvedilol 6.25 mg tablet 6.25 mg PO BID 02/25/23 04/05/23 History cholecalciferol (vitamin D3) 25 25 mcg PO DAILY 02/25/23 04/05/23 History mcg (1,000 unit) capsule gentamicin 0.1 % topical cream 1 applic topical DAILY 02/25/23 04/05/23 History hydralazine 25 mg tablet 25 mg PO BID 02/25/23 04/05/23 History amlodipine 5 mg tablet (Norvasc) 10 mg PO QAM 1 month #60 tabs 03/23/23 04/05/23 Rx clopidogrel 75 mg tablet 75 mg PO QAM 1 month #30 tabs 03/23/23 04/05/23 Rx insulin glargine 100 unit/mL 30 unit (0.3 mL) subcut HS 1 month 03/23/23 04/05/23 Rx subcutaneous solution (Lantus #9 mL U-100 Insulin) atorvastatin 40 mg tablet 40 mg PO HS 04/05/23 04/05/23 History doxycycline hyclate 100 mg capsule 100 mg PO DAILY 04/05/23 04/05/23 History fluconazole 100 mg tablet 100 mg PO DAILY 04/05/23 04/05/23 History (Diflucan) insulin lispro 100 unit/mL 1 sliding scale dose subcut 04/05/23 04/05/23 History subcutaneous pen (Humalog KwikPen USEASDIRECTD (U-100) Insulin) Allergies Allergy/AdvReac Type Severity Reaction Status Date / Time lisinopril Allergy Severe Swelling Verified 03/12/23 16:55 of Lip/Tongue/Throat Vital Signs Vital Signs - 24 hr 04/05/23 11:42 04/05/23 11:43 04/05/23 11:54 Temperature 96.6 F L Pulse Rate 70 70 72 Respiratory Rate 20 21 H Blood Pressure 119/66 Pulse Oximetry 92 Oxygen Delivery Room Air 04/05/23 12:02 04/05/23 12:24 04/05/23 12:30 Temperature Pulse Rate 69 70 67 Respiratory Rate 19 21 H 19 Blood Pressure 116/65 Pulse Oximetry 90 90 92 Oxygen Delivery 04/05/23 12:31 04/05/23 13:33 04/05/23 12:45 Temperature Pulse Rate 68 79 69 Respiratory Rate 18 18 Blood Pressure 98/58 L 122/60 Pulse Oximetry 92 94 Oxygen Delivery 04/05/23 12:46 04/05/23 13:06 04/05/23 13:15 Temperature Pulse Rate 68 68 67 Respiratory Rate 19 19 19 Blood Pressure Pulse Oximetry 94 95 94 Oxygen Delivery 04/05/23 13:25 04/05/23 13:29 04/05/23 13:30 Temperature Pulse Rate 69 84 79 Respiratory Rate 19 25 H 20 Blood Pressure 118/64 122/66 98/58 L Pulse Oximetry 93 94 Oxygen Delivery 04/05/23 13:31 Temperature Pulse Rate 81 Respiratory Rate 23 H Blood Pressure Pulse Oximetry 92 Oxygen Delivery Exam Narrative: General: Thin, frail, nontoxic-appearing female in the semi-Jansen position in bed. Weight: 43.9 kg. BMI: 17.1. HEENT: Normocephalic, atraumatic. PERRL, EOMI. She keeps her eyes closed the majority of the time as she has limited vision from her strokes. Sclera anicteric. Tacky mucous membranes. Neck: Supple. Respiratory: Respirations are nonlabored and lungs are clear to auscultation. She has an occasional dry cough. Cardiovascular: Regular rate and rhythm with S1-S2. Gastrointestinal: Abdomen is soft and flat with positive bowel sounds. Peritoneal dialysis catheter dressing site is clean, dry, and intact. She has some tenderness to palpation throughout the periumbilical region, more so in the upper abdomen. No guarding or rebound tenderness. Skin: Warm and dry. There is a long, irregularly-shaped hypopigmented patch on the right chau. Small dry ulcer noted. Extremities: No cyanosis, clubbing, or significant edema. Radial and pedal pulses intact. No palpable knots or cords. Negative True sign bilaterally. Neurological: Alert to self and place. She cannot provide me her accurate date of or age and cannot give me the current year. Cranial nerves 2-12 are grossly intact. Speech is clear. No facial asymmetry. Generally weak without obvious focal findings. Psychiatric: Pleasantly confused and cooperative. H&P: Results Labs Labs: Short CBC 04/05/23 Range/Units 12:40 WBC 11.8 H (4.5-10.0) K/mm3 Hgb 13.1 D (12.0-15.0) g/dL Hct 39.3 (37.0-47.0) % Plt Count 250 (150-375) k/mm3 BMP 04/05/23 12:40 Sodium 133 L Potassium 3.3 L Chloride 91 L Carbon Dioxide 22 BUN 79 H D Creatinine 9.90 H Glucose 159 H Calcium 8.4 Liver Function 04/05/23 Range/Units 12:40 Total Bilirubin 0.6 (0.2-1.3) mg/dL AST 31 (14-36) U/L ALT 18 (6-35) U/L Alkaline Phosphatase 92 (38-126) U/L Albumin 3.6 (3.5-5.1) g/dL 04/05/23 13:49 Puncture Site Right brachial ABG pH 7.466 H ABG pCO2 28.7 L ABG pO2 60.1 L ABG PO2/FiO2 Ratio 2.86 ABG HCO3 20.2 L ABG O2 Saturation 92.8 L ABG O2 Content 16.8 ABG Base Excess -2.3 A-a Gradient 55.3 Oxyhemoglobin 88.4 L Carboxyhemoglobin 0.9 Reduced Hemoglobin 10.5 H Total Hemoglobin 13.5 O2 Delivery Device Room air O2 Liters/Min Not Reportable FiO2 21 Covid Lab Results 04/05/23 13:42 SARS-CoV-2 RNA (RT-PCR) Negative (Negative) Imaging Head CT 04/05/23 14:12 IMPRESSION: 1. No acute intracranial process. 2. Unchanged chronic left occipital infarct and encephalomalacia of now chronic infarcts in the right occipital and temporal lobes and left basal ganglia. 3. Mild scattered white matter hypoattenuation consistent with chronic small vessel ischemic disease. Chest X-Ray 04/05/23 14:21 IMPRESSION: 1. No acute cardiopulmonary disease. Assessment and Plan Assessment and plan (1) Hypotension: Code(s): I95.9 - Hypotension, unspecified Status: Acute Assessment and Plan: The patient was hypotensive with therapy today and had positive orthostatic blood pressures in the ED. She appears dry on exam and by labs and according to the daughter she has not been eating or drinking well the past week. Hold antihypertensives. Monitor orthostatic vital signs. Initiate fall precautions. (2) Dehydration: Code(s): E86.0 - Dehydration Status: Acute Assessment and Plan: She is quite dehydrated on exam and by labs; her hemoglobin, BUN, and creatinine are all much higher than what she typically runs. Continue cautious IV fluid rehydration with close monitoring of volume status. (3) Hypokalemia: Code(s): E87.6 - Hypokalemia Status: Acute Assessment and Plan: Potassium is 3.3 though hesitant to replaced given end-stage renal disease and worsening creatinine. Repeat potassium this evening and replete if no improvement. (4) End-stage renal disease on peritoneal dialysis: Code(s): N18.6 - End stage renal disease; Z99.2 - Dependence on renal dialysis Status: Acute Assessment and Plan: No acute electrolyte abnormalities or volume overload. In fact she is dry as detailed above. Nephrology consulted for dialysis. Send fluid to rule out SBP. Empiric ceftriaxone daily pending culture. 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 Continue basal insulin at reduced dose given decreased p.o. intake. Initiate sliding scale insulin, Accu-Cheks, and hypoglycemic protocol. (6) Recent cerebrovascular accident: Code(s): Z86.73 - Personal history of transient ischemic attack (TIA), and cerebral infarction without residual deficits Status: Acute Assessment and Plan: Patient has worsening vision and memory following most recent strokes. Continue dual antiplatelet therapy. Resume atorvastatin, pending CK level. Plan Of note, patient was reportedly hypoxic at [facility] however her SpO2 has been in the upper 90s on room air since arrival. Chest x-ray showed no acute findings. History does not suggest pulmonary embolism. Initial reading may have been erroneous. Quality VTE Prophylaxis VTE prophylaxis: mechanical ordered If No VTE Prophylaxis Answer both mechanical and pharmacologic: Reason no pharmacologic proph: medical contraindication (Patient on dual anti-platelet therapy, pharmacologic prophylaxis would put her at increased risk for bleeding.)
--- NOTE | 2023-04-05 18:11 | ADMGEN ---
This patient, Dalila Redd, was admitted to Medical Room [facility] at 1810. Patient/family oriented to hospital policies and general routines including ID bracelet, bed and alarms, visiting hours, pain management, procedures, bathroom and other care routines, personal items, smoking policy, room service/diet, and visiting hours. Information on how to activate the Rapid Response Team has been discussed. Patient/Family are encouraged to report perceived risks to care and to ask questions if they do not understand what they are told or what they should do.
[2023-04-05] MEDS: SODIUM CHLORIDE 0.9% IV 1,000 ML 100 ML IV CONT (18:15)
[2023-04-05 21:04] LABS: Glucose Point of Care 133 mg/dl (65-105)
[2023-04-05 22:59] LABS: Anion Gap 19 mmol/L (8-16); Blood Urea Nitrogen 87 mg/dL (7-17); Calcium 7.8 mg/dL (8.4-10.2); Carbon Dioxide 19 mmol/L (22-30); Chloride 95 mmol/L (98-107); Estimated CRCL calculation 3 ml/min; Estimated Glomerular Filt Rate 3; Glucose 136 mg/dL (65-110); Phosphorus 12.7 mg/dL (2.5-4.5); Potassium 3.7 mmol/L (3.4-5.0); Sodium 133 mmol/L (137-145)
[2023-04-05 23:10] LABS: Creatine Kinase 40 U/L (30-135)
[2023-04-06] VITALS (10 sets, daily range): BP systolic 124–150; BP diastolic 55–65; PULSE 58–69; RESP 17–18; TEMP 36.5–36.6; O2SAT 96–98; BMI 18.8
[2023-04-06] MEDS: INSULIN GLARGINE (*BKC) 100 UNITS/ML 10 UNITS SUB-Q ×2 (04:21→20:29)
[2023-04-06 04:23] LABS: Glucose Point of Care 147 mg/dl (65-105)
[2023-04-06 06:13] LABS: Basophils Percent Auto 0.1 % (0.2-1.2); Eosinophils Absolute Auto 0.1 K/mm3 (0-0.3); Eosinophils Percent Auto 1.2 % (0-4.4); Hematocrit 34.6 % (37.0-47.0); Hemoglobin 11.3 g/dL (12.0-15.0); Immature Granulocyte Absolute 0.03 K/mm3 (0.00-0.031); Immature Granulocyte Percent A 0.3 % (0-0.5); Lymphocytes Percent Auto 6.3 % (18.3-44.2); Mean Corpuscular HGB Conc 32.7 g/dl (32-36); Mean Corpuscular Hemoglobin 29.3 pg (26-34); Mean Corpuscular Volume 89.6 fl (80-100); Mean Platelet Volume 10.5 fl (7.4-10.4); Monocytes Absolute Auto 0.5 K/mm3 (0.1-0.6); Monocytes Percent Auto 5.5 % (2.6-8.5); Neutrophils Absolute Auto 8.2 K/mm3 (1.3-6.7); Neutrophils Percent Auto 86.6 % (45.5-73.1); Platelet Count Result 178 k/mm3 (150-375); Red Blood Count 3.86 M/mm3 (4.2-5.4); Red Cell Distribution Width 14.9 % (11.5-14.5); White Blood Count 9.5 K/mm3 (4.5-10.0)
[2023-04-06 06:25] LABS: Alanine Aminotransferase 16 U/L (6-35); Albumin Level 3.1 g/dL (3.5-5.1); Alkaline Phosphatase 81 U/L (38-126); Anion Gap 21 mmol/L (8-16); Aspartate Amino Transferase 29 U/L (14-36); Bilirubin,Total 0.6 mg/dL (0.2-1.3); Blood Urea Nitrogen 88 mg/dL (7-17); Calcium 7.8 mg/dL (8.4-10.2); Carbon Dioxide 17 mmol/L (22-30); Chloride 96 mmol/L (98-107); Glucose 128 mg/dL (65-110); Magnesium 1.8 mg/dL (1.6-2.3); Potassium 3.7 mmol/L (3.4-5.0); Sodium 134 mmol/L (137-145)
[2023-04-06 06:38] LABS: Estimated CRCL calculation 3 ml/min; Estimated Glomerular Filt Rate 3
[2023-04-06 07:03] LABS: Hepatitis B Surface Antigen Negative (Negative)
[2023-04-06 07:20] LABS: Hepatitis B Surface Anti Res Negative
[2023-04-06 08:18] LABS: Glucose Point of Care 116 mg/dl (65-105)
[2023-04-06] MEDS: CHOLECALCIFEROL 1,000 UNITS TABLET 1000 UNITS PO (08:24)
[2023-04-06] MEDS: ASPIRIN 325 MG TABLET PO (08:24)
[2023-04-06] MEDS: CLOPIDOGREL BISULFATE 75 MG TABLET PO (08:24)
[2023-04-06] MEDS: FLUCONAZOLE 100 MG TABLET PO (08:24)
[2023-04-06] MEDS: GENTAMICIN SULFATE 0.1% CR 15 GM TUBE 1 APPLIC TOPICAL (08:25)
--- NOTE | 2023-04-06 08:45 | PM.IMPN ---
Progress Note: A&P Assessment and Plan (1) Hypotension: Code(s): I95.9 - Hypotension, unspecified Status: Acute Assessment and Plan: The patient was hypotensive with therapy today and had positive orthostatic blood pressures in the ED. She appears dry on exam and by labs and according to the daughter she has not been eating or drinking well the past week. Hold antihypertensives. Monitor orthostatic vital signs. Initiate fall precautions. (2) Dehydration: Code(s): E86.0 - Dehydration Status: Acute Assessment and Plan: She is quite dehydrated on exam and by labs; her hemoglobin, BUN, and creatinine are all much higher than what she typically runs. Continue cautious IV fluid rehydration with close monitoring of volume status. (3) Hypokalemia: Code(s): E87.6 - Hypokalemia Status: Acute Assessment and Plan: Potassium is 3.3 though hesitant to replaced given end-stage renal disease and worsening creatinine. Repeat potassium this evening and replete if no improvement. (4) End-stage renal disease on peritoneal dialysis: Code(s): N18.6 - End stage renal disease; Z99.2 - Dependence on renal dialysis Status: Acute Assessment and Plan: No acute electrolyte abnormalities or volume overload. In fact she is dry as detailed above. Nephrology consulted for dialysis. Send fluid to rule out SBP. Empiric ceftriaxone daily pending culture. 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 Continue basal insulin at reduced dose given decreased p.o. intake. Initiate sliding scale insulin, Accu-Cheks, and hypoglycemic protocol. Blood glucose reviewed 04/06 (6) Recent cerebrovascular accident: Code(s): Z86.73 - Personal history of transient ischemic attack (TIA), and cerebral infarction without residual deficits Status: Acute Assessment and Plan: Patient has worsening vision and memory following most recent strokes. Continue dual antiplatelet therapy. Resume atorvastatin, pending CK level. Plan Of note, patient was reportedly hypoxic at [facility] however her SpO2 has been in the upper 90s on room air since arrival. Chest x-ray showed no acute findings. History does not suggest pulmonary embolism. Initial reading may have been erroneous. DVT prophylaxis with SCDs GI prophylaxis not indicated Code status DNR Subjective Date/time seen: 04/06/23 08:45 Interval history: 77-year-old female with recent stroke, insulin-dependent type 2 diabetes mellitus, hypertension, hyperlipidemia, diastolic dysfunction, end-stage renal disease on peritoneal dialysis, chronic anemia, hyperparathyroidism, and uterine cancer status post hysterectomy who presented to the emergency department via EMS from [facility] for evaluation of hypotension and hypoxia is currently being treated for dehydration and worked up for other etiologies. No overnight events noted. No chest pain or shortness of breath. No nausea, vomiting or diarrhea. No fevers or chills. No complaints. Review of Systems Review of Systems: 12 point review of systems was assessed and was negative except as noted in the HPI Exam Narrative: General: No acute distress, alert and oriented per baseline HEENT: Atraumatic, normocephalic, mucous membranes moist CV: Regular rate and rhythm, S1, S2 Lungs: Clear to auscultation bilaterally, no rales or crackles noted, no wheezes, good air entry Abdomen: Soft, nontender, nondistended Extremities: Normal to inspection Skin: No rashes noted, no lesions or wounds seen Psych: Euthymic, normal affect Objective Data Vital Signs Vital Signs: Vital Signs - 24 hr 04/05/23 11:42 04/05/23 11:43 04/05/23 11:54 Temperature 96.6 F L Pulse Rate 70 70 72 Respiratory Rate 20 21 H Blood Pressure 119/66 Pulse Oximetry 92 Oxygen Delivery Room Air Oxygen Flow Rate 04/05/23 12:02 04/05/23 12:24 04/05/23 12:30 Temperature Pulse Rate 69 70 67 Respiratory Rate 19 21 H 19 Blood Pressure 116/65 Pulse Oximetry 90 90 92 Oxygen Delivery Oxygen Flow Rate 04/05/23 12:31 04/05/23 13:33 04/05/23 12:45 Temperature Pulse Rate 68 79 69 Respiratory Rate 18 18 Blood Pressure 98/58 L 122/60 Pulse Oximetry 92 94 Oxygen Delivery Oxygen Flow Rate 04/05/23 12:46 04/05/23 13:06 04/05/23 13:15 Temperature Pulse Rate 68 68 67 Respiratory Rate 19 19 19 Blood Pressure Pulse Oximetry 94 95 94 Oxygen Delivery Oxygen Flow Rate 04/05/23 13:25 04/05/23 13:29 04/05/23 13:30 Temperature Pulse Rate 69 84 79 Respiratory Rate 19 25 H 20 Blood Pressure 118/64 122/66 98/58 L Pulse Oximetry 93 94 Oxygen Delivery Oxygen Flow Rate 04/05/23 13:31 04/05/23 13:33 04/05/23 13:45 Temperature Pulse Rate 81 71 68 Respiratory Rate 23 H 18 18 Blood Pressure 123/65 Pulse Oximetry 92 95 92 Oxygen Delivery Oxygen Flow Rate 04/05/23 14:02 04/05/23 14:15 04/05/23 14:30 Temperature Pulse Rate 67 67 66 Respiratory Rate 17 18 17 Blood Pressure Pulse Oximetry 95 93 94 Oxygen Delivery Oxygen Flow Rate 04/05/23 14:46 04/05/23 15:00 04/05/23 17:47 Temperature Pulse Rate 68 67 66 Respiratory Rate 18 18 17 Blood Pressure 129/71 Pulse Oximetry 94 Oxygen Delivery Oxygen Flow Rate 04/05/23 15:10 04/05/23 15:15 04/05/23 15:16 Temperature Pulse Rate 64 64 64 Respiratory Rate 18 17 17 Blood Pressure 119/70 124/65 Pulse Oximetry 94 94 94 Oxygen Delivery Oxygen Flow Rate 04/05/23 15:30 04/05/23 15:36 04/05/23 15:45 Temperature Pulse Rate 66 67 66 Respiratory Rate 19 17 17 Blood Pressure 145/67 H 132/68 Pulse Oximetry 95 94 93 Oxygen Delivery Oxygen Flow Rate 04/05/23 15:46 04/05/23 16:00 04/05/23 16:01 Temperature Pulse Rate 67 67 66 Respiratory Rate 17 17 17 Blood Pressure 136/70 Pulse Oximetry 93 94 94 Oxygen Delivery Oxygen Flow Rate 04/05/23 16:21 04/05/23 16:37 04/05/23 16:57 Temperature Pulse Rate 67 66 67 Respiratory Rate 18 18 18 Blood Pressure Pulse Oximetry 93 93 92 Oxygen Delivery Oxygen Flow Rate 04/05/23 17:03 04/05/23 17:24 04/05/23 17:30 Temperature Pulse Rate 67 66 67 Respiratory Rate 17 17 17 Blood Pressure 128/67 Pulse Oximetry 93 Oxygen Delivery Oxygen Flow Rate 04/05/23 17:31 04/05/23 18:53 04/05/23 19:29 Temperature 98.1 F Pulse Rate 67 69 Respiratory Rate 17 18 Blood Pressure 108/47 L Pulse Oximetry 99 Oxygen Delivery Room Air Oxygen Flow Rate 04/05/23 20:19 04/05/23 20:20 04/05/23 20:26 Temperature 98.1 F 97.8 F 97.6 F Pulse Rate 69 74 80 Respiratory Rate 18 18 18 Blood Pressure 108/47 L 124/65 100/62 Pulse Oximetry 99 100 100 Oxygen Delivery Oxygen Flow Rate 04/05/23 20:00 04/05/23 20:00 04/06/23 00:00 Temperature Pulse Rate 67 62 Respiratory Rate Blood Pressure Pulse Oximetry 99 Oxygen Delivery Nasal Cannula Oxygen Flow Rate 2 04/06/23 04:00 04/06/23 05:53 Temperature 97.7 F Pulse Rate 64 64 Respiratory Rate 18 Blood Pressure 124/55 L Pulse Oximetry 97 Oxygen Delivery Oxygen Flow Rate Intake/Output Intake/Output: Intake & Output 04/04/23 04/05/23 04/05/23 04/06/23 00:59 00:59 23:59 23:59 Intake Total 900 Output Total 0 Balance 900 Meds/Results Medications: Active Medications Generic Name Dose Route Start Last Admin Trade Name Freq PRN Reason Stop Dose Admin Acetaminophen 650 mg 04/05/23 22:26 Acetaminophen 325 Mg Tablet PO Q6H PRN Mild Pain (1-3) or Fever Aspirin 325 mg 04/06/23 08:00 04/06/23 08:24 Aspirin 325 Mg Tablet PO 325 mg DAILY@0800 MACI Administration Clopidogrel Bisulfate 75 mg 04/06/23 09:00 04/06/23 08:24 Clopidogrel Bisulfate 75 Mg Tablet PO 75 mg QAM MACI Administration Dextrose 12.5 gm 04/05/23 22:26 Dextrose 50% 25 Gm/50 Ml Syringe IV PUSH PRN PRN Hypoglycemia Protocol Fluconazole 100 mg 04/06/23 09:00 04/06/23 08:24 Fluconazole 100 Mg Tablet PO 04/07/23 09:01 100 mg DAILY MACI Administration Gentamicin Sulfate 1 applic 04/06/23 09:00 04/06/23 08:25 Gentamicin Sulfate 0.1% Cr 15 Gm Tube TOPICAL 1 applic DAILY MACI Administration Glucagon 1 mg 04/05/23 22:26 Glucagon For Inj 1 Mg Vial IM PRN PRN Hypoglycemia Protocol Glucose 15 gm 04/05/23 22:26 Glucose Oral Gel 15 Gm Of Glucse In 37.5 Gm Tube PO PRN PRN Hypoglycemia Protocol Dextrose 1,000 mls @ 100 mls/hr 04/05/23 22:26 Dextrose 5% 1,000 Ml IVPB PRN PRN Hypoglycemia Protocol Ceftriaxone Sodium 1 gm in 50 mls @ 100 mls/hr 04/05/23 22:30 04/06/23 04:47 Rocephin 1 Gm/Ns 50 Ml IVPB Infused HS MACI Infusion Insulin Aspart 1 - 2 units 04/06/23 21:00 Insulin Aspart (*Bkc) 100 Units/Ml SUB-Q HS [facility] Protocol Insulin Aspart 2 - 5 units 04/06/23 08:00 04/06/23 08:22 Insulin Aspart (*Bkc) 100 Units/Ml SUB-Q Not Given TIDWM [facility] Protocol Insulin Glargine 10 units 04/05/23 22:30 04/06/23 04:21 Insulin Glargine (*Bkc) 100 Units/Ml SUB-Q 10 units HS MACI Administration Ondansetron HCl 4 mg 04/05/23 15:27 Ondansetron Inj 4 Mg/2 Ml Vial IV PUSH Q4H PRN Nausea Vitamin D 1,000 units 04/06/23 09:00 04/06/23 08:24 Cholecalciferol 1,000 Units Tablet PO 1,000 units DAILY MACI Administration Radiology Results: ITS Impressions Head CT 04/05/23 14:12 IMPRESSION: 1. No acute intracranial process. 2. Unchanged chronic left occipital infarct and encephalomalacia of now chronic infarcts in the right occipital and temporal lobes and left basal ganglia. 3. Mild scattered white matter hypoattenuation consistent with chronic small vessel ischemic disease. Chest X-Ray 04/05/23 14:21 IMPRESSION: 1. No acute cardiopulmonary disease. Abdomen/Pelvis CT 04/05/23 21:27 IMPRESSION: 1. Small amount of scattered free intraperineal gas which is likely related to peritoneal dialysis in the cul-de-sac. No other acute intra-abdominal/pelvic process. 2. Very small pericardial effusion. Labs Labs: Laboratory Results - last 24 hr 04/05/23 04/05/23 04/05/23 12:40 13:19 13:42 WBC 11.8 H RBC 4.41 Hgb 13.1 D Hct 39.3 MCV 89.1 MCH 29.7 MCHC 33.3 RDW 14.8 H Plt Count 250 MPV 10.5 H Immature Gran % (Auto) 0.6 H Neut % (Auto) 85.1 H Lymph % (Auto) 6.7 L [place] % (Auto) 6.7 Eos % (Auto) 0.8 Baso % (Auto) 0.1 L Lymph # (Auto) 0.79 L [place] # (Auto) 0.8 H Eos # (Auto) 0.1 Baso # (Auto) 0.0 Abs Immat Gran (auto) 0.07 H Absolute Neuts (auto) 10.0 H Absolute Nucleated RBC 0.0 Nucleated RBC % 0.0 PT 15.7 H INR 1.2 APTT 28.1 Puncture Site ABG pH ABG pCO2 ABG pO2 ABG PO2/FiO2 Ratio ABG HCO3 ABG O2 Saturation ABG O2 Content ABG Base Excess A-a Gradient Oxyhemoglobin Carboxyhemoglobin Methemoglobin Reduced Hemoglobin Total Hemoglobin O2 Delivery Device O2 Liters/Min FiO2 Sodium 133 L Potassium 3.3 L Chloride 91 L Carbon Dioxide 22 Anion Gap 20 H BUN 79 H D Creatinine 9.90 H Estim Creat Clear Calc 3 Estimated GFR 4 L Glucose 159 H POC Capillary Glucose Lactic Acid 1.3 Calcium 8.4 Phosphorus Magnesium 1.8 Total Bilirubin 0.6 AST 31 ALT 18 Alkaline Phosphatase 92 Total Creatine Kinase Total Protein 7.0 Albumin 3.6 Hep Bs Antigen Hep Bs Antibody Influenza A (RT-PCR) Negative Influenza B (RT-PCR) Negative SARS-CoV-2 RNA (RT-PCR) Negative 04/05/23 04/05/23 04/05/23 13:49 20:47 22:29 WBC RBC Hgb Hct MCV MCH MCHC RDW Plt Count MPV Immature Gran % (Auto) Neut % (Auto) Lymph % (Auto) [place] % (Auto) Eos % (Auto) Baso % (Auto) Lymph # (Auto) [place] # (Auto) Eos # (Auto) Baso # (Auto) Abs Immat Gran (auto) Absolute Neuts (auto) Absolute Nucleated RBC Nucleated RBC % PT INR APTT Puncture Site Right brachial ABG pH 7.466 H ABG pCO2 28.7 L ABG pO2 60.1 L ABG PO2/FiO2 Ratio 2.86 ABG HCO3 20.2 L ABG O2 Saturation 92.8 L ABG O2 Content 16.8 ABG Base Excess -2.3 A-a Gradient 55.3 Oxyhemoglobin 88.4 L Carboxyhemoglobin 0.9 Methemoglobin 0.2 Reduced Hemoglobin 10.5 H Total Hemoglobin 13.5 O2 Delivery Device Room air O2 Liters/Min Not Reportable FiO2 21 Sodium 133 L Potassium 3.7 Chloride 95 L Carbon Dioxide 19 L Anion Gap 19 H BUN 87 H Creatinine 11.20 H Estim Creat Clear Calc 3 Estimated GFR 3 L Glucose 136 H POC Capillary Glucose 133 H Lactic Acid Calcium 7.8 L Phosphorus 12.7 H Magnesium Total Bilirubin AST ALT Alkaline Phosphatase Total Creatine Kinase 40 Total Protein Albumin Hep Bs Antigen Hep Bs Antibody Influenza A (RT-PCR) Influenza B (RT-PCR) SARS-CoV-2 RNA (RT-PCR) 04/06/23 04/06/23 04/06/23 04:20 05:47 05:48 WBC 9.5 RBC 3.86 L Hgb 11.3 L Hct 34.6 L MCV 89.6 MCH 29.3 MCHC 32.7 RDW 14.9 H Plt Count 178 MPV 10.5 H Immature Gran % (Auto) 0.3 Neut % (Auto) 86.6 H Lymph % (Auto) 6.3 L [place] % (Auto) 5.5 Eos % (Auto) 1.2 Baso % (Auto) 0.1 L Lymph # (Auto) 0.60 L [place] # (Auto) 0.5 Eos # (Auto) 0.1 Baso # (Auto) 0.0 Abs Immat Gran (auto) 0.03 Absolute Neuts (auto) 8.2 H Absolute Nucleated RBC 0.0 Nucleated RBC % 0.0 PT INR APTT Puncture Site ABG pH ABG pCO2 ABG pO2 ABG PO2/FiO2 Ratio ABG HCO3 ABG O2 Saturation ABG O2 Content ABG Base Excess A-a Gradient Oxyhemoglobin Carboxyhemoglobin Methemoglobin Reduced Hemoglobin Total Hemoglobin O2 Delivery Device O2 Liters/Min FiO2 Sodium 134 L Potassium 3.7 Chloride 96 L Carbon Dioxide 17 L Anion Gap 21 H BUN 88 H Creatinine 11.10 H Estim Creat Clear Calc 3 Estimated GFR 3 L Glucose 128 H POC Capillary Glucose 147 H Lactic Acid Calcium 7.8 L Phosphorus Magnesium 1.8 Total Bilirubin 0.6 AST 29 ALT 16 Alkaline Phosphatase 81 Total Creatine Kinase Total Protein 6.0 L Albumin 3.1 L Hep Bs Antigen Negative Hep Bs Antibody Negative Influenza A (RT-PCR) Influenza B (RT-PCR) SARS-CoV-2 RNA (RT-PCR) 11/06/23 08:10 WBC RBC Hgb Hct MCV MCH MCHC RDW Plt Count MPV Immature Gran % (Auto) Neut % (Auto) Lymph % (Auto) [place] % (Auto) Eos % (Auto) Baso % (Auto) Lymph # (Auto) [place] # (Auto) Eos # (Auto) Baso # (Auto) Abs Immat Gran (auto) Absolute Neuts (auto) Absolute Nucleated RBC Nucleated RBC % PT INR APTT Puncture Site ABG pH ABG pCO2 ABG pO2 ABG PO2/FiO2 Ratio ABG HCO3 ABG O2 Saturation ABG O2 Content ABG Base Excess A-a Gradient Oxyhemoglobin Carboxyhemoglobin Methemoglobin Reduced Hemoglobin Total Hemoglobin O2 Delivery Device O2 Liters/Min FiO2 Sodium Potassium Chloride Carbon Dioxide Anion Gap BUN Creatinine Estim Creat Clear Calc Estimated GFR Glucose POC Capillary Glucose 116 H Lactic Acid Calcium Phosphorus Magnesium Total Bilirubin AST ALT Alkaline Phosphatase Total Creatine Kinase Total Protein Albumin Hep Bs Antigen Hep Bs Antibody Influenza A (RT-PCR) Influenza B (RT-PCR) SARS-CoV-2 RNA (RT-PCR)
[2023-04-06 09:53] LABS: Phosphorus 13.1 mg/dL (2.5-4.5)
--- NOTE | 2023-04-06 10:15 | P.CONNP_ITS ---
Assessment and Plan Assessment and plan (1) ESRD (end stage renal disease): Code(s): N18.6 - End stage renal disease Status: Chronic Assessment and Plan: * resume CCPD Rx this evening * follow electrolytes, volume status, and clearance (2) Hypotension: Code(s): I95.9 - Hypotension, unspecified Status: Acute Assessment and Plan: * normally hypertensive at baseline * low BP noted with therapy at nursing facility and positive orthostatics in ER * noted history of not eating/drinking as well; labs c/w with dehydration/volume depletion * anti-hypertensives on hold * gentle IVF hydration * follow orthostatics (3) Hypokalemia: Code(s): E87.6 - Hypokalemia Status: Acute Assessment and Plan: * better by last check * likely secondary to poor oral intake and continued CCPD * follow trend and replete as needed (4) Acute cerebrovascular accident (CVA): Code(s): I63.9 - Cerebral infarction, unspecified Status: Acute Assessment and Plan: * as noted by recent hospitalization last month as well as imaging * cotinue DAPT (5) Diabetes mellitus type 1: Qualifiers: Diabetes mellitus complication status: with hyperglycemia Qualified Code(s): E10.65 - Type 1 diabetes mellitus with hyperglycemia Code(s): E10.9 - Type 1 diabetes mellitus without complications Status: Chronic Assessment and Plan: * brittle control at baseline * follow accu-cheks * glycemic control per hospitalists I will continue to follow the patient with you while she remains hospitalized and make further recommendations as needed. Thank you for allowing me to participate in care this patient. History of Present Illness Reason for Consult Consult date: 04/06/23 Reason for consult: end stage renal disease Chief Complaint Chief complaint: Orthostatic hypotension, dehydration History of Present Illness Narrative: Most of the information that I have obtained is from review of the electronic medical record as well as discussion with the physician / nurses involved in the patient's care as the patient is unable to provide a full and complete history as to the events that led to her presentation and subsequent admission to [facility]. The patient is a 77-year-old female with extensive past medical history who presented to [facility] Emergency room via EMS from her nursing facility for further evaluation of hypotension and hypoxia. The patient has been residing at [facility] since her recent discharge from [facility] in late March of this year after being admitted with a acute CVA. She has been participating with therapy since her admission there but apparently, in the last week, her overall clinical status has deteriorated. She reportedly has not been eating or drinking very well which she feels is due the fact that she is just not hungry and has no appetite as well as some nonspecific mild abdominal pain/discomfort which she is unable to elaborate on. her nursing facility empirically start her on doxycycline as a toe that she had an elevated white blood cell count but I am unclear what specific infection they were treating. Apparently, on the morning of admission, when she was working with therapy she became extremely weak and when they checked her vital signs, she was noted be quite hypotensive with a systolic BP in the 80s. Reportedly, she was also hypoxic with oxygen saturation of 70% on room air. Given these acute changes, EMS was called and on their arrival, her blood pressure was somewhat better at 104/63 and she was still mildly hypoxic at 87% on room air. Prior to her transfer to the emergency room, she gave no other systemic complaints with regard to fevers, chills, diaphoresis, sore throat, chest pain, shortness of breath productive cough, vomiting, or diarrhea. Workup and evaluation emergency room demonstrated the patient be hemodynamically stable with a systolic BP in the 120s and her OC saturations were better as well at 92% on room air. She was noted to be orthostatic by vital signs. Routine blood test demonstrated labs consistent with a known history of end-stage renal disease but with no critical electrolyte abnormalities other than mild hypokalemia she tested negative for influenza and coded and a CT scan of the brain showed no intracranial process and her chest x-ray was negative as well. Given her mild abdominal discomfort CT scan of the abdomen pelvis was done which only demonstrated free intraperitoneal gas likely secondary to her peritoneal dialysis catheter with no other acute intra-abdominal findings. Given her hypotension and orthostatic vital signs, she received a 500 cc normal saline bolus and subsequently was admitted to the hospital for gentle IV fluid hydration and further evaluation and therapy. Since her admission, her mentation seems to have improved in that she is more awake and alert and her blood pressure appears to be stable as well. She otherwise voices no other acute complaints at this time. Renal consultation was requested due to her end-stage renal disease on perit gamboa dialysis. The patient is quite familiar to me as I take care of her outpatient dialysis needs. She currently does home peritoneal dialysis under my care through [facility]. She just recently completed her training for peritoneal dialysis and had been doing these treatments at home prior to her discharge to [facility]. She has been receiving CCPD treatments at [facility] prior to her admission here at [facility]. Currently, at the time my visit, she seems to be more awake and interactive in comparison to when she was in the ER. Review of Systems Review of Systems: As per HPI. [facility] Past Medical History Medical History (Updated 04/05/23 @ 22:21 by Lorenza Devlin PA-C) Anemia Cerebrovascular accident End-stage renal disease on peritoneal dialysis Hyperlipidemia Hypertension Insulin dependent type 2 diabetes mellitus Nontoxic multinodular goiter Osteoporosis Secondary renal hyperparathyroidism Uterine cancer Vitamin D deficiency Surgical History Surgical History History of cataract extraction History of hysterectomy for cancer (2014) History of surgery on lower extremity Debridement of right leg infection. Family History Family History Mother , Age 86 Breast cancer Uterine cancer Father , Age 47 Acute myocardial infarction Grandparent Parkinson's disease Other Asthma Family history of alcoholism Family history of malignant neoplasm of ovary Family history of mental disorder Social History Social History Social History: Surrogate decision maker: Aby Calixto, daughter. Code status: Do not resuscitate. Smoking status: Never smoker Second hand tobacco smoke exposure: No Alcohol intake: current Drinks per week: 1 Alcohol use details: maybe 1 glass of wine a year Substance use: never Substance use type: does not use Lack of Transportation: No Lack of Food: Never True Current Housing: I Have Housing Concerned About Future Housing: No Difficulty Paying Gas/Electric Bills: No Difficulty Paying for Meds: No Currently Unemployed: No Education: Bachelor's Degree Difficulty w/ Childcare or Family Care: No Living arrangements: with family Additional living arrangements comments: Was living alone prior to recent hospitalization, now on rehab. She has 1 child. 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 Spiritual care concerns: No Meds Home Medications and Allergies Home Medications Medication Instructions Recorded Confirmed Type aspirin 325 mg tablet 325 mg PO DAILY@0800 #30 tabs 07/26/22 04/05/23 Rx blood sugar diagnostic (Contour #400 ea 02/04/23 04/05/23 Rx Next Test Strips) glucagon 3 mg/actuation nasal spray 3 mg intranasal ONCE #2 ea 02/24/23 04/05/23 Rx glucose 4 gram chewable tablet 16 g PO Q15M PRN hypoglycemia #60 02/24/23 04/05/23 Rx (Dex4 Glucose) tabs carvedilol 6.25 mg tablet 6.25 mg PO BID 02/25/23 04/05/23 History cholecalciferol (vitamin D3) 25 25 mcg PO DAILY 02/25/23 04/05/23 History mcg (1,000 unit) capsule gentamicin 0.1 % topical cream 1 applic topical DAILY 02/25/23 04/05/23 History hydralazine 25 mg tablet 25 mg PO BID 02/25/23 04/05/23 History amlodipine 5 mg tablet (Norvasc) 10 mg PO QAM 1 month #60 tabs 03/23/23 04/05/23 Rx clopidogrel 75 mg tablet 75 mg PO QAM 1 month #30 tabs 03/23/23 04/05/23 Rx insulin glargine 100 unit/mL 30 unit (0.3 mL) subcut HS 1 month 03/23/23 04/05/23 Rx subcutaneous solution (Lantus #9 mL U-100 Insulin) atorvastatin 40 mg tablet 40 mg PO HS 04/05/23 04/05/23 History doxycycline hyclate 100 mg capsule 100 mg PO DAILY 04/05/23 04/05/23 History fluconazole 100 mg tablet 100 mg PO DAILY 04/05/23 04/05/23 History (Diflucan) insulin lispro 100 unit/mL 1 sliding scale dose subcut 04/05/23 04/05/23 History subcutaneous pen (Humalog KwikPen USEASDIRECTD (U-100) Insulin) Allergies Allergy/AdvReac Type Severity Reaction Status Date / Time lisinopril Allergy Severe Swelling Verified 03/12/23 16:55 of Lip/Tongue/Throat Vital Signs Vital Signs Temp Pulse Resp BP Pulse Ox O2 Del Method O2 Flow Rate 04/06/23 08:00 98 Nasal Cannula 2 04/06/23 09:23 97.8 F 62 18 125/55 L 98 04/06/23 05:53 97.7 F 64 18 124/55 L 97 04/06/23 04:00 64 04/06/23 00:00 62 04/05/23 20:00 67 04/05/23 20:00 99 Nasal Cannula 2 04/05/23 20:26 97.6 F 80 18 100/62 100 04/05/23 20:20 97.8 F 74 18 124/65 100 04/05/23 20:19 98.1 F 69 18 108/47 L 99 04/05/23 19:29 98.1 F 69 18 108/47 L 99 04/05/23 18:53 Room Air 04/05/23 17:31 67 17 04/05/23 17:30 67 17 128/67 04/05/23 17:24 66 17 04/05/23 17:03 67 17 93 04/05/23 16:57 67 18 92 04/05/23 16:37 66 18 93 04/05/23 16:21 67 18 93 04/05/23 16:01 66 17 94 04/05/23 16:00 67 17 136/70 94 04/05/23 15:46 67 17 93 04/05/23 15:45 66 17 132/68 93 04/05/23 15:36 67 17 94 04/05/23 15:30 66 19 145/67 H 95 04/05/23 15:16 64 17 94 04/05/23 15:15 64 17 124/65 94 04/05/23 15:10 64 18 119/70 94 04/05/23 17:47 66 17 129/71 94 04/05/23 15:00 67 18 04/05/23 14:46 68 18 04/05/23 14:30 66 17 94 04/05/23 14:15 67 18 93 04/05/23 14:02 67 17 95 04/05/23 13:45 68 18 92 04/05/23 13:33 71 18 123/65 95 04/05/23 13:31 81 23 H 92 04/05/23 13:30 79 20 98/58 L 94 04/05/23 13:29 84 25 H 122/66 04/05/23 13:25 69 19 118/64 93 04/05/23 13:15 67 19 94 04/05/23 13:06 68 19 95 04/05/23 12:46 68 19 94 04/05/23 12:45 69 18 122/60 94 04/05/23 13:33 79 98/58 L 04/05/23 12:31 68 18 92 04/05/23 12:30 67 19 116/65 92 04/05/23 12:24 70 21 H 90 04/05/23 12:02 69 19 90 04/05/23 11:54 72 21 H 04/05/23 11:43 96.6 F L 70 20 119/66 92 Room Air 04/05/23 11:42 70 Exam Narrative: GENERAL APPEARANCE: thin female in no acute distress HEENT: normocephalic, atraumatic, normal conjunctiva and sclera, nares patient NECK: no lymphadenopathy, thyromegaly, or JVD MOUTH: normal lips, teeth, and gums CARDIOVASCULAR: RRR, normal S1 and S2, no rub RESPIRATORY: clear to auscultation bilaterally ABDOMEN: soft, nontender, nondistended, positive bowel sounds present; PD catheter in place EXTREMITIES: no evidence of cyanosis, clubbing, or edema NEUROLOGICAL: pleasantly confused; generalized weakness noted Results Lab Results 04/07/23 05:41 04/07/23 05:39 Lab results: Most recent lab results ABG pH 7.466 (7.350-7.450) H 04/05/23 13:49 ABG pCO2 28.7 mmHg (35.0-45.0) L 04/05/23 13:49 ABG pO2 60.1 mmHg (80.0-100.0) L 04/05/23 13:49 ABG HCO3 20.2 mEq/l (22.0-26.0) L 04/05/23 13:49 ABG O2 Saturation 92.8 % (95.0-100.0) L 04/05/23 13:49 Calcium 7.8 mg/dL (8.4-10.2) L 04/06/23 05:47 Phosphorus 13.1 mg/dL (2.5-4.5) H 04/06/23 05:43 Magnesium 1.8 mg/dL (1.6-2.3) 04/06/23 05:47
[2023-04-06 11:17] LABS: Glucose Point of Care 167 mg/dl (65-105)
--- NOTE | 2023-04-06 15:23 | PC.NURSE ---
All care, medications and assessments performed by Lianna Galvan, Student Nurse/[facility] has been completed under direct supervision of Cedro Pulp Drier Firer or Nursing Staff. Charting has been reviewed and agree with same. Any questions or concerns presented by patient and/or family has been relayed to appropriate staff.
[2023-04-06 17:06] LABS: Glucose Point of Care 193 mg/dl (65-105)
[2023-04-06] MEDS: INSULIN ASPART (*BKC) 100 UNITS/ML SUB-Q (20:29)
[2023-04-06 20:54] LABS: Glucose Point of Care 310 mg/dl (65-105)
[2023-04-07] VITALS (8 sets, daily range): BP systolic 118–130; BP diastolic 51–67; PULSE 58–68; RESP 16–17; TEMP 36.4–36.5; O2SAT 95–99
[2023-04-07 05:48] LABS: Basophils Percent Auto 0.1 % (0.2-1.2); Eosinophils Absolute Auto 0.2 K/mm3 (0-0.3); Eosinophils Percent Auto 1.7 % (0-4.4); Hematocrit 32.9 % (37.0-47.0); Hemoglobin 10.9 g/dL (12.0-15.0); Immature Granulocyte Absolute 0.04 K/mm3 (0.00-0.031); Immature Granulocyte Percent A 0.4 % (0-0.5); Lymphocytes Absolute Auto 0.65 K/mm3 (0.9-3.2); Lymphocytes Percent Auto 7.2 % (18.3-44.2); Mean Corpuscular HGB Conc 33.1 g/dl (32-36); Mean Corpuscular Hemoglobin 29.5 pg (26-34); Mean Corpuscular Volume 89.2 fl (80-100); Mean Platelet Volume 10.1 fl (7.4-10.4); Monocytes Absolute Auto 0.7 K/mm3 (0.1-0.6); Neutrophils Absolute Auto 7.5 K/mm3 (1.3-6.7); Neutrophils Percent Auto 82.6 % (45.5-73.1); Platelet Count Result 156 k/mm3 (150-375); Red Blood Count 3.69 M/mm3 (4.2-5.4); Red Cell Distribution Width 14.6 % (11.5-14.5); White Blood Count 9.1 K/mm3 (4.5-10.0)
[2023-04-07 06:35] LABS: Anion Gap 17 mmol/L (8-16); Blood Urea Nitrogen 83 mg/dL (7-17); Calcium 7.9 mg/dL (8.4-10.2); Carbon Dioxide 19 mmol/L (22-30); Chloride 96 mmol/L (98-107); Estimated CRCL calculation 3 ml/min; Estimated Glomerular Filt Rate 4; Glucose 155 mg/dL (65-110); Magnesium 1.7 mg/dL (1.6-2.3); Phosphorus 11.1 mg/dL (2.5-4.5); Sodium 132 mmol/L (137-145)
[2023-04-07 08:20] LABS: Glucose Point of Care 135 mg/dl (65-105)
[2023-04-07] MEDS: FLUCONAZOLE 100 MG TABLET PO (08:22)
[2023-04-07] MEDS: ASPIRIN 325 MG TABLET PO (08:22)
[2023-04-07] MEDS: CLOPIDOGREL BISULFATE 75 MG TABLET PO (08:22)
[2023-04-07] MEDS: CHOLECALCIFEROL 1,000 UNITS TABLET 1000 UNITS PO (08:22)
[2023-04-07] MEDS: GENTAMICIN SULFATE 0.1% CR 15 GM TUBE 1 APPLIC TOPICAL (08:22)
[2023-04-07] MEDS: POTASSIUM CHLORIDE 20 MEQ ER TABLET 40 MEQ PO (09:19)
--- NOTE | 2023-04-07 09:55 | PM.PNNEP ---
Progress Note: A&P Assessment and Plan (1) ESRD (end stage renal disease): Code(s): N18.6 - End stage renal disease Status: Chronic Assessment and Plan: continue peritoneal dialysis treatments while hospitalized follow electrolytes, volume status, and clearance (2) Hypotension: Code(s): I95.9 - Hypotension, unspecified Status: Acute Assessment and Plan: normally hypertensive at baseline low BP noted with therapy at nursing facility and positive orthostatics in ER noted history of not eating/drinking as well; labs c/w with dehydration/volume depletion anti-hypertensives on hold gentle IVF hydration follow orthostatics (3) Hypokalemia: Code(s): E87.6 - Hypokalemia Status: Acute Assessment and Plan: low again this AM likely secondary to poor oral intake and continued CCPD follow trend and replete as needed (4) Acute cerebrovascular accident (CVA): Code(s): I63.9 - Cerebral infarction, unspecified Status: Acute Assessment and Plan: as noted by recent hospitalization last month as well as imaging cotinue DAPT (5) Diabetes mellitus type 1: Qualifiers: Diabetes mellitus complication status: with hyperglycemia Qualified Code(s): E10.65 - Type 1 diabetes mellitus with hyperglycemia Code(s): E10.9 - Type 1 diabetes mellitus without complications Status: Chronic Assessment and Plan: brittle control at baseline follow accu-cheks glycemic control per hospitalists Will continue to follow. Subjective Date/time seen: 04/07/23 09:55 Interval history: Follow-up for end stage renal disease on peritoneal dialysis. Tolerated CCPD treatment overnight without any issues or problems; no apparent distress voiced at the time of my visit; has been on/off supplemental oxygen since admission; no other issues/events overnight or earlier this morning. Exam Narrative: General: elderly female in NAD Heart: normal S1 and S2; no rub Lungs: clear to auscultation Abdomen: soft, nontender, nondistended, positive bowel sounds Extremities: no cyanosis or clubbing; no edema Skin: warm and dry Objective Data Vital Signs Vital Signs: Vital Signs Temp Pulse Resp BP Pulse Ox O2 Del Method O2 Flow Rate 04/07/23 08:00 97 Nasal Cannula 2 04/07/23 08:39 95 Nasal Cannula 1.5 04/07/23 05:16 97.7 F 65 17 130/67 99 04/07/23 04:00 68 04/07/23 00:00 67 04/06/23 20:00 63 04/06/23 20:00 96 Nasal Cannula 2 04/06/23 21:27 97.9 F 69 17 150/65 H 98 04/06/23 16:20 97.8 F 58 L 18 125/55 L 98 Room Air 04/06/23 16:00 64 04/06/23 12:00 58 L Intake/Output Intake/Output: Intake & Output 04/05/23 04/05/23 04/06/23 04/07/23 00:59 23:59 23:59 23:59 Intake Total 1720 Output Total 0 450 Balance 1720 -450 Meds/Results Medications: Active Medications Generic Name Dose Route Start Last Admin Trade Name Freq PRN Reason Stop Dose Admin Acetaminophen 650 mg 04/05/23 22:26 Acetaminophen 325 Mg Tablet PO Q6H PRN Mild Pain (1-3) or Fever Aspirin 325 mg 04/06/23 08:00 04/07/23 08:22 Aspirin 325 Mg Tablet PO 325 mg DAILY@0800 MACI Administration Clopidogrel Bisulfate 75 mg 04/06/23 09:00 04/07/23 08:22 Clopidogrel Bisulfate 75 Mg Tablet PO 75 mg QAM MACI Administration Dextrose 12.5 gm 04/05/23 22:26 Dextrose 50% 25 Gm/50 Ml Syringe IV PUSH PRN PRN Hypoglycemia Protocol Gentamicin Sulfate 1 applic 04/06/23 09:00 04/07/23 08:22 Gentamicin Sulfate 0.1% Cr 15 Gm Tube TOPICAL 1 applic DAILY MACI Administration Glucagon 1 mg 04/05/23 22:26 Glucagon For Inj 1 Mg Vial IM PRN PRN Hypoglycemia Protocol Glucose 15 gm 04/05/23 22:26 Glucose Oral Gel 15 Gm Of Glucse In 37.5 Gm Tube PO PRN PRN Hypoglycemia Protocol Dextrose 1,000 mls @ 100 mls/hr 04/05/23 22:26 Dextrose 5% 1,000 Ml IVPB PRN PRN Hypoglycemia Protocol Ceftriaxone Sodium 1 gm in 50 mls @ 100 mls/hr 04/05/23 22:30 04/06/23 21:14 Rocephin 1 Gm/Ns 50 Ml IVPB Infused HS MACI Infusion Insulin Aspart 1 - 2 units 04/06/23 21:00 04/06/23 20:29 Insulin Aspart (*Bkc) 100 Units/Ml SUB-Q 2 units HS [facility] Administration Protocol Insulin Aspart 2 - 5 units 04/06/23 08:00 04/07/23 08:20 Insulin Aspart (*Bkc) 100 Units/Ml SUB-Q Not Given TIDWM [facility] Protocol Insulin Glargine 10 units 04/05/23 22:30 04/06/23 20:29 Insulin Glargine (*Bkc) 100 Units/Ml SUB-Q 10 units HS MACI Administration Ondansetron HCl 4 mg 04/05/23 15:27 Ondansetron Inj 4 Mg/2 Ml Vial IV PUSH Q4H PRN Nausea Vitamin D 1,000 units 04/06/23 09:00 04/07/23 08:22 Cholecalciferol 1,000 Units Tablet PO 1,000 units DAILY MACI Administration Radiology Results: ITS Impressions Head CT 04/05/23 14:12 IMPRESSION: 1. No acute intracranial process. 2. Unchanged chronic left occipital infarct and encephalomalacia of now chronic infarcts in the right occipital and temporal lobes and left basal ganglia. 3. Mild scattered white matter hypoattenuation consistent with chronic small vessel ischemic disease. Chest X-Ray 04/05/23 14:21 IMPRESSION: 1. No acute cardiopulmonary disease. Abdomen/Pelvis CT 04/05/23 21:27 IMPRESSION: 1. Small amount of scattered free intraperineal gas which is likely related to peritoneal dialysis in the cul-de-sac. No other acute intra-abdominal/pelvic process. 2. Very small pericardial effusion. Labs Labs: Laboratory Tests 04/07/23 05:41 04/07/23 05:39 Calcium 7.9 L Phosphorus 11.1 H Magnesium 1.7 Albumin 3.0 L Microbiology 04/06/23 20:39 Ascites Fluid Anaerobic Culture - Preliminary 04/06/23 20:39 Peritoneal Fluid Anaerobic Culture - Preliminary 04/06/23 20:39 Peritoneal Fluid Gram Stain - Final 04/05/23 15:27 Blood Blood Culture - Preliminary 04/05/23 15:29 Blood Blood Culture - Preliminary
[2023-04-07] MEDS: POTASSIUM CHLORIDE 20 MEQ PACKET (FOR LIQUID) 40 MEQ PO (10:10)
--- NOTE | 2023-04-07 10:17 | PM.DS ---
DS: Admitting Diagnosis Discharge Date 04/07/23 Admitting Diagnosis sob DS: Discharge Diagnosis Discharge Diagnosis (1) Hypotension: Code(s): I95.9 - Hypotension, unspecified Status: Acute Assessment and Plan: The patient was hypotensive with therapy today and had positive orthostatic blood pressures in the ED. She appears dry on exam and by labs and according to the daughter she has not been eating or drinking well the past week. Hold antihypertensives. Monitor orthostatic vital signs. Initiate fall precautions. (2) Dehydration: Code(s): E86.0 - Dehydration Status: Acute Assessment and Plan: She is quite dehydrated on exam and by labs; her hemoglobin, BUN, and creatinine are all much higher than what she typically runs. Continue cautious IV fluid rehydration with close monitoring of volume status. (3) Hypokalemia: Code(s): E87.6 - Hypokalemia Status: Acute Assessment and Plan: Potassium is 3.3 though hesitant to replaced given end-stage renal disease and worsening creatinine. Repeat potassium this evening and replete if no improvement. (4) End-stage renal disease on peritoneal dialysis: Code(s): N18.6 - End stage renal disease; Z99.2 - Dependence on renal dialysis Status: Acute Assessment and Plan: No acute electrolyte abnormalities or volume overload. In fact she is dry as detailed above. Nephrology consulted for dialysis. Send fluid to rule out SBP. Empiric ceftriaxone daily pending culture. (5) Insulin dependent type 2 diabetes mellitus: Code(s): E11.9 - Type 2 diabetes mellitus without complications; Z79.4 - buttermaker continuous churn (current) use of insulin Status: Acute Assessment and Plan: Random glucose is 159; most recent hemoglobin A1c was 6.4%. Continue basal insulin at reduced dose given decreased p.o. intake. Initiate sliding scale insulin, Accu-Cheks, and hypoglycemic protocol. Blood glucose reviewed 04/06 (6) Recent cerebrovascular accident: Code(s): Z86.73 - Personal history of transient ischemic attack (TIA), and cerebral infarction without residual deficits Status: Acute Assessment and Plan: Patient has worsening vision and memory following most recent strokes. Continue dual antiplatelet therapy. Resume atorvastatin, pending CK level. Plan Of note, patient was reportedly hypoxic at [facility] however her SpO2 has been in the upper 90s on room air since arrival. Chest x-ray showed no acute findings. History does not suggest pulmonary embolism. Initial reading may have been erroneous. DVT prophylaxis with SCDs GI prophylaxis not indicated Code status DNR DS: Summary Hospital Course Hospital Course: 77-year-old female with recent stroke, insulin-dependent type 2 diabetes mellitus, hypertension, hyperlipidemia, diastolic dysfunction, end-stage renal disease on peritoneal dialysis, chronic anemia, hyperparathyroidism, and uterine cancer status post hysterectomy who presented to the emergency department via EMS from [facility] for evaluation of hypotension and hypoxia is currently being treated for dehydration and worked up for other etiologies. All symptoms resolved with gentle fluid resuscitation and symptom management. Patient felt much better, worked with therapy and was ready to leave. Please see above and med rec for details. Patient was discharged in stable condition with close outpatient follow-up Time Spent with Patient Time attestation: Total time spent providing and/or coordinating discharge services: Exam Narrative: General: No acute distress, alert and oriented per baseline HEENT: Atraumatic, normocephalic, mucous membranes moist CV: Regular rate and rhythm, S1, S2 Lungs: Clear to auscultation bilaterally, no rales or crackles noted, no wheezes, good air entry Abdomen: Soft, nontender, nondistended Extremities: Normal to inspection Skin: No rashes noted, no lesions or wounds seen Psych: Euthymic, normal affect DS: Data Data Completed and Pending Labs on day of discharge: Labs from last 24 hours 04/07/23 04/07/23 04/07/23 08:09 05:41 05:39 WBC 9.1 RBC 3.69 L Hgb 10.9 L Hct 32.9 L MCV 89.2 MCH 29.5 MCHC 33.1 RDW 14.6 H Plt Count 156 MPV 10.1 Immature Gran % (Auto) 0.4 Neut % (Auto) 82.6 H Lymph % (Auto) 7.2 L Orange % (Auto) 8.0 Eos % (Auto) 1.7 Baso % (Auto) 0.1 L Lymph # (Auto) 0.65 L Orange # (Auto) 0.7 H Eos # (Auto) 0.2 Baso # (Auto) 0.0 Abs Immat Gran (auto) 0.04 H Absolute Neuts (auto) 7.5 H Absolute Nucleated RBC 0.0 Nucleated RBC % 0.0 Sodium 132 L Potassium 3.0 L Chloride 96 L Carbon Dioxide 19 L Anion Gap 17 H BUN 83 H Creatinine 9.50 H Estim Creat Clear Calc 3 Estimated GFR 4 L Glucose 155 H POC Capillary Glucose 135 H Calcium 7.9 L Phosphorus 11.1 H Magnesium 1.7 Albumin 3.0 L 04/06/23 04/06/23 04/06/23 20:20 16:58 11:06 WBC RBC Hgb Hct MCV MCH MCHC RDW Plt Count MPV Immature Gran % (Auto) Neut % (Auto) Lymph % (Auto) Orange % (Auto) Eos % (Auto) Baso % (Auto) Lymph # (Auto) Orange # (Auto) Eos # (Auto) Baso # (Auto) Abs Immat Gran (auto) Absolute Neuts (auto) Absolute Nucleated RBC Nucleated RBC % Sodium Potassium Chloride Carbon Dioxide Anion Gap BUN Creatinine Estim Creat Clear Calc Estimated GFR Glucose POC Capillary Glucose 310 H 193 H 167 H Calcium Phosphorus Magnesium Albumin Preliminary micro results at discharge 04/05/23 15:27 Blood Culture - Preliminary Blood 04/05/23 15:29 Blood Culture - Preliminary Blood Discharge Plan Discharge Attending physician on discharge: Deborah Gibson Consulting providers: Maximino Nuñez Discharging Clinician: Deborah Gibson Patient Disposition: SNF Activity: as tolerated Diet: as tolerated and renal Patient Instructions: Clopidogrel (By mouth), Pain Management (DC) Stand Alone Forms: General Discharge Information Follow-up/Referrals: Chandan Benites MD [Primary Care Provider] - Discharge Medications: Continued hydralazine 25 mg tablet 25 mg PO BID carvedilol 6.25 mg tablet 6.25 mg PO BID Rx Instructions: must administer with a meal/food cholecalciferol (vitamin D3) 25 mcg (1,000 unit) capsule 25 mcg PO DAILY gentamicin 0.1 % cream 1 applic topical DAILY Rx Instructions: apply to drain sponge around dialysis port daily. aspirin 325 mg Tablet 325 mg PO DAILY@0800 Qty: 30 0RF clopidogrel 75 mg Tablet 75 mg PO QAM 30 Days Qty: 30 0RF insulin glargine [Lantus U-100 Insulin] 100 unit/mL Solution 30 unit subcut HS 30 Days Qty: 9 0RF insulin lispro [Humalog KwikPen Insulin] 100 unit/mL Insulin Pen 1 sliding scale dose SUBCUT USEASDIRECTD atorvastatin 40 mg tablet 40 mg PO HS (DME) Contour Next Test Strips Strip See Rx Instructions .Route Qty: 400 3RF Rx Instructions: Check glucose 3 times a day glucagon 3 mg/actuation spray,non-aerosol 3 mg intranasal ONCE Qty: 2 4RF Rx Instructions: as a single dose; may repeat once in 15 minutes if no response glucose [Dex4 Glucose] 4 gram tablet,chewable 16 g PO Q15M PRN (Reason: hypoglycemia) Qty: 60 1RF Rx Instructions: until symptoms of low blood sugar are controlled Discontinued amlodipine [Norvasc] 5 mg Tablet 10 mg PO QAM 30 Days Qty: 60 0RF fluconazole [Diflucan] 100 mg Tablet 100 mg PO DAILY Rx Instructions: end date 04/08/23 doxycycline hyclate 100 mg Capsule 100 mg PO DAILY Rx Instructions: end date 04/08/23 Date of admission: 04/06/23 09:55 Primary Care Provider: Chandan Benites Admitting Provider: Anat Brady V. Attending physician on admission: Anat Brady V. Condition: Guarded Prognosis
--- NOTE | 2023-04-07 11:49 | P.CDI_ITS ---
CDI Query Clarification Request BMI 18.8 Nutritional Diagnostic Statement Severe protein calorie malnutrition related to chronic illness, loss of appetite as evidenced by intakes <75 % needs > 1 month , weight loss -22%/9 months; NFPE findings of severe muscle wasting and fat loss Please refer to the comprehensive nutrition assessment for further information. Please clarify severity of protein calorie malnutrition if known: * Mild * Moderate * Severe * Other/ Unspecified <Hilary Sparks RN - Last Filed: 04/07/23 11:55> Clarified Diagnosis Clarified Diagnosis: moderate malnutrition <Deborah Gibson DO - Last Filed: 04/07/23 16:40>
[2023-04-07 12:10] LABS: Glucose Point of Care 101 mg/dl (65-105)
[2023-04-07 12:21] LABS: Appearance Peritoneal Fluid Clear (Clear); Color Peritoneal Fluid Colorless (Colorless); Nucleated Cells Peritoneal Flu 18 /uL (0-500); RBC Peritoneal Fluid < 2000 /uL (0-100000); Source Peritoneal Fluid Peritoneal Fluid
[2023-04-07 12:25] LABS: Lymphocytes Peritoneal Fluid 36 %; Monocytes Peritoneal Fluid 54 %
[2023-04-07 12:26] LABS: Neutrophils Peritoneal Fluid 10 % (0-25)
[2023-04-07 15:47] LABS: SARS-CoV-2 RNA PCR Negative (Negative)
[2023-04-07 17:17] LABS: Glucose Point of Care 70 mg/dl (65-105)
== END 2023-04-07 17:50 | DRG 640 ==
LOC: ANHED 12:40 → ANH2MED 17:40
PROVIDERS: Internal Medicine; Internal Medicine Nephrology; Physician Assistant; Student in an Organized Health Care Education/Training Program; Admitting Provider Internal Medicine; Emergency Provider General Practice; PCP Emergency Medicine; Visit Provider Student in an Organized Health Care Education/Training Program
DX: E86.0 Dehydration (principal); E43 Unspecified severe protein-calorie malnutrition; N18.6 End stage renal disease; I12.0 Hypertensive chronic kidney disease with stage 5 chronic kidney disease or end stage renal disease; Z68.1 Body mass index [BMI] 19.9 or less, adult; I95.9 Hypotension, unspecified; D63.1 Anemia in chronic kidney disease; E10.22 Type 1 diabetes mellitus with diabetic chronic kidney disease; E87.6 Hypokalemia; E21.3 Hyperparathyroidism, unspecified; E55.9 Vitamin D deficiency, unspecified; E78.5 Hyperlipidemia, unspecified; H53.9 Unspecified visual disturbance; I69.311 Memory deficit following cerebral infarction; I69.398 Other sequelae of cerebral infarction; I51.89 Other ill-defined heart diseases; I45.10 Unspecified right bundle-branch block; M81.0 Age-related osteoporosis without current pathological fracture; R09.02 Hypoxemia; Z66 Do not resuscitate; Z11.52 Encounter for screening for COVID-19; Z98.49 Cataract extraction status, unspecified eye; Z79.82 Long term (current) use of aspirin; Z90.710 Acquired absence of both cervix and uterus; Z85.42 Personal history of malignant neoplasm of other parts of uterus; Z99.2 Dependence on renal dialysis; Z79.4 Long term (current) use of insulin; Z79.84 Long term (current) use of oral hypoglycemic drugs; Z79.02 Long term (current) use of antithrombotics/antiplatelets
CPT/HCPCS: 36415; 36600; 70450; 71045; 74176; 80048; 80053; 80069; 82375; 82550; 82805; 82948; 83050; 83605; 83735; 84100; 85025; 85610; 85730; 86706; 87040; 87070; 87075; 87205; 87340; 87635; 87636; 89051; 90945; 93005; 96361; 96365; 99285; A9270; G0378; J0696; J1815; J7030; J7040

== ENCOUNTER 2023-04-12 17:56 | Inpatient (IN) | payer MEDICARE, SELFPAY ==
--- NOTE | ~2023-04-12 | CT_ITS ---
EXAMINATION: CT brain wo con DATE: 04/12/2023 20:27 INDICATION: altered mental status . TECHNIQUE: Computed tomography (CT) of the head was performed without intravenous contrast. The mA wa s adjusted according to patient size. Iterative reconstruction technique was employed. The dose-lengt h product was 605.33 mGy-cm. COMPARISON: None. FINDINGS: No acute intracranial hemorrhage or extra-axial fluid collection. No hydrocephalus, mass, or herniation. No acute ischemic infarct. Unremarkable dural venous sinus attenuation. No acute osseous abnormality. The aerated spaces are clear. Moderate atrophy and chronic white matter change. Atherosclerotic intracranial calcification. Bilater al lens replacements. Left basal ganglia and right occipital and temporal encephalomalacia with hoda ar necrosis. Left occipital encephalomalacia without necrosis. IMPRESSION: No acute intracranial process. Reviewed, dictated and finalized at location K. EDICAL SPECIALIST
--- NOTE | ~2023-04-12 | XR_ITS ---
EXAMINATION: XR chest 1V portable Exam Date/Time: 04/12/2023 19:20 INSURANCE AND BENEFITS CLERK HISTORY: weakness, syncopal episode Comparison: 04/05/2023. RESULT: Lines, tubes, and devices: None. Lungs and pleura: Several skin folds are present over the right upper lung. No focal consolidation, pneumothorax, or pleural effusion. Chronic senescent changes. Cardiomediastinal silhouette: Stable. Other: No acute osseous or upper abdominal finding. IMPRESSION: No acute cardiopulmonary process. Reviewed, dictated and finalized at location K. RANCE AND BENEFITS CLERK
[2023-04-12 18:01] VITALS: BP 138/70; PULSE 67; RESP 18; TEMP 36.9; O2SAT 100
--- NOTE | 2023-04-12 18:12 | ECG_ITS ---
Measurements Intervals [place] Rate: 66 P: 77 MD: 172 QRS: -88 QRSD: 90 T: 86 QT: 408 QTc: 428 Interpretive Statements SINUS RHYTHM LEFT AXIS DEVIATION POSSIBLE LEFT ATRIAL ENLARGEMENT INCOMPLETE RIGHT BUNDLE BRANCH BLOCK ANTEROSEPTAL INFARCT, AGE INDETERMINATE BORDERLINE ST-T WAVE ABNORMALITY- HIGH LATERAL LEADS BASELINE ARTIFACT- I, II, III, AVR, AVL AVF, V1-V6 ABNORMAL ECG COMPARED TO ECG 04/05/2023 13:23:30 LEFT-AXIS DEVIATION NOW PRESENT Electronically Signed On 04-12-2023 19:20:20 POSTBED STITCHER by Sushil Espinal D.O.
[2023-04-12 18:49] LABS: Glucose Point of Care 75 mg/dl (65-105)
[2023-04-12 19:13] VITALS: BP 127/67; PULSE 66; RESP 16; O2SAT 100
[2023-04-12] MEDS: SODIUM CHLORIDE 0.9% IV 500 ML 999 ML IV CONT (19:38)
[2023-04-12 19:44] LABS: Basophils Percent Auto 0.3 % (0.2-1.2); Eosinophils Absolute Auto 0.2 K/mm3 (0-0.3); Eosinophils Percent Auto 1.5 % (0-4.4); Hematocrit 36.3 % (37.0-47.0); Hemoglobin 12.1 g/dL (12.0-15.0); Immature Granulocyte Absolute 0.04 K/mm3 (0.00-0.031); Immature Granulocyte Percent A 0.3 % (0-0.5); Lymphocytes Absolute Auto 1.35 K/mm3 (0.9-3.2); Lymphocytes Percent Auto 9.7 % (18.3-44.2); Mean Corpuscular HGB Conc 33.3 g/dl (32-36); Mean Corpuscular Hemoglobin 29.5 pg (26-34); Mean Corpuscular Volume 88.5 fl (80-100); Mean Platelet Volume 10.2 fl (7.4-10.4); Monocytes Percent Auto 7.2 % (2.6-8.5); Neutrophils Absolute Auto 11.3 K/mm3 (1.3-6.7); Platelet Count Result 232 k/mm3 (150-375); Red Cell Distribution Width 14.5 % (11.5-14.5)
[2023-04-12 19:54] LABS: Lactic Acid Reflex 1.4 mmol/L (0.7-2.0)
[2023-04-12 19:55] LABS: INR 1.2; Partial Thromboplastin Time 27.9 SECONDS (22.3-36.8); Prothrombin Time 15.3 Seconds (11.1-14.7)
[2023-04-12 19:57] LABS: Alanine Aminotransferase 20 U/L (6-35); Albumin Level 3.4 g/dL (3.5-5.1); Alkaline Phosphatase 80 U/L (38-126); Anion Gap 15 mmol/L (8-16); Aspartate Amino Transferase 43 U/L (14-36); Bilirubin,Total 0.6 mg/dL (0.2-1.3); Blood Urea Nitrogen 56 mg/dL (7-17); Calcium 8.4 mg/dL (8.4-10.2); Carbon Dioxide 27 mmol/L (22-30); Chloride 98 mmol/L (98-107); Estimated CRCL calculation 4 ml/min; Estimated Glomerular Filt Rate 4; Glucose 48 mg/dL (65-110); Magnesium 1.7 mg/dL (1.6-2.3); Potassium 3.1 mmol/L (3.4-5.0); Sodium 140 mmol/L (137-145)
[2023-04-12 20:11] LABS: Troponin I 0.341 ng/mL (0.000-0.034)
[2023-04-12 20:21] LABS: Glucose Point of Care 79 mg/dl (65-105)
[2023-04-12 20:23] LABS: Procalcitonin 0.4 ng/mL
--- NOTE | 2023-04-12 20:46 | ED.GENADULT ---
HPI - General Adult General Chief complaint: Syncope Stated complaint: syncopal, AMS Time Seen by Provider: 04/12/23 19:03 History of Present Illness HPI narrative: Patient is a 77-year-old female who presents the emergency department with chief complaint of syncopal episode. Patient reports she is a peritoneal dialysis patient and reports that today she noticed that her blood sugars were running elevated and was given multiple doses of insulin by the staff the patient reports that she then had an episode where she became minimally responsive and her blood sugar had come from the 500s down into the 100s. Upon arrival to the emergency department the patient has been alert but is states that she has felt weaker than normal. Related Data Home Medications Medication Instructions Recorded Confirmed carvedilol 6.25 mg tablet 6.25 mg PO BID 02/25/23 04/05/23 cholecalciferol (vitamin D3) 25 25 mcg PO DAILY 02/25/23 04/05/23 mcg (1,000 unit) capsule gentamicin 0.1 % topical cream 1 applic topical DAILY 02/25/23 04/05/23 hydralazine 25 mg tablet 25 mg PO BID 02/25/23 04/05/23 atorvastatin 40 mg tablet 40 mg PO HS 04/05/23 04/05/23 insulin lispro 100 unit/mL 1 sliding scale dose subcut 04/05/23 04/05/23 subcutaneous pen (Humalog KwikPen USEASDIRECTD (U-100) Insulin) Allergies Allergy/AdvReac Type Severity Reaction Status Date / Time lisinopril Allergy Severe Swelling Verified 03/12/23 16:55 of Lip/Tongue/Throat Review of Systems Review of Systems: A 10 system review of systems was completed on the patient and is negative except for what is stated in the HPI. Nursing and ancillary documentation was reviewed. [facility] Past Medical History Medical History Anemia Cerebrovascular accident End-stage renal disease on peritoneal dialysis Hyperlipidemia Hypertension Insulin dependent type 2 diabetes mellitus Nontoxic multinodular goiter Osteoporosis Secondary renal hyperparathyroidism Uterine cancer Vitamin D deficiency Surgical History Surgical History History of cataract extraction History of hysterectomy for cancer (2014) History of surgery on lower extremity Debridement of right leg infection. Family History Family History Mother , Age 86 Breast cancer Uterine cancer Father , Age 47 Acute myocardial infarction Grandparent Parkinson's disease Other Asthma Family history of alcoholism Family history of malignant neoplasm of ovary Family history of mental disorder Social History Social History Social History: Surrogate decision maker: Aby Calixto, daughter. Code status: Do not resuscitate. Smoking status: Never smoker Second hand tobacco smoke exposure: No Alcohol intake: current Drinks per week: 1 Alcohol use details: maybe 1 glass of wine a year Substance use: never Substance use type: does not use Lack of Transportation: No Lack of Food: Never True Current Housing: I Have Housing Concerned About Future Housing: No Difficulty Paying Gas/Electric Bills: No Difficulty Paying for Meds: No Currently Unemployed: No Education: Bachelor's Degree Difficulty w/ Childcare or Family Care: No Living arrangements: with family Additional living arrangements comments: Was living alone prior to recent hospitalization, now on rehab. She has 1 child. 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 Spiritual care concerns: No Exam Narrative: GENERAL: Well-appearing, well-nourished, and in no acute distress. HEAD: Normocephalic, atraumatic. EYES: PERRLA and EOMI. ENT: Nares clear, no rhinorrhea or epistaxis. Mucous membranes jazz
[2023-04-12] MEDS: DEXTROSE 50% 25 GM/50 ML SYRINGE IV PUSH (20:54)
[2023-04-12 21:18] VITALS: BP 145/56; PULSE 67; RESP 18; O2SAT 100
[2023-04-12 21:47] LABS: Glucose Point of Care 248 mg/dl (65-105)
--- NOTE | 2023-04-12 22:35 | PC.NURSE ---
This RN attempted to call IMU for nurse report and was told she needed to call back
--- NOTE | 2023-04-12 23:00 | PC.NURSE ---
This RN attempted to call report to IMU but no one answered.
[2023-04-12 23:33] VITALS: BP 155/60; PULSE 74; RESP 16; TEMP 36.1; O2SAT 100
[2023-04-12 23:34] VITALS: BMI 17.3
[2023-04-12 23:48] LABS: Glucose Point of Care 267 mg/dl (65-105)
[2023-04-13] VITALS (17 sets, daily range): BP systolic 91–138; BP diastolic 46–59; PULSE 63–78; RESP 14–18; TEMP 36.1–36.5; O2SAT 94–100; BMI 17.3
--- NOTE | 2023-04-13 | ADMGEN ---
This patient, Dalila Redd, was admitted to IMU Room 200-01. Patient/family oriented to hospital policies and general routines including ID bracelet, bed and alarms, visiting hours, pain management, procedures, bathroom and other care routines, personal items, smoking policy, room service/diet, and visiting hours. Information on how to activate the Rapid Response Team has been discussed. Patient/Family are encouraged to report perceived risks to care and to ask questions if they do not understand what they are told or what they should do.
[2023-04-13 01:45] LABS: Glucose Point of Care 298 mg/dl (65-105)
[2023-04-13 02:04] LABS: Troponin I 0.337 ng/mL (0.000-0.034)
--- NOTE | 2023-04-13 03:42 | PM.IMHP ---
H&P: HPI History of Present Illness Date/Time: 04/13/23 03:42 Chief Complaint: Unresponsive Narrative: 77-year-old female with a past medical history of insulin-dependent type 2 diabetes mellitus, recent CVA 03/2023, diastolic dysfunction, and end-stage renal disease on peritoneal dialysis who presented to the ER via EMS from [facility] with unresponsive episode. The patient in the ER was answering some questions and was cooperative. She was not aware of why she was in the ER. The patient's blood sugars had been running high throughout the day and longterm staff given the patient multiple doses of insulin. The patient's blood sugars had been in the 500s and had come down to the low 100s when EMS had picked the patient up from the longterm. When the patient arrived to the ER her glucoses were 48. When the patient arrived to the IMU the patient would occasionally say yes or no to questions but would not providing a reliable history. Her glucoses when she arrived to the IMU or above 200. At the time my evaluation the patient mumbles affirmative sound but is not reliably following commands. She will open her mouth to command but will not open her eyes. As such the entirety of the HPI and documentation was obtained from ER reports and past medical record review. Patient's troponin was noted to be elevated in the ER but she has chronic troponin elevation. She was not complaining of chest pain in the ER and at the time my evaluation she shook her head no when I asked if she was having pain. Review of Systems Review of Systems: ROS unobtainable: Yes unobtainable due to mental status PMFSH Past Medical History Medical History (Updated 04/13/23 @ 04:17 by Shannan Billings DO) Anemia Cerebrovascular accident (03/2023) Acute infarct right temporal occipital region acute infarct left basal ganglia and anterior limb left internal capsule. Old infarcts noted on imaging to left temporal occipital region left frontal parietal region and left parietal lobe End-stage renal disease on peritoneal dialysis Hyperlipidemia Hypertension Insulin dependent type 2 diabetes mellitus Nontoxic multinodular goiter Osteoporosis Secondary renal hyperparathyroidism Uterine cancer Vitamin D deficiency Surgical History Surgical History History of cataract extraction History of hysterectomy for cancer (2014) History of surgery on lower extremity Debridement of right leg infection. Family History Family History Mother , Age 86 Breast cancer Uterine cancer Father , Age 47 Acute myocardial infarction Grandparent Parkinson's disease Other Asthma Family history of alcoholism Family history of malignant neoplasm of ovary Family history of mental disorder Social History Social History Social History: Surrogate decision maker: Aby Calixto, daughter. Code status: Do not resuscitate. Smoking status: Never smoker Second hand tobacco smoke exposure: No Alcohol intake: never Drinks per week: 1 Alcohol use details: maybe 1 glass of wine a year Substance use: never Substance use type: does not use Lack of Transportation: No Lack of Food: Never True Current Housing: I Have Housing Concerned About Future Housing: No Difficulty Paying Gas/Electric Bills: No Difficulty Paying for Meds: No Currently Unemployed: No Education: Bachelor's Degree Difficulty w/ Childcare or Family Care: No Living arrangements: with family Additional living arrangements comments: Was living alone prior to recent hospitalization, now on rehab. She has 1 child. 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 Gender identity (if verbalized by the patient): Female Sexual Orientatio
[2023-04-13 03:45] LABS: Anion Gap 14 mmol/L (8-16); Blood Urea Nitrogen 54 mg/dL (7-17); Calcium 7.9 mg/dL (8.4-10.2); Carbon Dioxide 25 mmol/L (22-30); Chloride 97 mmol/L (98-107); Estimated CRCL calculation 3 ml/min; Estimated Glomerular Filt Rate 4; Glucose 290 mg/dL (65-110); Potassium 3.3 mmol/L (3.4-5.0); Sodium 136 mmol/L (137-145)
[2023-04-13 04:21] LABS: Hemoglobin 10.5 g/dL (12.0-15.0); Mean Corpuscular HGB Conc 31.8 g/dl (32-36); Mean Corpuscular Hemoglobin 29.2 pg (26-34); Mean Corpuscular Volume 91.7 fl (80-100); Mean Platelet Volume 10.4 fl (7.4-10.4); Platelet Count Result 171 k/mm3 (150-375); Red Cell Distribution Width 14.4 % (11.5-14.5); White Blood Count 8.6 K/mm3 (4.5-10.0)
[2023-04-13 04:54] LABS: Troponin I 0.339 ng/mL (0.000-0.034)
[2023-04-13] MEDS: INSULIN ASPART (*BKC) 100 UNITS/ML 15 UNITS SUB-Q (08:33)
--- NOTE | 2023-04-13 08:33 | P.PNIM_ITS ---
Progress Note: A&P Assessment and Plan (1) End-stage renal disease on peritoneal dialysis: Code(s): N18.6 - End stage renal disease; Z99.2 - Dependence on renal dialysis Status: Acute (2) Syncope: Qualifiers: Syncope type: unspecified Qualified Code(s): R55 - Syncope and collapse Code(s): R55 - Syncope and collapse Status: Acute (3) Hypoglycemia: Code(s): E16.2 - Hypoglycemia, unspecified Status: Acute (4) Elevated troponin: Code(s): R79.89 - Other specified abnormal findings of blood chemistry Status: Acute (5) Insulin dependent type 2 diabetes mellitus: Code(s): E11.9 - Type 2 diabetes mellitus without complications; 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 Patient was found have hypoglycemia, Hypoglycemia protocol was initiated Telemetry monitoring echocardiogram March 2023 shows normal EF, grade 1 diastolic dysfunction, mild-moderate aortic valve regurgitation Order carotid Doppler Need to rule out cardiogenic syncope Consult cabbage salter for evaluation Elevated troponin Elevated troponin above baseline History of CAD EKG shows sinus rhythm no specific status changes Aspirin 325 mg once Continue aspirin 81 mg daily p.o., Plavix 75 mg daily p.o. Consult cabbage salter for evaluation treatment Type 2 diabetes Hypoglycemia protocol is initiated Start insulin sliding scale a.c. q.h.s. End-stage renal disease Impression and on peritoneal dialysis Consult crane operator cab for dialysis Gentle IV fluid Essential hypertension Continue home medication hydralazine 25 mg b.i.d. p.o. Subjective Date/time seen: 04/13/23 08:33 Interval history: I saw and examined patient in patient room with patient nurse. Patient was still confused, no obvious distress, dry mucous membrane Patient has no complaints Exam Narrative: GENERAL: Pleasant, in no acute distress. Well-nourished. - EYES: EOMI. Anicteric. - HENT: Dry mucous membranes. - LUNGS: Clear to auscultation bilateral ly, no wheezing, rhonchi, or rales. - CARDIOVASCULAR: Regular rate and rhyth m. No murmur. No JVD. - ABDOMEN: Soft, non-tender and non-dist ended. No palpable masses. - EXTREMITIES: No edema. Peripheral puls es 2+. Non-tender. - NEUROLOGIC: No focal neurological defi cits. CN II-XII grossly intact. - PSYCHIATRIC: Awake, Alert and not orie nted x 3. Lethargic. - SKIN: No rashes or lesions. Warm. - LYMPH: No cervical lymphadenopathy. Objective Data Vital Signs Vital Signs: Vital Signs - 24 hr 04/12/23 18:01 04/12/23 19:13 04/12/23 21:18 Temperature 98.4 F Pulse Rate 67 66 67 Respiratory Rate 18 16 18 Blood Pressure 138/70 127/67 145/56 H Pulse Oximetry 100 100 100 Oxygen Delivery Room Air 04/12/23 23:33 04/13/23 00:00 04/13/23 02:00 Temperature 97 F L Pulse Rate 74 70 72 Respiratory Rate 1
--- NOTE | 2023-04-13 08:33 | PM.IMPN ---
Progress Note: A&P Assessment and Plan (1) End-stage renal disease on peritoneal dialysis: Code(s): N18.6 - End stage renal disease; Z99.2 - Dependence on renal dialysis Status: Acute (2) Syncope: Qualifiers: Syncope type: unspecified Qualified Code(s): R55 - Syncope and collapse Code(s): R55 - Syncope and collapse Status: Acute (3) Hypoglycemia: Code(s): E16.2 - Hypoglycemia, unspecified Status: Acute (4) Elevated troponin: Code(s): R79.89 - Other specified abnormal findings of blood chemistry Status: Acute (5) Insulin dependent type 2 diabetes mellitus: Code(s): E11.9 - Type 2 diabetes mellitus without complications; 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 Patient was found have hypoglycemia, Hypoglycemia protocol was initiated Telemetry monitoring echocardiogram March 2023 shows normal EF, grade 1 diastolic dysfunction, mild-moderate aortic valve regurgitation Order carotid Doppler Need to rule out cardiogenic syncope Consult chief controller center for evaluation Elevated troponin Elevated troponin above baseline History of CAD EKG shows sinus rhythm no specific status changes Aspirin 325 mg once Continue aspirin 81 mg daily p.o., Plavix 75 mg daily p.o. Consult chief controller center for evaluation treatment Type 2 diabetes Hypoglycemia protocol is initiated Start insulin sliding scale a.c. q.h.s. End-stage renal disease Impression and on peritoneal dialysis Consult professor of law for dialysis Gentle IV fluid Essential hypertension Continue home medication hydralazine 25 mg b.i.d. p.o. Subjective Date/time seen: 04/13/23 08:33 Interval history: I saw and examined patient in patient room with patient nurse. Patient was still confused, no obvious distress, dry mucous membrane Patient has no complaints Exam Narrative: GENERAL: Pleasant, in no acute distress. Well-nourished. - EYES: EOMI. Anicteric. - HENT: Dry mucous membranes. - LUNGS: Clear to auscultation bilaterally, no wheezing, rhonchi, or rales. - CARDIOVASCULAR: Regular rate and rhythm. No murmur. No JVD. - ABDOMEN: Soft, non-tender and non-distended. No palpable masses. - EXTREMITIES: No edema. Peripheral pulses 2+. Non-tender. - NEUROLOGIC: No focal neurological deficits. CN II-XII grossly intact. - PSYCHIATRIC: Awake, Alert and not oriented x 3. Lethargic. - SKIN: No rashes or lesions. Warm. - LYMPH: No cervical lymphadenopathy. Objective Data Vital Signs Vital Signs: Vital Signs - 24 hr 04/12/23 18:01 04/12/23 19:13 04/12/23 21:18 Temperature 98.4 F Pulse Rate 67 66 67 Respiratory Rate 18 16 18 Blood Pressure 138/70 127/67 145/56 H Pulse Oximetry 100 100 100 Oxygen Delivery Room Air 04/12/23 23:33 04/13/23 00:00 04/13/23 02:00 Temperature 97 F L Pulse Rate 74 70 72 Respiratory Rate 16 Blood Pressure 155/60 H Pulse Oximetry 100 Oxygen Delivery 04/13/23 04:00 04/13/23 04:00 04/13/23 06:00 Temperature 97.7 F Pulse Rate 63 77 71 Respiratory Rate 16 Blood Pressure 122/46 L Pulse Oximetry 98 Oxygen Delivery 04/13/23 07:49 Temperature 97.7 F Pulse Rate 76 Respiratory Rate 14 Blood Pressure 106/58 L Pulse Oximetry 98 Oxygen Delivery Intake/Output Intake/Output: Intake & Output 04/10/23 04/11/23 04/12/23 04/13/23 23:59 23:59 23:59 23:59 Intake Total 500 Output Total 0 Balance 500 0 Meds/Results Medications: Active Medications Generic Name Dose Route Start Last Admin Trade Name Freq PRN Reason Stop Dose Admin Aspirin 325 mg 04/13/23 08:00 Aspirin 325 Mg Tablet PO DAILY@0800 [facility] Atorvastatin Calcium 40 mg 04/13/23 21:00 Atorvastatin 40 Mg Tablet PO HS [facility] Carvedilol 6.25 mg 04/13/23 09:00 Carvedilol 6.25 Mg Tablet PO Q12HR [facility] Clopidogrel Bisulfate 7
[2023-04-13 08:38] LABS: Glucose Point of Care 421 mg/dl (65-105)
[2023-04-13 09:48] LABS: Glucose Point of Care 390 mg/dl (65-105)
--- NOTE | 2023-04-13 09:51 | PM.CNCAR ---
Assessment and Plan Assessment and plan (1) Syncope: Qualifiers: Syncope type: unspecified Qualified Code(s): R55 - Syncope and collapse Code(s): R55 - Syncope and collapse Status: Acute Assessment and Plan: According to her medical record she had an episode of being found to be minimally responsive by alf staff. Patient does not remember this event therefore does not recall any prodromal symptoms. She apparently was having problems controlling her blood sugar yesterday and had been given multiple doses of insulin because her blood glucose was 500 at one point. In the ED her blood sugar was 48. This is the most likely cause for her episode of decreased responsiveness. It does not sound like she had syncope, but it is difficult to elicit much history from her. She is in sinus rhythm on telemetry with no bradycardia, pauses, high degree AV blocks, or tachyarrhythmias. (2) Elevated troponin: Code(s): R79.89 - Other specified abnormal findings of blood chemistry Status: Acute Assessment and Plan: Troponin levels are elevated but flat 0.341, 0.337, 0.339. This is not consistent with ACS. Furthermore, she denies chest pain. Cannot rule out underlying coronary disease, but in the absence of ischemic EKG changes and chest pain no further cardiac workup indicated or recommended at this time. Cardiology will sign off please call with questions. History of Present Illness History of Present Illness Consult date/time: 04/13/23 09:51 Requesting physician: Antonette Rodriguez MD Consult reason: Other (syncope, elevated troponin) Reason For Visit: Syncope, Hypoglycemia, ESRD on PD, Elevated Tropon Narrative: Dalila Redd is a 77 year old woman with end stage renal disease on peritoneal dialysis, type 2 diabetes mellitus, recent CVA 03/2023, and diastolic dysfunction. She was brought to the hospital by EMS from her alf because of an unresponsive episode. She has no recollection of this event but denies having any symptoms prior. Her blood glucose level was 48 when she arrived to the ED. She denies a history of any cardiac problems. Denies chest pain, shortness of breath, palpitations. She is not oriented at the time of my conversation with her. Cardiology has been asked to see her because of syncope and elevated troponin levels. Review of Systems Review of Systems: ROS unobtainable: Yes unobtainable due to mental status PMFSH Past Medical History Medical History Anemia Cerebrovascular accident (03/2023) Acute infarct right temporal occipital region acute infarct left basal ganglia and anterior limb left internal capsule. Old infarcts noted on imaging to left temporal occipital region left frontal parietal region and left parietal lobe End-stage renal disease on peritoneal dialysis Hyperlipidemia Hypertension Insulin dependent type 2 diabetes mellitus Nontoxic multinodular goiter Osteoporosis Secondary renal hyperparathyroidism Uterine cancer Vitamin D deficiency Surgical History Surgical History History of cataract extraction History of hysterectomy for cancer (2014) History of surgery on lower extremity Debridement of right leg infection. Family History Family History Mother , Age 86 Breast cancer Uterine cancer Father , Age 47 Acute myocardial infarction Grandparent Parkinson's disease Other Asthma Family history of alcoholism Family history of malignant neoplasm of ovary Family history of mental disorder Social History Social History Social History: Surrogate decision maker: Aby Calixto, daughter. Code status: Do not resuscitate. Smoking status: Never smoker Second hand tobacco smoke exp
[2023-04-13] MEDS: carvediloL 6.25 MG TABLET PO ×2 (10:34→20:31)
[2023-04-13] MEDS: CLOPIDOGREL BISULFATE 75 MG TABLET PO (10:34)
[2023-04-13] MEDS: CHOLECALCIFEROL 1,000 UNITS TABLET 1000 UNITS PO (10:34)
[2023-04-13] MEDS: ASPIRIN 325 MG TABLET PO (10:34)
[2023-04-13] MEDS: hydrALAZINE HCL 25 MG TABLET PO ×2 (10:35→20:31)
--- NOTE | 2023-04-13 10:40 | PM.CNNEP ---
Assessment and Plan Assessment and plan (1) ESRD (end stage renal disease): Code(s): N18.6 - End stage renal disease Status: Chronic Assessment and Plan: resume CCPD Rx this evening follow electrolytes, volume status, and clearance (2) Syncope: Qualifiers: Syncope type: unspecified Qualified Code(s): R55 - Syncope and collapse Code(s): R55 - Syncope and collapse Status: Acute Assessment and Plan: felt to be more related to hypoglycemia than true syncope Cardiology recommendations noted follow symptoms (3) Hypokalemia: Code(s): E87.6 - Hypokalemia Status: Acute Assessment and Plan: better by last check likely secondary to poor oral intake and continued CCPD follow trend and replete as needed (4) Hypertension: Qualifiers: Hypertension type: secondary to other renal disorders Qualified Code(s): I15.1 - Hypertension secondary to other renal disorders; N28.89 - Other specified disorders of kidney and ureter Code(s): I10 - Essential (primary) hypertension Status: Chronic Assessment and Plan: reasonable control does have a history of orthostatic hypotension (but this was related to volume depletion/dehyration on last admission) slow resume home medications follow trend of hemodynamics (5) Diabetes mellitus type 1: Qualifiers: Diabetes mellitus complication status: with hyperglycemia Qualified Code(s): E10.65 - Type 1 diabetes mellitus with hyperglycemia Code(s): E10.9 - Type 1 diabetes mellitus without complications Status: Chronic Assessment and Plan: brittle control at baseline use of peritoneal dialysis fluid has exacerbated this in the past follow accu-cheks glycemic control per hospitalists I will continue to follow the patient with you while she remains hospitalized and make further recommendations as needed. Thank you for allowing me to participate in care this patient. History of Present Illness Reason for Consult Consult date: 04/13/23 Reason for consult: end stage renal disease Chief Complaint Chief complaint: Syncope, Hypoglycemia, ESRD on PD, Elevated Tropon History of Present Illness Narrative: Most of the information that I have obtained is from review of the electronic medical record as well as discussion with the physician / nurses involved in the patient's care as the patient is unable to provide a full and complete history as to the events that led to her presentation and subsequent admission to [facility]. The patient is a 77-year-old female with extensive past medical history who presented to [facility] Emergency room via EMS from her nursing facility for further evaluation of syncope/unresponsive episode). Apparently, the patient's blood sugars have been running high the entire day in the range of 500s if not higher. She apparently was given multiple doses of insulin over the course of the day in effort to control this. Apparently, when the episode of ?syncope? and unresponsiveness occurred, her blood sugars had dropped to around 1 0s but by time EMS arrived and transported to the emergency room, her blood sugars were in the 40s. Routine blood test demonstrated labs consistent with her known history of end-stage renal disease and she did have elevated troponins but they were not any more higher than on previous troponins as compared to previous hospitalizations here at [facility]. She gave no complaints with regard to chest pain in the ER but her mentation was clearly not back to baseline presumably secondary to hyperglycemia. Initially, it was felt that her ?unresponsive episode and ?was more related to hypoglycemia a given her complex medical history, she was admitted the hospital for further evaluation therapy. Since her admission, her blood sugars have normalized if not run in the 200 range and her mentation seems to b
[2023-04-13 11:56] LABS: Glucose Point of Care 276 mg/dl (65-105)
[2023-04-13] MEDS: INSULIN ASPART (*BKC) 100 UNITS/ML SUB-Q ×2 (12:46→20:32)
[2023-04-13] MEDS: SODIUM CHLORIDE 0.9% IV 1,000 ML 100 ML IV CONT (16:14)
[2023-04-13 16:49] LABS: Glucose Point of Care 126 mg/dl (65-105)
--- NOTE | 2023-04-13 18:20 | PC.NURSE ---
1810- transfer to room 261 via bed accompanied by staff-report given to Farideh CALVIN- daughter accompanied pt on transfer
[2023-04-13] MEDS: ATORVASTATIN 40 MG TABLET PO (20:31)
[2023-04-13] MEDS: INSULIN GLARGINE (*BKC) 100 UNITS/ML 30 UNITS SUB-Q (20:32)
[2023-04-14] VITALS (12 sets, daily range): BP systolic 111–147; BP diastolic 40–70; PULSE 58–78; RESP 16–18; TEMP 35.8–36.4; O2SAT 98–100
[2023-04-14 00:45] LABS: Glucose Point of Care 278 mg/dl (65-105)
[2023-04-14 00:45] LABS: Glucose Point of Care 264 mg/dl (65-105)
[2023-04-14] MEDS: SODIUM CHLORIDE 0.9% IV 1,000 ML 100 ML IV CONT ×2 (05:40→11:56)
[2023-04-14 06:12] LABS: Basophils Percent Auto 0.4 % (0.2-1.2); Eosinophils Absolute Auto 0.2 K/mm3 (0-0.3); Eosinophils Percent Auto 2.7 % (0-4.4); Hematocrit 29.7 % (37.0-47.0); Hemoglobin 9.6 g/dL (12.0-15.0); Immature Granulocyte Absolute 0.02 K/mm3 (0.00-0.031); Immature Granulocyte Percent A 0.3 % (0-0.5); Lymphocytes Absolute Auto 0.93 K/mm3 (0.9-3.2); Lymphocytes Percent Auto 13.1 % (18.3-44.2); Mean Corpuscular HGB Conc 32.3 g/dl (32-36); Mean Corpuscular Hemoglobin 29.5 pg (26-34); Mean Corpuscular Volume 91.4 fl (80-100); Monocytes Absolute Auto 0.4 K/mm3 (0.1-0.6); Monocytes Percent Auto 5.8 % (2.6-8.5); Neutrophils Absolute Auto 5.5 K/mm3 (1.3-6.7); Neutrophils Percent Auto 77.7 % (45.5-73.1); Platelet Count Result 165 k/mm3 (150-375); Red Blood Count 3.25 M/mm3 (4.2-5.4); Red Cell Distribution Width 14.3 % (11.5-14.5); White Blood Count 7.1 K/mm3 (4.5-10.0)
[2023-04-14 06:43] LABS: Alanine Aminotransferase 19 U/L (6-35); Albumin Level 2.8 g/dL (3.5-5.1); Alkaline Phosphatase 70 U/L (38-126); Anion Gap 15 mmol/L (8-16); Aspartate Amino Transferase 36 U/L (14-36); Bilirubin,Total 0.4 mg/dL (0.2-1.3); Blood Urea Nitrogen 50 mg/dL (7-17); Calcium 8.2 mg/dL (8.4-10.2); Carbon Dioxide 23 mmol/L (22-30); Chloride 100 mmol/L (98-107); Estimated CRCL calculation 4 ml/min; Estimated Glomerular Filt Rate 4; Glucose 161 mg/dL (65-110); Magnesium 1.6 mg/dL (1.6-2.3); Phosphorus 7.7 mg/dL (2.5-4.5); Potassium 2.8 mmol/L (3.4-5.0); Sodium 138 mmol/L (137-145)
[2023-04-14] MEDS: hydrALAZINE HCL 25 MG TABLET PO ×2 (08:08→21:00)
[2023-04-14] MEDS: carvediloL 6.25 MG TABLET PO ×2 (08:08→20:59)
[2023-04-14] MEDS: CHOLECALCIFEROL 1,000 UNITS TABLET 1000 UNITS PO (08:08)
[2023-04-14] MEDS: POTASSIUM CHLORIDE 20 MEQ ER TABLET 40 MEQ PO (08:08)
[2023-04-14] MEDS: ASPIRIN 325 MG TABLET PO (08:10)
[2023-04-14] MEDS: CLOPIDOGREL BISULFATE 75 MG TABLET PO (08:11)
[2023-04-14 08:34] LABS: Glucose Point of Care 141 mg/dl (65-105)
--- NOTE | 2023-04-14 11:19 | P.CDI_ITS ---
CDI Query Clarification Request BMI 17.3 Nutritional Diagnostic Statement Moderate protein calorie malnutrition related to inadequate energy intake and reduced appetite as evidenced by poor po intake, -12% wt loss x 1 month. Please refer to the comprehensive nutrition assessment for further information. Please clarify severity of protein calorie malnutrition if known: * Mild * Moderate * Severe * Other/ Unspecified <Hilary Sparks RN - Last Filed: 04/14/23 11:25> Clarified Diagnosis Clarified Diagnosis: moderate malnutirion <Lynda Pichardo MD - Last Filed: 04/16/23 16:00>
--- NOTE | 2023-04-14 11:35 | PM.PNNEP ---
Progress Note: A&P Assessment and Plan (1) ESRD (end stage renal disease): Code(s): N18.6 - End stage renal disease Status: Chronic Assessment and Plan: continue CCPD Rx nightly follow electrolytes, volume status, and clearance (2) Syncope: Qualifiers: Syncope type: unspecified Qualified Code(s): R55 - Syncope and collapse Code(s): R55 - Syncope and collapse Status: Acute Assessment and Plan: felt to be more related to hypoglycemia than true syncope Cardiology recommendations noted follow symptoms (3) Hypokalemia: Code(s): E87.6 - Hypokalemia Status: Acute Assessment and Plan: better by last check likely secondary to poor oral intake and continued CCPD follow trend and replete as needed (4) Hypertension: Qualifiers: Hypertension type: secondary to other renal disorders Qualified Code(s): I15.1 - Hypertension secondary to other renal disorders; N28.89 - Other specified disorders of kidney and ureter Code(s): I10 - Essential (primary) hypertension Status: Chronic Assessment and Plan: reasonable control does have a history of orthostatic hypotension (but this was related to volume depletion/dehyration on last admission) slow resume home medications follow trend of hemodynamics (5) Diabetes mellitus type 1: Qualifiers: Diabetes mellitus complication status: with hyperglycemia Qualified Code(s): E10.65 - Type 1 diabetes mellitus with hyperglycemia Code(s): E10.9 - Type 1 diabetes mellitus without complications Status: Chronic Assessment and Plan: brittle control at baseline use of peritoneal dialysis fluid has exacerbated this in the past follow accu-cheks glycemic control per hospitalists Will continue to follow. Subjective Date/time seen: 04/14/23 11:35 Interval history: Follow-up for end stage renal disease on peritoneal dialysis. Tolerated peritoneal dialysis treatment overnight without any issues or problems; no apparent distress voiced at this time; no events overnight or earlier this morning. Exam Narrative: General: elderly female in NAD Heart: normal S1 and S2; no rub Lungs: clear to auscultation Abdomen: soft, nontender, nondistended, positive bowel sounds Extremities: no cyanosis or clubbing; no edema Skin: warm and dry Objective Data Vital Signs Vital Signs: Vital Signs Temp Pulse Resp BP Pulse Ox O2 Del Method 04/14/23 09:02 96.7 F L 67 16 111/48 L 04/14/23 09:50 96.7 F L 67 16 111/48 L 99 04/14/23 08:08 78 04/14/23 04:00 97 F L 65 18 127/67 98 04/14/23 04:00 64 04/14/23 00:00 76 04/14/23 00:00 97.6 F 75 127/70 98 04/13/23 21:20 Room Air 04/13/23 20:00 70 04/13/23 20:31 70 04/13/23 20:28 97.0 F L 70 18 138/58 L 99 04/13/23 18:21 97.3 F L 70 18 121/48 L 100 Intake/Output Intake/Output: Intake & Output 04/11/23 04/12/23 04/13/23 04/14/23 23:59 23:59 23:59 23:59 Intake Total 009 018 0533 Output Total 0 887 Balance 133 421 6633 Meds/Results Medications: Active Medications Generic Name Dose Route Start Last Admin Trade Name Sage PRN Reason Stop Dose Admin Aspirin 325 mg 04/13/23 08:00 04/14/23 08:10 Aspirin 325 Mg Tablet PO 325 mg DAILY@0800 [facility] Administration Atorvastatin Calcium 40 mg 04/13/23 21:00 04/13/23 20:31 Atorvastatin 40 Mg Tablet PO 40 mg HS [facility] Administration Carvedilol 6.25 mg 04/13/23 09:00 04/14/23 08:08 Carvedilol 6.25 Mg Tablet PO 6.25 mg Q12HR [facility] Administration Clopidogrel Bisulfate 75 mg 04/13/23 09:00 04/14/23 08:11 Clopidogrel Bisulfate 75 Mg Tablet PO 75 mg QAM [facility] Administration Dextrose 12.5 gm 04/13/23 04:20 Dextrose 50% 25 Gm/50 Ml Syringe IV PUSH PRN PRN Hypoglycemia Protocol Gentamicin Sulfate 1 applic
[2023-04-14 11:43] LABS: Glucose Point of Care 94 mg/dl (65-105)
[2023-04-14] MEDS: POTASSIUM CHLORIDE 20 MEQ ER TABLET PO (11:56)
--- NOTE | 2023-04-14 13:15 | PM.IMPN ---
Progress Note: A&P Assessment and Plan (1) End-stage renal disease on peritoneal dialysis: Code(s): N18.6 - End stage renal disease; Z99.2 - Dependence on renal dialysis Status: Acute (2) Syncope: Qualifiers: Syncope type: unspecified Qualified Code(s): R55 - Syncope and collapse Code(s): R55 - Syncope and collapse Status: Acute (3) Hypoglycemia: Code(s): E16.2 - Hypoglycemia, unspecified Status: Acute (4) Elevated troponin: Code(s): R79.89 - Other specified abnormal findings of blood chemistry Status: Acute (5) Insulin dependent type 2 diabetes mellitus: Code(s): E11.9 - Type 2 diabetes mellitus without complications; 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 Patient was found have hypoglycemia, Hypoglycemia protocol was initiated Telemetry monitoring echocardiogram March 2023 shows normal EF, grade 1 diastolic dysfunction, mild-moderate aortic valve regurgitation cardiology have signed off orthostatics encourage food and ensure supplementation hypokalaemia potassium supplementation potassium is 2.8 today pt is a dialysis pt not eating much Elevated troponin Elevated troponin above baseline History of CAD EKG shows sinus rhythm no specific status changes Aspirin 325 mg once Continue aspirin 81 mg daily p.o., Plavix 75 mg daily p.o. Type 2 diabetes Hypoglycemia protocol is initiated Start insulin sliding scale a.c. q.h.s. End-stage renal disease Impression and on peritoneal dialysis Consult gear cutter for dialysis Essential hypertension Continue home medication hydralazine 25 mg b.i.d. p.o. plan dc estefania after dialysis Subjective Date/time seen: 04/14/23 13:15 Interval history: Patient was still confused, no obvious distress, dry mucous membrane Pt not eating much potassium is low, continue ensures in hospital, PT/ OT for weakness Potassium remains very low supplement with oral potassium DC estefania after dialysis Review of Systems Review of Systems: weakness loss of appetite ROS unobtainable: Yes unobtainable due to mental status Exam Narrative: GENERAL: Pleasant, in no acute distress. Well-nourished. - EYES: EOMI. Anicteric. - HENT: Dry mucous membranes. - LUNGS: Clear to auscultation bilaterally, no wheezing, rhonchi, or rales. - CARDIOVASCULAR: Regular rate and rhythm. No murmur. No JVD. - ABDOMEN: Soft, non-tender and non-distended. No palpable masses. - EXTREMITIES: No edema. Peripheral pulses 2+. Non-tender. - NEUROLOGIC: No focal neurological deficits. CN II-XII grossly intact. - PSYCHIATRIC: Awake, Alert and not oriented x 3. Lethargic. - SKIN: No rashes or lesions. Warm. - LYMPH: No cervical lymphadenopathy. Objective Data Vital Signs Vital Signs: Vital Signs - 24 hr 04/13/23 14:00 04/13/23 16:00 04/13/23 16:15 Temperature 36.5 C Pulse Rate 69 65 68 Respiratory Rate 16 Blood Pressure 110/59 L Pulse Oximetry 94 Oxygen Delivery 04/13/23 18:21 04/13/23 20:28 04/13/23 20:31 Temperature 36.3 C L 36.1 C L Pulse Rate 70 70 70 Respiratory Rate 18 18 Blood Pressure 121/48 L 138/58 L Pulse Oximetry 100 99 Oxygen Delivery 04/13/23 20:00 04/13/23 21:20 04/14/23 00:00 Temperature 36.4 C Pulse Rate 70 75 Respiratory Rate Blood Pressure 127/70 Pulse Oximetry 98 Oxygen Delivery Room Air 04/14/23 00:00 04/14/23 04:00 04/14/23 04:00 Temperature 36.1 C L Pulse Rate 76 64 65 Respiratory Rate 18 Blood Pressure 127/67 Pulse Oximetry 98 Oxygen Delivery 04/14/23 08:08 04/14/23 09:50 Temperature 35.9 C L Pulse Rate 78 67 Respiratory Rate 16 Blood Pressure 111/48 L Pulse Oximetry 99 Oxygen Delivery Intake/Output Intake/Output: Intake & Output 04/11/23 04/12/23 04/13/23 04/14/23 23:59 23:59 23:59 23:59 Intake
[2023-04-14] MEDS: GENTAMICIN SULFATE 0.1% CR 15 GM TUBE 1 APPLIC TOPICAL (14:32)
[2023-04-14] MEDS: POTASSIUM CHLORIDE 20 MEQ PACKET (FOR LIQUID) 40 MEQ PO (17:09)
[2023-04-14 17:10] LABS: Glucose Point of Care 159 mg/dl (65-105)
[2023-04-14] MEDS: ATORVASTATIN 40 MG TABLET PO (21:00)
[2023-04-14] MEDS: INSULIN GLARGINE (*BKC) 100 UNITS/ML 30 UNITS SUB-Q (21:02)
[2023-04-14] MEDS: INSULIN ASPART (*BKC) 100 UNITS/ML SUB-Q (21:04)
[2023-04-14 21:11] LABS: Glucose Point of Care 284 mg/dl (65-105)
[2023-04-15] VITALS (8 sets, daily range): BP systolic 127–136; BP diastolic 58–63; PULSE 50–68; RESP 14–18; TEMP 36.2–36.6; O2SAT 96–100
[2023-04-15 06:21] LABS: Basophils Percent Auto 0.2 % (0.2-1.2); Eosinophils Absolute Auto 0.2 K/mm3 (0-0.3); Eosinophils Percent Auto 3.5 % (0-4.4); Hematocrit 28.9 % (37.0-47.0); Hemoglobin 9.2 g/dL (12.0-15.0); Immature Granulocyte Absolute 0.02 K/mm3 (0.00-0.031); Immature Granulocyte Percent A 0.3 % (0-0.5); Lymphocytes Absolute Auto 0.88 K/mm3 (0.9-3.2); Lymphocytes Percent Auto 13.4 % (18.3-44.2); Mean Corpuscular HGB Conc 31.8 g/dl (32-36); Mean Corpuscular Hemoglobin 29.6 pg (26-34); Mean Corpuscular Volume 92.9 fl (80-100); Mean Platelet Volume 10.2 fl (7.4-10.4); Monocytes Absolute Auto 0.5 K/mm3 (0.1-0.6); Monocytes Percent Auto 7.9 % (2.6-8.5); Neutrophils Absolute Auto 4.9 K/mm3 (1.3-6.7); Neutrophils Percent Auto 74.7 % (45.5-73.1); Platelet Count Result 165 k/mm3 (150-375); Red Blood Count 3.11 M/mm3 (4.2-5.4); Red Cell Distribution Width 14.4 % (11.5-14.5); White Blood Count 6.6 K/mm3 (4.5-10.0)
[2023-04-15 06:40] LABS: Albumin Level 2.7 g/dL (3.5-5.1); Anion Gap 13 mmol/L (8-16); Blood Urea Nitrogen 41 mg/dL (7-17); Calcium 8.2 mg/dL (8.4-10.2); Carbon Dioxide 21 mmol/L (22-30); Chloride 107 mmol/L (98-107); Estimated CRCL calculation 4 ml/min; Estimated Glomerular Filt Rate 5; Glucose 41 mg/dL (65-110); Magnesium 1.6 mg/dL (1.6-2.3); Phosphorus 5.4 mg/dL (2.5-4.5); Potassium 3.6 mmol/L (3.4-5.0); Sodium 141 mmol/L (137-145)
[2023-04-15] MEDS: DEXTROSE 50% 25 GM/50 ML SYRINGE IV PUSH (06:44)
[2023-04-15 06:52] LABS: Glucose Point of Care 22 mg/dl (65-105)
[2023-04-15 06:52] LABS: Glucose Point of Care 315 mg/dl (65-105)
[2023-04-15 08:21] LABS: Glucose Point of Care 140 mg/dl (65-105)
[2023-04-15 08:21] LABS: Glucose Point of Care 185 mg/dl (65-105)
[2023-04-15 08:21] LABS: Glucose Point of Care 104 mg/dl (65-105)
--- NOTE | 2023-04-15 08:57 | PM.PNNEP ---
Progress Note: A&P Assessment and Plan (1) ESRD (end stage renal disease): Code(s): N18.6 - End stage renal disease Status: Chronic Assessment and Plan: continue CCPD Rx nightly follow electrolytes, volume status, and clearance (2) Syncope: Qualifiers: Syncope type: unspecified Qualified Code(s): R55 - Syncope and collapse Code(s): R55 - Syncope and collapse Status: Acute Assessment and Plan: felt to be more related to hypoglycemia than true syncope Cardiology recommendations noted follow symptoms (3) Hypokalemia: Code(s): E87.6 - Hypokalemia Status: Acute Assessment and Plan: better by last check likely secondary to poor oral intake and continued CCPD follow trend and replete as needed (4) Hypertension: Qualifiers: Hypertension type: secondary to other renal disorders Qualified Code(s): I15.1 - Hypertension secondary to other renal disorders; N28.89 - Other specified disorders of kidney and ureter Code(s): I10 - Essential (primary) hypertension Status: Chronic Assessment and Plan: reasonable control does have a history of orthostatic hypotension (but this was related to volume depletion/dehyration on last admission) slow resume home medications follow trend of hemodynamics (5) Diabetes mellitus type 1: Qualifiers: Diabetes mellitus complication status: with hyperglycemia Qualified Code(s): E10.65 - Type 1 diabetes mellitus with hyperglycemia Code(s): E10.9 - Type 1 diabetes mellitus without complications Status: Chronic Assessment and Plan: brittle control at baseline use of peritoneal dialysis fluid has exacerbated this in the past follow accu-cheks glycemic control per hospitalists Will continue to follow. Subjective Date/time seen: 04/15/23 08:57 Interval history: Follow-up for end stage renal disease on peritoneal dialysis. Tolerated peritoneal dialysis treatment overnight without any issues or problems; mentation continues to slowly improve with current therapy; K+ doing better with oral supplementation; no apparent distress voiced at the time of my visit. Exam Narrative: General: elderly female in NAD Heart: normal S1 and S2; no rub Lungs: clear to auscultation Abdomen: soft, nontender, nondistended, positive bowel sounds Extremities: no cyanosis or clubbing; no edema Skin: No rash Objective Data Vital Signs Vital Signs: Vital Signs Temp Pulse Resp BP Pulse Ox O2 Del Method 04/15/23 08:00 50 L 04/15/23 08:00 97.8 F 59 L 14 134/58 L 100 04/15/23 07:20 97.1 F L 61 18 136/62 04/15/23 08:52 96 Room Air 04/15/23 04:00 97.1 F L 61 18 136/62 100 04/15/23 04:00 60 04/15/23 00:00 97.4 F L 68 18 127/63 99 04/15/23 00:00 68 04/14/23 20:00 65 18 100 Room Air 04/14/23 20:00 58 L 04/14/23 20:00 97.3 F L 65 18 147/64 H 100 04/14/23 20:59 65 04/14/23 16:00 71 Intake/Output Intake/Output: Intake & Output 04/12/23 04/13/23 04/14/23 04/15/23 23:59 23:59 23:59 23:59 Intake Total 631 787 5818 120 Output Total 0 887 1069 Balance 596 741 2016 -949 Meds/Results Medications: Active Medications Generic Name Dose Route Start Last Admin Trade Name Sage PRN Reason Stop Dose Admin Aspirin 325 mg 04/13/23 08:00 04/15/23 09:01 Aspirin 325 Mg Tablet PO 325 mg DAILY@0800 [facility] Administration Atorvastatin Calcium 40 mg 04/13/23 21:00 04/14/23 21:00 Atorvastatin 40 Mg Tablet PO 40 mg HS [facility] Administration Carvedilol 6.25 mg 04/13/23 09:00 04/15/23 09:01 Carvedilol 6.25 Mg Tablet PO 6.25 mg Q12HR [facility] Administration Clopidogrel Bisulfate 75 mg 04/13/23 09:00 04/15/23 09:01 Clopidogrel Bisulfate 75 Mg Tablet PO 75 mg QAM [facility] Administration Dextrose 12.5 gm 04/13/23 04:20 04/15/23 06:44
[2023-04-15] MEDS: ASPIRIN 325 MG TABLET PO (09:01)
[2023-04-15] MEDS: POTASSIUM CHLORIDE 20 MEQ PACKET (FOR LIQUID) 40 MEQ PO ×2 (09:01→16:36)
[2023-04-15] MEDS: CLOPIDOGREL BISULFATE 75 MG TABLET PO (09:01)
[2023-04-15] MEDS: carvediloL 6.25 MG TABLET PO (09:01)
[2023-04-15] MEDS: CHOLECALCIFEROL 1,000 UNITS TABLET 1000 UNITS PO (09:02)
[2023-04-15] MEDS: GENTAMICIN SULFATE 0.1% CR 15 GM TUBE 1 APPLIC TOPICAL (09:02)
[2023-04-15] MEDS: hydrALAZINE HCL 25 MG TABLET PO (09:02)
--- NOTE | 2023-04-15 09:10 | PM.DS ---
DS: Admitting Diagnosis Discharge Date 04/15/2023 Admitting Diagnosis Unresponsive DS: Discharge Diagnosis Discharge Diagnosis (1) End-stage renal disease on peritoneal dialysis: Code(s): N18.6 - End stage renal disease; Z99.2 - Dependence on renal dialysis Status: Acute (2) Syncope: Qualifiers: Syncope type: unspecified Qualified Code(s): R55 - Syncope and collapse Code(s): R55 - Syncope and collapse Status: Acute (3) Hypoglycemia: Code(s): E16.2 - Hypoglycemia, unspecified Status: Acute (4) Elevated troponin: Code(s): R79.89 - Other specified abnormal findings of blood chemistry Status: Acute (5) Insulin dependent type 2 diabetes mellitus: Code(s): E11.9 - Type 2 diabetes mellitus without complications; Z79.4 - medical terminologist (current) use of insulin Status: Acute Plan Syncope The patient was brought in for unresponsive episode. Patient was found have hypoglycemia, Hypoglycemia protocol was initiated echocardiogram March 2023 shows normal EF, grade 1 diastolic dysfunction, mild-moderate aortic valve regurgitation cardiology have signed off syncope not secondary to cardiac problems more likely hypoglycemia encourage food and ensure supplementation pts having hypoglycemia in the am pt encouraged to eat more lantus changed to bid dosing Hypokalemia resolved potassium supplementation potassium is 2.8 today pt is a dialysis pt not eating much encouraged to eat potassium level is stable now Elevated troponin Elevated troponin above baseline History of CAD EKG shows sinus rhythm no specific status changes Aspirin 325 mg once Continue aspirin 81 mg daily p.o., Plavix 75 mg daily p.o. Type 2 diabetes Hypoglycemia protocol is initiated Start insulin sliding scale a.c. q.h.s. End-stage renal disease Impression and on peritoneal dialysis Consult marketing sales representative for dialysis Essential hypertension Continue home medication hydralazine 25 mg b.i.d. p.o. DS: Summary Hospital Course Hospital Course: 77-year-old female with a past medical history of insulin-dependent type 2 diabetes mellitus, recent CVA 03/2023, diastolic dysfunction, and end-stage renal disease on peritoneal dialysis who presented to the ER via EMS from [facility] with unresponsive episode.? The patient in the ER was answering some questions and was cooperative.? She was not aware of why she was in the ER.? The patient's blood sugars had been running high throughout the day and penitentiary staff given the patient multiple doses of insulin.? The patient's blood sugars had been in the 500s and had come down to the low 100s when EMS had picked the patient up from the penitentiary.? When the patient arrived to the ER her glucoses were 48.? When the patient arrived to the IMU the patient would occasionally say yes or no to questions but would not providing a reliable history.? Her glucoses when she arrived to the IMU or above 200.? At the time my evaluation the patient mumbles affirmative sound but is not reliably following commands.? She will open her mouth to command but will not open her eyes.?Patient was still confused, no obvious distress, dry mucous membrane. Pt given fluids and glucerna, pt encouraged to eat more and the lantus dosing was divided to bid dosing. Time Spent with Patient Time attestation: Total time spent providing and/or coordinating discharge services:40 minutes on day of dc Exam Narrative: GENERAL: Pleasant, in no acute distress. Well-nourished. - EYES: EOMI. Anicteric. - HENT: Dry mucous membranes. - LUNGS: Clear to auscultation bilaterally, no wheezing, rhonchi, or rales. - CARDIOVASCULAR: Regular rate and rhythm. No murmur. No JVD. - ABDOMEN: Soft, non-tender and non-distended. No palpable masses. - EXTREMITIES: No edema. Peripheral pulses 2+. Non-tender. - NEUROLOGIC: No focal neurological deficits. CN II-XII grossly intact. -
--- NOTE | 2023-04-15 10:41 | PC.NURSE ---
At [address] Pichardo that patients blood sugars have been low since compliance clerk lab draw. Morning lab draw had a glucose of 41 and then at 0640 patient POC glucose was 22. Night RN gave IV dextrose and rechecked glucose. Whenever this nurse took over the glucose was taken at 0720 and was 140. Patient was encouraged to eat breakfast. Patient does not have a good appetite and this nurse and the day PCT attempted to help feed the patient breakfast. Patient ate a small amount and did not want anymore. Dr. Pichardo was notified of all of this information.
[2023-04-15 11:34] LABS: Glucose Point of Care 144 mg/dl (65-105)
[2023-04-15 12:30] LABS: SARS-CoV-2 RNA PCR Negative (Negative)
--- NOTE | 2023-04-15 12:50 | PCPTNOTE ---
Attempted PT evaluation, Therapist spent 10 mins with pt gathering prior level of function information. When attempting to transfer out of bed pt found to be incontinent requiring assistance to be cleaned up. Tech present to assist pt.
[2023-04-15 17:05] LABS: Glucose Point of Care 149 mg/dl (65-105)
== END 2023-04-15 18:40 | DRG 638 ==
LOC: ANHED 21:28 → ANHIMU 22:13 → ANH2MED 04-13 18:04
PROVIDERS: Internal Medicine Nephrology; Admitting Provider Internal Medicine; Emergency Provider Emergency Medicine; PCP Emergency Medicine; Visit Provider Family Medicine
DX: E10.649 Type 1 diabetes mellitus with hypoglycemia without coma (principal); E44.0 Moderate protein-calorie malnutrition; I12.0 Hypertensive chronic kidney disease with stage 5 chronic kidney disease or end stage renal disease; Z68.1 Body mass index [BMI] 19.9 or less, adult; N18.6 End stage renal disease; E10.65 Type 1 diabetes mellitus with hyperglycemia; E10.22 Type 1 diabetes mellitus with diabetic chronic kidney disease; E87.6 Hypokalemia; E78.5 Hyperlipidemia, unspecified; E55.9 Vitamin D deficiency, unspecified; I25.10 Atherosclerotic heart disease of native coronary artery without angina pectoris; M81.0 Age-related osteoporosis without current pathological fracture; R79.89 Other specified abnormal findings of blood chemistry; Z99.2 Dependence on renal dialysis; Z85.42 Personal history of malignant neoplasm of other parts of uterus; Z90.710 Acquired absence of both cervix and uterus; Z66 Do not resuscitate; Z79.02 Long term (current) use of antithrombotics/antiplatelets; Z11.52 Encounter for screening for COVID-19; Z79.4 Long term (current) use of insulin; Z86.73 Personal history of transient ischemic attack (TIA), and cerebral infarction without residual deficits; Z98.49 Cataract extraction status, unspecified eye; Z79.82 Long term (current) use of aspirin
CPT/HCPCS: 36415; 70450; 71045; 80048; 80053; 80069; 82948; 83605; 83735; 84100; 84145; 84484; 85025; 85027; 85610; 85730; 87040; 87635; 90945; 93005; 96361; 96374; 99285; A9270; G0378; J1815; J7030; J7040

== ENCOUNTER 2023-05-31 17:49 | Observation (INO) | payer MEDICARE, SELFPAY ==
[2023-05-31] VITALS (37 sets, daily range): BP systolic 95–172; BP diastolic 46–76; PULSE 45–62; RESP 11–18; TEMP 36.2; O2SAT 96–100; BMI 18.4
--- NOTE | 2023-05-31 18:08 | ED.GENADULT ---
HPI - General Adult General Chief complaint: Altered Mental Status Stated complaint: hypoglycemia, unresponsive Time Seen by Provider: 05/31/23 23:35 Source: patient, family and EMS Limitations: altered mental status History of Present Illness HPI narrative: Patient brought by EMS history of insulin-dependent diabetes and chronic renal failure on peritoneal dialysis daily. Living with daughter who cares for her diabetes. Daughter stated her sugar was high this morning was given 20 units of list pro insulin and then another 15 or 20 IU later this morning. Daughter stated her sugar was going down but was in 200s to 300s. Been about 2 hours and she checked on her then found her unresponsive with a glucose of 24 EMS was called and they got a value of 23 gave her 200 cc D10 and 1 mg of glucagon and she went from opening her eyes with sternal rub to back to her baseline self. Daughter states yesterday she was given 10 units of lispro and the day before she did not need any insulin. Her sugar been in the 130s to 150s. She is not on any long-acting insulin. Daughter states her mother's not been sick denies any cough sore throat runny nose difficulty breathing any pain. She walks with a walker and a cyst. She is blind in both eyes can see light after she has had multiple strokes. She does not make any urine. Denies any nausea vomiting diarrhea bleeding or bruising melanotic stools problems eating or drinking swelling lumps or bumps weakness or numbness. She has been a little lightheaded when sitting up intermittently. Denies any other complaints. Past medical history: Peritoneal dialysis from 9:00 p.m. to 7:00 a.m. daily history of cervical cancer in the past with hysterectomy diabetes hypertension hyperlipidemia multiple strokes x6 her last stroke was the end of March was admitted to [place] and then went to [facility] recently discharged from [facility] 4 days ago she had 1 episode of low blood sugar while at [facility] per daughter. She is to be on an insulin pump but no longer using this. She has a DNR status per daughter. Allergy lisinopril Related Data Allergies Allergy/AdvReac Type Severity Reaction Status Date / Time lisinopril Allergy Severe Swelling Verified 05/31/23 18:09 of Lip/Tongue/Throat Review of Systems Review of Systems: All systems reviewed & are unremarkable except as noted in HPI and below PMFSH Past Medical History Medical History Anemia Cerebrovascular accident (03/2023) Acute infarct right temporal occipital region acute infarct left basal ganglia and anterior limb left internal capsule. Old infarcts noted on imaging to left temporal occipital region left frontal parietal region and left parietal lobe End-stage renal disease on peritoneal dialysis Hyperlipidemia Hypertension Insulin dependent type 2 diabetes mellitus Nontoxic multinodular goiter Osteoporosis Secondary renal hyperparathyroidism Uterine cancer Vitamin D deficiency Surgical History Surgical History History of cataract extraction History of hysterectomy for cancer (2014) History of surgery on lower extremity Debridement of right leg infection. Family History Family History Mother , Age 86 Breast cancer Uterine cancer Father , Age 47 Acute myocardial infarction Grandparent Parkinson's disease Other Asthma Family history of alcoholism Family history of malignant neoplasm of ovary Family history of mental disorder Social History Social History Social History: Surrogate decision maker: Abyhuey Calixto, daughter. Code status: Do not resuscitate. Smoking status: Never smoker Second hand tobacco smoke exposure: No Alcohol intake: never Drinks per we
[2023-05-31 18:09] LABS: Glucose Point of Care 306 mg/dl (65-105)
[2023-05-31 18:49] LABS: Hematocrit 23.8 % (35.0-42.0); Hemoglobin 7.9 g/dL (11.7-13.8); Mean Corpuscular HGB Conc 33.2 g/dL (32.0-36.0); Mean Corpuscular Hemoglobin 29.6 pg (27.0-31.0); Mean Corpuscular Volume 89.1 fL (78.0-102.0); Mean Platelet Volume 8.9 fl (9.2-11.8); Platelet Count Result 154 K/mm3 (150-420); Red Blood Count 2.67 M/mm3 (4.20-5.40); Red Cell Distribution Width 13.6 % (11.6-14.4); White Blood Count 3.1 K/mm3 (4.8-10.8)
[2023-05-31 19:09] LABS: Lactic Acid Reflex 1.5 mmol/L (0.4-2.0)
[2023-05-31 19:12] LABS: Alanine Aminotransferase 14 U/L (14-59); Alkaline Phosphatase 63 U/L (46-116); Anion Gap 4 mmol/L (8-16); Aspartate Amino Transferase 14 U/L (15-37); Bilirubin,Total 0.4 mg/dL (0.00-1.00); Blood Urea Nitrogen 36 mg/dL (7-18); Calcium 8.2 mg/dL (8.5-10.1); Carbon Dioxide 35 mmol/L (21-32); Chloride 96 mmol/L (98-108); Estimated CRCL calculation 4 ml/min; Estimated Glomerular Filt Rate 6; Glucose 289 mg/dL (70-99); Osmolality Calculated 299 mOsm/kg (285-295); Sodium 135 mmol/L (136-145); Total Protein 5.3 g/dL (6.4-8.2)
[2023-05-31 19:16] LABS: Potassium 2.3 mmol/L (3.5-5.1)
--- NOTE | 2023-05-31 19:19 | ECG_ITS ---
Measurements Intervals [place] Rate: 44 P: 87 NM: 176 QRS: -69 QRSD: 96 T: 90 QT: 477 QTc: 412 Interpretive Statements SINUS BRADYCARDIA LEFT AXIS DEVIATION ANTEROSEPTAL INFARCT, AGE INDETERMINATE BORDERLINE ST-T WAVE ABNORMALITY- HIGH LATERAL LEADS BASELINE ARTIFACT- I, II, III, AVR, AVL ABNORMAL ECG COMPARED TO ECG 04/12/2023 18:05:15 SINUS BRADYCARDIA NOW PRESENT Electronically Signed On 06-01-2023 8:22:18 INSTRUMENTATION TECHNICIAN by Sushil Espinal D.O.
[2023-05-31] MEDS: POTASSIUM BICARBONATE 25 MEQ TABEF PO (19:46)
[2023-05-31] MEDS: KCL 20MEQ/0.9% SOD CHL 1,000 ML 100 ML IV CONT (19:46)
[2023-05-31 22:21] LABS: Glucose Point of Care 311 mg/dl (65-105)
[2023-05-31] MEDS: KCL 20MEQ/0.9% SOD CHL 1,000 ML 120 ML IV CONT (23:50)
[2023-05-31 23:59] LABS: Glucose Point of Care 289 mg/dl (65-105)
[2023-06-01] VITALS (9 sets, daily range): BP systolic 114–136; BP diastolic 53–67; PULSE 50–86; RESP 16–18; TEMP 35.3–36.6; O2SAT 94–100
--- NOTE | 2023-06-01 00:05 | ADMGEN ---
This patient, Dalila Redd, was admitted to 2nd Floor Room 207-1. Patient/family oriented to hospital policies and general routines including ID bracelet, bed and alarms, visiting hours, pain management, procedures, bathroom and other care routines, personal items, smoking policy, room service/diet, and visiting hours. Information on how to activate the Rapid Response Team has been discussed. Patient/Family are encouraged to report perceived risks to care and to ask questions if they do not understand what they are told or what they should do.
[2023-06-01] MEDS: POTASSIUM BICARBONATE 25 MEQ TABEF PO (01:23)
[2023-06-01 04:56] LABS: Glucose Point of Care 310 mg/dl (65-105)
[2023-06-01 05:20] LABS: Basophils Absolute Auto 0.04 K/mm3 (0.00-0.10); Basophils Percent Auto 0.6 % (0.0-1.0); Eosinophils Absolute Auto 0.15 K/mm3 (0.02-0.50); Eosinophils Percent Auto 2.2 % (1.0-6.0); Hematocrit 25.1 % (35.0-42.0); Hemoglobin 8.3 g/dL (11.7-13.8); Immature Granulocyte Absolute 0.02 K/mm3 (0.00-0.00); Immature Granulocyte Percent A 0.3 % (0.0-0.0); Lymphocytes Percent Auto 14.6 % (18.0-42.0); Mean Corpuscular HGB Conc 33.1 g/dL (32.0-36.0); Mean Corpuscular Hemoglobin 30.3 pg (27.0-31.0); Mean Corpuscular Volume 91.6 fL (78.0-102.0); Mean Platelet Volume 9.2 fl (9.2-11.8); Monocytes Absolute Auto 0.48 K/mm3 (0.10-0.90); Neutrophils Absolute Auto 5.2 K/mm3 (1.7-7.2); Neutrophils Percent Auto 75.3 % (50.0-70.0); Platelet Count Result 166 K/mm3 (150-420); Red Blood Count 2.74 M/mm3 (4.20-5.40); Red Cell Distribution Width 13.6 % (11.6-14.4); White Blood Count 6.9 K/mm3 (4.8-10.8)
[2023-06-01 05:42] LABS: Alanine Aminotransferase 16 U/L (14-59); Albumin Level 2.1 g/dL (3.4-5.0); Alkaline Phosphatase 67 U/L (46-116); Anion Gap 9 mmol/L (8-16); Aspartate Amino Transferase 17 U/L (15-37); Bilirubin,Total 0.6 mg/dL (0.00-1.00); Blood Urea Nitrogen 39 mg/dL (7-18); Calcium 8.4 mg/dL (8.5-10.1); Carbon Dioxide 30 mmol/L (21-32); Chloride 97 mmol/L (98-108); Estimated CRCL calculation 5 ml/min; Estimated Glomerular Filt Rate 6; Glucose 312 mg/dL (70-99); Osmolality Calculated 303 mOsm/kg (285-295); Potassium 4.8 mmol/L (3.5-5.1); Sodium 136 mmol/L (136-145); Total Protein 5.2 g/dL (6.4-8.2)
[2023-06-01 05:44] LABS: Magnesium 1.6 mg/dL (1.8-2.4)
[2023-06-01 06:52] LABS: Occult Blood Negative (Negative)
[2023-06-01 08:26] LABS: Glucose Point of Care 390 mg/dl (65-105)
--- NOTE | 2023-06-01 10:36 | PM.IMHP ---
H&P: HPI History of Present Illness Date/Time: 06/01/23 10:36 Chief Complaint: Hypoglycemia altered mental status Narrative: This is a 77-year-old female with a significant past history CVA, end-stage renal disease on peritoneal dialysis, hyperlipidemia, hypertension, insulin-dependent type 2 diabetes mellitus, nontoxic multinodular goiter, osteoporosis, uterine cancer, hysterectomy who presents to the hospital for altered mental status. Patient lives at home with daughter who cares for her. Daughter stated that she gave her mother 20 units of Lispro insulin in the morning and then another 15 or 20 units later in the morning as her blood sugars were in the a 200-300 range. she went and checked on her mother 2 hours later and found her unresponsive with a blood glucose of 24. EMS was called and when they arrived they got a value of 23. EMS gave her 200ml of D10 and 1 mg of glucagon while in route. On arrival to the ER blood sugar was 306. Workup in the hospital includes labs which showed a white blood cell count of 3.1, RBC 2.67, hemoglobin 7.9, hematocrit 23.8, sodium 135, potassium 2.3, chloride 96, bicarb 35, BUN 36, creatinine 6.73, blood sugars ranging 289 to 306, serum osmolarity 299, calcium 8.2, lactic acid 1.5, liver enzymes are normal, albumin 2.0. EKG was performed which showed sinus bradycardia with the rate of 44. She was given potassium overnight as well as some IV fluids. Patient did not receive peritoneal dialysis overnight. On examination today patient is alert to voice and oriented x3. She denies any pain or discomfort at this time. VSS, she is afebrile, currently on room air. She denies any nausea, vomiting, diarrhea, abdominal pain, chest pain, shortness a breath, fever, chills.Labs today revealed white blood cell count of 6.9, RBC 2.74, hemoglobin 8.3, hematocrit 25.1, sodium 136, potassium 4.8, chloride 97, bicarb 30, BUN 39, creatinine 6.95, blood sugars ranging 310-390, anion gap is 9, serum osmolarity 303, calcium 8.4, magnesium 1.6, liver enzymes are normal, albumin 2.1. Stool culture blood was negative. No imaging or cultures were done in this admission. Review of Systems Review of Systems: All systems reviewed & are unremarkable except as noted in HPI and below Constitutional: Constitutional: Reports as per HPI and Reports no additional constitutional complaints Eyes: Eyes: Reports as per HPI and Reports no additional eye complaints Comments: blind ENT: Reports system reviewed and no additional complaints, except as documented and Reports as per HPI Cardiovascular: Cardiovascular: Reports as per HPI and Reports no additional cardiovascular complaints Respiratory: Respiratory: Reports as per HPI and Reports no additional respiratory complaints Gastrointestinal: Gastrointestinal: Reports as per HPI and Reports no additional gastrointestinal complaints Genitourinary: Genitourinary: Reports no additional female genitourinary complaints and Reports as per HPI Musculoskeletal: Musculoskeletal: Reports no additional musculoskeletal complaints and Reports as per HPI Integumentary/Breasts: Skin/Breast: Reports system reviewed and no additional complaints, except as docu and Reports as per HPI Neurologic: Reports system reviewed and no additional complaints, except as documented and Reports as per HPI Psychiatric: Psychiatric: Reports no additional psychiatric complaints and Reports as per HPI [facility] Past Medical History Medical History Anemia Cerebrovascular accident (03/2023) Acute infarct right temporal occipital region acute infarct left basal ganglia and anterior limb left internal capsule. Old infarcts noted on imaging to left temporal occipital region left frontal parietal region and left parietal lobe End-stage renal disease on peritoneal dialysis Hyperlipidemia Hypertension Insulin dependent type 2 diabetes mellitus Nontoxic multinodular
--- NOTE | 2023-06-01 11:12 | PM.DS ---
DS: Admitting Diagnosis Discharge Date 06/02/23 Admitting Diagnosis altered mental status DKA end-stage renal disease on peritoneal dialysis type 2 diabetes mellitus hypoglycemia hypokalemia hypertension hyperlipidemia DS: Summary Hospital Course Reason for hospitalization: altered mental status hypokalemia hypoglycemia Hospital Course: This is a 77-year-old female who presented to the hospital on 05/31/23 who presents to the hospital? for altered mental status.? Patient lives at home with daughter who cares for her.? Daughter stated that she gave her mother 20 units of Lispro insulin in the morning and then another 15 or 20 units later in the morning as her blood sugars were in the a 200-300 range.? she went and checked on her mother 2 hours later and found her unresponsive with a blood glucose of 24.? EMS was called and when they arrived they got a value of 23.? EMS gave her 200ml of D10 and 1 mg of glucagon while in route.? On arrival to the ER blood sugar was 306.? Workup in the hospital includes labs which showed a white blood cell count of 3.1, RBC 2.67, hemoglobin 7.9, hematocrit 23.8, sodium 135, potassium 2.3, chloride 96, bicarb 35, BUN 36, creatinine 6.73, blood sugars ranging 289 to 306, serum osmolarity 299, calcium 8.2, lactic acid 1.5, liver enzymes are normal, albumin 2.0.? EKG was performed which showed sinus bradycardia with the rate of 44.? She was given potassium overnight as well as some IV fluids. On examination today patient is alert to voice and oriented x3, lying in the bed. She denies any pain or discomfort at this time. Vital signs are stable, she is afebrile, currently on room air. She denies any nausea, vomiting, diarrhea, abdominal pain, chest pain, shortness a breath, fever, chills. Yesterday patients blood glucose resulted higher than 500 on glucometer. We had lab come draw her BG and it was 549. I instructed to give her 15 units of Lantus and SSI with an extra 6 units on top of the regular slide. We rechecked her 1 hour later and BG was still high at 447. We gave her 8 units x1 and then blood glucose recovered. BG now ranging 146-244. I was notified yesterday that the daughter wants to discuss hospice care considering her comorbidities. I touched base with care coordination about getting hospice started on her. Orders placed for comfort care at this time. discussed hospice versus palliative care and the difference between these two services. Daughter wishes to proceed with hospice care. Referral was made to [facility] who will meet with the daughter and patient today. Patient is stable and can be discharged home to hospice care. Status at Discharge Cognitive/behavioral status at discharge: alert and oriented x3 Functional status at discharge: uses cane/walker Overall status at discharge: patient is not back to baseline Time Spent with Patient Time attestation: Total time spent providing and/or coordinating discharge services: Time spent: Greater than 30 minutes Exam Narrative: General: In no acute distress, well nourished Head: atraumatic, no encephalopathy Eyes: patient is blind ENT: moist mucous membranes, nasal passages clear Neck: supple, no JVD, no adenopathy, trachea midline Cardiac: Normal S1 and S2. No murmur, gallops or friction rubs, peripheral pulses intact. Respiratory: Lungs clear to auscultation, no adventitious lung sounds Gastrointestinal: soft, non-distended, non-tender, normoactive bowel sounds. : She is anuric and currently on peritoneal dialysis Extremities: moves all extremities well, no edema, good ROM, strength 5/5 Skin: clean, dry, intact. No wounds or lesions. Neuro: Alert and oriented x4, cranial nerves intact, no neuro deficits. following simple commands and answering questions appropriately Psych: normal mood, normal affect, interactive DS: Data Data Completed and Pending Completed studies during hospitalization: none Pending studies at discharge:
[2023-06-01] MEDS: carvediloL 6.25 MG TABLET PO ×2 (11:36→21:19)
[2023-06-01] MEDS: INSULIN GLARGINE (*BKC) 1,000 UNITS/10 ML VIAL 15 UNITS SUB-Q ×2 (11:37→17:48)
[2023-06-01] MEDS: CLOPIDOGREL BISULFATE 75 MG TABLET PO (11:37)
[2023-06-01] MEDS: hydrALAZINE HCL 25 MG TABLET PO ×2 (11:37→17:27)
[2023-06-01] MEDS: INSULIN HUMAN LISPRO (*BKC) 1,000 UNITS/10 ML VIAL SUB-Q ×2 (11:40→17:27)
[2023-06-01 11:45] LABS: Glucose Point of Care > 450 mg/dl (65-105)
[2023-06-01 12:17] LABS: Glucose 549 mg/dL (70-99)
[2023-06-01] MEDS: INSULIN HUMAN LISPRO (*BKC) 1,000 UNITS/10 ML VIAL 6 UNITS SUB-Q (12:19)
--- NOTE | 2023-06-01 13:36 | PC.NURSE ---
1145 architectural wood model maker aware of blood sugar at 500. lab is on way to draw.
[2023-06-01 13:51] LABS: Glucose Point of Care > 450 mg/dl (65-105)
--- NOTE | 2023-06-01 13:58 | PC.NURSE ---
wet mixer aware of 470 and new orders. daughter in and out.
[2023-06-01] MEDS: INSULIN HUMAN LISPRO (*BKC) 1,000 UNITS/10 ML VIAL 8 UNITS SUB-Q (14:05)
--- NOTE | 2023-06-01 14:13 | PC.NURSE ---
family at bedside. daughter wants to let us know that it is okay to keep her over night because, she claims she has been talking with the family all day and they are not going to cont dialysis when they get. claims she will let her christian science healer know this in am and wanting info on hospice. wood turner made aware of this.
[2023-06-01 14:18] LABS: Anion Gap 13 mmol/L (8-16); Blood Urea Nitrogen 47 mg/dL (7-18); Calcium 8.4 mg/dL (8.5-10.1); Carbon Dioxide 25 mmol/L (21-32); Chloride 95 mmol/L (98-108); Estimated CRCL calculation 4 ml/min; Estimated Glomerular Filt Rate 5; Osmolality Calculated 307 mOsm/kg (285-295); Potassium 4.1 mmol/L (3.5-5.1); Sodium 133 mmol/L (136-145)
[2023-06-01 14:19] LABS: Glucose 447 mg/dL (70-99)
[2023-06-01 15:21] LABS: Glucose Point of Care 361 mg/dl (65-105)
[2023-06-01 17:26] LABS: Glucose Point of Care 244 mg/dl (65-105)
[2023-06-01] MEDS: ATORVASTATIN 40 MG TABLET PO (21:19)
[2023-06-01 21:34] LABS: Glucose Point of Care 146 mg/dl (65-105)
[2023-06-02] VITALS: BP 96/50; PULSE 68; RESP 16; TEMP 36.1; O2SAT 99
[2023-06-02 04:00] VITALS: BP 125/63; PULSE 59; RESP 16; TEMP 35.6; O2SAT 99
--- NOTE | 2023-06-02 07:24 | PC.NURSE ---
Patient was sleeping in her bed at the start of the shift. Patient did not respond very much, although she would make hmm noises when she was talked to. She did occasionally say no when something was done that she did not like, and after she was made ready for bed (washed her face, and attempted to do oral care with the green sponges) and told good night, she responded good night . Patient was incontinent of stool, although it was just a smear. Patient was cleaned up, and she went right back to sleep. She slept through her accu-check, and woke briefly for the vitals taken every 4 hours. Otherwise, the patient was sleeping.
[2023-06-02 08:00] VITALS: BP 120/54; PULSE 80; RESP 18; TEMP 36.1; O2SAT 95
[2023-06-02 08:55] LABS: Glucose Point of Care 42 mg/dl (65-105)
[2023-06-02 09:12] LABS: Glucose Point of Care 57 mg/dl (65-105)
[2023-06-02 09:16] LABS: Glucose 52 mg/dL (70-99)
--- NOTE | 2023-06-02 09:24 | PC.NURSE ---
0855 accucheck 42. she is wide awake and talking.asking for duaghter that just left room. asks where she is. drinking oj from cup. spoon feed hr cream wheat. renewal specialist and lab aware of bs
[2023-06-02 10:03] LABS: Glucose Point of Care 105 mg/dl (65-105)
[2023-06-02 12:00] VITALS: PULSE 78; RESP 18; TEMP 36.6; O2SAT 94
[2023-06-02 15:29] VITALS: BP 116/67; PULSE 71; RESP 16; TEMP 36.3; O2SAT 97
--- NOTE | 2023-06-02 17:22 | P.PNIM_ITS ---
Progress Note: A&P Assessment and Plan (1) Hypoglycemia: Code(s): E16.2 - Hypoglycemia, unspecified Status: Acute Assessment and Plan: 06/01/23: * patient was given 20 units Lispro insulin in the morning followed by another 15 or 20 units later that morning as the patient was ranging 200-300 on her blood sugar. Daughter went back and checked on her 2 hours later and found her unresponsive with a blood glucose of 24. EMS was called and on their arrival they got a blood sugar reading of 23. They gave her 200 mL of D10 and 1 mg of glucagon while in route to the hospital. On arrival to the hospital patient blood sugar was 306. * Blood sugar ranging 303-390 this morning. * Hypoglycemia has resolved. 06/01/2023: * blood sugars ranging in the 50s this morning with intervention, repeat went to 105. * patient now comfort measures only and will go home hospice tomorrow * Accu-Cheks and medications discontinued at this time (2) Insulin dependent type 2 diabetes mellitus: Code(s): E11.9 - Type 2 diabetes mellitus without complications; Z79.4 - parts counterman (current) use of insulin Status: Acute Assessment and Plan: 06/01/23: * Patient currently takes 15 units Lantus and has not insulin KwikPen for sliding scale. Daughter is her main caregiver And administers her medications. * last hemoglobin A1c was 6.4 on 03/12/2023 which was down from 8.8 back in July of this year * continue Accu-Cheks AC and HS * Lantus 15 units b.i.d. reordered with 1st dose now * moderate dose sliding scale insulin ordered * hypoglycemic protocol in place 06/02/2023: * see above plan of care (3) End-stage renal disease on peritoneal dialysis: Code(s): N18.6 - End stage renal disease; Z99.2 - Dependence on renal dialysis Status: Acute Assessment and Plan: 06/01/23: * patient has diagnosis of end-stage renal disease and is currently on peritoneal dialysis * she is anuric * BUN 39, creatinine 6.95, and GFR is 6, creatinine clearance is 5 * her peritoneal dialysis was placed on hold last night as she was admitted. will plan to discharge today * patient placed on renal dialysis diet while inpatient 06/02/2023: * patient currently on comfort measures only, peritoneal dialysis is now on hold, she will go home hospice tomorrow (4) Recent cerebrovascular accident: Code(s): Z86.73 - Personal history of transient ischemic attack (TIA), and cerebral infarction without residual deficits Status: Chronic Assessment and Plan: 06/01/23: * patient has had multiple strokes in the past with a recent stroke with rehab. She was discharged about 4-5 days from rehab. 06/02/2023: * patient made comfort measures only and will go home hospice tomorrow (5) Hypertension: Qualifiers: Hypertension type: secondary to other renal disorders Qualified Code(s): I15.1 - Hypertension secondary to other renal disorders; N28.89 - Other specified disorders of kidney and ureter Code(s): I10 - Essential (primary) hypertension Status: Chronic Assessment and Plan: 06/01/23: * Blood pressure today ranging 114/53 to 136/59 * for will restart home medication of Coreg 6.25, hydralazine 20 mg twice a day 06/02/2023: * blood pressure medications discontinued as patient is now on comfort measures only and will go home hospice tomorrow Time Spent With Patient Time with patient: Greater than 35 minutes Subjective Date/time seen: 06/02/23 17:22 Interval history: 06/01/23: This is a 7
--- NOTE | 2023-06-02 17:22 | PM.IMPN ---
Progress Note: A&P Assessment and Plan (1) Hypoglycemia: Code(s): E16.2 - Hypoglycemia, unspecified Status: Acute Assessment and Plan: 06/01/23: patient was given 20 units Lispro insulin in the morning followed by another 15 or 20 units later that morning as the patient was ranging 200-300 on her blood sugar. Daughter went back and checked on her 2 hours later and found her unresponsive with a blood glucose of 24. EMS was called and on their arrival they got a blood sugar reading of 23. They gave her 200 mL of D10 and 1 mg of glucagon while in route to the hospital. On arrival to the hospital patient blood sugar was 306. Blood sugar ranging 303-390 this morning. Hypoglycemia has resolved. 06/01/2023: blood sugars ranging in the 50s this morning with intervention, repeat went to 105. patient now comfort measures only and will go home hospice tomorrow Accu-Cheks and medications discontinued at this time (2) Insulin dependent type 2 diabetes mellitus: Code(s): E11.9 - Type 2 diabetes mellitus without complications; Z79.4 - paper box maker (current) use of insulin Status: Acute Assessment and Plan: 06/01/23: Patient currently takes 15 units Lantus and has not insulin KwikPen for sliding scale. Daughter is her main caregiver And administers her medications. last hemoglobin A1c was 6.4 on 03/12/2023 which was down from 8.8 back in July of this year continue Accu-Cheks AC and HS Lantus 15 units b.i.d. reordered with 1st dose now moderate dose sliding scale insulin ordered hypoglycemic protocol in place 06/02/2023: see above plan of care (3) End-stage renal disease on peritoneal dialysis: Code(s): N18.6 - End stage renal disease; Z99.2 - Dependence on renal dialysis Status: Acute Assessment and Plan: 06/01/23: patient has diagnosis of end-stage renal disease and is currently on peritoneal dialysis she is anuric BUN 39, creatinine 6.95, and GFR is 6, creatinine clearance is 5 her peritoneal dialysis was placed on hold last night as she was admitted. will plan to discharge today patient placed on renal dialysis diet while inpatient 06/02/2023: patient currently on comfort measures only, peritoneal dialysis is now on hold, she will go home hospice tomorrow (4) Recent cerebrovascular accident: Code(s): Z86.73 - Personal history of transient ischemic attack (TIA), and cerebral infarction without residual deficits Status: Chronic Assessment and Plan: 06/01/23: patient has had multiple strokes in the past with a recent stroke with rehab. She was discharged about 4-5 days from rehab. 06/02/2023: patient made comfort measures only and will go home hospice tomorrow (5) Hypertension: Qualifiers: Hypertension type: secondary to other renal disorders Qualified Code(s): I15.1 - Hypertension secondary to other renal disorders; N28.89 - Other specified disorders of kidney and ureter Code(s): I10 - Essential (primary) hypertension Status: Chronic Assessment and Plan: 06/01/23: Blood pressure today ranging 114/53 to 136/59 for will restart home medication of Coreg 6.25, hydralazine 20 mg twice a day 06/02/2023: blood pressure medications discontinued as patient is now on comfort measures only and will go home hospice tomorrow Time Spent With Patient Time with patient: Greater than 35 minutes Subjective Date/time seen: 06/02/23 17:22 Interval history: 06/01/23: This is a 77-year-old female with a significant past history CVA, end-stage renal disease on peritoneal dialysis, hyperlipidemia, hypertension, insulin-dependent type 2 diabetes mellitus, nontoxic multinodular goiter, osteoporosis, uterine cancer, hysterectomy who presents to the hospital? for altered mental status.? Patient lives at home with daughter who cares for her.? Daughter stated that she gave her mother 20 units of Lispro insuli
[2023-06-02 20:00] VITALS: PULSE 71; RESP 16; O2SAT 97
--- NOTE | 2023-06-02 23:36 | PC.NURSE ---
Pt restless/confused, noted yelling out in room for her daughter Aby. Pt noted to have removed IV from LAC, bleeding noted to bed linens. Bleeding stopped, bed linens changed, pt reoriented to place and time. IV not restarted d/t comfort care and has not needed any IV meds. No s/sx distress noted.
[2023-06-03] VITALS: BP 124/58; PULSE 75; RESP 16; TEMP 36.4; O2SAT 96
--- NOTE | 2023-06-03 07:42 | PM.DS ---
DS: Admitting Diagnosis Discharge Date 06/03/2022 Admitting Diagnosis Hypoglycemia, insulin-dependent type 2 diabetes mellitus, acute hypokalemia, end-stage renal disease on peritoneal dialysis, recent CVA, hypertension, hyperlipidemia DS: Discharge Diagnosis Discharge Diagnosis (1) Hypoglycemia: Code(s): E16.2 - Hypoglycemia, unspecified Status: Acute (2) Insulin dependent type 2 diabetes mellitus: Code(s): E11.9 - Type 2 diabetes mellitus without complications; Z79.4 - retirement (current) use of insulin Status: Acute (3) End-stage renal disease on peritoneal dialysis: Code(s): N18.6 - End stage renal disease; Z99.2 - Dependence on renal dialysis Status: Acute (4) Recent cerebrovascular accident: Code(s): Z86.73 - Personal history of transient ischemic attack (TIA), and cerebral infarction without residual deficits Status: Chronic (5) Hypertension: Qualifiers: Hypertension type: secondary to other renal disorders Qualified Code(s): I15.1 - Hypertension secondary to other renal disorders; N28.89 - Other specified disorders of kidney and ureter Code(s): I10 - Essential (primary) hypertension Status: Chronic (6) Hospice care: Code(s): Z51.5 - Encounter for palliative care Status: Acute DS: Summary Hospital Course Reason for hospitalization: Altered level of consciousness with hypoglycemia Hospital Course: This is a 77-year-old female patient type 2 diabetic insulin end-stage renal disease on peritoneal dialysis who was admitted to hospital for altered level of consciousness with hypoglycemia. Patient had extreme swings in blood sugar elevations and low levels. Family decided to stop giving peritoneal dialysis and enroll patient in hospice which was arranged for home care to start today. This morning patient was much more awake and alert denied any complaints stated she was ready to go home. Status at Discharge Cognitive/behavioral status at discharge: Awake alert pleasant Functional status at discharge: wheelchair bound Overall status at discharge: patient is not back to baseline Time Spent with Patient Time attestation: Total time spent providing and/or coordinating discharge services: 40 minutes Time spent: Greater than 30 minutes Exam Narrative: GENERAL: well-nourished, in no acute distress. HEAD: Normocephalic, atraumatic. ENT:? Mucous membranes moist. CHEST: Clear to auscultation.? No respiratory distress. HEART: Regular rate and rhythm. ? Normal peripheral pulses. ABDOMEN: Soft, nontender, nondistended. PD catheter intact EXTREMITIES: Normal range of motion. No peripheral edema. SKIN: Warm dry normal color NEURO: Awake and alert, moving all extremities well PSYCH: Normal mood and affect DS: Data Data Completed and Pending Labs on day of discharge: Labs from last 24 hours 06/02/23 06/02/23 06/02/23 10:00 09:10 09:00 Glucose 52 L POC Capillary Glucose 105 57 L* 06/02/23 08:50 Glucose POC Capillary Glucose 42 L* Discharge Plan Discharge Attending physician on discharge: Mich Jimenez Consulting providers: Umer Castañeda Discharging Clinician: Umer Castañeda Anticipated Discharge Date/Time: 06/02/23 07:37 Patient Disposition: Hospice - Home Activity: as tolerated Diet: as tolerated Discharge Instructions: Plan is for comfort measures only and home hospice care Patient Instructions: Hypokalemia (DC), Hospice Care (GEN), Hypoglycemia in a Person with Diabetes (DC), Fall Prevention for Older Adults (DC) Patient Language: Turkmen Stand Alone Forms: General Discharge Information Follow-up/Referrals: Chandan Benites MD [Primary Care Provider] - 1 week (Call Dr. Benites office for follow up following hospital stay. office closed today.) Discharge Medications: Discontinued calcium acetate 667 mg Tablet 667 mg PO TID hydralazine 25 mg ta
[2023-06-03 07:46] VITALS: BP 127/56; PULSE 72; RESP 16; TEMP 36.6; O2SAT 99
--- NOTE | 2023-06-03 10:35 | PC.NURSE ---
Patient discharged to home with [facility] to follow
--- NOTE | 2023-06-04 08:21 | PC.NURSE ---
Discharge call back completed, spoke with Aby patients daughter, hospice had everything set up and no questions regarding dc
== END 2023-06-03 10:35 | disposition hospice, home (50) ==
LOC: CHSED 18:34 → CHS2ND 23:24
PROVIDERS: Nurse Practitioner Acute Care; Admitting Provider Internal Medicine; Emergency Provider Emergency Medicine; PCP Emergency Medicine; Visit Provider Internal Medicine
DX: T38.3X1A Poisoning by insulin and oral hypoglycemic [antidiabetic] drugs, accidental (unintentional), initial encounter (principal); E11.649 Type 2 diabetes mellitus with hypoglycemia without coma; E87.6 Hypokalemia; I12.0 Hypertensive chronic kidney disease with stage 5 chronic kidney disease or end stage renal disease; N18.6 End stage renal disease; E11.22 Type 2 diabetes mellitus with diabetic chronic kidney disease; Z99.2 Dependence on renal dialysis; D63.1 Anemia in chronic kidney disease; I69.398 Other sequelae of cerebral infarction; H54.7 Unspecified visual loss; E78.5 Hyperlipidemia, unspecified; E04.2 Nontoxic multinodular goiter; M81.0 Age-related osteoporosis without current pathological fracture; N25.81 Secondary hyperparathyroidism of renal origin; E55.9 Vitamin D deficiency, unspecified; Z66 Do not resuscitate; Z99.89 Dependence on other enabling machines and devices; Z79.82 Long term (current) use of aspirin; Z79.4 Long term (current) use of insulin; Z79.02 Long term (current) use of antithrombotics/antiplatelets; Z79.899 Other long term (current) drug therapy
CPT/HCPCS: 36415; 80048; 80053; 82947; 82948; 83605; 83735; 85025; 85027; 93005; 96365; 96366; 99285; A9270; G0378; J1815; J3480